=== PATIENT | male | born 1965 | race Caucasian/White ===

== ENCOUNTER 2019-10-31 10:59 | Inpatient (IN) | payer MEDICAID ==
[~2019-10-31] VITALS: Ht 175.3 cm; Wt 91.6 kg
--- NOTE | 2019-10-31 11:00 | NUR ---
RECIEVED PATIENT FROM TRIAGE REFERED TO THE ER FROM HIS DR'S OFFICE. PATIENT AAOX4 SKIN W/D TO TOUCH, SKIN AND EYES ICTERIC, PT W/ PRESENT HX OF ETOH ABUSE, LAST DRINK WAS LAST NIGHT. DENIES BLOOD IN STOOL, LAST BM LAST NIGHT. HAS HAND TREMORS. NAD. PENDING EKG, AND MD BERNARD.
--- NOTE | 2019-10-31 11:02 | NUR ---
Patient ambulated to bed 4. RN evaluating patient at bedside.
--- NOTE | 2019-10-31 11:03 | NUR ---
EKG completed at bedside by EMT.
[2019-10-31 11:07] VITALS: BP 157/100
--- NOTE | 2019-10-31 11:15 | NUR ---
EKG COMPLETED, CONTROLLED AFIB @ 106 BPM.
--- NOTE | 2019-10-31 11:41 | NUR ---
Dr. Fletcher is evaluating the patient at bedside.
--- NOTE | 2019-10-31 11:48 | NUR ---
C/O GENERALIZED WEAKNESS AND TREMORS; ADMITS TO BINGE DRINKING >3 WKS PT UNAWARE OF JAUNDICE APPEARING, REF FROM OUTSIDE CLINIC FOR ABNORMAL ECG S/P F/U FOR SEIZURE OCCURENCE DENIES CP, NO SOB , DENIES AUDITORY/VISUAL HALLUCINATIONS AT THIS TIME
[2019-10-31] MEDS ORDERED: LORazepam 2 MG/ML VIAL IVP ONE (11:50)
[2019-10-31] MEDS ORDERED: NACL 0.9% 1,000 ML IV ONE (11:50)
[2019-10-31 12:29] LABS: BASOPHILS # (AUTO) 0.1 K/uL (0.00-0.22); BASOPHILS % (AUTO) 1.8 % (0.0-2.0); EOSINOPHILS # (AUTO) 0.2 K/uL (0-0.4); EOSINOPHILS % (AUTO) 4.3 % (0.0-4.0); HEMATOCRIT 33.8 % (36-52); HEMOGLOBIN 10.6 g/dL (12.0-18.0); LYMPHOCYTES # (AUTO) 0.8 K/uL (2.0-11.5); LYMPHOCYTES % (AUTO) 16.7 % (20.5-51.1); MEAN CORPUSCULAR HEMOGLOBIN 25 pg (27-31); MEAN CORPUSCULAR HGB CONC 31 g/dL (33-37); MEAN CORPUSCULAR VOLUME 79.3 fL (80-94); MONOCYTES # (AUTO) 0.6 K/uL (0.8-1.0); MONOCYTES % (AUTO) 11.9 % (1.7-9.3); NEUTROPHILS # (AUTO) 3.1 K/uL (1.8-7.7); NEUTROPHILS % (AUTO) 65.3 % (42.2-75.2); PLATELET COUNT (AUTO) 162 K/uL (140-450); RED BLOOD CELL COUNT(AUTO) 4.27 MIL/uL (4.20-6.10); RED CELL DISTRIBUTION WIDTH 21.7 % (11.6-13.7); WHITE BLOOD COUNT (AUTO) 4.8 K/uL (4.8-10.8)
[2019-10-31 12:35] LABS: ANION GAP 17.9 (8-16); CARBON DIOXIDE 25.5 mmol/L (21-32); CREATININE 0.7 mg/dL (0.7-1.3); POTASSIUM 3.4 mmol/L (3.5-5.1)
[2019-10-31 12:42] LABS: PROTHROMBIN TIME 9.9 secs (10.8-13.4)
[2019-10-31 12:43] LABS: ALBUMIN 3.7 g/dL (3.4-5.0); TOTAL BILIRUBIN 1.2 mg/dL (0.0-1.0)
[2019-10-31] MEDS ORDERED: LORazepam 2 MG/ML VIAL IVP PRN (13:40)
[2019-10-31] MEDS ORDERED: HYDROcodone/APAP 5/325 MG 1 TAB TAB PO PRN (13:45)
[2019-10-31] MEDS ORDERED: ZOLPIDEM 5 MG TAB PO PRN (13:45)
[2019-10-31] MEDS ORDERED: DOCUSATE SODIUM 100 MG GELCAP PO PRN (13:45)
[2019-10-31] MEDS ORDERED: ONDANSETRON 4 MG/2 ML VIAL IM/IVP PRN (13:45)
[2019-10-31] MEDS ORDERED: ACETAMINOPHEN 325 MG TAB PO PRN (13:45)
[2019-10-31] MEDS ORDERED: MORPHINE SULFATE 2 MG/ML SYR IVP PRN (13:45)
[2019-10-31] MEDS ORDERED: LORazepam 2 MG/ML VIAL IM/IVP PRN ×2 (13:45→19:10)
[2019-10-31] MEDS ORDERED: KCL 20 MEQ/WATER INJ PREMIX 100 ML IV SCH ×2 (14:00→21:00)
--- NOTE | 2019-10-31 14:00 | NUR ---
S/P ATIVAN ADMIN, PT W/ IMPROVED TREMORS. STABLE AT PRESENT NAD NOTED, PT IS TALKATIVE. SEEN BY ADMITTING RESIDENT MD. PT ADMITTED PENDING ROOM DISPO.
--- NOTE | 2019-10-31 14:00 | NUR ---
KCL NOT GIVEN AT THIS TIME AND WILL RESCHEDULE LATER TONIGHT PATIENT NEEDS TO GET BANNANA BAG FIRST DUE TO DX:ETOH WITHDRAWAL. WILL CONTINUE TO MONITOR.
[2019-10-31 14:20] VITALS: BP 147/86
[2019-10-31] MEDS ORDERED: MULTIVITAMIN-12 10 ML, THIAMINE 100 MG, MAGNESIUM SULFATE 50% 2,000 MG, FOLIC ACID 1 MG... IV SCH ×5 (14:30)
--- NOTE | 2019-10-31 14:41 | NUR ---
Patient will be admitted to care of DR. ARITA. Admited FROM ED TO [facility] FLOOR ROOM 112B. BEDSIDE REPORT GIVEN TO JOSESITO SMILEY.Belongings list completed- A SHIRT, JACKET, SHOES, PHONE AND WALLET- REVIEWED W/ KAT SMILEY.PT IN BED AAOX4, TALKATIVE W/ NURSING STAFF. NAD NOTED.
[2019-10-31] MEDS ORDERED: KEP500 PO (15:20)
[2019-10-31] MEDS: NACL 0.9% 1,000 ML IV SCH ×2 (15:38→21:59)
--- NOTE | 2019-10-31 15:38 | NUR ---
PATIENT AMBULATED TO BATHROOM AND BACK TO BED WITH STEADY GAIT. SCHEDULED MEDICATIONS DUE GIVEN. WILL CONTINUE TO MONITOR.
[2019-10-31 16:35] LABS: CHOL/HDL RATIO 2.1 (1-4.5); MAGNESIUM 1.3 mg/dL (1.8-2.4); PHOSPHORUS 3.4 mg/dL (2.5-4.9); THYROID STIMULATING HORMONE 3.46 uIU/mL (0.34-3.74)
[2019-10-31 16:45] LABS: BARBITURATE, URINE NEG. ng/ml (NEG <=200); BENZODIAZEPINE, URINE NEG. ng/mL (NEG <=200); CANNABINOID, URINE NEG. ng/mL (NEG <=50); COCAINE, URINE NEG. ng/mL (NEG <=300); OPIATE, URINE NEG. ng/mL (NEG <=2000); PHENCYCLIDINE SCREEN,URINE NEG. ng/mL (NEG <=25)
[2019-10-31] MEDS: chlordiazePOXIDE 25 MG CAP PO SCH (17:32)
[2019-10-31 18:43] LABS: APPEARANCE,URINE CLEAR (CLEAR); BILIRUBIN,URINE NEGATIVE (NEGATIVE); BLOOD, URINE NEGATIVE (NEGATIVE); COLOR,URINE YELLOW (YELLOW); LEUKOCYTE ESTERASE ,URINE NEGATIVE (NEGATIVE); NITRITE, URINE NEGATIVE (NEGATIVE); PH,URINE 6.5 (5.0-9.0); UGLUCOSE NEGATIVE (NEGATIVE)
[2019-10-31 18:53] LABS: RBC,URINE 0 /HPF (0-5); WBC,URINE 0-5 /HPF (0-5)
[2019-10-31 18:54] LABS: HYALINE CASTS, URINE 0-10 /LPF (None Seen)
[2019-10-31] MEDS ORDERED: MAG SULF 2000 MG/WATER PREMIX 50 ML IV ONE (19:10)
--- NOTE | 2019-10-31 19:19 | NUR ---
ENDORSED BED SIDE REPORT TO INSURANCE CLAIMS REPRESENTATIVE NURSE. PATIENT IN STABLE CONDITION.
--- NOTE | 2019-10-31 19:20 | NUR ---
RECEIVED BEDSIDE REPORT FROM DAY SHIFT NURSE, KAT. PT NO SOB NOTED IN ROOM AIR. DENIES PAIN AT THIS TIME. IV SITE ON LH, 20G, PATENT, INTACT AND ASYMPTOMATIC. SKIN INTACT, WARM AND DRY TO TOUCH. POC REVIEWED, PT VERBALIZED UNDERSTANDING. BOARD UPDATED, ALL SAFETY MEASUREMENT ARE MET. BED IN LOW POSITION, CALL LIGHT WITHIN REACH.
[2019-10-31] MEDS: LACTULOSE 20 GM/30 ML UDC PO SCH (19:48)
--- NOTE | 2019-10-31 19:55 | NUR ---
GIVEN CEPHULAC AND MAG MD ORDERED. PT TOLERATED WELL.
[2019-10-31 20:00] VITALS: BP 132/96
[2019-10-31] MEDS: levETIRAcetam 500 MG TAB PO SCH (21:07)
--- NOTE | 2019-10-31 21:13 | NUR ---
GIVEN HEPARIN AND KEPPRA MD ORDERED. PT TOLERATED WELL.
--- NOTE | 2019-10-31 21:58 | NUR ---
GIVEN POTASSIUM MD ORDERED. PT TOLERATED WELL. WILL CONTINUE TO MONITOR.
--- NOTE | 2019-10-31 23:06 | NUR ---
PT C/O ABD PAIN 01/09. GIVEN TYLENOL MD ORDERED. PT TOLERATED WELL.
--- NOTE | 2019-10-31 23:40 | NUR ---
PT VOMITED. GIVEN ZOFRAN MD ORDERED. PT STATED FEEL BETTER.
[2019-11-01] VITALS: BP 126/85
--- NOTE | 2019-11-01 | NUR ---
MADE ROUNDS , NO SIGNS OF DISTRESS NOTED AT THIS TIME . CALL LIGHT WITHIN REACH.
--- NOTE | 2019-11-01 00:05 | NUR ---
VS CHECKED, WITHIN PT'S BASELINE. WILL CONTINUE TO MONITOR.
--- NOTE | 2019-11-01 01:42 | NUR ---
PT HAD 5X DIARRHEA. REPORTED RESIDENT DR. VAZ C.DIFF ORDER RECEIVED D/T LACTULOSE GIVEN. TOLD RN TO KEEP LACTULOSE IN THE ORDER BUT HOLD IT D/T DIARRHEA. WILL CONTINUE TO MONITOR.
--- NOTE | 2019-11-01 03:55 | NUR ---
VS CHECKED, WITHIN PT'S BASELINE. WILL CONTINUE TO MONITOR.
[2019-11-01 04:00] VITALS: BP 132/93
--- NOTE | 2019-11-01 05:21 | NUR ---
OBTAINED PT'S SIGNATURE FOR MEDICAL RECORD AUTHORIZATION OF [facility] AND [facility].
[2019-11-01] MEDS: PANTOPRAZOLE 40 MG TABEC PO SCH (06:36)
--- NOTE | 2019-11-01 06:36 | NUR ---
GIVEN PROTONIX MD ORDERED. PT TOLERATED WELL. PT IN STABLE CONDITION.
--- NOTE | 2019-11-01 07:15 | NUR ---
RECEIVED PT FROM PRINTER SLOTTER HELPER NURSE, MARTA, PT IS AWAKE AND LYING ON THE BED WITH SIDE RAILS UP AND CALL LIGHT WITHIN REACH, IV LINE ON THE LEFT HAND G. 20 WITH NS INFUSING AT 60ML/HR, AOX4, ON ROOM AIR, DENIES PAIN AND NO SIGN OF DISTRESS NOTED. WILL CONTINUE TO MONITOR PT.
[2019-11-01 08:00] VITALS: BP 116/85
[2019-11-01 08:05] LABS: BASOPHILS # (AUTO) 0.1 K/uL (0.00-0.22); BASOPHILS % (AUTO) 1.1 % (0.0-2.0); EOSINOPHILS # (AUTO) 0.2 K/uL (0-0.4); EOSINOPHILS % (AUTO) 2.9 % (0.0-4.0); HEMATOCRIT 32.3 % (36-52); HEMOGLOBIN 10.3 g/dL (12.0-18.0); LYMPHOCYTES # (AUTO) 0.8 K/uL (2.0-11.5); LYMPHOCYTES % (AUTO) 15.1 % (20.5-51.1); MEAN CORPUSCULAR HEMOGLOBIN 26 pg (27-31); MEAN CORPUSCULAR HGB CONC 32 g/dL (33-37); MEAN CORPUSCULAR VOLUME 80.2 fL (80-94); MONOCYTES # (AUTO) 0.7 K/uL (0.8-1.0); MONOCYTES % (AUTO) 12.5 % (1.7-9.3); NEUTROPHILS # (AUTO) 3.7 K/uL (1.8-7.7); NEUTROPHILS % (AUTO) 68.4 % (42.2-75.2); PLATELET COUNT (AUTO) 138 K/uL (140-450); RED BLOOD CELL COUNT(AUTO) 4.03 MIL/uL (4.20-6.10); RED CELL DISTRIBUTION WIDTH 22.1 % (11.6-13.7); WHITE BLOOD COUNT (AUTO) 5.3 K/uL (4.8-10.8)
[2019-11-01 08:12] LABS: ANION GAP 16.5 (8-16); CARBON DIOXIDE 25.3 mmol/L (21-32); CREATININE 0.9 mg/dL (0.7-1.3); POTASSIUM 3.8 mmol/L (3.5-5.1)
[2019-11-01] MEDS: LACTULOSE 20 GM/30 ML UDC PO SCH (09:00)
[2019-11-01] MEDS ORDERED: METOPROLOL SUCCINATE 50 MG TABER PO SCH (09:00)
[2019-11-01 09:04] LABS: PHOSPHORUS 3.4 mg/dL (2.5-4.9)
--- NOTE | 2019-11-01 09:07 | NUR ---
PATIENT HAS BEEN SCREENED AND CATEGORIZED MODERATE NUTRITION RISK. PATIENT WILL BE SEEN WITHIN 3-5 DAYS OF ADMISSION. 11/03/19 11/05/[address]
[2019-11-01] MEDS: FOLIC ACID 1 MG TAB PO SCH (10:20)
[2019-11-01] MEDS: MULTIVITAMIN 1 TAB PO SCH (10:21)
[2019-11-01] MEDS: levETIRAcetam 500 MG TAB PO SCH ×2 (10:21→20:53)
[2019-11-01] MEDS: THIAMINE 100 MG TAB PO SCH (10:21)
[2019-11-01] MEDS: chlordiazePOXIDE 25 MG CAP PO SCH ×3 (10:22→17:00)
[2019-11-01] MEDS: ATORVASTATIN 20 MG TAB PO SCH (10:22)
--- NOTE | 2019-11-01 10:26 | NUR ---
GIVEN MORNING MEDICATIONS. EXPLAINED TO PATIENT THE INDICATIONS AND SIDE EFFECTS. VERBALIZED UNDERSTANDING. PATIENT TOLERATED WELL. NO SIGNS OF DISTRESS NOTED AT THIS TIME. WILL CONTINUE TO MONITOR.
[2019-11-01 12:00] VITALS: BP 110/69
--- NOTE | 2019-11-01 13:37 | NUR ---
PT IS AWAKE AND LYING ON THE BED, LIBRIUM WAS GIVEN AND TOLERATED IT.
[2019-11-01 15:25] LABS: FOLIC ACID 9.8 ng/mL (>3.0)
[2019-11-01 16:00] VITALS: BP 117/72
--- NOTE | 2019-11-01 16:00 | NUR ---
PATIENT IS AMBULATING IN THE HALLWAY. PATIENT VERBALIZED DOING 10 LAPS. PATIENT VERBALIZED NO PAIN, NO CHEST PAIN. NO DISTRESS NOTED.
--- NOTE | 2019-11-01 17:01 | NUR ---
PATIENT IS AWAKE AT THIS TIME, WATCHING TV. GIVEN LIBRIUM PO. EXPLAINED PURPOSE AND SIDE EFFECTS. VERBALIZED UNDERSTANDING. NO SIGNS OF DISTRESS NOTED. BED IN LOW POSITION. CALL LIGHT WITHIN REACH. WILL CONTINUE TO MONITOR.
--- NOTE | 2019-11-01 17:11 | NUR ---
PATIENT IS EATING SALAD CONTAINING NICHOLSON AND EGGS AT THIS TIME FROM HOME. DR. RODRIGUEZ AND DR. MESSINA WERE INFORMED. DR. RODRIGUEZ AND MAYURI STATED IT'S FINE.
--- NOTE | 2019-11-01 18:50 | NUR ---
PATIENT IS WATCHING TV AT THIS TIME. DENIES PAIN. FINISHED ALL HIS DINNER. WILL ENDORSED TO MINE SUPERINTENDENT NURSE FOR CONTINUITY CARE.
--- NOTE | 2019-11-01 19:22 | NUR ---
RECIEVED PT AAOX4 , NID , AMBULATORY , DENIES ANY PAIN , HAD 3 EPISODE OF WATERY LBM - ON LACTULOSE - FOR STOOL COLLECTION - RTEMINDS PT AND SPECIMEN BOT. PROVIDED , IV SITE INTACT AND PATENT . PLAM OF CARE DISCUSSED AND VERBALIZE UNDERSTANDING . CALL LIGHT WITHIN REACH . ON SAFETY PRECAUTION PROTOCOL - ON S2 PREC. WILL CONT. TO MONITOR.
[2019-11-01 20:00] VITALS: BP 110/70
--- NOTE | 2019-11-01 20:49 | NUR ---
INFORMED LARRY IF DUE HEPARIN SODIUM SHOULD BE GIVEN IF THE LATEST PLT COUNT IS 138 - LARRY SAID GIVE IT.
[2019-11-02] VITALS: BP 130/78
[2019-11-02] MEDS: NACL 0.9% 1,000 ML IV SCH (00:05)
--- NOTE | 2019-11-02 02:00 | NUR ---
SLEEPING - ON PIPE FITTER SUPERVISOR MAINTENANCE.CALL LIGHT WITHIN REACH
[2019-11-02 04:00] VITALS: BP 134/70
--- NOTE | 2019-11-02 04:00 | NUR ---
MADE ROUNDS , NO COMPLAIN MADE AT THIS TIME . NO SIGNS OF DISTRESS NOTED AT THIS TIME , WILL CONT. TO MONITOR.
[2019-11-02 06:15] LABS: ANION GAP 15.1 (8-16); CARBON DIOXIDE 23.6 mmol/L (21-32); CREATININE 0.7 mg/dL (0.7-1.3); POTASSIUM 3.7 mmol/L (3.5-5.1)
[2019-11-02 06:21] LABS: BASOPHILS # (AUTO) 0.1 K/uL (0.00-0.22); BASOPHILS % (AUTO) 1.2 % (0.0-2.0); EOSINOPHILS # (AUTO) 0.4 K/uL (0-0.4); EOSINOPHILS % (AUTO) 10.4 % (0.0-4.0); HEMATOCRIT 29.4 % (36-52); HEMOGLOBIN 9.2 g/dL (12.0-18.0); LYMPHOCYTES % (AUTO) 23.9 % (20.5-51.1); MEAN CORPUSCULAR HEMOGLOBIN 26 pg (27-31); MEAN CORPUSCULAR HGB CONC 31 g/dL (33-37); MEAN CORPUSCULAR VOLUME 81.1 fL (80-94); MONOCYTES # (AUTO) 0.5 K/uL (0.8-1.0); MONOCYTES % (AUTO) 11.9 % (1.7-9.3); NEUTROPHILS # (AUTO) 2.3 K/uL (1.8-7.7); NEUTROPHILS % (AUTO) 52.6 % (42.2-75.2); PLATELET COUNT (AUTO) 123 K/uL (140-450); RED BLOOD CELL COUNT(AUTO) 3.62 MIL/uL (4.20-6.10); RED CELL DISTRIBUTION WIDTH 21.7 % (11.6-13.7); WHITE BLOOD COUNT (AUTO) 4.3 K/uL (4.8-10.8)
[2019-11-02 06:23] LABS: MAGNESIUM 1.6 mg/dL (1.8-2.4); PHOSPHORUS 3.4 mg/dL (2.5-4.9)
[2019-11-02] MEDS: PANTOPRAZOLE 40 MG TABEC PO SCH (06:34)
[2019-11-02] MEDS ORDERED: MAG SULF 2000 MG/WATER PREMIX 50 ML IV SCH (07:00)
--- NOTE | 2019-11-02 07:25 | NUR ---
RECEIVED PT FROM SUSTAINABLE COMMUNITIES DESIGNER NURSE. PT IS AWAKE AND ALERT, NO S/S OF DISTRESS, NO SOB, NO C/O PAIN. PT IS ON ROOM AIR, SKIN IS INTACT. IV SITE L HAND 22 G, INFUSING NS 60 ML/HR, AND MAG RIDER 25 ML/HR. PT IS AMBULATORY. CALL LIGHT IS WITHIN REACH. WILL CONTINUE TO MONITOR.
[2019-11-02 08:00] VITALS: BP 128/90
[2019-11-02] MEDS ORDERED: FERROUS SULFATE 325 MG TABEC PO SCH (08:00)
[2019-11-02] MEDS ORDERED: LORA-476 PO ×2 (08:55→10:59)
[2019-11-02] MEDS ORDERED: ASCORBIC ACID 500 MG TAB PO SCH (09:00)
[2019-11-02] MEDS: THIAMINE 100 MG TAB PO SCH (10:46)
[2019-11-02] MEDS: FOLIC ACID 1 MG TAB PO SCH (10:46)
[2019-11-02] MEDS: levETIRAcetam 500 MG TAB PO SCH (10:46)
[2019-11-02] MEDS: LACTULOSE 20 GM/30 ML UDC PO SCH (10:46)
[2019-11-02] MEDS: MULTIVITAMIN 1 TAB PO SCH (10:49)
[2019-11-02] MEDS: chlordiazePOXIDE 25 MG CAP PO SCH (10:49)
[2019-11-02] MEDS: ATORVASTATIN 20 MG TAB PO SCH (10:49)
--- NOTE | 2019-11-02 10:56 | NUR ---
DC [age] YR OLD MALE PT WAS ADMITTED FROM HOME WITH A DX OF ALCOHOL WITHDRAWAL . PT HAS A HX OF ALCOHOLISM AND SEIZURE ON KEPPRA PO FOR SZ. STARTED ON ETOH WITHDRAWAL PROTOCOL , SZ AND FALL PRECAUTIONS . MG RIDER GIVEN FOR MG LEVEL 1.6 . DC PLAN TO GO HOME WHEN STABLE TO DISCHARGE. CM TO FOLLOW.
[2019-11-02] MEDS ORDERED: MAGNESIUM OXIDE 400 MG TAB PO SCH (11:00)
--- NOTE | 2019-11-02 11:40 | NUR ---
PT HAS DC'D. PT WAS GIVEN DC INSTRUCTIONS, TO WHICH HE VERBALIZED UNDERSTANDING. IV SITE AND WRIST BAND REMOVED. PT LEFT WITH ALL HIS BELONGINGS IN STABLE CONDITION, PICKED UP BY HIS MOTHER.
== END 2019-11-02 11:35 | disposition home or self-care (01) | DRG 280 ==
LOC: MED 10:59 → MTU 13:38
PROVIDERS: ADMIT General Practice; ATTEND General Practice
DX: K70.9 Alcoholic liver disease, unspecified (principal); K70.10 Alcoholic hepatitis without ascites; R56.9 Unspecified convulsions; I42.8 Other cardiomyopathies; K72.90 Hepatic failure, unspecified without coma; E83.42 Hypomagnesemia; F10.239 Alcohol dependence with withdrawal, unspecified; Y90.1 Blood alcohol level of 20-39 mg/100 ml; K21.9 Gastro-esophageal reflux disease without esophagitis; K42.9 Umbilical hernia without obstruction or gangrene; D50.9 Iron deficiency anemia, unspecified; E87.6 Hypokalemia; E78.5 Hyperlipidemia, unspecified; I10 Essential (primary) hypertension; R00.0 Tachycardia, unspecified; Z56.0 Unemployment, unspecified
CPT/HCPCS: 36415; 71045; 80048; 80053; 80305; 81001; 82140; 82272; 82607; 82728; 82746; 83036; 83540; 83690; 83735; 83880; 84100; 84134; 84443; 84484; 85025; 85045; 85610; 85730; 87081; 93005; 96361; 96374; 99285; A9153; G0482; J1644; J2060; J2405; J3411; J3475; J3480; J3490; J7030; Q0092

== ENCOUNTER 2019-11-05 06:27 | Emergency (ER) | payer BC, MEDICAID ==
[~2019-11-05] VITALS: Ht 175.3 cm; Wt 92.1 kg
[2019-11-05 06:27] VITALS: BP 153/104
[~2019-11-05 06:27] MED LIST: KEP500 PO; LORA-476 PO
--- NOTE | 2019-11-05 06:39 | NUR ---
PT TAKEN TO ER BED 08
--- NOTE | 2019-11-05 06:45 | NUR ---
PT ARRIVED TO ED C/O RASH X YESTERDAY. DENIES ANY PAIN. RASH PRESENT ON UPPER AND LOWER EXTREM. DENIES ANY ITCHNESS. SKIN COLOR WARM TO TOUCH. NO RESP DISTRESS NOTED. PT IS UNAWARE TO WHY HE DEVELOPED A RASH. VSS. AIRWAY PATENT AND CLEAR NKA. PMH: LEXY.
--- NOTE | 2019-11-05 06:45 | NUR ---
Note undone in EDM - 11/05/19 at 0703 by [facility] PT ARRIVED TO ED C/O RASH X YESTERDAY. DENIES ANY PIAN. RASH PRESENT ON UPPER AND LOWER EXTREM. DENIES ANY ITCHNESS. SKIN COLOR WARM TO TOUCH. NO RESP DISTRESS NOTED. PT IS UNAWARE TO WHY HE DEVELOPED A RASH. VSS. AIRWAY PATENT AND CLEAR NKA. PMH: LEXY.
--- NOTE | 2019-11-05 07:24 | NUR ---
GAVE REPORT TO BALJIT NAQVI. TRANSFER OF CARE AT THIS TIME.
[2019-11-05 08:10] VITALS: BP 132/82
--- NOTE | 2019-11-05 08:14 | NUR ---
Patient discharged with v/s stable. Written and verbal after care instructions given and explained. Patient alert, oriented and verbalized understanding of instructions. Ambulatory with steady gait. All questions addressed prior to discharge. ID band removed. Patient advised to follow up with PMD. Rx of PREDNISONE/BENADRYL given. Patient educated on indication of medication including possible reaction and side effects. Opportunity to ask questions provided and answered.
== END 2019-11-05 08:14 | disposition home or self-care (01) ==
LOC: MED 06:27
DX: R21 Rash and other nonspecific skin eruption (principal); Z79.899 Other long term (current) drug therapy; K21.9 Gastro-esophageal reflux disease without esophagitis
CPT/HCPCS: 99283

== ENCOUNTER 2019-11-25 04:07 | Emergency (ER) | payer BC, MEDICAID ==
[~2019-11-25] VITALS: Ht 177.8 cm; Wt 92.1 kg
[2019-11-25 04:15] VITALS: BP 133/64
--- NOTE | 2019-11-25 04:15 | NUR ---
54 Y/O MALE BIB SELF C/O RASHES ALL OVER THE BODY 2 HOURS AGO, NO SOB. PINK RAISED RASHES NOTED ALL THROUGHOUT BILATERAL ARMS, LEG, AND TRUNK. NO PAIN AT THIS TIME. DENIES N/V/D/FEVER/CHILLS. PATIENT STATES, " I'M ITCHY ALL OVER; AND IT CARSON" . ERMD MADE AWARE OF STATUS. SIDE RAILSX1. PLACED ON MONITOR. WILL CONTINUE TO MONITOR. PMH: GERD; SEIZURE X1 ( 2019) RX: DENIES NKDA
--- NOTE | 2019-11-25 04:15 | NUR ---
TO BED # 03 AMBULATORY
[2019-11-25] MEDS ORDERED: methylPREDNISolone SS 125 MG in WATER STERILE 2 ML IM ONE (04:45)
[2019-11-25] MEDS ORDERED: diphenhydrAMINE 50 MG/ML VIAL IM ONE (04:45)
[2019-11-25] MEDS ORDERED: methylPREDNISolone SS 125 MG/2 ML VIAL ONE (04:46)
[2019-11-25] MEDS ORDERED: WATER STERILE 10 ML MC ONE (04:46)
[2019-11-25 05:21] VITALS: BP 133/64
--- NOTE | 2019-11-25 05:22 | NUR ---
PATIENT DC BY DR. CERVANTES. GIVEN DC INSTRUCTIONS BY DR CERVANTES. PATIENT AMB TO LOBBY WITH STEADY GAIT.
== END 2019-11-25 05:21 | disposition home or self-care (01) ==
LOC: MED 04:07
DX: L50.9 Urticaria, unspecified (principal); K21.9 Gastro-esophageal reflux disease without esophagitis; Z86.69 Personal history of other diseases of the nervous system and sense organs; Z98.890 Other specified postprocedural states; Z79.899 Other long term (current) drug therapy
CPT/HCPCS: 96372; 99283; J1200; J2930

== ENCOUNTER 2019-11-27 05:18 | Emergency (ER) | payer MEDICAID ==
[~2019-11-27] VITALS: Ht 175.3 cm; Wt 95.3 kg
[2019-11-27 05:25] VITALS: BP 151/89
--- NOTE | 2019-11-27 05:25 | NUR ---
PT WALKED TO ROOM 8. RECIVED REPORT FROM GLADYS SMILEY.
--- NOTE | 2019-11-27 05:27 | NUR ---
AT BEDSIDE. PT BIB SELF FOR C/O RASH ON BOTH UE, LE, AND STOMACH. RASH IS RED, RAISED, AND ROUND SPOTS ON SKIN. PT RESPIRATIONS ARE EVEN AND UNLABORED. NO SOB. AFEBRILE. PT HAS 0/10 C/O PAIN. "I WAS HERE A FEW DAYS AGO BUT WASN'T ABLE TO GET MY MEDS." DR MARTINEZ GAVE ORDERS FOR BENADRYL IM AND SOLU-MEDROL IM. PT RESTING IN BED LOOKING AT PHONE. BED IN LOWEST POSITION AND LOCKED IN PLACE. ALLERGIES: NONE
[2019-11-27] MEDS ORDERED: diphenhydrAMINE 50 MG/ML VIAL IM ONE (05:30)
[2019-11-27] MEDS ORDERED: methylPREDNISolone SS 125 MG/2 ML VIAL IM ONE (05:30)
[2019-11-27 06:07] VITALS: BP 151/89
--- NOTE | 2019-11-27 06:08 | NUR ---
Patient discharged with v/s stable. Written and verbal after care instructions given and explained. Patient alert, oriented and verbalized understanding of instructions. Ambulatory with steady gait. All questions addressed prior to discharge. ID band removed. Patient advised to follow up with PMD. Rx of BENEDRYL, PREDNISONE given. Patient educated on indication of medication including possible reaction and side effects. Opportunity to ask questions provided and answered.
== END 2019-11-27 06:08 | disposition home or self-care (01) ==
LOC: MED 05:18
DX: L25.9 Unspecified contact dermatitis, unspecified cause (principal); R03.0 Elevated blood-pressure reading, without diagnosis of hypertension; K21.9 Gastro-esophageal reflux disease without esophagitis; Z79.899 Other long term (current) drug therapy
CPT/HCPCS: 96372; 99283; J1200; J2930

== ENCOUNTER 2019-12-16 22:30 | Emergency (ER) | payer MEDICAID ==
[~2019-12-16] VITALS: Ht 175.3 cm; Wt 99.8 kg
[2019-12-16 22:39] VITALS: BP 153/76
--- NOTE | 2019-12-16 22:39 | NUR ---
PT AMBULATED TO BE #3
--- NOTE | 2019-12-16 22:40 | NUR ---
54 Y/O MALE C/O CHEST TIGHTNESS X 0200 IN AM TODAY. DENIES ANY PAIN BUT SAYS HE HAS CHEST TIGHTNESS THAT GOES INTO HIS CHIN. HEART SOUND S1S2 PRESENT. EKG SHOWED TACHYCARDIA. LUNG SOUNDS CLEAR ALL THROUGHOUT. VSS. A & O X4. STEADY GAIT. NO SOB. NO N,V,D. NKA. PMH: SZ, UMBILICAL HERNIA, ALCOHLIC.
[2019-12-16] MEDS ORDERED: MORPHINE SULFATE 4 MG/ML SYR IVP ONE (23:10)
--- NOTE | 2019-12-16 23:15 | NUR ---
BLOOD DRAWN AND GIVEN TO LAB
[2019-12-16 23:43] LABS: BASOPHILS # (AUTO) 0.1 K/uL (0.00-0.22); BASOPHILS % (AUTO) 1.6 % (0.0-2.0); EOSINOPHILS # (AUTO) 0.3 K/uL (0-0.4); EOSINOPHILS % (AUTO) 4.6 % (0.0-4.0); HEMATOCRIT 33.3 % (36-52); HEMOGLOBIN 10.5 g/dL (12.0-18.0); LYMPHOCYTES # (AUTO) 1.4 K/uL (2.0-11.5); LYMPHOCYTES % (AUTO) 21.2 % (20.5-51.1); MEAN CORPUSCULAR HEMOGLOBIN 26 pg (27-31); MEAN CORPUSCULAR HGB CONC 32 g/dL (33-37); MEAN CORPUSCULAR VOLUME 81.1 fL (80-94); MONOCYTES # (AUTO) 0.7 K/uL (0.8-1.0); MONOCYTES % (AUTO) 10.1 % (1.7-9.3); NEUTROPHILS # (AUTO) 4.2 K/uL (1.8-7.7); NEUTROPHILS % (AUTO) 62.5 % (42.2-75.2); PLATELET COUNT (AUTO) 255 K/uL (140-450); RED CELL DISTRIBUTION WIDTH 20.2 % (11.6-13.7); WHITE BLOOD COUNT (AUTO) 6.7 K/uL (4.8-10.8)
[2019-12-16 23:51] LABS: ALBUMIN 3.6 g/dL (3.4-5.0); ANION GAP 16.8 (8-16); CREATININE 0.9 mg/dL (0.7-1.3); POTASSIUM 3.8 mmol/L (3.5-5.1); TOTAL BILIRUBIN 0.8 mg/dL (0.0-1.0)
[2019-12-17 00:03] LABS: PROTHROMBIN TIME 9.9 secs (10.8-13.4)
--- NOTE | 2019-12-17 00:19 | NUR ---
CONSENT FOR CT SIGNED. RAD MADE AWARE.
--- NOTE | 2019-12-17 00:22 | NUR ---
PT TAKEN TO CT VIA WHEELCHAIR
[2019-12-17 01:50] VITALS: BP 127/93
--- NOTE | 2019-12-17 01:50 | NUR ---
Patient discharged with v/s stable. Written and verbal after care instructions given and explained. Patient verbalized understanding. Ambulatory with steady gait. All questions addressed prior to discharge. Advised to follow up with PMD.
== END 2019-12-17 01:50 | disposition home or self-care (01) ==
LOC: MED 22:30
DX: R07.89 Other chest pain (principal); K21.9 Gastro-esophageal reflux disease without esophagitis; Z79.899 Other long term (current) drug therapy
CPT/HCPCS: 36415; 71045; 71275; 80053; 83880; 84484; 85025; 85610; 85730; 93005; 96374; 99284; J2270; Q0092; Q9967

== ENCOUNTER 2019-12-20 08:58 | Emergency (ER) | payer BC, MEDICAID ==
[~2019-12-20] VITALS: Ht 175.3 cm; Wt 95.3 kg
[2019-12-20 09:18] VITALS: BP 131/74
--- NOTE | 2019-12-20 09:18 | NUR ---
PATIENT PRESENTS TO ED WITH C/O ITCHNESS ALL OVER THE BODY X2 DAYS, REDNESS NOTED, HX OF SEIZURE. DENIES PAIN, VSS; PATIENT POSITIONED FOR COMFORT; HOB ELEVATED; BEDRAILS UP X2; BED DOWN. ER MD MADE AWARE OF PT STATUS.
--- NOTE | 2019-12-20 10:11 | NUR ---
Patient being evaluated by DR. LAMBERT at bedside.
[2019-12-20 11:18] LABS: ALBUMIN 3.3 g/dL (3.4-5.0); BILIRUBIN,DIRECT 0.2 mg/dL (0.0-0.3)
[2019-12-20 11:34] VITALS: BP 131/74
--- NOTE | 2019-12-20 11:34 | NUR ---
Patient discharged TO HOME, Written and verbal after care instructions given and explained. Rx of CLARITIN given. Patient educated on indication of medication including possible reaction and side effects. All questions addressed prior to discharge. ID band removed. Patient advised to follow up with PMD.
== END 2019-12-20 11:34 | disposition home or self-care (01) ==
LOC: MED 08:58
DX: L29.9 Pruritus, unspecified (principal); K21.9 Gastro-esophageal reflux disease without esophagitis; R03.0 Elevated blood-pressure reading, without diagnosis of hypertension; Z79.899 Other long term (current) drug therapy
CPT/HCPCS: 36415; 80076; 99283

== ENCOUNTER 2020-04-10 05:32 | Emergency (ER) | payer MEDICAID, OTHER ==
[~2020-04-10] VITALS: Ht 170.2 cm; Wt 98.9 kg
[2020-04-10 05:39] VITALS: BP 141/98
--- NOTE | 2020-04-10 05:48 | NUR ---
BIBA TO BED 11
--- NOTE | 2020-04-10 05:50 | NUR ---
55 YEAR OLD MALE COMPLAINS OF NONRADIATING 5/10 CHEST PAIN X 3 HOURS. PATIENT ALSO COMPLAINS OF NAUSEA, VOMITTING, AND DIZZINESS FOR MONTHS. BOWEL SOUNDS POSITIVE ALL QUADRANTS, DISTENDED, NONTENDER, SOFT. PATIENT DENIES SOB, LUNGS CLEAR BILATERAL. PATIENT AOX4, BREATHING EVEN AND UNLABORED, SKIN WARM AND DRY. BED IN LOWEST POSITION, LOCKED, BED RAIL UPX1. ERMD AT BEDSIDE. PT PLACED ON MONITOR, VS STABLE. PMH - ALCOHOLISM, HYPERLIPIDEMIA, HTN, SEIZURES, HERNIA ALLERGIES - NKA
--- NOTE | 2020-04-10 05:51 | NUR ---
Dr. Christian examining patient.
[2020-04-10] MEDS ORDERED: NACL 0.9% 1,000 ML IV SCH (05:56)
[2020-04-10] MEDS ORDERED: ONDANSETRON 4 MG/2 ML VIAL IVP ONE (06:00)
[2020-04-10] MEDS ORDERED: ASPIRIN 325 MG TAB PO ONE (06:00)
[2020-04-10] MEDS ORDERED: NITROGLYCERIN 0.4 MG TAB SL ONE (06:00)
[2020-04-10] MEDS ORDERED: LORazepam 2 MG/ML VIAL IVP ONE (06:00)
[2020-04-10] MEDS ORDERED: MORPHINE SULFATE 4 MG/ML SYR IVP ONE (06:00)
[2020-04-10] MEDS ORDERED: FAMOTIDINE 20 MG/2 ML VIAL IVP ONE (06:00)
--- NOTE | 2020-04-10 06:12 | NUR ---
X-Ray at bedside.
[2020-04-10 06:18] LABS: BILIRUBIN,URINE 2+ (NEGATIVE); BLOOD, URINE NEGATIVE (NEGATIVE); HEMOGLOBIN 11.3 g/dL (12.0-18.0); LEUKOCYTE ESTERASE ,URINE NEGATIVE (NEGATIVE); NITRITE, URINE NEGATIVE (NEGATIVE); PH,URINE 6.5 (5.0-9.0); UGLUCOSE NEGATIVE (NEGATIVE); WHITE BLOOD COUNT (AUTO) 7.6 K/uL (4.8-10.8)
[2020-04-10 06:27] LABS: EOSINOPHILS # (AUTO) 0.3 K/uL (0-0.4); EOSINOPHILS % (AUTO) 4.1 % (0.0-4.0); HEMATOCRIT 35.6 % (36-52); LYMPHOCYTES # (AUTO) 0.6 K/uL (2.0-11.5); LYMPHOCYTES % (AUTO) 8.1 % (20.5-51.1); MEAN CORPUSCULAR HEMOGLOBIN 26 pg (27-31); MEAN CORPUSCULAR HGB CONC 32 g/dL (33-37); MEAN CORPUSCULAR VOLUME 80.7 fL (80-94); MONOCYTES # (AUTO) 2.2 K/uL (0.8-1.0); MONOCYTES % (AUTO) 28.4 % (1.7-9.3); NEUTROPHILS # (AUTO) 4.5 K/uL (1.8-7.7); NEUTROPHILS % (AUTO) 59.4 % (42.2-75.2); PLATELET COUNT (AUTO) 265 K/uL (140-450); RED BLOOD CELL COUNT(AUTO) 4.41 MIL/uL (4.20-6.10); RED CELL DISTRIBUTION WIDTH 19.9 % (11.6-13.7)
--- NOTE | 2020-04-10 06:28 | NUR ---
PT STATES HE NO LONGER HAS CHEST PAIN/DISCOMFORT, ERMD MADE AWARE
[2020-04-10 06:33] LABS: CANNABINOID, URINE POSITIVE ng/mL (NEG <=50)
[2020-04-10 06:34] LABS: BARBITURATE, URINE NEGATIVE ng/ml (NEG <=200); BENZODIAZEPINE, URINE NEGATIVE ng/mL (NEG <=200); COCAINE, URINE NEGATIVE ng/mL (NEG <=300); OPIATE, URINE NEGATIVE ng/mL (NEG <=2000); PHENCYCLIDINE SCREEN,URINE NEGATIVE ng/mL (NEG <=25)
--- NOTE | 2020-04-10 06:36 | NUR ---
X-Ray at bedside.
[2020-04-10 06:43] LABS: ALBUMIN 3.5 g/dL (3.4-5.0); ANION GAP 17.6 (8-16); POTASSIUM 3.6 mmol/L (3.5-5.1); TOTAL BILIRUBIN 1.4 mg/dL (0.0-1.0)
[2020-04-10 06:56] LABS: AMYLASE 23 U/L (25-115); LIPASE 81 U/L (73-393)
--- NOTE | 2020-04-10 07:04 | NUR ---
REPORT GIVEN TO FAITH SMILEY, TRANSFER OF CARE AT THIS TIME
--- NOTE | 2020-04-10 07:05 | NUR ---
REPORT OBTAINED FROM MARISELA SMILEY
--- NOTE | 2020-04-10 07:05 | NUR ---
PT RESTING IN BED, SIDE RAIL X1
[2020-04-10 07:14] LABS: MAGNESIUM 0.9 mg/dL (1.8-2.4)
[2020-04-10 07:19] LABS: APPEARANCE,URINE SLIGHTLY HAZY (CLEAR); COLOR,URINE AMBER (YELLOW)
[2020-04-10 07:20] LABS: RBC,URINE NONE SEEN /HPF (0-5); WBC,URINE 0-5 /HPF (0-5)
[2020-04-10] MEDS ORDERED: MAG SULF 20 GM/H2O PREMIX DRIP 500 ML IV SCH (08:00)
[2020-04-10] MEDS ORDERED: MAG SULF IV SCH (08:05)
[2020-04-10] MEDS ORDERED: MAG SULF 2000 MG/WATER PREMIX 50 ML IV ONE (08:05)
[2020-04-10] MEDS ORDERED: [UNRECOGNIZED DRUG - OTHER] IV SCH (08:05)
[2020-04-10 09:16] VITALS: BP 125/72
--- NOTE | 2020-04-13 09:04 | NUR ---
LATE ENTRY- MAGNESIUM IVPB DISCTONIUED AT 0916.
== END 2020-04-10 09:16 | disposition home or self-care (01) ==
LOC: MED 05:32
DX: R07.2 Precordial pain (principal); R11.2 Nausea with vomiting, unspecified; R00.0 Tachycardia, unspecified; I10 Essential (primary) hypertension; K42.9 Umbilical hernia without obstruction or gangrene; K21.9 Gastro-esophageal reflux disease without esophagitis; F10.10 Alcohol abuse, uncomplicated; Z79.899 Other long term (current) drug therapy
CPT/HCPCS: 36415; 71045; 80053; 80305; 81001; 82150; 83690; 83735; 83880; 84484; 85025; 85610; 85730; 93005; 96361; 96365; 96375; 99285; G0482; J2060; J2270; J2405; J3475; J3490; J7030; Q0092

== ENCOUNTER 2020-05-15 02:08 | Emergency (ER) | payer OTHER ==
[~2020-05-15] VITALS: Ht 170.2 cm; Wt 81.6 kg
[2020-05-15 02:46] VITALS: BP 122/81
--- NOTE | 2020-05-15 03:01 | NUR ---
PT AMBULATED TO BED 12 WITH STEADY GAIT.
[2020-05-15] MEDS ORDERED: ONDANSETRON 4 MG/2 ML VIAL IVP ONE (03:25)
[2020-05-15] MEDS ORDERED: MULTIVITAMIN-12 10 ML, THIAMINE 100 MG, MAGNESIUM SULFATE 50% 2,000 MG, FOLIC ACID 1 MG... IV SCH ×5 (03:25)
[2020-05-15] MEDS ORDERED: PANTOPRAZOLE 40 MG INJ VIAL IVP ONE (03:40)
[2020-05-15 03:41] LABS: BASOPHILS # (AUTO) 0.1 K/uL (0.00-0.22); BASOPHILS % (AUTO) 1.2 % (0.0-2.0); EOSINOPHILS # (AUTO) 0.1 K/uL (0-0.4); EOSINOPHILS % (AUTO) 1.6 % (0.0-4.0); HEMATOCRIT 35.5 % (36-52); HEMOGLOBIN 11.3 g/dL (12.0-18.0); LYMPHOCYTES % (AUTO) 17.6 % (20.5-51.1); MEAN CORPUSCULAR HEMOGLOBIN 27 pg (27-31); MEAN CORPUSCULAR HGB CONC 32 g/dL (33-37); MONOCYTES # (AUTO) 0.7 K/uL (0.8-1.0); MONOCYTES % (AUTO) 11.8 % (1.7-9.3); NEUTROPHILS # (AUTO) 3.9 K/uL (1.8-7.7); NEUTROPHILS % (AUTO) 67.8 % (42.2-75.2); PLATELET COUNT (AUTO) 222 K/uL (140-450); RED BLOOD CELL COUNT(AUTO) 4.28 MIL/uL (4.20-6.10); RED CELL DISTRIBUTION WIDTH 18.5 % (11.6-13.7); WHITE BLOOD COUNT (AUTO) 5.8 K/uL (4.8-10.8)
[2020-05-15] MEDS ORDERED: MULTIVITAMIN-12 10 ML VIAL IV ONE (03:54)
[2020-05-15 03:56] LABS: ALBUMIN 3.4 g/dL (3.4-5.0); ANION GAP 22.9 (8-16); CARBON DIOXIDE 22.1 mmol/L (21-32); CREATININE 0.9 mg/dL (0.6-1.3); TOTAL BILIRUBIN 1.8 mg/dL (0.0-1.0)
[2020-05-15] MEDS ORDERED: THIAMINE 200 MG/2 ML VIAL ONE (03:56)
[2020-05-15] MEDS ORDERED: MAG SULF 2000 MG/WATER PREMIX 50 ML IV ONE (03:57)
[2020-05-15] MEDS ORDERED: FOLIC ACID 5 MG/ML SYR ONE (03:58)
[2020-05-15] MEDS ORDERED: POTASSIUM CHLORIDE 10 MEQ TABER PO ONE (04:00)
[2020-05-15 05:37] VITALS: BP 135/84
--- NOTE | 2020-05-15 05:40 | NUR ---
DUE MEDS WERE GIVEN. PT FOR D/C PER DR VAN.Patient discharged with v/s stable. Written and verbal after care instructions given and explained. Patient alert, oriented and verbalized understanding of instructions. Ambulatory with steady gait. All questions addressed prior to discharge. ID band removed. Patient advised to follow up with PMD. Rx of PROTONIX given. Patient educated on indication of medication including possible reaction and side effects. Opportunity to ask questions provided and answered. Pt d/c.
--- NOTE | 2020-05-18 07:54 | NUR ---
LATE ENTRY- BANANA BAG DISCONTINUED AT 0540.
== END 2020-05-15 05:40 | disposition home or self-care (01) ==
LOC: MED 02:08
DX: K21.9 Gastro-esophageal reflux disease without esophagitis (principal); R11.2 Nausea with vomiting, unspecified; Z79.899 Other long term (current) drug therapy; Z98.890 Other specified postprocedural states
CPT/HCPCS: 36415; 80053; 82140; 83690; 85025; 96365; 96375; 99284; A9153; C9113; J2405; J3411; J3475; J3490

== ENCOUNTER 2020-05-19 04:54 | Emergency (ER) | payer OTHER ==
[~2020-05-19] VITALS: Ht 177.8 cm; Wt 95.3 kg
[2020-05-19 05:06] VITALS: BP 121/80
--- NOTE | 2020-05-19 05:06 | NUR ---
PT AMBULATED TO BED #11 W/ STEADY GAIT
--- NOTE | 2020-05-19 05:10 | NUR ---
55 Y/O MALE PRESENTED TO ED C/O ABD PAIN. PT STATES THE ABD PAIN , 7/10 INTERMITTENT POKING SENSATION, IS FROM THE 2 HERNIAS HE HAS HAD FOR " MONTHS." PT STATES HE IS A RECOVERING ALCOHOLIC AND 5 DAYS AGO HE RELAPSED AND DRANK A PINT OF VODKA. THE PT STATES SINCE HE RELAPSED HE HAS A DECREASED APPETITE AND VOMITING SALIVA. THE PT STATES THAT THE CONSTANT VOMITTING OF SALIVA HAS CAUSED HIS HERNIAS TO HURT. PT DENIES D/F/BODY ACHES . PT DENIES BEING AROUND ANYONE SICK. PT STATES HE JUST DOESN'T FEEL GOOD. PT DENIES DRUG USE. PT BREATHING EVEN AND UNLABORED. PT A/O X4 AND ABLE TO FOLLOW ALL COMMANDS. PT SITTING IN BED , LOCKED AND IN LOWEST, HOB ELEVATED, SIDE RAIL X1. PT PROVIDED EMESIS BAG. PMH: GERD RX: VIT D , ATROVASTATIN , ODESTERONE NKA
--- NOTE | 2020-05-19 05:50 | NUR ---
DR. LOCO AT BEDSIDE FOR PT EDUCATION ON WEARING AN ABD BINDER.
[2020-05-19 06:05] VITALS: BP 121/80
== END 2020-05-19 06:05 | disposition home or self-care (01) ==
LOC: MED 04:54
DX: K43.9 Ventral hernia without obstruction or gangrene (principal); G89.29 Other chronic pain; R10.9 Unspecified abdominal pain; K21.9 Gastro-esophageal reflux disease without esophagitis; Z79.899 Other long term (current) drug therapy
CPT/HCPCS: 99281

== ENCOUNTER 2020-05-27 16:47 | Emergency (ER) | payer OTHER ==
[~2020-05-27] VITALS: Ht 175.3 cm; Wt 96.2 kg
[~2020-05-27 16:47] MED LIST changes: +ATOR20TA PO; -KEP500 PO; -LORA-476 PO; +ONDA4TAB PO
[2020-05-27 17:18] VITALS: BP 121/78
--- NOTE | 2020-05-27 17:28 | NUR ---
PT AMBULATE TO BED C.WITH STEADY GAIT.
--- NOTE | 2020-05-27 17:30 | NUR ---
PATIENT DISCHARGE FROM [facility] FOR RIGHT ABDOMINAL SURGERY TODAY. C/O ABDOMINAL SURGICAL WOUND BLEEDING 1 HOUR AGO . PT AWAKE , ALERT, AMBULATORY ., ROUND SOFT ABDOMEN WITH ABDOMINAL STITCHES IN UMBILICAL AREA . MED HX: ABDOMOINAL SURGERY
--- NOTE | 2020-05-27 17:41 | NUR ---
WILLIE BASS AT BEDSIDE EVALUATING PT.
[2020-05-27 17:59] VITALS: BP 121/78
== END 2020-05-27 17:58 | disposition home or self-care (01) ==
LOC: MED 16:47
DX: T81.30XD Disruption of wound, unspecified, subsequent encounter (principal); K91.840 Postprocedural hemorrhage of a digestive system organ or structure following a digestive system procedure; K21.9 Gastro-esophageal reflux disease without esophagitis; F12.90 Cannabis use, unspecified, uncomplicated; Z98.890 Other specified postprocedural states; Z79.899 Other long term (current) drug therapy; X58.XXXD Exposure to other specified factors, subsequent encounter
CPT/HCPCS: 99281

== ENCOUNTER 2020-05-30 04:48 | Emergency (ER) | payer OTHER ==
[~2020-05-30] VITALS: Ht 177.8 cm; Wt 101.2 kg
[2020-05-30 04:55] VITALS: BP 117/87
--- NOTE | 2020-05-30 05:05 | NUR ---
PT TO BED 6, ASSUME CARE TO MARISELA SMILEY.
--- NOTE | 2020-05-30 05:09 | NUR ---
55 YEAR OLD MALE COMPLAINS OF RASH THAT STARTED YESTERDAY. RASH PRESENT THROUGHOUT BODY. PT STATES RASH IS SLIGHTLY ITCHY. PT STATES HE HAS NO PAIN. PT DENIES ANY CHANGE IN DIET OR ACTIVITY. PT DENIES SOB, CP, OR ANY OTHER COMPLAINTS. PT AOX4, BREATHING EVEN AND UNLABORED, SKIN WARM AND DRY. BED IN LOWEST POSITION, LOCKED, BED RAIL UPX1. PMH - ABDOMINAL HERNIA ALLERGIES - NKA
--- NOTE | 2020-05-30 05:11 | NUR ---
ERMD AT BEDSIDE
[2020-05-30] MEDS ORDERED: WATER STERILE 10 ML MC ONE (05:20)
[2020-05-30] MEDS ORDERED: FAMOTIDINE 20 MG TAB PO ONE (05:20)
[2020-05-30] MEDS ORDERED: methylPREDNISolone SS 125 MG in WATER STERILE 2 ML IM ONE (05:20)
[2020-05-30] MEDS ORDERED: diphenhydrAMINE 50 MG/ML VIAL IM ONE (05:20)
[2020-05-30] MEDS ORDERED: methylPREDNISolone SS 125 MG/2 ML VIAL ONE (05:20)
--- NOTE | 2020-05-30 05:30 | NUR ---
EMT AT BEDSIDE REPLACING ABDOMINAL DRESSING FOR PT HERNIA
--- NOTE | 2020-05-30 05:32 | NUR ---
REMOVED BANDAGES OVER STOMACH WOUND, RE-WRAPPED WITH ABDOMINAL PAD AND TAPE.
--- NOTE | 2020-05-30 06:00 | NUR ---
Patient discharged with v/s stable. Written and verbal after care instructions given and explained. Patient verbalized understanding. Ambulatory with steady gait. All questions addressed prior to discharge. Advised to follow up with PMD. Prescription of benadryl, prednisone, pepcid was given. Pt d/c.
--- NOTE | 2020-05-30 06:00 | NUR ---
no reaction noted on the meds given. pt stated he feels better and wanted to go home.
[2020-05-30 06:05] VITALS: BP 133/81
== END 2020-05-30 06:00 | disposition home or self-care (01) ==
LOC: MED 04:48
DX: L50.9 Urticaria, unspecified (principal); T40.2X5A Adverse effect of other opioids, initial encounter; K21.9 Gastro-esophageal reflux disease without esophagitis; Z79.899 Other long term (current) drug therapy; Z98.890 Other specified postprocedural states; Y92.89 Other specified places as the place of occurrence of the external cause
CPT/HCPCS: 96372; 99284; J1200; J2930

== ENCOUNTER 2020-06-01 09:57 | Emergency (ER) | payer OTHER ==
[~2020-06-01] VITALS: Ht 172.7 cm; Wt 100.7 kg
[2020-06-01 10:00] VITALS: BP 135/93
--- NOTE | 2020-06-01 10:02 | NUR ---
PT AMBULATED TO LOBBY
--- NOTE | 2020-06-01 11:15 | NUR ---
PATIENT LEFT WITHOUT BEING SEEN BY DR. MILLS. NO FURTHER CARE PROVIDED FOR PATIENT.
== END 2020-06-01 11:15 | disposition left against medical advice (07) ==
LOC: MED 09:57
DX: R21 Rash and other nonspecific skin eruption (principal); Z53.21 Procedure and treatment not carried out due to patient leaving prior to being seen by health care provider

== ENCOUNTER 2020-07-13 07:08 | Emergency (ER) | payer OTHER ==
[~2020-07-13] VITALS: Ht 175.3 cm; Wt 88.5 kg
[2020-07-13 07:10] VITALS: BP 146/115
--- NOTE | 2020-07-13 07:37 | NUR ---
PT C/O ABDOMINAL HERNIA AND BLOATING. ONE UMBILICAL HERNIA WAS REPAIRED BY DR. HERNANDEZ ON 05/31/2020. DENIES ANY PAIN AT THIS TIME, BUT PT STATES HE IS WORRIED ABOUT HIS HERNIA AND HE MIGHT . DENIES N/V/D. PT AOX4 , AFIBRILE , AMBULATORY WITH STEADY GAIT .ROUND SOFT ABDOMEN . PMH: ETOH MEDS: DENIES
--- NOTE | 2020-07-13 07:59 | NUR ---
DR MILLS AT BEDSIDE EVALUATING PT.
--- NOTE | 2020-07-13 08:07 | NUR ---
Received report from BALJIT Avelar. Transfer of care at this time
--- NOTE | 2020-07-13 08:08 | NUR ---
gave report to alfredo car ,pt comfortable in bed with stable v/s. ,side rails up x1 and lock at lowest position.
[2020-07-13] MEDS ORDERED: DICYCLOMINE HCL LIQUID 20 MG, ALUMINUM HYD/MAG/SIMETHICONE 30 ML, LIDOCAINE VISCOUS 2% ... PO ONE ×3 (08:10)
[2020-07-13] MEDS ORDERED: ONDANSETRON 4 MG ODT PO ONE (08:10)
[2020-07-13] MEDS ORDERED: LIDOCAINE VISCOUS 2% 20 ML UDC ONE (08:13)
[2020-07-13] MEDS ORDERED: ALUMINUM HYD/MAG/SIMETHICONE 30 ML UDC ONE (08:13)
[2020-07-13] MEDS ORDERED: DICYCLOMINE HCL LIQUID 10 MG/5 ML UDC ONE (08:13)
--- NOTE | 2020-07-13 08:56 | NUR ---
Awake and alert. Denies abd discomfort at this time. VSS. Will continue to monitor
[2020-07-13 09:17] VITALS: BP 131/98
--- NOTE | 2020-07-13 09:18 | NUR ---
Patient discharged with v/s stable. Written and verbal after care instructions given and explained. Patient alert, oriented and verbalized understanding of instructions. Ambulatory with steady gait. All questions addressed prior to discharge. ID band removed. Patient advised to follow up with PMD. Rx of Pepcid 20mg, Melatonin 10mg and Zofran 4mg given. Patient educated on indication of medication including possible reaction and side effects. Opportunity to ask questions provided and answered.
== END 2020-07-13 09:18 | disposition home or self-care (01) ==
LOC: MED 07:08
DX: F41.9 Anxiety disorder, unspecified (principal); R10.9 Unspecified abdominal pain; K21.9 Gastro-esophageal reflux disease without esophagitis; Z79.899 Other long term (current) drug therapy
CPT/HCPCS: 99283; Q0162

== ENCOUNTER 2020-08-27 11:09 | Emergency (ER) | payer OTHER, SELFPAY ==
[~2020-08-27] VITALS: Ht 175.3 cm; Wt 100.2 kg
[2020-08-27 11:15] VITALS: BP 145/97
--- NOTE | 2020-08-27 11:24 | NUR ---
patient ambulated to bed 4.
--- NOTE | 2020-08-27 11:28 | NUR ---
55 yo male c/o dizziness x this morning. covid tested negative 08/16/20. stop drinking 1.5 week. med hx:alcoholism, umbilical hernia repair
[2020-08-27 12:12] LABS: BASOPHILS # (AUTO) 0.2 K/uL (0.00-0.22); BASOPHILS % (AUTO) 1.4 % (0.0-2.0); EOSINOPHILS # (AUTO) 0.2 K/uL (0-0.4); EOSINOPHILS % (AUTO) 1.2 % (0.0-4.0); HEMATOCRIT 36.1 % (36-52); HEMOGLOBIN 11.3 g/dL (12.0-18.0); LYMPHOCYTES # (AUTO) 1.3 K/uL (2.0-11.5); LYMPHOCYTES % (AUTO) 9.8 % (20.5-51.1); MEAN CORPUSCULAR HEMOGLOBIN 27 pg (27-31); MEAN CORPUSCULAR HGB CONC 31 g/dL (33-37); MEAN CORPUSCULAR VOLUME 87.8 fL (80-94); NEUTROPHILS # (AUTO) 10.2 K/uL (1.8-7.7); NEUTROPHILS % (AUTO) 79.6 % (42.2-75.2); PLATELET COUNT (AUTO) 532 K/uL (140-450); RED BLOOD CELL COUNT(AUTO) 4.11 MIL/uL (4.20-6.10); RED CELL DISTRIBUTION WIDTH 22.6 % (11.6-13.7); WHITE BLOOD COUNT (AUTO) 12.8 K/uL (4.8-10.8)
[2020-08-27 12:27] LABS: ANION GAP 14.4 (8-16); CARBON DIOXIDE 28.7 mmol/L (21-32); CHLORIDE 98 mmol/L (98-107); CREATININE 0.9 mg/dL (0.6-1.3); GFR ARICAN-AMERICAN 112 mL/min (>90); GLUCOSE 105 mg/dL (74-106); POTASSIUM 4.1 mmol/L (3.5-5.1); SODIUM SERUM 137 mmol/L (136-145); UREA NITROGEN, BLOOD 4 mg/dL (7-18)
--- NOTE | 2020-08-27 12:28 | NUR ---
urine collected and in dirty utility
[2020-08-27 12:33] LABS: ASPARTATE AMINOTRANSFERASE 239 U/L (15-37); TOTAL BILIRUBIN 2.6 mg/dL (0.0-1.0)
[2020-08-27] MEDS: NACL 0.9% 1,000 ML IV ONE (12:55)
[2020-08-27 13:53] LABS: APPEARANCE,URINE CLOUDY (CLEAR); BILIRUBIN,URINE 3+ (NEGATIVE); BLOOD, URINE NEGATIVE (NEGATIVE); COLOR,URINE DARK YELLOW (YELLOW); LEUKOCYTE ESTERASE ,URINE NEGATIVE (NEGATIVE); NITRITE, URINE POSITIVE (NEGATIVE); PH,URINE 8.5 (5.0-9.0); UGLUCOSE NEGATIVE (NEGATIVE)
[2020-08-27 14:00] LABS: RBC,URINE 0-5 /HPF (0-5)
--- NOTE | 2020-08-27 14:01 | NUR ---
IV discontinued, 2x2 gauze placed to IV site
[2020-08-27 14:04] VITALS: BP 144/89
== END 2020-08-27 14:05 | disposition home or self-care (01) ==
LOC: MED 11:09
DX: E86.0 Dehydration (principal); R42 Dizziness and giddiness; R74.0 Nonspecific elevation of levels of transaminase and lactic acid dehydrogenase [LDH]; F10.20 Alcohol dependence, uncomplicated; K21.9 Gastro-esophageal reflux disease without esophagitis
CPT/HCPCS: 36415; 71045; 80053; 81001; 84484; 85025; 87086; 93005; 96360; 99285; G0482; J7030; Q0092

== ENCOUNTER 2020-10-15 08:33 | Emergency (ER) | payer OTHER, SELFPAY ==
[~2020-10-15] VITALS: Ht 172.7 cm; Wt 94.3 kg
[2020-10-15 08:43] VITALS: BP 123/95
--- NOTE | 2020-10-15 10:00 | NUR ---
PATIENT AMBULATED TO BED 4.
--- NOTE | 2020-10-15 10:05 | NUR ---
Dr. Fletcher is evaluating the patient at bedside.
--- NOTE | 2020-10-15 10:19 | NUR ---
Dr. Fletcher is evaluating the patient at bedside.
--- NOTE | 2020-10-15 10:35 | NUR ---
Patient assessed and treated by Dr Bryant. Patient discharged with v/s stable. Written and verbal after care instructions about GERD given and explained. Patient alert, oriented and verbalized understanding of instructions. Ambulatory with steady gait. All questions addressed prior to discharge. ID band removed. Patient advised to follow up with PMD. Rx of omeprazole, zofran given. Patient educated on indication of medication including possible reaction and side effects. Opportunity to ask questions provided and answered.
[2020-10-15 10:41] VITALS: BP 123/95
== END 2020-10-15 10:35 | disposition home or self-care (01) ==
LOC: MED 08:33
DX: K21.9 Gastro-esophageal reflux disease without esophagitis (principal); K46.9 Unspecified abdominal hernia without obstruction or gangrene
CPT/HCPCS: 99283

== ENCOUNTER 2020-10-22 07:50 | Emergency (ER) | payer OTHER, SELFPAY ==
[~2020-10-22] VITALS: Ht 172.7 cm; Wt 97.1 kg
--- NOTE | 2020-10-22 07:54 | NUR ---
Patient ambulated to bed 7. RN evaluating patient at bedside.
[2020-10-22 07:59] VITALS: BP 128/75
--- NOTE | 2020-10-22 08:06 | NUR ---
55 y/o A&OX4 male c/o vomiting X2 today and abd pain 9/10 describes as sharp constant and worsened with coughing x3 days. Pt states he has been unable to eat or drink fluids. Pt states he feels dizzy and weak, shakiness of hands noted on assessment. Abdomen is large round distended, bowel sounds active X4, pt guarding tenderness on light palpation. Last BM 10/20/20, no constipation or pain with BM. PMH: HLD, GERD, hernia RX: atorvastatin, omeprazole, zofran NKA
[2020-10-22] MEDS ORDERED: NACL 0.9% 1,000 ML IV ONE (08:25)
[2020-10-22] MEDS ORDERED: ONDANSETRON 4 MG/2 ML VIAL IVP ONE (08:25)
[2020-10-22] MEDS ORDERED: diphenhydrAMINE 50 MG/ML VIAL IVP ONE (08:25)
[2020-10-22] MEDS ORDERED: CA C1TAB15 PO (08:28)
[2020-10-22] MEDS ORDERED: ATOR20TA40 PO (08:28)
[2020-10-22] MEDS ORDERED: OMEP40EC24 PO (08:28)
--- NOTE | 2020-10-22 08:44 | NUR ---
22G placed to left hand with good blood return
[2020-10-22 08:50] LABS: BASOPHILS # (AUTO) 0.1 K/uL (0.00-0.22); BASOPHILS % (AUTO) 0.7 % (0.0-2.0); EOSINOPHILS # (AUTO) 0.1 K/uL (0-0.4); EOSINOPHILS % (AUTO) 0.7 % (0.0-4.0); HEMATOCRIT 32.9 % (36-52); HEMOGLOBIN 10.6 g/dL (12.0-18.0); LYMPHOCYTES # (AUTO) 0.6 K/uL (2.0-11.5); LYMPHOCYTES % (AUTO) 6.9 % (20.5-51.1); MEAN CORPUSCULAR HEMOGLOBIN 30 pg (27-31); MEAN CORPUSCULAR HGB CONC 32 g/dL (33-37); MEAN CORPUSCULAR VOLUME 92.9 fL (80-94); MONOCYTES # (AUTO) 0.8 K/uL (0.8-1.0); MONOCYTES % (AUTO) 9.3 % (1.7-9.3); NEUTROPHILS # (AUTO) 7.2 K/uL (1.8-7.7); NEUTROPHILS % (AUTO) 82.4 % (42.2-75.2); PLATELET COUNT (AUTO) 183 K/uL (140-450); RED BLOOD CELL COUNT(AUTO) 3.54 MIL/uL (4.20-6.10); RED CELL DISTRIBUTION WIDTH 18.1 % (11.6-13.7); WHITE BLOOD COUNT (AUTO) 8.7 K/uL (4.8-10.8)
--- NOTE | 2020-10-22 08:55 | NUR ---
Patient taken to CT scan via gurney by [facility].
--- NOTE | 2020-10-22 09:05 | NUR ---
Pt returned from CT via gurney, NS bolus resumed
[2020-10-22 09:12] LABS: ALBUMIN 2.8 g/dL (3.4-5.0); ANION GAP 16.5 (8-16); CARBON DIOXIDE 28.9 mmol/L (21-32); CREATININE 0.9 mg/dL (0.6-1.3); POTASSIUM 3.4 mmol/L (3.5-5.1); TOTAL BILIRUBIN 1.8 mg/dL (0.0-1.0)
[2020-10-22] MEDS ORDERED: HALOPERIDOL IM 5 MG/ML VIAL IVP ONE (09:50)
--- NOTE | 2020-10-22 10:36 | NUR ---
Dr. Broussard is reevaluating the patient at bedside.
[2020-10-22 11:12] VITALS: BP 141/93
--- NOTE | 2020-10-22 11:12 | NUR ---
Patient discharged with v/s stable. Written and verbal after care instructions given and explained. Patient alert, oriented and verbalized understanding of instructions. Ambulatory with steady gait. All questions addressed prior to discharge. ID band removed. Patient advised to follow up with PMD. Rx of zofran 4mg ODT q8h PRN nausea given. Patient educated on indication of medication including possible reaction and side effects. Opportunity to ask questions provided and answered.
[2020-10-22 12:01] LABS: BILIRUBIN,URINE 2+ (NEGATIVE); BLOOD, URINE NEGATIVE (NEGATIVE); COLOR,URINE ORANGE (YELLOW); LEUKOCYTE ESTERASE ,URINE NEGATIVE (NEGATIVE); NITRITE, URINE POSITIVE (NEGATIVE); PH,URINE 6.5 (5.0-9.0); UGLUCOSE TRACE (NEGATIVE)
[2020-10-22 12:17] LABS: APPEARANCE,URINE CLEAR (CLEAR); RBC,URINE 0-5 /HPF (0-5); WBC,URINE 0-5 /HPF (0-5)
== END 2020-10-22 11:12 | disposition home or self-care (01) ==
LOC: MED 07:50
DX: K44.9 Diaphragmatic hernia without obstruction or gangrene (principal); R14.0 Abdominal distension (gaseous); R11.10 Vomiting, unspecified; K21.9 Gastro-esophageal reflux disease without esophagitis; Z98.890 Other specified postprocedural states; Z79.899 Other long term (current) drug therapy
CPT/HCPCS: 36415; 71045; 74176; 80053; 81001; 83690; 85025; 96361; 96374; 96375; 99285; J1200; J1630; J2405; J7030

== ENCOUNTER 2020-10-26 12:28 | Emergency (ER) | payer OTHER ==
[~2020-10-26] VITALS: Ht 172.7 cm; Wt 93.0 kg
[~2020-10-26 12:28] MED LIST changes: -ATOR20TA PO; +ATOR20TA40 PO; +CA C1TAB15 PO; +OMEP40EC24 PO; -ONDA4TAB PO
[2020-10-26 12:33] VITALS: BP 133/92
--- NOTE | 2020-10-26 12:40 | NUR ---
PATIENT PRESENTS TO ED WITH PERIUMBILICAL ABD PAIN X3 DAYS. PT STATES HE WAS RECENTLY DIAGNOSED WITH A HIATAL HERNIA AND WAS TOLD TO COME BACK WHEN PAIN WORSENS . PT STATES PAIN IS CONSTANT AND IS BECOMING SEVERE . DENIES N/V/D; SKIN IS PINK/WARM/DRY; AAOX4 WITH EVEN AND STEADY GAIT; LUNGS CLEAR BL; HR EVEN AND REGULAR; PT DENIES ANY FEVER, CP, SOB, OR COUGH AT THIS TIME; PATIENT STATES PAIN OF 5/10 AT THIS TIME; VSS; PATIENT POSITIONED FOR COMFORT; HOB ELEVATED; BEDRAILS UP X2; BED DOWN. ER MD MADE AWARE OF PT STATUS.
[2020-10-26] MEDS ORDERED: FAMOTIDINE 20 MG TAB PO ONE (13:10)
[2020-10-26] MEDS ORDERED: ALUMINUM HYD/MAG/SIMETHICONE 30 ML UDC PO ONE (13:10)
--- NOTE | 2020-10-26 13:15 | NUR ---
DR. SOLANO AT BEDSIDE EVALUATING PT
[2020-10-26 13:33] LABS: BASOPHILS # (AUTO) 0.1 K/uL (0.00-0.22); BASOPHILS % (AUTO) 0.8 % (0.0-2.0); EOSINOPHILS # (AUTO) 0.2 K/uL (0-0.4); EOSINOPHILS % (AUTO) 1.5 % (0.0-4.0); HEMOGLOBIN 10.4 g/dL (12.0-18.0); LYMPHOCYTES % (AUTO) 8.1 % (20.5-51.1); MEAN CORPUSCULAR HEMOGLOBIN 30 pg (27-31); MEAN CORPUSCULAR HGB CONC 32 g/dL (33-37); MEAN CORPUSCULAR VOLUME 92.1 fL (80-94); MONOCYTES # (AUTO) 1.5 K/uL (0.8-1.0); MONOCYTES % (AUTO) 12.6 % (1.7-9.3); PLATELET COUNT (AUTO) 237 K/uL (140-450); RED BLOOD CELL COUNT(AUTO) 3.47 MIL/uL (4.20-6.10); RED CELL DISTRIBUTION WIDTH 18.4 % (11.6-13.7); WHITE BLOOD COUNT (AUTO) 11.7 K/uL (4.8-10.8)
[2020-10-26 13:41] LABS: ANION GAP 15.9 (8-16); CARBON DIOXIDE 26.1 mmol/L (21-32); CREATININE 0.8 mg/dL (0.6-1.3)
[2020-10-26 13:49] LABS: ALBUMIN 2.7 g/dL (3.4-5.0); BILIRUBIN,DIRECT 1.4 mg/dL (0.0-0.3)
[2020-10-26 14:34] VITALS: BP 133/92
--- NOTE | 2020-10-26 14:34 | NUR ---
Patient discharged with v/s stable. Written and verbal after care instructions given and explained. Patient alert, oriented and verbalized understanding of instructions. Ambulatory with steady gait. All questions addressed prior to discharge. ID band removed. Patient advised to follow up with PMD. Rx of FAMOTIDINE given. Patient educated on indication of medication including possible reaction and side effects. Opportunity to ask questions provided and answered.
== END 2020-10-26 14:34 | disposition home or self-care (01) ==
LOC: MED 12:28
DX: R10.13 Epigastric pain (principal); K74.60 Unspecified cirrhosis of liver; K21.9 Gastro-esophageal reflux disease without esophagitis; R94.31 Abnormal electrocardiogram [ECG] [EKG]; Z79.899 Other long term (current) drug therapy
CPT/HCPCS: 36415; 80048; 80076; 81002; 83690; 85025; 93005; 99284

== ENCOUNTER 2020-10-31 12:04 | Emergency (ER) | payer OTHER ==
[~2020-10-31] VITALS: Ht 172.7 cm; Wt 102.5 kg
[2020-10-31 12:09] VITALS: BP 135/103
--- NOTE | 2020-10-31 12:17 | NUR ---
PT TAKEN TO BED 12.
--- NOTE | 2020-10-31 12:30 | NUR ---
55/M presents to ED with complaints of abdominal distention and pain x5 days. Patient states he has been seen here recently for abd pain and was told he had a fatty liver. Pt went to see his PCP Dr. Amor today and was advised to go to [facility] to get "tapped." [place] to [place] [facility] [place]. Patient c/o mild abd pain 02/06. Pt states he had a hernia repair by Dr. Hernanedz months ago. No complications noted. Pt denies N/V/D. Denies fever or chills. AOX4 and noted with mild SOB when speaking. Pt does c/o feeling sob intermittenly. No acute distress noted at this time. Pt appears comfortable, sitting in bed, VSS, waiting for ERMD.
[2020-10-31 13:19] VITALS: BP 125/94
== END 2020-10-31 13:19 | disposition home or self-care (01) ==
LOC: MED 12:04
DX: R14.0 Abdominal distension (gaseous) (principal); K21.9 Gastro-esophageal reflux disease without esophagitis; R16.0 Hepatomegaly, not elsewhere classified; Z00.00 Encounter for general adult medical examination without abnormal findings; Z79.899 Other long term (current) drug therapy
CPT/HCPCS: 99281; 99284

== ENCOUNTER 2020-11-10 09:14 | Emergency (ER) | payer OTHER ==
[~2020-11-10] VITALS: Ht 172.7 cm; Wt 103.4 kg
[2020-11-10 09:29] VITALS: BP 139/81
--- NOTE | 2020-11-10 09:31 | NUR ---
Pt c/o numbness to pelvis, penis, and lower abd x 4 days. Denies urinary/bowel incontinence medhx: seizure
--- NOTE | 2020-11-10 09:36 | NUR ---
Dr. Hernandez at pt bedside for evaluation.
[2020-11-10 09:48] VITALS: BP 139/81
--- NOTE | 2020-11-10 09:48 | NUR ---
Patient discharged with v/s stable. Written and verbal after care instructions given and explained. Patient alert, oriented and verbalized understanding of instructions. Ambulatory with steady gait. All questions addressed prior to discharge. ID band removed. Patient advised to follow up with PMD. Rx of motrin 800mg tab TID PO given. Patient educated on indication of medication including possible reaction and side effects. Opportunity to ask questions provided and answered.
== END 2020-11-10 09:48 | disposition home or self-care (01) ==
LOC: MED 09:14
DX: R20.0 Anesthesia of skin (principal); R14.0 Abdominal distension (gaseous); K21.9 Gastro-esophageal reflux disease without esophagitis; Z79.899 Other long term (current) drug therapy
CPT/HCPCS: 99282

== ENCOUNTER 2020-12-09 05:34 | Emergency (ER) | payer OTHER ==
[~2020-12-09] VITALS: Ht 175.3 cm; Wt 108.9 kg
[2020-12-09 05:44] VITALS: BP 123/68
--- NOTE | 2020-12-09 05:47 | NUR ---
TO LOBBY A/W BED, AMBULATORY
--- NOTE | 2020-12-09 05:50 | NUR ---
SEEN BY ERMD WITH ORDER.
[2020-12-09 07:23] LABS: BASOPHILS # (AUTO) 0.2 K/uL (0.00-0.22); EOSINOPHILS # (AUTO) 0.2 K/uL (0-0.4); EOSINOPHILS % (AUTO) 1.6 % (0.0-4.0); HEMATOCRIT 32.5 % (36-52); HEMOGLOBIN 10.2 g/dL (12.0-18.0); LYMPHOCYTES # (AUTO) 1.4 K/uL (2.0-11.5); LYMPHOCYTES % (AUTO) 9.2 % (20.5-51.1); MEAN CORPUSCULAR HEMOGLOBIN 28 pg (27-31); MEAN CORPUSCULAR HGB CONC 31 g/dL (33-37); MEAN CORPUSCULAR VOLUME 90.1 fL (80-94); MONOCYTES # (AUTO) 1.2 K/uL (0.8-1.0); MONOCYTES % (AUTO) 7.8 % (1.7-9.3); NEUTROPHILS # (AUTO) 12.6 K/uL (1.8-7.7); NEUTROPHILS % (AUTO) 80.4 % (42.2-75.2); PLATELET COUNT (AUTO) 304 K/uL (140-450); RED BLOOD CELL COUNT(AUTO) 3.61 MIL/uL (4.20-6.10); RED CELL DISTRIBUTION WIDTH 18.9 % (11.6-13.7); WHITE BLOOD COUNT (AUTO) 15.7 K/uL (4.8-10.8)
[2020-12-09 07:41] LABS: CARBON DIOXIDE 29.2 mmol/L (21-32); CREATININE 0.8 mg/dL (0.6-1.3); POTASSIUM 4.2 mmol/L (3.5-5.1)
[2020-12-09 07:52] LABS: ALBUMIN 2.9 g/dL (3.4-5.0); TOTAL BILIRUBIN 1.3 mg/dL (0.0-1.0)
--- NOTE | 2020-12-09 08:25 | NUR ---
ALL RESULTS BACK AND NOTED BY EMD AND FOR D/C
[2020-12-09 08:35] VITALS: BP 123/68
== END 2020-12-09 08:35 | disposition home or self-care (01) ==
LOC: MED 05:34
DX: R20.2 Paresthesia of skin (principal); F10.20 Alcohol dependence, uncomplicated; K21.9 Gastro-esophageal reflux disease without esophagitis; Z79.899 Other long term (current) drug therapy
CPT/HCPCS: 36415; 80053; 85025; 99283

== ENCOUNTER 2021-02-01 04:25 | Emergency (ER) | payer OTHER ==
[~2021-02-01] VITALS: Ht 175.3 cm; Wt 88.5 kg
[2021-02-01 04:58] VITALS: BP 152/76
[2021-02-01 05:14] LABS: BASOPHILS % (AUTO) 0.3 % (0.0-2.0); EOSINOPHILS % (AUTO) 0.7 % (0.0-4.0); HEMOGLOBIN 10.5 g/dL (12.0-18.0); LYMPHOCYTES # (AUTO) 0.6 K/uL (2.0-11.5); LYMPHOCYTES % (AUTO) 12.3 % (20.5-51.1); MEAN CORPUSCULAR HEMOGLOBIN 27 pg (27-31); MEAN CORPUSCULAR HGB CONC 32 g/dL (33-37); MONOCYTES # (AUTO) 0.5 K/uL (0.8-1.0); MONOCYTES % (AUTO) 11.3 % (1.7-9.3); NEUTROPHILS # (AUTO) 3.4 K/uL (1.8-7.7); NEUTROPHILS % (AUTO) 75.4 % (42.2-75.2); PLATELET COUNT (AUTO) 88 K/uL (140-450); RED BLOOD CELL COUNT(AUTO) 3.97 MIL/uL (4.20-6.10); RED CELL DISTRIBUTION WIDTH 18.5 % (11.6-13.7); WHITE BLOOD COUNT (AUTO) 4.6 K/uL (4.8-10.8)
[2021-02-01] MEDS: LORazepam 2 MG/ML VIAL IVP ONE (05:18)
[2021-02-01] MEDS: ONDANSETRON 4 MG/2 ML VIAL IVP ONE (05:19)
[2021-02-01] MEDS: LACTATED RINGERS 1,000 ML IV ONE ×2 (05:20→05:48)
--- NOTE | 2021-02-01 05:24 | NUR ---
PT AMBULATED TO BED 12.
[2021-02-01 05:30] LABS: ALBUMIN 3.6 g/dL (3.4-5.0); ANION GAP 23.3 (8-16); CARBON DIOXIDE 25.6 mmol/L (21-32); CREATININE 0.9 mg/dL (0.6-1.3); POTASSIUM 3.9 mmol/L (3.5-5.1); TOTAL BILIRUBIN 1.4 mg/dL (0.0-1.0)
--- NOTE | 2021-02-01 05:34 | NUR ---
PT COMING IN WITH C/O N/V X 1 DAY. PT IS A RECOVERING ALCOHOLIC AND SAID HIS NEIGHBOR FIXED FRUIT THAT HAD BEEN SOAKING IN ALCOHOL AND WITHOUT KNOWING THIS THE PT HAS BEEN EATING IT FOR THE PAST 5 DAYS. HE STARTED HAVING NAUSEA AND VOMITING THIS MORNING. UNABLE TO HOLD ANY FOOD OR FLUIDS DOWN. PT DENIES ANY PAIN. ABD LARGE AND NONTENDER, WITH ACTIVE BOWEL SOUNDS. PT PLACED IN GOWN, BED IN LOWEST POSITION AND SIDERAIL UP X 1. NKA NO HX
[2021-02-01] MEDS ORDERED: PHENobarbital 130 MG/ML VIAL ONE (05:59)
[2021-02-01] MEDS: PHENobarbital 65 MG/ML VIAL IM ONE (06:03)
[2021-02-01] MEDS ORDERED: ONDA-24 SL (06:29)
[2021-02-01 06:43] VITALS: BP 152/76
== END 2021-02-01 06:45 | disposition home or self-care (01) ==
LOC: MED 04:25
DX: R11.2 Nausea with vomiting, unspecified (principal); F10.129 Alcohol abuse with intoxication, unspecified; D64.9 Anemia, unspecified; D69.6 Thrombocytopenia, unspecified; R73.9 Hyperglycemia, unspecified; E80.7 Disorder of bilirubin metabolism, unspecified; R74.01 Elevation of levels of liver transaminase levels; K21.9 Gastro-esophageal reflux disease without esophagitis; Z79.899 Other long term (current) drug therapy
CPT/HCPCS: 36415; 80053; 83690; 85025; 96361; 96372; 96374; 96375; 99285; G0482; J2060; J2405; J2560; J7120

== ENCOUNTER 2021-02-02 08:42 | Emergency (ER) | payer OTHER ==
[~2021-02-02] VITALS: Ht 175.3 cm; Wt 93.4 kg
[~2021-02-02 08:42] MED LIST changes: +ONDA-24 SL
[2021-02-02 08:50] VITALS: BP 144/62
[2021-02-02 09:45] VITALS: BP 144/62
[2021-02-03] MEDS ORDERED: FINA5TAB5 PO (18:59)
[2021-02-03] MEDS ORDERED: TAMS0.4C96 PO (18:59)
== END 2021-02-02 09:45 | disposition home or self-care (01) ==
LOC: MED 08:42
DX: R14.0 Abdominal distension (gaseous) (principal); I10 Essential (primary) hypertension; F10.129 Alcohol abuse with intoxication, unspecified; Z79.899 Other long term (current) drug therapy
CPT/HCPCS: 99281; 99284

== ENCOUNTER 2021-02-03 16:09 | Emergency (ER) | payer OTHER ==
[~2021-02-03] VITALS: Ht 172.7 cm; Wt 71.7 kg
[2021-02-03 16:12] VITALS: BP 125/50
--- NOTE | 2021-02-03 16:20 | NUR ---
55 Y/O MALE BIB MOTHER C/O URINARY RETENTION. LAST TIME PT URINATED WAS YESTERDAY AT 0900. PT DENIES PAIN, STATES HE DRANK 7 CUPS OF H20 AND HAS NOT URINATED. PMH: UMBILICAL HERNIA NKA
--- NOTE | 2021-02-03 16:27 | NUR ---
WILLIE Barrios at pt bedside for further evaluation and bladder scan.
--- NOTE | 2021-02-03 16:47 | NUR ---
Inserted garcia catheter 16F per PA order, 100mL of urine output, draining freely, pt tolerated procedure well.
--- NOTE | 2021-02-03 17:28 | NUR ---
Dr. Da Silva at pt bedside for further evaluation.
--- NOTE | 2021-02-03 17:29 | NUR ---
UA collected from garcia via sterile technique. Walked to lab.
[2021-02-03 17:31] LABS: APPEARANCE,URINE CLEAR (CLEAR); BILIRUBIN,URINE 2+ (NEGATIVE); BLOOD, URINE 3+ (NEGATIVE); COLOR,URINE DARK YELLOW (YELLOW); LEUKOCYTE ESTERASE ,URINE NEGATIVE (NEGATIVE); NITRITE, URINE NEGATIVE (NEGATIVE); PH,URINE 8.5 (5.0-9.0); UGLUCOSE NEGATIVE (NEGATIVE)
[2021-02-03] MEDS ORDERED: NACL 0.9% 1,000 ML IV ONE (17:35)
[2021-02-03 17:42] LABS: RBC,URINE 50-80 /HPF (0-5); WBC,URINE 0-5 /HPF (0-5)
[2021-02-03 18:03] LABS: BASOPHILS % (AUTO) 0.3 % (0.0-2.0); EOSINOPHILS # (AUTO) 0.1 K/uL (0-0.4); EOSINOPHILS % (AUTO) 1.9 % (0.0-4.0); HEMATOCRIT 27.7 % (36-52); HEMOGLOBIN 8.9 g/dL (12.0-18.0); LYMPHOCYTES # (AUTO) 0.8 K/uL (2.0-11.5); MEAN CORPUSCULAR HEMOGLOBIN 27 pg (27-31); MEAN CORPUSCULAR HGB CONC 32 g/dL (33-37); MEAN CORPUSCULAR VOLUME 82.1 fL (80-94); MONOCYTES # (AUTO) 0.7 K/uL (0.8-1.0); MONOCYTES % (AUTO) 14.8 % (1.7-9.3); PLATELET COUNT (AUTO) 84 K/uL (140-450); RED BLOOD CELL COUNT(AUTO) 3.38 MIL/uL (4.20-6.10); RED CELL DISTRIBUTION WIDTH 18.8 % (11.6-13.7); WHITE BLOOD COUNT (AUTO) 4.6 K/uL (4.8-10.8)
[2021-02-03 18:23] LABS: ALBUMIN 3.1 g/dL (3.4-5.0); ANION GAP 14.9 (8-16); CARBON DIOXIDE 30.4 mmol/L (21-32); CREATININE 0.9 mg/dL (0.6-1.3); POTASSIUM 3.3 mmol/L (3.5-5.1)
[2021-02-03] MEDS ORDERED: TAMS0.4C96 PO (18:59)
[2021-02-03] MEDS ORDERED: FINA5TAB5 PO (18:59)
[2021-02-03 19:27] VITALS: BP 125/50
--- NOTE | 2021-02-03 19:27 | NUR ---
Patient discharged with v/s stable. Written and verbal after care instructions given and explained. Patient alert, oriented and verbalized understanding of instructions. Ambulatory with steady gait. All questions addressed prior to discharge. ID band removed. Patient advised to follow up with PMD. Rx of FINASTERIDE AND TAMSULOSIN given. Patient educated on indication of medication including possible reaction and side effects. Opportunity to ask questions provided and answered.
== END 2021-02-03 19:27 | disposition home or self-care (01) ==
LOC: MED 16:09
DX: R33.9 Retention of urine, unspecified (principal); K21.9 Gastro-esophageal reflux disease without esophagitis; Z79.899 Other long term (current) drug therapy
CPT/HCPCS: 36415; 51702; 80053; 81001; 83880; 85025; 96360; 99284; J7030

== ENCOUNTER 2021-02-06 12:44 | Emergency (ER) | payer OTHER ==
[~2021-02-06] VITALS: Ht 170.2 cm; Wt 92.5 kg
[~2021-02-06 12:44] MED LIST changes: +FINA5TAB5 PO; +TAMS0.4C96 PO
--- NOTE | 2021-02-06 12:53 | NUR ---
Pt ambulated to bed 6.
[2021-02-06 12:58] VITALS: BP 141/91
--- NOTE | 2021-02-06 13:04 | NUR ---
55 Y/O MALE C/O CARLOS KINK. PT STATES IT WAS PLACED ON THURSDAY FOR URINARY RETENTION, WAS TOLD TO FOLLOW-UP WITH UROLOGIST, PT STATES HE WAS TOLD TO CALL AFTER 2PM. PT REPORTS HE FEELS A "KINK" IN THE CARLOS TUBING WITH 8/10 PAIN DESCRIBES BURNING RADIATES TO LOWER BACK. DENIES FEVER/CHILLS, DENIES N/V. PMH: RECOVERING ALCOHOLIC, ASCITES NKA
[2021-02-06 15:24] VITALS: BP 141/91
== END 2021-02-06 15:24 | disposition home or self-care (01) ==
LOC: MED 12:44
DX: T83.091A Other mechanical complication of indwelling urethral catheter, initial encounter (principal); R30.9 Painful micturition, unspecified; K21.9 Gastro-esophageal reflux disease without esophagitis; Z79.899 Other long term (current) drug therapy
CPT/HCPCS: 81002; 99282

== ENCOUNTER 2021-02-19 11:03 | Inpatient (IN) | payer OTHER, SELFPAY ==
[~2021-02-19] VITALS: Ht 175.3 cm; Wt 92.5 kg
[2021-02-19 11:08] VITALS: BP 134/84
--- NOTE | 2021-02-19 11:13 | NUR ---
Patient ambulated to bed 05 with steady gait
--- NOTE | 2021-02-19 11:15 | NUR ---
Dr. Fletcher is evaluating the patient at bedside.
[2021-02-19] MEDS ORDERED: FAMOTIDINE 20 MG/2 ML VIAL IVP ONE (11:20)
[2021-02-19] MEDS ORDERED: ONDANSETRON 4 MG/2 ML VIAL IVP ONE (11:20)
[2021-02-19] MEDS ORDERED: NACL 0.9% 1,000 ML IV ONE ×3 (11:20→13:20)
--- NOTE | 2021-02-19 11:20 | NUR ---
Blood sample and cultures collected, handed to tamiko Rabago tech in ER bedside.
--- NOTE | 2021-02-19 11:20 | NUR ---
EMT at bedside for EKG
[2021-02-19 11:36] LABS: HEMATOCRIT 39.8 % (36-52); HEMOGLOBIN 12.5 g/dL (12.0-18.0); MEAN CORPUSCULAR HEMOGLOBIN 26 pg (27-31); MEAN CORPUSCULAR HGB CONC 32 g/dL (33-37); MEAN CORPUSCULAR VOLUME 81.2 fL (80-94); PLATELET COUNT (AUTO) 746 K/uL (140-450); RED CELL DISTRIBUTION WIDTH 18.3 % (11.6-13.7); WHITE BLOOD COUNT (AUTO) 24.5 K/uL (4.8-10.8)
--- NOTE | 2021-02-19 11:42 | NUR ---
55 y/o M coming in from home with c/c nausea vomiting x 1 day. Pt states he ate and drank a drink yesterday and was unsure if it contained alcohol or not. Pt reports nausea/vomiting, abdominal pain shortly after. Pt reports vomiting x 6 episodes this morning. Pt states abdominal pain epigastric, describes it 3/10, throbbing/intermittent, non-radiating. Pt states associated SOB upon exertion, dizziness. Pt denies headache, fever/chills, hematuria, urinary symptoms, diarrhea. Pt noted with distended, round abdomen which he states is normal for him. Pt placed onto residential monitor, tachycardic @ 126 and initial BP 91/60. Dr. Fletcher made aware. Bed locked in lowest position, side rails x 2, call light in reach. PMH: Seizures, GERD Meds: Denies NKA Sx: abdominal hernia sx
[2021-02-19 11:53] LABS: EOSINOPHILS % (MANUAL) 1 % (0-4); LYMPHOCYTES % (MANUAL) 4 % (20-46); MONOCYTES % (MANUAL) 2 % (5-12)
[2021-02-19 11:55] LABS: CARBON DIOXIDE 29.8 mmol/L (21-32); CREATININE 1.8 mg/dL (0.6-1.3); POTASSIUM 3.8 mmol/L (3.5-5.1); TOTAL BILIRUBIN 1.4 mg/dL (0.0-1.0)
--- NOTE | 2021-02-19 11:55 | NUR ---
Pt vomited 1000mL, green/brownish emesis. Discarded. Dr. Fletcher made aware.
--- NOTE | 2021-02-19 12:20 | NUR ---
PATIENT TAKEN TO CT VIA WHEELCHAIR
[2021-02-19 12:21] LABS: PROTHROMBIN TIME 11.2 secs (10.8-13.4)
--- NOTE | 2021-02-19 12:29 | NUR ---
Patient returned from CT via wheelchair. Placed back onto cardiac exercise physiologist. Bed locked in lowest position, side rails x 1, call light in reach.
--- NOTE | 2021-02-19 12:45 | NUR ---
Patient resting in position of comfort. Respirations even/unlabored. All pt needs met at this time. site monitor remains in place. Bed locked in lowest position, side rails x 1, call light in reach.
--- NOTE | 2021-02-19 13:17 | NUR ---
He morris collected, walked to lab and handed to tamiko Hathaway tech.
[2021-02-19] MEDS ORDERED: LEVOFLOXACIN 500 MG/D5W PREMIX 100 ML IV ONE (13:20)
[2021-02-19] MEDS ORDERED: metroNIDAZOLE 500 MG/NS PREMIX 100 ML IV ONE ×2 (13:20→21:00)
--- NOTE | 2021-02-19 13:50 | NUR ---
Patient sitting upright in semi-fowlers; position of comfort. Respirations even/unlabored. All pt needs met at this time. school lunch monitor remains in place. Bed locked in lowest position, side rails x 1, call light in reach.
--- NOTE | 2021-02-19 14:00 | NUR ---
Patient vomited and states he is unable to breath upon insertion of NG tube. Dr. Fletcher made aware.
--- NOTE | 2021-02-19 14:15 | NUR ---
Lab bedside for redraw
--- NOTE | 2021-02-19 14:50 | NUR ---
Patient advised to attempt for NG tube. Pt verbalized agreement. Will attempt with 18Fr.
--- NOTE | 2021-02-19 14:55 | NUR ---
Patient is resting in position of comfort. All pt needs met at this time. environmental monitoring technician remains in place. Bed locked in lowest position, side rails x 1, call light in reach.
--- NOTE | 2021-02-19 15:00 | NUR ---
NG Tube 18Fr successful. Pt tolerated procedure well. Calling Xray for NG tube placement at this time prior to transfer.
[2021-02-19] MEDS ORDERED: MORPHINE SULFATE 2 MG/ML SYR IVP PRN (15:10)
--- NOTE | 2021-02-19 15:27 | NUR ---
Dr. Ceballos is evaluating the patient at bedside.
--- NOTE | 2021-02-19 15:59 | NUR ---
technical specialist cytogenetics at bedside.
--- NOTE | 2021-02-19 16:10 | NUR ---
Report given to BALJIT Carter.
--- NOTE | 2021-02-19 16:25 | NUR ---
Patient will be admitted to care of Dr. Ceballos. Admited to Med-Surg. Will go to [id number]. Belongings list completed. Report to BALJIT Carter.
[2021-02-19 16:45] VITALS: BP 95/63
--- NOTE | 2021-02-19 16:45 | NUR ---
PT RECEIVED FROM ER. UPON ASSESSMENT NOTICED NGT TO BE UN-TAPED UPON FURTHER ASSESSMENT NOTICED THAT TAPED PORTION OF NGT WAS OUT APPROXIMATELY 12 INCHES. NGT HAD TO BE REINSERTED ATTEMPTED X 3 TO THE RIGHT NARE. TUBE WAS STABILIZED. AND X-RAY ORDERED ENTERED TO CONFIRM PLACEMENT. PT THREW UP APPROX. 1.5L AT THIS TIME. DENIES NAUSEA OR ABDOMINAL DISCOMFORT. PT HAS DISTENDED ABD. SKIN INTACT LUNG SOUNDS CLEAR. REMAINS NPO. HAS PATENT AND INTACT IV ACCESS TO RIGHT AC.
[2021-02-19] MEDS: NACL 0.9% 1,000 ML IV SCH ×2 (16:50→23:10)
--- NOTE | 2021-02-19 18:25 | NUR ---
NGT PLACEMENT CONFIRMED AND MD ORDERED TO BE PLACED ON LOW INTERMITTENT SUCTION. TOLERATING WELL.
--- NOTE | 2021-02-19 19:40 | NUR ---
RECEIVED CALL FROM OR STATING PT WILL GO TO SURGERY AT [address] MARCELO. ENDORSED TO ROSS FURNACE OPERATOR RN. PT IS CURRENTLY LAYING IN BED, EMESIS X 500ML.
--- NOTE | 2021-02-19 19:45 | NUR ---
RECEIVED BEDSIDE ENDORSEMENT FROM AM SHIFT RN. PT IS AAOX4, ON ROOM AIR, NO DISTRESS, ON NGT ON LOW SUCTION SETTING, SAFETY MEASURES IN PLACE, PLAN OF CARE DISCUSSED, CALL LIGHT WITHIN REACH.
[2021-02-19] MEDS: LACTATED RINGERS 1,000 ML IV SCH (20:00)
[2021-02-19] MEDS ORDERED: HYDROmorphone 1 MG/ML AMP IVP PRN (20:00)
[2021-02-19] MEDS ORDERED: diphenhydrAMINE 50 MG/ML VIAL IVP PRN (20:00)
[2021-02-19] MEDS ORDERED: MEPERIDINE 25 MG/ML SYR IVP PRN (20:00)
[2021-02-19] MEDS ORDERED: ONDANSETRON 4 MG/2 ML VIAL IVP PRN (20:00)
--- NOTE | 2021-02-19 20:00 | NUR ---
PT IS TAKEN TO O.R.
[2021-02-19] MEDS ORDERED: fentaNYL citrate 0.05 MG/ML VIAL ONE (20:15)
[2021-02-19] MEDS ORDERED: PROPOFOL 200 MG/20 ML VIAL IV ONE (20:15)
[2021-02-19] MEDS ORDERED: ROCURONIUM 50 MG/5 ML VIAL IV ONE (20:15)
[2021-02-19] MEDS ORDERED: SEVOFLURANE 250 ML BTL INH ONE (20:15)
[2021-02-19] MEDS ORDERED: SUCCINYLCHOLINE CHLORIDE 200 MG/10 ML VIAL IVP ONE (20:15)
[2021-02-19] MEDS ORDERED: MIDAZOLAM 2 MG/2 ML VIAL ONE (20:15)
[2021-02-19] MEDS ORDERED: SUGAMMADEX SODIUM 200 MG/2 ML VIAL IV ONE (20:15)
[2021-02-19] MEDS ORDERED: BUPIVACAINE-MPF/EPI 0.25% 30 ML VIAL INJ ONE (22:59)
[2021-02-20] VITALS: BP 96/58
--- NOTE | 2021-02-20 00:15 | NUR ---
PT IS BACK TO HIS ROOM FROM O.R. ENDORSEMENT RECEIVED FROM O.R. NURSE. PT IS ON LOW INTERMITTENT SUCTION VIA NGT. CARLOS CATH IN PLACE. W/ ABDOMINAL DRESSING, DRY AND INTACT, W/ ABDOMINAL BINDER IN PLACE. 01/09 ABD PAIN, SURGICAL SITE. TOLERABLE PER PT. WILL CONTINUE TO MONITOR.
[2021-02-20] MEDS: metroNIDAZOLE 500 MG/NS PREMIX 100 ML IV SCH ×4 (00:31→21:35)
--- NOTE | 2021-02-20 03:30 | NUR ---
PT IS AWAKE, ASKED FOR ICE CHIPS, GIVEN, CALL LIGHT WITHIN REACH.
[2021-02-20 04:00] VITALS: BP 95/59
[2021-02-20] MEDS: LACTATED RINGERS 1,000 ML IV SCH ×2 (04:20→14:16)
[2021-02-20] MEDS: ONDANSETRON 4 MG/2 ML VIAL IVP PRN ×2 (04:22→21:36)
[2021-02-20 06:22] LABS: BASOPHILS % (AUTO) 0.2 % (0.0-2.0); EOSINOPHILS % (AUTO) 0.1 % (0.0-4.0); HEMATOCRIT 30.2 % (36-52); LYMPHOCYTES # (AUTO) 0.8 K/uL (2.0-11.5); LYMPHOCYTES % (AUTO) 4.4 % (20.5-51.1); MEAN CORPUSCULAR HEMOGLOBIN 26 pg (27-31); MEAN CORPUSCULAR HGB CONC 32 g/dL (33-37); MEAN CORPUSCULAR VOLUME 80.9 fL (80-94); MONOCYTES % (AUTO) 5.4 % (1.7-9.3); NEUTROPHILS % (AUTO) 89.9 % (42.2-75.2); PLATELET COUNT (AUTO) 450 K/uL (140-450); RED BLOOD CELL COUNT(AUTO) 3.74 MIL/uL (4.20-6.10); RED CELL DISTRIBUTION WIDTH 18.3 % (11.6-13.7); WHITE BLOOD COUNT (AUTO) 17.8 K/uL (4.8-10.8)
[2021-02-20 06:40] LABS: ANION GAP 18.2 (8-16); CARBON DIOXIDE 24.1 mmol/L (21-32); CREATININE 2.3 mg/dL (0.6-1.3); POTASSIUM 4.3 mmol/L (3.5-5.1)
[2021-02-20 06:43] LABS: HEMOGLOBIN 9.7 g/dL (12.0-18.0)
--- NOTE | 2021-02-20 06:44 | NUR ---
D/C CARLOS CATH ORDERED. TOLERATED WELL.
--- NOTE | 2021-02-20 07:24 | NUR ---
PT STABLE, NO SOB, NO DISTRESS, ALL NEEDS ATTENDED, KEPT COMFORTABLE, CALL LIGHT WITHIN REACH. ENDORSED TO AM SHIFT RN FOR CONTINUITY OF CARE. Addendum: 02/20/21 at 0734 by Jason Rutherford RN ADDENDUM: ALSO ENDORSED THE HGB OF PT 9.7. TO ON COMING BALJIT VACA
[2021-02-20 08:00] VITALS: BP 102/69
--- NOTE | 2021-02-20 09:05 | NUR ---
PATIENT HAS BEEN SCREENED AND CATEGORIZED LOW NUTRITION RISK. PATIENT WILL BE SEEN WITHIN 7 DAYS OF ADMISSION. 02/26/[address]
--- NOTE | 2021-02-20 09:07 | NUR ---
Patient awake, alert and oriented. Bowel sounds active but has no passed gas. Complained of thirst and wanted ice chips and jello, notified Dr Nickerson and Physician wants patient to be npo until he sees patient.
[2021-02-20 09:44] LABS: BILIRUBIN,URINE 1+ (NEGATIVE); BLOOD, URINE NEGATIVE (NEGATIVE); COLOR,URINE YELLOW (YELLOW); LEUKOCYTE ESTERASE ,URINE TRACE (NEGATIVE); NITRITE, URINE NEGATIVE (NEGATIVE); UGLUCOSE NEGATIVE (NEGATIVE)
[2021-02-20] MEDS: PANTOPRAZOLE 40 MG INJ VIAL IVP SCH (09:56)
[2021-02-20] MEDS: ENOXAPARIN 40 MG/0.4 ML SYR SUBQ SCH (09:57)
[2021-02-20] MEDS: LEVOFLOXACIN 500 MG/D5W PREMIX 100 ML IV SCH (09:57)
[2021-02-20] MEDS: NACL 0.9% 1,000 ML IV SCH ×3 (09:58→23:10)
--- NOTE | 2021-02-20 10:33 | NUR ---
SOCIAL WORK NOTE: SW WAS UNABLE TO MEET PATIENT AT BEDSIDE. SW CONTACTED ECTOR HUERTA, MOTHER OF PATIENT, AND [phone]. SW LEFT VM AND WILL FOLLOW UP.
--- NOTE | 2021-02-20 10:45 | NUR ---
Per Dr Nickerson given an order to remove NG tube and administer 500 NS Ml bolus, give ice chips to patient otherwise keep npo with just few ice chips. Patient tolerated tube removal, complained of some pain and was given some morphine.
[2021-02-20] MEDS ORDERED: NACL 0.9% 500 ML IV SCH (10:50)
[2021-02-20 11:01] LABS: RBC,URINE 0-5 /HPF (0-5); WBC,URINE 0-5 /HPF (0-5)
[2021-02-20 11:03] LABS: APPEARANCE,URINE SLIGHTLY HAZY (CLEAR)
--- NOTE | 2021-02-20 11:45 | NUR ---
DC PLANNIN YRS OLD MALE PATIENT WAS ADMITTED FROM HOME WITH A DX OF INCARCERATED HERNIA. PT HAS A HX OF ALCOHOL ABUSE. CXR SHOWED NO ACUTE CARDIAC PULMONARY DISEASE. RAPID COVID TEST NEGATIVE. CT ABD/PELVIS SHOWED MILD TO DISTAL SMALL BOWEL OBSTRUCTION SECONDARY TO A VENTRAL HERNIA. DR MARCELO PERFORMED EXO LAP EXTENSIVE LYSIS OF ADHESIONS ,REPAIR OF MULTIPLE INCARCERATED VENTRAL MIDLINE EXP LAP HERNIA. ADMINISTERED IVF, IV ABX LEVAQUIN AND PAIN MEDS. DC PLAN TO GO HOME WHEN STABLE CM TO FOLLOW
[2021-02-20 12:00] VITALS: BP 102/69
[2021-02-20 17:00] VITALS: BP 94/70
--- NOTE | 2021-02-20 19:30 | NUR ---
RECEIVED REPORT AT BEDSIDE FROM NITZA RN DAYSHIFT NURSE FOR CONTINUITY OF CARE, PT IN STABLE CONDITION.
[2021-02-20 20:00] VITALS: BP 95/67
--- NOTE | 2021-02-20 20:15 | NUR ---
PT C/O OF NOT BEING ABLE TO BREATHE, PT 02 WAS 93% ON ROOM AIR. HE WAS REPOSITIONED IN BED AND ABDOMINAL BINDER WAS LOOSENED. PT EXPRESSED RELIEF AND THE ABILITY TO BREATHE BETTER. PT CARLOS CATHETER D/CD AND HAD URINATED A SMALL AMOUNT OF LITTLE URINE. IV SITE INTACT AND RUNNING LACTATED RINGERS AT 120MLS/HR.V/S FOLLOWS: T 99.0 P 94 R 20 B/P 95/60 02 92% ON ROOM AIR. ALL ORDERED PRECAUTIONS IN PLACE.
[2021-02-20] MEDS: ACETAMINOPHEN 325 MG TAB PO PRN (21:40)
--- NOTE | 2021-02-20 21:40 | NUR ---
PT GIVEN ORDERED FLAGYL WELL ZOFRAN FOR 150 MLS OF DARK GREEN EMESIS AND TYLENOL FOR C/O OF MILD PAIN AND TEMP INCREASE. PT ALSO GIVEN COOLING MEASURES OF ICE PACKS. WILL MONITOR FOR EFFECT.
[2021-02-21] VITALS: BP 100/64
--- NOTE | 2021-02-21 | NUR ---
PT IN BED V/S FOLLOWS: T 98.6 P 96 R 20 B/P 100/64 02 93% ON ROOM AIR. ALL ORDERED PRECAUTIONS IN PLACE.
[2021-02-21] MEDS: LACTATED RINGERS 1,000 ML IV SCH ×3 (01:56→13:38)
[2021-02-21] MEDS: ONDANSETRON 4 MG/2 ML VIAL IVP PRN ×2 (02:07→23:41)
--- NOTE | 2021-02-21 02:20 | NUR ---
PT IV SITE FELL OUT NEW IV SITE 22G ON LEFT F/A PROVIDED. PT ALSO HAD ANOTHER EPISODE OF EMESIS OF 200MLS, HE WAS GIVEN ZOFRAN IVP AND NEW BAG OF LACTATED RINGERS HUNG AND RUNNING ORDERED. ALL ORDERED PRECAUTIONS IN PLACE. ABDOMINAL BINDER IN PLACE DRESSING DRY AND INTACT. ALL ORDERED PRECAUTIONS IN PLACE.
[2021-02-21 04:00] VITALS: BP 112/76
[2021-02-21] MEDS: metroNIDAZOLE 500 MG/NS PREMIX 100 ML IV SCH ×3 (05:09→22:24)
[2021-02-21 06:04] LABS: BASOPHILS % (AUTO) 0.1 % (0.0-2.0); EOSINOPHILS % (AUTO) 0.2 % (0.0-4.0); HEMATOCRIT 25.7 % (36-52); HEMOGLOBIN 8.2 g/dL (12.0-18.0); LYMPHOCYTES # (AUTO) 1.2 K/uL (2.0-11.5); LYMPHOCYTES % (AUTO) 7.4 % (20.5-51.1); MEAN CORPUSCULAR HEMOGLOBIN 26 pg (27-31); MEAN CORPUSCULAR HGB CONC 32 g/dL (33-37); MEAN CORPUSCULAR VOLUME 80.7 fL (80-94); MONOCYTES # (AUTO) 1.1 K/uL (0.8-1.0); MONOCYTES % (AUTO) 6.9 % (1.7-9.3); NEUTROPHILS # (AUTO) 13.7 K/uL (1.8-7.7); NEUTROPHILS % (AUTO) 85.4 % (42.2-75.2); PLATELET COUNT (AUTO) 333 K/uL (140-450); RED BLOOD CELL COUNT(AUTO) 3.19 MIL/uL (4.20-6.10); RED CELL DISTRIBUTION WIDTH 18.5 % (11.6-13.7); WHITE BLOOD COUNT (AUTO) 16.1 K/uL (4.8-10.8)
--- NOTE | 2021-02-21 06:50 | NUR ---
PT GIVEN ZOFRAN FOR VOMITING 200MLS OF DARK GREEN BILE. PT C/O ANXIETY NPO NEW ORDER AND WAS ENDORSED TO DAY TO FOLLOW UP. PT ALSO GIVEN ZOFRAN FOR VOMITING. ALL ORDERED PRECAUTIONS IN PLACE.
[2021-02-21] MEDS: NACL 0.9% 1,000 ML IV SCH ×3 (07:10→23:10)
--- NOTE | 2021-02-21 07:29 | NUR ---
RECEIVED BEDSIDE REPORT FROM ULTRASONIC TESTER NURSE RUSTAM FOR CONTINUITY OF CARE, PATIENT IS AWAKE ON BED AND RESTING ON BED COMFORTABLY, PATIENT IS ABLE TO COMMUNICATE AND ANSWER QUESTIONS APPROPRIATELY, AOX4. RESPIRATION EVEN AND UNLABORED ON RA, SPO2 AT 97% AT THIS TIME. STATES THAT HE DIDN'T SLEEP MUCH LAST NIGHT AND FELT NAUSEA AND VOMITING LAST NIGHT. DENIED PAIN, SOB AND ANY DIZZINESS AT THIS TIME. NO SIGNS OF ACUTE DISTRESS NOTED. LFA IV IN PLACE, CLEAN AND INTACT, RUNNING LR AT 120 ML/HR AT THIS TIME. SKIN WARM TO TOUCH, SURGICAL WOUND ON ABD NOTED, COVERED WITH DRESSING, DRESSING CLEAN AND DRY. PATIENT IS CONTINENT AND ABLE TO USE URINAL BY BEDSIDE. DISCUSSED PLAN OF CARE WITH PATIENT, AND PATIENT SAID OK. ENCOURAGED PATIENT TO START AMBULATORY WHEN HE IS ABLE TO TOLERATE, PATIENT SAID MAYBE LATER. TELE MONITOR IN PLACE. SAFETY MEASURES IN PLACE. BED IN LOW POSITION, CALL LIGHT WITHIN REACH.
[2021-02-21 08:00] VITALS: BP 122/78
[2021-02-21] MEDS: LEVOFLOXACIN 500 MG/D5W PREMIX 100 ML IV SCH (09:00)
[2021-02-21] MEDS: PANTOPRAZOLE 40 MG INJ VIAL IVP SCH (09:00)
[2021-02-21] MEDS: ENOXAPARIN 40 MG/0.4 ML SYR SUBQ SCH (09:15)
[2021-02-21 09:25] LABS: MAGNESIUM 1.6 mg/dL (1.8-2.4); PHOSPHORUS 3.5 mg/dL (2.5-4.9)
--- NOTE | 2021-02-21 09:26 | NUR ---
PATIENT AWAKE AND RESTING ON BED, COMPLAINED THAT HE FEEL NAUSEA, UNABLE TO TOLERATE BREAKFAST. SCHEDULED AM MEDS GIVEN, MEDS EDUCATION GIVEN, PATIENT VERBALIZED UNDERSTANDING. NO SIGNS OF ACUTE DISTRESS NOTED. PROVIDED EXTRA VOMIT BAGS TO PATIENT AND FRESH ICED WATER, SAFETY MEASURES IN PLACE. BED IN LOW POSITION, CALL LIGHT WITHIN REACH, INSTRUCTED PATIENT TO USE THE CALL LIGHT FOR ANY ASSISTANCE AND PATIENT WAS AWARE.
[2021-02-21 11:32] LABS: CREATININE 1.1 mg/dL (0.6-1.3)
[2021-02-21 11:42] LABS: ANION GAP 13.5 (8-16); CARBON DIOXIDE 27.3 mmol/L (21-32); POTASSIUM 3.8 mmol/L (3.5-5.1)
--- NOTE | 2021-02-21 11:50 | NUR ---
DR MARCELO IS ASSESSING PATIENT AT BEDSIDE.
--- NOTE | 2021-02-21 12:03 | NUR ---
SOCIAL WORK NOTE: Patient's Orientation Person Situation Place Time Information Provided By PATIENT Comments SW MET PATIENT AT BEDSIDE TO COMPLETE ASSESSMENT. Feather Stitcher, Realtionship and Phone Number ECTOR ALLEN [phone] [facility] Power of Casing Running Machine Tender No Does Patient Have a POLST No Identifying Problems No Social Work Triggers Is A Social Work Consult Needed No Mandate Report Filed No Explanation Of Identifying Problems PATIENT IS A 55-YEAR-OLD MALE ADMITTED FOR INCARCERATED HERNIA. PATIENT HAS PMHX OF ALCOHOLISM. PATIENT REPORTED THAT HE NO LONGER DRINKS ALCOHOL AND DENIES MENTAL HEALTH HISTORY. Admitted From Home Pre-Admission Level Of Functioning Status Independent/Ambulatory Prior Resources/Services Used In Last 12 Months No Prior Resources Used Prior DME No Prior DME Used Dialysis Comments N/A Living Situation Lives With Family Mobile Home Other Living Situation/Comment PATIENT STATED THAT HE LIVES WITH HIS MOTHER. Patient Had Caregiver No Home Support No Caregiver Issues Financial Issues No Known Financial Issue Referral To The Financial Counselor Needed No Factors/Needs No D/C Needs Identified Pt/Rep Participated In Discharge Plan Yes Patient/Family Agress With Discharge Plan Yes Discharge Plan Comments TENTATIVE DISCHARGE PLAN IS FOR PATIENT TO RETURN HOME. DC Plan Status Initiated
--- NOTE | 2021-02-21 12:30 | NUR ---
APPLIED ABD TO SURGICAL WOUND AND SECURED AND ABD BINDER PER DR MARCELO ORDER, PATIENT TOLERATED FINE, DENIED PAIN. WOUND CARE EDUCATION PROVIDED. SAFETY MEASURES IN PLACE.
--- NOTE | 2021-02-21 13:38 | NUR ---
SCHEDULED METRONIDAZOLE GIVEN, MED EDUCATION PROVIDED, PATIENT VERBALIZED UNDERSTANDING, PATIENT AWAKE AND RESTING ON BED. SAFETY MEASURES IN PLACE.
[2021-02-21 16:00] VITALS: BP 135/69
--- NOTE | 2021-02-21 16:02 | NUR ---
DR MARSHALL MADE AWARE THAT MAG 1.6 L FROM AM LAB, RECEIVED TORB ORDER FOR MAG RIDER 2 GM ONCE, REPEATED AND WILL INPUT ORDER PER MD ORDER.
--- NOTE | 2021-02-21 16:19 | NUR ---
2GM MAG RIDER GIVEN FOR 1.6 MAG FROM AM LAB, MED EDUCATION PROVIDED. PATIENT IS RESTING ON BED. NO SIGNS OF ACUTE DISTRESS NOTED. SAFETY MEASURES IN PLACE.
[2021-02-21] MEDS ORDERED: MAG SULF 2000 MG/WATER PREMIX 50 ML IV SCH (16:30)
--- NOTE | 2021-02-21 18:02 | NUR ---
ASSISTED PATIENT TO AMBULATE TO THE BATHROOM AND BACK TO BED SAFELY, PATIENT IS ABLE TO AMBULATE WITH STANDBY ASSISTANCE. NO SIGNS OF ACUTE DISTRESS NOTED. SAFETY MEASURES IN PLACE.
--- NOTE | 2021-02-21 19:30 | NUR ---
RECEIVED REPORT AT BEDSIDE FOR CONTINUITY OF CARE, PT IN STABLE CONDITION.
--- NOTE | 2021-02-21 20:00 | NUR ---
PT AOX4 SITTING UP IN BED HE HAS A LEFT F/A 22G RUNNING NORMAL SALINE AT 125MLS/HR. PT ABDOMINAL DRESSING INTACT AND DRY. SCD'S ON LOWER LEGS. V/S FOLLOWS; T 98.3 P 92 R 20 B/P 122/85 02 95% ON ROOM AIR. ALL ORDERED PRECAUTIONS IN PLACE. ALL REQUESTED NEEDS ATTENDED BY STAFF.
--- NOTE | 2021-02-21 21:20 | NUR ---
PT ABLE TO AMBULATE STEADILY TO TOILET AND BACK. HE HAS NO C/O OF PAIN OR DISTRESS NOTED. PT HAS BEEN ABLE TO TOLERATE HIS CLEAR DIET. ORDERED FLAGYL HUNG AND RUNNING ORDERED. EDUCATION REGARDING MEDICATION PROVIDED AT BEDSIDE. ALL ORDERED PRECAUTIONS IN PLACE.
--- NOTE | 2021-02-21 23:45 | NUR ---
PT C/O OF FEELING NAUSEA, HE HAD NO EPISODES OF VOMITING THIS SHIFT. PT HAS NO C/ OF PAIN OR DISTRESS NOTED. PT ASKED TO UPDATED CONCERNING TESTS RESULTS. RESULTS OF ADHESION OF ABDOMINAL MESH IS BENIGN, PT MADE AWARE. V/S FOLLOWS: T 97.0 P 95 R 20 B/P 126/89 02 97% ON ROOM AIR. ALL ORDERED PRECAUTIONS IN PLACE.
[2021-02-22] VITALS: BP 126/89
--- NOTE | 2021-02-22 05:00 | NUR ---
PT IN BED RESTING WITH EYES CLOSED BUT AROUSABLE TO NAME AND LIGHT TOUCH. PT GOT UP AND WAS STANDBY ASSIST TO TOILET WHERE HE HAD A BM. PT AMBULATED WITH STEADY GAIT, NO C/O OF PAIN . FLUIDS RUNNING ORDERED. FLAGYL HUNG AND RUNNING ORDERED.
[2021-02-22] MEDS: metroNIDAZOLE 500 MG/NS PREMIX 100 ML IV SCH ×3 (05:59→20:59)
--- NOTE | 2021-02-22 07:15 | NUR ---
Received bedside report form pm nurse Coni. Pt resting in bed, awake, respirations even & nonlabored in room air. Patient denies any discomfort at this time. Left forearm 22G IV intact with ongoing NS @ 120ml/hr. Bilateral SCDs in place.
[2021-02-22] MEDS: NACL 0.9% 1,000 ML IV SCH ×3 (07:30→23:10)
[2021-02-22 08:00] VITALS: BP 131/81
[2021-02-22] MEDS: LEVOFLOXACIN 500 MG/D5W PREMIX 100 ML IV SCH (08:25)
[2021-02-22] MEDS: PANTOPRAZOLE 40 MG INJ VIAL IVP SCH (08:26)
[2021-02-22] MEDS: ACETAMINOPHEN 325 MG TAB PO PRN (08:40)
[2021-02-22] MEDS: ENOXAPARIN 40 MG/0.4 ML SYR SUBQ SCH (08:40)
--- NOTE | 2021-02-22 10:00 | NUR ---
Instructed patient on proper use of incentive spirometer x10 every hour, and to sit up at edge of bed as tolerated. Patient verbalized understanding and able to repeat back instructions. Patient able to ambulate from bed to toilet with steady gait, able to maneuver IV pole with good safety awareness.
--- NOTE | 2021-02-22 15:50 | NUR ---
Per Magdalena Mason, (Dr. Dvaid TAPIA) patient may advance to soft diet as tolerated. Order noted and carried out. Patient notified and agree with care plan.
[2021-02-22 16:00] VITALS: BP 123/80
--- NOTE | 2021-02-22 19:15 | NUR ---
RECEIVING PATIENT FROM AM NURSE FOR CONTINUITY OF CARE. PATIENT IS A/A/O X4. AMBULATE INDEPENDENTLY TO BATHROOM. RESPIRATORY EVEN AND UNLABORED, ON ROOM AIR. SKIN WARM, DRY, NON DIAPHORETIC. IV ON LEFT FOREARM 22G, IS INFUSING FLUID. PLAN OF CARE DISCUSSED, PATIENT VERBALIZED UNDERSTANDING. CALL LIGHT WITH REACH. PRECAUTION IN PLACE. WILL CONTINUE TO MONITOR.
--- NOTE | 2021-02-22 21:00 | NUR ---
MEDICATION GIVEN ORDERED. PATIENT TOLERATED WELL. WILL CONTINUE TO MONITOR.
--- NOTE | 2021-02-22 22:00 | NUR ---
PATIENT IS RESTING IN BED TO WATCH TV. NO SIGN OF DISTRESS NOTED. WILL CONTINUE TO MONITOR.
--- NOTE | 2021-02-22 23:30 | NUR ---
PATIENT AMBULATES WITH STEADY GAIT INDEPENDENTLY TO BATHROOM. PRECAUTION IN PLACE. NO SIGN OF DISTRESS NOTED. WILL CONTINUE TO MONITOR.
[2021-02-23] VITALS: BP 113/77
--- NOTE | 2021-02-23 | NUR ---
PATIENT IS SLEEPING. VITAL SIGN STABLE, DENIES ANY PAIN OR DISCOMFORT AT THIS TIME. CALL LIGHT WITHIN REACH. WILL CONTINUE TO MONITOR.
--- NOTE | 2021-02-23 01:00 | NUR ---
PATIENT IS AWAKE, WOUND CARE PROVIDE FOR ABDOMEN INCISION. KARLENE INTACT, NO DRAINING NOTED. DENIES ANY PAIN OR DISCOMFORT DURING DRESSING CHANGE. WILL CONTINUE TO MONITOR.
--- NOTE | 2021-02-23 02:00 | NUR ---
PATIENT AWAKE, SITTING ON THE SIDE OF BED. NO SIGN OF DISTRESS NOTED. PRECAUTION IN PLACE. CALL LIGHT WITHIN REACH. WILL CONTINUE TO MONITOR.
--- NOTE | 2021-02-23 03:54 | NUR ---
ROUND CHECK. PATIENT IS SLEEPING. CHEST RISE AND FALL. NO SIGN OF DISTRESS NOTED. CALL LIGHT WITHIN REACH. WILL CONTINUE TO MONITOR.
[2021-02-23] MEDS: metroNIDAZOLE 500 MG/NS PREMIX 100 ML IV SCH ×2 (04:46→13:38)
--- NOTE | 2021-02-23 06:00 | NUR ---
ROUND CHECK. PATIENT IS SLEEPING. NO SIGN OF RESPIRATORY DISTRESS NOTED. CALL LIGHT WITHIN REACH. PRECAUTION IN PLACE. WILL CONTINUE TO MONITOR.
[2021-02-23] MEDS: NACL 0.9% 1,000 ML IV SCH ×2 (07:22→15:10)
--- NOTE | 2021-02-23 07:25 | NUR ---
ENDORSED PATIENT TO AM NURSE FOR CONTINUITY OF CARE. PATIENT IS SLEEPING. NO SIGN OF DISTRESS. PATIENT IS STABLE.
--- NOTE | 2021-02-23 07:48 | NUR ---
REC'D REPORT FROM CROP FARM HELPER NURSE, PT AWAKE, A/Ox4, ON STABLE, NO SIGN OF DISTRESS, IS AT BEDSIDE, RA. DENIES ANY PAIN AT THIS TIME. L. FA 22G INFUSING NS @ 125ML/ HR
[2021-02-23 08:00] VITALS: BP 129/90
[2021-02-23] MEDS: PANTOPRAZOLE 40 MG INJ VIAL IVP SCH (09:22)
[2021-02-23] MEDS: LEVOFLOXACIN 500 MG/D5W PREMIX 100 ML IV SCH (09:23)
[2021-02-23] MEDS: ENOXAPARIN 40 MG/0.4 ML SYR SUBQ SCH (09:25)
--- NOTE | 2021-02-23 09:41 | NUR ---
ADMINISTERED MEDICATIONS PER MD ORDER, DISCUSSED MOA AND SIDE EFFECTS WITH PATIENT WHO VERBALLY ACKNOWLEDGED UNDERSTANDING. IV SITE DRY, CLEAN,INTACT AND PATENT. PT TOLERATED PROCEDURE WELL. IS AT BEDSIDE, ABDOMINAL BINDER ON LARGE ABD PAIN, SURGICAL SITE COVERED WITH ABD PAD, NO SIGN OF DRAINAGE. PT DENIES PAIN AT THIS TIME. PT TOLERATED MEDICATION ADMINISTRATION WELL.
--- NOTE | 2021-02-23 11:50 | NUR ---
PT SITTING UP IN BED, PERFORMING RANGE OF MOTION EXCERCISES OF ARMS AND LEGS, DENIES PAIN AT THIS TIME, IS AT BEDSIDE. CALL LIGHT WITHIN REACH. NO SIGN OF DISTRESS. WILL CONTINUE TO MONITOR
--- NOTE | 2021-02-23 13:43 | NUR ---
ADMINISTERED MEDICATIONS PER MD ORDER, DISCUSSED MOA AND SIDE EFFECTS WITH PATIENT WHO VERBALLY ACKNOWLEDGED UNDERSTANDING. IV SITE DRY, CLEAN,INTACT AND PATENT. PT TOLERATED PROCEDURE WELL. DENIES PAIN AT THIS TIME.
[2021-02-23 16:00] VITALS: BP 134/89
[2021-02-23 16:16] VITALS: BP 134/89
--- NOTE | 2021-02-23 17:18 | NUR ---
PT DISCHARGED VIA WHEELCHAIR TO CAB, ID BANDS REMOVED, IV CATHETER REMOVED, INTACT. MEDICATION MOA AND SIDE EFFECTS WERE EXPLAINED, FOLLOW UP APPOINTMENT INSTRUCTIONS GIVEN TO PT, PROVIDED DR. MARCELO ADDRESS AND PHONE NUMBER TO CONTACT FOR SCHEDULING, INCISIONAL CARE DIRECTIONS PROVIDED TO PT WHO VERBALLY ACKNOWLEDGED UNDERSTANDING. PT STABLE UPON DISCHARGE
== END 2021-02-23 17:18 | disposition home or self-care (01) | DRG 227 ==
LOC: MED 11:03 → MTU 15:10 → MMU 17:55
PROVIDERS: ADMIT Hospitalist; ATTEND Hospitalist
PROC: 0DN80ZZ Release Small Intestine, Open Approach (ICD-10-PCS; 2021-02-19)
PROC: 0DBU0ZZ Excision of Omentum, Open Approach (ICD-10-PCS; 2021-02-19)
PROC: 0WPF0JZ Removal of Synthetic Substitute from Abdominal Wall, Open Approach (ICD-10-PCS; 2021-02-19)
PROC: 0D9670Z Drainage of Stomach with Drainage Device, Via Natural or Artificial Opening (ICD-10-PCS; 2021-02-19)
PROC: 0WQF0ZZ Repair Abdominal Wall, Open Approach (ICD-10-PCS; principal; 2021-02-19 20:30)
DX: K40.30 Unilateral inguinal hernia, with obstruction, without gangrene, not specified as recurrent (principal); N17.0 Acute kidney failure with tubular necrosis; R65.10 Systemic inflammatory response syndrome (SIRS) of non-infectious origin without acute organ dysfunction; Z20.822 Contact with and (suspected) exposure to COVID-19; K21.9 Gastro-esophageal reflux disease without esophagitis; K42.9 Umbilical hernia without obstruction or gangrene
CPT/HCPCS: 36415; 71045; 74018; 80048; 80053; 81001; 83605; 83690; 83735; 84100; 84484; 85025; 85610; 85730; 86886; 86900; 86901; 87040; 87081; 87086; 88304; 93005; 96361; 96365; 96367; 96375; 97530; 99291; C9113; J0330; J1170; J1650; J1956; J2250; J2270; J2405; J2704; J3010; J3475; J3490; J7030; J7120

== ENCOUNTER 2021-03-22 08:37 | Emergency (ER) | payer OTHER, SELFPAY ==
[~2021-03-22] VITALS: Ht 175.3 cm; Wt 93.0 kg
[2021-03-22 08:50] VITALS: BP 141/115
--- NOTE | 2021-03-22 08:54 | NUR ---
Patient ambulated with steady gait to bed 6.
--- NOTE | 2021-03-22 09:05 | NUR ---
56 YO M BIB SELF FOR C/C OF 4/10 MID UPPER ABDOMEN PAIN S/P HERNIA REPAIR SURGERY 3 [address] PERFORMED [address] MARCELO AT [facility]. PT REPORTS NAUSEA WITH MINIMAL VOMITING, DECREASED APPETITE, PT REPORTS FIRM ABDOMEN POST EATING. PT REPORTS PASSING GAS, AND HAVING SOFT FORMED BOWEL MOVEMENTS. INCISION INTACT, NO SIGNS OF INFECTION. DENIES FEVER, COUGH, SOB. BED LOCKED AND IN LOWEST POSITION. SIDE RAILS X1. MED HX: HERNIA REPAIR NO RX NKA
[2021-03-22] MEDS ORDERED: ONDANSETRON 4 MG/2 ML VIAL IVP ONE (09:15)
[2021-03-22 09:29] LABS: EOSINOPHILS # (AUTO) 0.6 K/uL (0-0.4); EOSINOPHILS % (AUTO) 9.5 % (0.0-4.0); HEMATOCRIT 27.2 % (36-52); HEMOGLOBIN 8.6 g/dL (12.0-18.0); LYMPHOCYTES # (AUTO) 1.5 K/uL (2.0-11.5); LYMPHOCYTES % (AUTO) 23.2 % (20.5-51.1); MEAN CORPUSCULAR HEMOGLOBIN 24 pg (27-31); MEAN CORPUSCULAR HGB CONC 32 g/dL (33-37); MEAN CORPUSCULAR VOLUME 76.8 fL (80-94); MONOCYTES # (AUTO) 1.5 K/uL (0.8-1.0); MONOCYTES % (AUTO) 23.2 % (1.7-9.3); NEUTROPHILS # (AUTO) 2.9 K/uL (1.8-7.7); NEUTROPHILS % (AUTO) 44.1 % (42.2-75.2); PLATELET COUNT (AUTO) 183 K/uL (140-450); RED BLOOD CELL COUNT(AUTO) 3.55 MIL/uL (4.20-6.10); RED CELL DISTRIBUTION WIDTH 19.2 % (11.6-13.7); WHITE BLOOD COUNT (AUTO) 6.5 K/uL (4.8-10.8)
[2021-03-22] MEDS ORDERED: MORPHINE SULFATE 4 MG/ML SYR IVP ONE (09:50)
[2021-03-22] MEDS ORDERED: NACL 0.9% 1,000 ML IV ONE (09:50)
--- NOTE | 2021-03-22 09:50 | NUR ---
CONSENT OBTAINED FOR CT CONTRAST
[2021-03-22 09:51] LABS: ALBUMIN 3.1 g/dL (3.4-5.0); ANION GAP 14.1 (8-16); CARBON DIOXIDE 27.1 mmol/L (21-32); CREATININE 0.8 mg/dL (0.6-1.3); POTASSIUM 3.2 mmol/L (3.5-5.1); TOTAL BILIRUBIN 0.7 mg/dL (0.0-1.0)
--- NOTE | 2021-03-22 11:29 | NUR ---
survey technician disconnected pt from coffee maker & transported patient to CT via wheelchair.
--- NOTE | 2021-03-22 12:06 | NUR ---
ERMD AT BEDSIDE EXPLAINING D/C INSTRUCTIONS
[2021-03-22 12:22] VITALS: BP 130/104
== END 2021-03-22 12:22 | disposition home or self-care (01) ==
LOC: MED 08:37
DX: G89.18 Other acute postprocedural pain (principal); K21.9 Gastro-esophageal reflux disease without esophagitis; Z79.899 Other long term (current) drug therapy
CPT/HCPCS: 36415; 74177; 80053; 83690; 85025; 96361; 96374; 99285; J2405; J7030; Q9967

== ENCOUNTER 2021-03-30 06:54 | Emergency (ER) | payer OTHER ==
[~2021-03-30] VITALS: Ht 175.3 cm; Wt 110.2 kg
[2021-03-30 06:58] VITALS: BP 160/106
--- NOTE | 2021-03-30 07:01 | NUR ---
To ED bed 11
--- NOTE | 2021-03-30 07:15 | NUR ---
PT COMPLAINS OF WANTING TO BE ASSESSED AFTER HERNIA SURGERY, CONCERNED ABOUT ANY COMPLICATIONS. PT AOX4, BREATHING EVEN AND UNLABORED, SKIN WARM AND DRY. BED IN LOWEST POSITION, SEMI-FOWLERS, LOCKED, BED RAIL UPX1. PMH - DENIES ALLERGIES - NKA
--- NOTE | 2021-03-30 07:31 | NUR ---
Patient discharged with v/s stable. Written and verbal after care instructions about wound care in adults given and explained. Patient verbalized understanding. Ambulatory with steady gait. All questions addressed prior to discharge. Advised to follow up with PMD.
== END 2021-03-30 07:31 | disposition home or self-care (01) ==
LOC: MED 06:54
DX: L76.22 Postprocedural hemorrhage of skin and subcutaneous tissue following other procedure (principal); K21.9 Gastro-esophageal reflux disease without esophagitis; Z79.899 Other long term (current) drug therapy
CPT/HCPCS: 99284

== ENCOUNTER 2021-05-19 06:04 | Emergency (ER) | payer OTHER ==
[~2021-05-19] VITALS: Ht 175.3 cm; Wt 93.0 kg
[2021-05-19 06:08] VITALS: BP 118/68
[2021-05-19 07:29] LABS: HEMATOCRIT 26.8 % (36-52); HEMOGLOBIN 8.4 g/dL (12.0-18.0); MEAN CORPUSCULAR HEMOGLOBIN 25 pg (27-31); MEAN CORPUSCULAR HGB CONC 32 g/dL (33-37); MEAN CORPUSCULAR VOLUME 78.8 fL (80-94); PLATELET COUNT (AUTO) 146 K/uL (140-450); RED CELL DISTRIBUTION WIDTH 22.6 % (11.6-13.7); WHITE BLOOD COUNT (AUTO) 5.4 K/uL (4.8-10.8)
[2021-05-19 07:42] LABS: ANION GAP 14.7 (8-16); CARBON DIOXIDE 26.5 mmol/L (21-32); POTASSIUM 3.2 mmol/L (3.5-5.1); TOTAL BILIRUBIN 3.3 mg/dL (0.0-1.0)
[2021-05-19 07:47] LABS: BASOPHILS % (MANUAL) 0 % (0-2); EOSINOPHILS % (MANUAL) 2 % (0-4); LYMPHOCYTES % (MANUAL) 11 % (20-46); MONOCYTES % (MANUAL) 8 % (5-12)
[2021-05-19] MEDS ORDERED: POTASSIUM CHLORIDE 10 MEQ TABER PO ONE (08:35)
[2021-05-19] MEDS ORDERED: MULTIVITAMIN 1 TAB PO SCH (08:35)
[2021-05-19] MEDS ORDERED: FOLIC ACID 1 MG TAB PO ONE (08:35)
[2021-05-19] MEDS ORDERED: THIAMINE 200 MG/2 ML VIAL IM ONE (08:35)
[2021-05-19 11:22] LABS: PROTHROMBIN TIME 14.3 secs (10.8-13.4)
[2021-05-19] MEDS ORDERED: KETOROLAC 15 MG/ML VIAL IVP SCH (11:28)
[2021-05-19] MEDS ORDERED: KETOROLAC 15 MG/ML VIAL IM ONE (11:45)
[2021-05-19 12:04] VITALS: BP 107/74
== END 2021-05-19 12:04 | disposition home or self-care (01) ==
LOC: MED 06:04
DX: R06.02 Shortness of breath (principal); R07.9 Chest pain, unspecified; K21.9 Gastro-esophageal reflux disease without esophagitis; Z79.899 Other long term (current) drug therapy
CPT/HCPCS: 36415; 71045; 76705; 80053; 83690; 83880; 84484; 85025; 85610; 85730; 96372; 99285; J1885; J3411

== ENCOUNTER 2021-05-22 06:55 | Emergency (ER) | payer OTHER ==
[~2021-05-22] VITALS: Ht 175.3 cm; Wt 93.0 kg
[2021-05-22 06:59] VITALS: BP 116/76
[2021-05-22] MEDS ORDERED: KETOROLAC 30 MG/ML VIAL IM ONE (07:30)
[2021-05-22] MEDS ORDERED: IBUP-2213 PO (08:47)
[2021-05-22] MEDS ORDERED: ACET-8386 PO (08:47)
[2021-05-22 09:01] VITALS: BP 116/76
== END 2021-05-22 09:02 | disposition home or self-care (01) ==
LOC: MED 06:55
DX: M79.604 Pain in right leg (principal); I10 Essential (primary) hypertension; Z98.890 Other specified postprocedural states; Z79.899 Other long term (current) drug therapy
CPT/HCPCS: 73610; 73630; 96372; 99284; J1885

== ENCOUNTER 2021-06-10 05:15 | Emergency (ER) | payer OTHER ==
[~2021-06-10] VITALS: Ht 175.3 cm; Wt 92.5 kg
[~2021-06-10 05:15] MED LIST changes: +ACET-8386 PO; +IBUP-2213 PO
[2021-06-10 05:20] VITALS: BP 119/84
--- NOTE | 2021-06-10 05:20 | NUR ---
PT. IS A 56 Y/O MALE WITH C/O OF DIFFICULTY BREATHING. PT. STATES THAT IT STARTED AROUND 11PM OF LAST NIGHT AND DESCRIBES IT "HURTING WHEN I BREATHE." PT. RATES PAIN AT 1/10 ON THE PAIN SCALE AT THIS TIME. PT. STATES HE HAS NAUSEA, DENIES VOMITING. PT. ALSO STATES HE HAD DIZZINESS PRIOR TO ARRIVAL. PT. BREATHING UNLABORED AND EVEN. DENIES DIARRHEA; SKIN IS PINK/WARM/DRY; AAOX4 WITH EVEN AND STEADY GAIT; PT DENIES ANY FEVER, CP, SOB, OR COUGH AT THIS TIME; PATIENT POSITIONED FOR COMFORT; HOB ELEVATED; BEDRAILS UP X1; BED DOWN. ER MD MADE AWARE OF PT STATUS. MED HX: DENIES ALLERGIES: NKA
--- NOTE | 2021-06-10 05:20 | NUR ---
to bed ambulatory
--- NOTE | 2021-06-10 05:30 | NUR ---
Dr. Isabel examining patient.
[2021-06-10] MEDS ORDERED: ALBUTEROL SULFATE/IPRATROPIU 3 ML SOL IH ONE (05:45)
--- NOTE | 2021-06-10 06:01 | NUR ---
LAB AT BEDSIDE
[2021-06-10 06:11] LABS: BASOPHILS # (AUTO) 0.1 K/uL (0.00-0.22); BASOPHILS % (AUTO) 1.6 % (0.0-2.0); EOSINOPHILS # (AUTO) 0.3 K/uL (0-0.4); EOSINOPHILS % (AUTO) 4.2 % (0.0-4.0); HEMATOCRIT 23.9 % (36-52); HEMOGLOBIN 7.5 g/dL (12.0-18.0); LYMPHOCYTES % (AUTO) 12.8 % (20.5-51.1); MEAN CORPUSCULAR HEMOGLOBIN 26 pg (27-31); MEAN CORPUSCULAR HGB CONC 31 g/dL (33-37); MEAN CORPUSCULAR VOLUME 83.2 fL (80-94); MONOCYTES # (AUTO) 0.5 K/uL (0.8-1.0); MONOCYTES % (AUTO) 6.1 % (1.7-9.3); NEUTROPHILS # (AUTO) 5.7 K/uL (1.8-7.7); NEUTROPHILS % (AUTO) 75.3 % (42.2-75.2); PLATELET COUNT (AUTO) 243 K/uL (140-450); RED BLOOD CELL COUNT(AUTO) 2.87 MIL/uL (4.20-6.10); RED CELL DISTRIBUTION WIDTH 22.4 % (11.6-13.7); WHITE BLOOD COUNT (AUTO) 7.6 K/uL (4.8-10.8)
--- NOTE | 2021-06-10 06:20 | NUR ---
JOSE (COVID) SWAB AND INFLUENZA A&B COMPLETED AND TAKEN TO LAB.
--- NOTE | 2021-06-10 06:21 | NUR ---
ENCOURAGED TO DRINK WATER TO GIVE URINE SAMPLE. PT. STATES "I CAN'T GO RIGHT NOW."
--- NOTE | 2021-06-10 06:27 | NUR ---
X-Ray at bedside.
[2021-06-10 06:28] LABS: ANION GAP 16.5 (8-16); CARBON DIOXIDE 25.1 mmol/L (21-32); CREATININE 0.7 mg/dL (0.6-1.3); POTASSIUM 3.6 mmol/L (3.5-5.1); TOTAL BILIRUBIN 0.9 mg/dL (0.0-1.0)
--- NOTE | 2021-06-10 07:07 | NUR ---
PATIENT TAKEN TO CT VIA WHEELCHAIR
--- NOTE | 2021-06-10 07:10 | NUR ---
Report and continuation of care received from BALJIT Heart.
--- NOTE | 2021-06-10 07:10 | NUR ---
REPORT GIVEN TO BALJIT MATSON. TRANSFER OF CARE AT THIS TIME.
--- NOTE | 2021-06-10 07:19 | NUR ---
Patient returned from CT scan. RN reevaluating the patient at bedside.
--- NOTE | 2021-06-10 07:20 | NUR ---
Patient placed back onto surveillance monitor. Bed locked in lowest position, side rails x 1, call light in reach.
[2021-06-10 07:50] LABS: BARBITURATE, URINE NEGATIVE ng/ml (NEG <=200); BENZODIAZEPINE, URINE NEGATIVE ng/mL (NEG <=200); CANNABINOID, URINE POSITIVE ng/mL (NEG <=50); COCAINE, URINE NEGATIVE ng/mL (NEG <=300); OPIATE, URINE NEGATIVE ng/mL (NEG <=2000); PHENCYCLIDINE SCREEN,URINE NEGATIVE ng/mL (NEG <=25)
--- NOTE | 2021-06-10 08:00 | NUR ---
At bedside with Dr. Shook for stool sample.
[2021-06-10] MEDS ORDERED: BEN10 PO (08:14)
--- NOTE | 2021-06-10 08:15 | NUR ---
Patient provided with telephone to contact mother for transportation home.
[2021-06-10 08:21] VITALS: BP 111/77
--- NOTE | 2021-06-10 08:21 | NUR ---
Patient discharged with v/s stable. Written and verbal after care instructions given and explained. Patient alert, oriented and verbalized understanding of instructions. Ambulatory with steady gait. All questions addressed prior to discharge. ID band removed. Patient advised to follow up with PMD. Rx of Bentyl given. Patient educated on indication of medication including possible reaction and side effects. Opportunity to ask questions provided and answered.
== END 2021-06-10 08:21 | disposition home or self-care (01) ==
LOC: MED 05:15
DX: R06.02 Shortness of breath (principal); Z20.822 Contact with and (suspected) exposure to COVID-19
CPT/HCPCS: 36415; 71045; 71275; 74174; 80053; 80305; 83880; 84484; 85025; 85379; 87426; 87804; 93005; 94640; 99285; G0482; Q9967

== ENCOUNTER 2021-06-10 21:53 | Observation (INO) | payer OTHER ==
[~2021-06-10] VITALS: Ht 175.3 cm; Wt 93.0 kg
[~2021-06-10 21:53] MED LIST changes: +BEN10 PO
[2021-06-10 22:05] VITALS: BP 133/64
--- NOTE | 2021-06-10 22:08 | NUR ---
TO LOBBY A/W BED AMBULATORY
--- NOTE | 2021-06-10 23:44 | NUR ---
PT AMBULATED TO BED 12
--- NOTE | 2021-06-11 | NUR ---
56 Y/O MALE PATIENT PRESENTS TO ED WITH ABDOMINAL PAIN. PT STATES, "I WENT HERE THIS MORNING, AND I DIDN'T GET MY MEDICATIONS FROM THE PHARMACY. I GOT ABDOMINAL PAIN THAT IS WORSENING, 10/10 AND THAT RADIATES TO MY RT LOWER ABDOMEN." DENIES N/V/D; SKIN IS PINK/WARM/DRY; AAOX4 WITH EVEN AND STEADY GAIT; LUNGS CLEAR BL; HR EVEN AND REGULAR; PT DENIES ANY FEVER, CP, SOB, OR COUGH AT THIS TIME; PATIENT STATES PAIN OF 10/10 AT THIS TIME; VSS; PATIENT POSITIONED FOR COMFORT; HOB ELEVATED; BEDRAILS UP X2; BED DOWN. ER MD MADE AWARE OF PT STATUS. NKA PMH: ABDOMINAL HERNIA
[2021-06-11] MEDS ORDERED: FAMOTIDINE 20 MG/2 ML VIAL IVP ONE (00:10)
[2021-06-11 00:36] LABS: BASOPHILS % (AUTO) 0.2 % (0.0-2.0); EOSINOPHILS # (AUTO) 0.6 K/uL (0-0.4); EOSINOPHILS % (AUTO) 3.1 % (0.0-4.0); HEMATOCRIT 24.2 % (36-52); HEMOGLOBIN 7.4 g/dL (12.0-18.0); LYMPHOCYTES # (AUTO) 0.5 K/uL (2.0-11.5); LYMPHOCYTES % (AUTO) 2.5 % (20.5-51.1); MEAN CORPUSCULAR HEMOGLOBIN 26 pg (27-31); MEAN CORPUSCULAR HGB CONC 31 g/dL (33-37); MEAN CORPUSCULAR VOLUME 83.7 fL (80-94); MONOCYTES # (AUTO) 0.5 K/uL (0.8-1.0); MONOCYTES % (AUTO) 2.4 % (1.7-9.3); NEUTROPHILS # (AUTO) 19.1 K/uL (1.8-7.7); NEUTROPHILS % (AUTO) 91.8 % (42.2-75.2); PLATELET COUNT (AUTO) 203 K/uL (140-450); RED BLOOD CELL COUNT(AUTO) 2.88 MIL/uL (4.20-6.10); RED CELL DISTRIBUTION WIDTH 22.3 % (11.6-13.7); WHITE BLOOD COUNT (AUTO) 20.8 K/uL (4.8-10.8)
[2021-06-11] MEDS ORDERED: diphenhydrAMINE 50 MG/ML VIAL IVP ONE (01:00)
[2021-06-11] MEDS ORDERED: NACL 0.9% 1,000 ML IV ONE (01:05)
[2021-06-11] MEDS ORDERED: MORPHINE SULFATE 4 MG/ML SYR IVP ONE (01:05)
--- NOTE | 2021-06-11 02:41 | NUR ---
RECEIVED A CALL FROM [facility], SPOKE TO VICENTA, GATHERED MEDICAL INFORMATION REGARDING PT
--- NOTE | 2021-06-11 04:19 | NUR ---
RECEIVED A CALL FROM [facility], SPOKE TO ALVERTO. PER ALVERTO, PT IS GONNA BE ADMITTED FOR OBSERVATION
[2021-06-11] MEDS ORDERED: ACETAMINOPHEN 325 MG TAB PO PRN (04:50)
[2021-06-11] MEDS ORDERED: ONDANSETRON 4 MG/2 ML VIAL IVP PRN (04:50)
[2021-06-11] MEDS ORDERED: HYDROcodone/APAP 5/325 MG 1 TAB TAB PO PRN (04:50)
--- NOTE | 2021-06-11 07:10 | NUR ---
ASSUMED CARE, REPORT RECEIVED FROM KRISHNA SMILEY
--- NOTE | 2021-06-11 07:10 | NUR ---
GIVEN REPORT TO JUDI RN, FOR CONTINUITY OF CARE
--- NOTE | 2021-06-11 07:53 | NUR ---
PATIENT REASSESSMENT, PATIENT IS SITTING UP AT THE EDGE OF HIS BED IN GOOD HUMOR, SKIN IS WARM AND DRY, DOES C/O ITCHING, MILD RED RASH NOTED TO UPPER THIGHS. RESP EVEN AND UNLABORED, SPEAKING FULL SENTENCES. VS UPDATED AND NOTED TO BE WNL. PLAN OF CARE DISCUSSED WITH PATIENT TO BE ADMITTED FOR FURTHER EVALUATION AND TREATMENT. PATIENT AGREES WITH PLAN.
--- NOTE | 2021-06-11 07:59 | NUR ---
RECEIVED REPORT FROM ER NURSE JEANCARLOS PATIENT IS AAOX4, SKIN INTACT WITH REDNESS ON THE INNER THICH AND PT COMPLAINS OF ABDOMINAL PAIN, SOB AND GENERALIZED ITCHINESS, ON ROOM AIR, CARDIAC DIET, COVID 19 VACCINE 1ST DOSE RECEIVED BY PATIENT, AMBULATORY AND VITAL SIGNS STABLE.
--- NOTE | 2021-06-11 08:05 | NUR ---
Patient will be admitted to care of DR. MARSHALL. Admited to [facility] Med/Surg. Will go to room. Belongings list completed. Report to EVANS SMILEY .
[2021-06-11 08:06] VITALS: BP 123/76
--- NOTE | 2021-06-11 08:06 | NUR ---
PATIENT BROUGHT TO THE UNIT VIA WHEELCHAIR, ASSISTED TO BED, VITAL SIGNS TAKEN BP 123/76 UT 101 RR 20 TEMP 98 O2 SAT 99%. ORIENTED TO ROOM SAFETY MEASURES IN PLACE AND CALL LIGHT WITHIN REACH. WILL CONTINUE TO MONITOR.
[2021-06-11] MEDS: NACL 0.9% 1,000 ML IV SCH ×3 (08:31→19:30)
--- NOTE | 2021-06-11 08:31 | NUR ---
ADMINISTERED SCHEDULED IV FLUID SODIUM CHLORIDE 0.9% 1000 ML AT 100 MLS/HR. PT IS ON OBSERVATION AT THIS TIME.
--- NOTE | 2021-06-11 08:39 | NUR ---
MRSA NARES TAKEN AND SENT TO LAB.
--- NOTE | 2021-06-11 10:00 | NUR ---
PATIENT WALKING AROUND THE HALLWAY STEADY GAIT AND NO DISTRESS NOTED.
--- NOTE | 2021-06-11 12:00 | NUR ---
MADE ROUNDS PATIENT ABLE TO EAT WELL AROUND 75%. AND FEELS BETTER. WILL CONTINUE TO MONITOR.
--- NOTE | 2021-06-11 14:12 | NUR ---
PATIENT HAS BEEN SCREENED AND CATEGORIZED LOW NUTRITION RISK. PATIENT WILL BE SEEN WITHIN 7 DAYS OF ADMISSION. 06/17/[address]
[2021-06-11] MEDS ORDERED: diphenhydrAMINE 50 MG/ML VIAL IVP PRN (15:35)
--- NOTE | 2021-06-11 15:55 | NUR ---
PATIENT COMPLAINS OF GENERALIZED ITCHINESS BENADRYL 25 MG GIVEN. WILL CONTINUE TO MONITOR.
[2021-06-11 16:00] VITALS: BP 110/71
--- NOTE | 2021-06-11 19:31 | NUR ---
ENDORSED TO NIGHT NURSE FOR CONTINUITY OF CARE. PT IS STABLE
--- NOTE | 2021-06-11 19:32 | NUR ---
RECIEVED PATIENT FROM AM NURSE FOR CONTINUITY OF CARE. PATIENT IS A/A/O X4. RESTING IN BED. RESPIRATORY EVEN AND UNLABORED, ON ROOM AIR, NO SIGN OF DISTRESS NOTED. BOWEL SOUND ACTIVE TO 4 QUADRANTS, ABDOMEN ROUND, NON TENDER, OLD SCAR NOTED. SKIN WARM, DRY, NON DIAPHORETIC. IV ON RIGHT AC 20G, INTACT AND PATENT, IS INFUSING FLUID ORDER. PATIENT HAVING REDNESS ON BILATERAL INNER THIGHS. PATIENT DENIES ANY PAIN OR DISCOMFORT. ABLE TO MAKE NEEDS KNOWN. CALL LIGHT WITHIN REACH. WILL CONTINUE TO MONITOR.
[2021-06-11 20:00] VITALS: BP 110/76
--- NOTE | 2021-06-11 22:00 | NUR ---
PATIENT IS AWAKE, RESTING IN BED, TALKING TO HIS ROOMMATE. NO SIGN OF DISTRESS NOTED. CALL LIGHT WITHIN REACH. WILL CONTINUE TO MONITOR.
[2021-06-11 23:42] LABS: APPEARANCE,URINE CLEAR (CLEAR); BILIRUBIN,URINE NEGATIVE (NEGATIVE); BLOOD, URINE NEGATIVE (NEGATIVE); COLOR,URINE YELLOW (YELLOW); LEUKOCYTE ESTERASE ,URINE TRACE (NEGATIVE); NITRITE, URINE NEGATIVE (NEGATIVE); PH,URINE 7.5 (5.0-9.0); UGLUCOSE NEGATIVE (NEGATIVE)
[2021-06-11 23:55] LABS: RBC,URINE 0-5 /HPF (0-5); WBC,URINE 0-5 /HPF (0-5)
--- NOTE | 2021-06-12 | NUR ---
PATIENT IS AWAKE, SITTING UP IN BED, NO SIGN OF DISTRESS NOTED. CALL LIGHT WITHIN REACH. WILL CONTINUE TO MONITOR.
--- NOTE | 2021-06-12 02:00 | NUR ---
ROUND CHECK. PATIENT IS SLEEPING, CHEST RISE AND FALL, NO SIGN OF DISTRESS. CALL LIGHT WITHIN REACH. WILL CONTINUE TO MONITOR.
[2021-06-12 04:00] VITALS: BP 110/73
--- NOTE | 2021-06-12 04:00 | NUR ---
ROUND CHECK. PATIENT IS SLEEPING, CHEST RISE AND FALL NOTED, NO SIGN OF RESPIRATORY DISTRESS. AROUSABLE TO VOICE. CALL LIGHT WITHIN REACH. WILL CONTINUE TO MONITOR.
--- NOTE | 2021-06-12 06:00 | NUR ---
PATIENT IS AWAKE, SITTING UP IN BED, WATCHING TV, NO SIGN OF DISTRESS NOTED. CALL LIGHT WITHIN REACH. WILL CONTINUE TO MONITOR.
[2021-06-12 06:30] LABS: BASOPHILS % (AUTO) 0.2 % (0.0-2.0); EOSINOPHILS # (AUTO) 1.2 K/uL (0-0.4); EOSINOPHILS % (AUTO) 9.5 % (0.0-4.0); HEMATOCRIT 23.8 % (36-52); HEMOGLOBIN 7.4 g/dL (12.0-18.0); LYMPHOCYTES # (AUTO) 0.9 K/uL (2.0-11.5); MEAN CORPUSCULAR HEMOGLOBIN 26 pg (27-31); MEAN CORPUSCULAR HGB CONC 31 g/dL (33-37); MONOCYTES # (AUTO) 0.5 K/uL (0.8-1.0); MONOCYTES % (AUTO) 3.7 % (1.7-9.3); NEUTROPHILS # (AUTO) 10.4 K/uL (1.8-7.7); NEUTROPHILS % (AUTO) 79.6 % (42.2-75.2); PLATELET COUNT (AUTO) 189 K/uL (140-450); RED BLOOD CELL COUNT(AUTO) 2.84 MIL/uL (4.20-6.10); RED CELL DISTRIBUTION WIDTH 21.7 % (11.6-13.7); WHITE BLOOD COUNT (AUTO) 13.1 K/uL (4.8-10.8)
[2021-06-12 06:40] LABS: ANION GAP 12.6 (8-16); CARBON DIOXIDE 25.3 mmol/L (21-32); CREATININE 0.7 mg/dL (0.6-1.3); POTASSIUM 3.9 mmol/L (3.5-5.1); TOTAL BILIRUBIN 1.5 mg/dL (0.0-1.0)
[2021-06-12 06:44] LABS: MAGNESIUM 0.7 mg/dL (1.8-2.4)
--- NOTE | 2021-06-12 06:46 | NUR ---
PAGED DR BEAL TO NOTIFY CRITICAL LAB VALUE MAGNESIUM 0.7. PATIENT IS STABLE. NO SIGN OF DISTRESS. WAITING FOR CALL BACK.
[2021-06-12] MEDS: NACL 0.9% 1,000 ML IV SCH (06:50)
--- NOTE | 2021-06-12 06:59 | NUR ---
JUANI BEAL, [facility] [place] 4[place] IV X1. WILL FOLLOW ORDER.
[2021-06-12] MEDS ORDERED: MAG SULF 2000 MG/WATER PREMIX 50 ML IV ONE (07:06)
[2021-06-12] MEDS ORDERED: MAG SULF 2000 MG/WATER PREMIX 50 ML IV SCH (07:10)
--- NOTE | 2021-06-12 07:15 | NUR ---
ENDORSED PATIENT TO AM NURSE FOR CONTINUITY OF CARE. PATIENT IS STABLE.
--- NOTE | 2021-06-12 07:31 | NUR ---
PT ENDORSED BY ANVILSMITH NURSE FOR CONTINUITY OF CARE, POC DISCUSSED. PT IS RESTING COMFORTABLY IN BED WITH NO S/S OF ACUTE DISTRESS. PT DENIES PAIN AT THIS TIME. PT IS ON ROOM AIR WITH CHEST RISING AND FALLING EVEN AND UNLABORED. PT IS A&OX4. PT HAS A R FA 22 G RUNNING NS @100 AND IVPB OF MAG FOR 0.7 MAG LEVEL; ONE MORE BAG OF MAG NEEDED AFTER FINISHED. ALL SAFETY MEASURES IN PLACE, CALL LIGHT WITHIN REACH. WILL CONTINUE TO MONITOR
[2021-06-12 08:00] VITALS: BP 122/50
[2021-06-12] MEDS: MAG SULF 2000 MG/WATER PREMIX 50 ML IV SCH ×2 (08:00→10:32)
--- NOTE | 2021-06-12 08:00 | NUR ---
MAGNESIUM IS RUNNING AT 25/ML PER HR. IV PATENT AND INTACT. PT IS SITTING IN CHAIR AT BEDSIDE WITH NO S/S OF ACUTE DISTRESS.
--- NOTE | 2021-06-12 08:52 | NUR ---
MORNING ROUNDS, PT IS AT BEDSIDE ON ROOM AIR WITH CHEST RISING AND FALLING EVEN AND UNLABORED. NO S/S OF ACUTE DISTRESS. PT REPORTS ALL NEEDS ARE MET. IV FLUIDS RUNNING. ALL SAFETY MEASURES IN PLACE, CALL LIGHT WITHIN REACH. WILL CONTINUE TO MONITOR.
--- NOTE | 2021-06-12 09:17 | NUR ---
FIRST BAG OF MAGNESIUM SULFATE COMPLETED.
--- NOTE | 2021-06-12 11:07 | NUR ---
PT VERBALIZED ALL NEEDS ARE MET, SECOND BAG OF MAG RUNNING AT 25 ML/HR. PT ON ROOM AIR WITH CHEST RISING AND FALLING EVEN AND UNLABORED. ALL SAFETY MEASURES IN PLACE, CALL LIGHT WITHIN REACH. WILL CONTINUE TO MONITOR.
--- NOTE | 2021-06-12 13:07 | NUR ---
SECOND BAG OF IV FLUIDS COMPLETED. Addendum: 06/24/21 at 1236 by Karly Velazquez RN MAGNESIUM SULFATE
--- NOTE | 2021-06-12 13:20 | NUR ---
NS IV FLUIDS COMPLETED.
--- NOTE | 2021-06-12 13:51 | NUR ---
PT DISCHARGED. ALL DISCHARGE PAPERWORK WENT OVER AND EDUCATION PROVIDED. PT VERBALIZED UNDERSTANDING. ALL QUESTIONS ANSWERED. IV REMOVED, MILD BLEEDING NOTED. EDUCATED PT ON APPLYING PRESSURE AND TO KEEP DRESSING PLACED ON FOR 15 MINUTES. PT HAS ALL BELONGING AND DC PAPERWORK. ID BAND REMOVED. PT WALKED OUT AND PICKED UP IN LOBBY BY PTS MOTHER.
== END 2021-06-12 13:55 | disposition home or self-care (01) ==
LOC: MED 21:53 → MMU 06-11 04:49 → MTU 06-11 06:28
PROVIDERS: ADMIT Hospitalist; ATTEND Hospitalist
DX: K52.9 Noninfective gastroenteritis and colitis, unspecified (principal); R10.84 Generalized abdominal pain; E86.0 Dehydration; D72.829 Elevated white blood cell count, unspecified; E87.2 Acidosis; I10 Essential (primary) hypertension; K74.60 Unspecified cirrhosis of liver; R11.2 Nausea with vomiting, unspecified; F10.10 Alcohol abuse, uncomplicated
CPT/HCPCS: 36415; 74176; 80053; 81001; 83605; 83735; 85025; 87040; 87081; 87086; 96361; 96365; 96366; 96375; 96376; 99285; G0378; J1200; J2270; J3475; J3490; 96374

== ENCOUNTER 2021-08-13 03:18 | Emergency (ER) | payer OTHER ==
[~2021-08-13] VITALS: Ht 175.3 cm; Wt 93.0 kg
[~2021-08-13 03:18] MED LIST changes: -IBUP-2213 PO
[2021-08-13 03:30] VITALS: BP 150/98
--- NOTE | 2021-08-13 03:38 | NUR ---
PATIENT TO LOBBY
--- NOTE | 2021-08-13 04:18 | NUR ---
PT TAKEN TO CT
[2021-08-13 04:30] LABS: BASOPHILS # (AUTO) 0.1 K/uL (0.00-0.22); EOSINOPHILS # (AUTO) 0.3 K/uL (0-0.4); EOSINOPHILS % (AUTO) 4.5 % (0.0-4.0); HEMATOCRIT 27.5 % (36-52); HEMOGLOBIN 8.5 g/dL (12.0-18.0); LYMPHOCYTES # (AUTO) 0.9 K/uL (2.0-11.5); LYMPHOCYTES % (AUTO) 11.6 % (20.5-51.1); MEAN CORPUSCULAR HEMOGLOBIN 23 pg (27-31); MEAN CORPUSCULAR HGB CONC 31 g/dL (33-37); MEAN CORPUSCULAR VOLUME 75.6 fL (80-94); MONOCYTES # (AUTO) 0.8 K/uL (0.8-1.0); MONOCYTES % (AUTO) 10.4 % (1.7-9.3); NEUTROPHILS # (AUTO) 5.6 K/uL (1.8-7.7); NEUTROPHILS % (AUTO) 72.5 % (42.2-75.2); PLATELET COUNT (AUTO) 163 K/uL (140-450); RED BLOOD CELL COUNT(AUTO) 3.64 MIL/uL (4.20-6.10); RED CELL DISTRIBUTION WIDTH 19.8 % (11.6-13.7); WHITE BLOOD COUNT (AUTO) 7.7 K/uL (4.8-10.8)
[2021-08-13 04:49] LABS: ALBUMIN 3.6 g/dL (3.4-5.0); ANION GAP 14.5 (8-16); CARBON DIOXIDE 26.6 mmol/L (21-32); CREATININE 0.9 mg/dL (0.6-1.3); POTASSIUM 4.1 mmol/L (3.5-5.1); TOTAL BILIRUBIN 0.7 mg/dL (0.0-1.0)
--- NOTE | 2021-08-13 05:47 | NUR ---
PT TAKEN TO BED 5
--- NOTE | 2021-08-13 06:17 | NUR ---
Dr. Hernandez examining patient.
[2021-08-13] MEDS ORDERED: KETOROLAC 60 MG/2 ML VIAL IM ONE (06:20)
[2021-08-13] MEDS ORDERED: ACET-8386 PO ×2 (06:22→06:24)
[2021-08-13] MEDS ORDERED: IBUP-2213 PO (06:22)
--- NOTE | 2021-08-13 06:30 | NUR ---
PER ERMD ORDERS MEDICATED PATIENT.
[2021-08-13 06:58] VITALS: BP 150/98
== END 2021-08-13 06:57 | disposition home or self-care (01) ==
LOC: MED 03:18
DX: R10.9 Unspecified abdominal pain (principal); R11.0 Nausea; Z79.899 Other long term (current) drug therapy
CPT/HCPCS: 36415; 74176; 80053; 81002; 83690; 85025; 96372; 99284; J1885; 99283

== ENCOUNTER 2021-08-20 10:28 | Emergency (ER) | payer OTHER ==
[~2021-08-20] VITALS: Ht 175.3 cm; Wt 93.4 kg
[~2021-08-20 10:28] MED LIST changes: +IBUP-2213 PO
[2021-08-20 10:53] VITALS: BP 149/76
[2021-08-20 14:35] VITALS: BP 135/88
--- NOTE | 2021-08-20 14:35 | NUR ---
no nursing interventions given
== END 2021-08-20 14:35 | disposition home or self-care (01) ==
LOC: MED 10:28
DX: M79.671 Pain in right foot (principal); Z79.891 Long term (current) use of opiate analgesic
CPT/HCPCS: 73630; 99283

== ENCOUNTER 2021-10-10 18:12 | Observation (INO) | payer OTHER, SELFPAY ==
[~2021-10-10] VITALS: Ht 175.3 cm; Wt 92.1 kg
[~2021-10-10 18:12] MED LIST changes: +ONDA-188 SL; -ONDA-24 SL
[2021-10-10 18:25] VITALS: BP 154/105
--- NOTE | 2021-10-10 18:36 | NUR ---
PT AMB TO BED 12
--- NOTE | 2021-10-10 18:45 | NUR ---
56 y/o M BIB self from home c/o generalized weakness and dizziness x 3-4 days. 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 Pt states associated nausea and vomiting x 2 episodes -hemaemesis. Pt states symptoms began shortly after. Abd round/distended/firm; patient states abdomen normal to self d/t history of hernia repair. Denies abdominal pain, chest pain, SOB, headache, blurry vision. Denies any medications prior to arrival. quality assurance monitor final and gown in place. Bed locked in lowest position, side rails x 1, call light in reach. PMH: "liver problems," hernia repair, 1 seizure in 08/2020 Meds: Finasteride, flomax, zofran, atorvastatin, bentyl NKA Sx: hernia repair
--- NOTE | 2021-10-10 18:57 | NUR ---
Urinal at bedside. Pt states unable to provide urine sample at this time.
--- NOTE | 2021-10-10 19:18 | NUR ---
Report and transfer of care endorsed to BALJIT Albert & DAVID HansonN
--- NOTE | 2021-10-10 19:30 | NUR ---
pt is awake and alert, sitting up in bed. pt states he is experiencing abd discomfort, states it's not really pain and doesnt need pain medication at this time. pt is in stable condition. all needs met at this time. bed locked in lowest position, side rails x1
--- NOTE | 2021-10-10 20:07 | NUR ---
Chris tobias in ED - 10/10/21 at 2007 by [facility] pt ambulated to bed .
[2021-10-10] MEDS ORDERED: NACL 0.9% 2,000 ML IV ONE (21:00)
[2021-10-10] MEDS ORDERED: ONDANSETRON 4 MG/2 ML VIAL IVP ONE (21:00)
--- NOTE | 2021-10-10 21:15 | NUR ---
Chris tobias in [facility] - 10/10/21 at 2116 by LORE X-Ray at bedside.
[2021-10-10] MEDS ORDERED: chlordiazePOXIDE 25 MG CAP PO SCH (21:30)
--- NOTE | 2021-10-10 21:33 | NUR ---
labs and urine collected and taken to lab.
--- NOTE | 2021-10-10 21:48 | NUR ---
PT TAKEN TO RADIOLOGY
[2021-10-10 21:50] LABS: BASOPHILS # (AUTO) 0.1 K/uL (0.00-0.22); EOSINOPHILS # (AUTO) 0.1 K/uL (0-0.4); EOSINOPHILS % (AUTO) 0.5 % (0.0-4.0); HEMATOCRIT 28.3 % (36-52); HEMOGLOBIN 8.8 g/dL (12.0-18.0); LYMPHOCYTES # (AUTO) 0.8 K/uL (2.0-11.5); LYMPHOCYTES % (AUTO) 6.1 % (20.5-51.1); MEAN CORPUSCULAR HEMOGLOBIN 23 pg (27-31); MEAN CORPUSCULAR HGB CONC 31 g/dL (33-37); MEAN CORPUSCULAR VOLUME 72.8 fL (80-94); MONOCYTES % (AUTO) 7.8 % (1.7-9.3); NEUTROPHILS # (AUTO) 11.4 K/uL (1.8-7.7); NEUTROPHILS % (AUTO) 84.6 % (42.2-75.2); PLATELET COUNT (AUTO) 207 K/uL (140-450); RED BLOOD CELL COUNT(AUTO) 3.89 MIL/uL (4.20-6.10); RED CELL DISTRIBUTION WIDTH 20.2 % (11.6-13.7); WHITE BLOOD COUNT (AUTO) 13.4 K/uL (4.8-10.8)
[2021-10-10 22:05] LABS: ANION GAP 17.7 (8-16); CARBON DIOXIDE 24.9 mmol/L (21-32); CREATININE 0.9 mg/dL (0.6-1.3); POTASSIUM 4.6 mmol/L (3.5-5.1); TOTAL BILIRUBIN 1.4 mg/dL (0.0-1.0)
--- NOTE | 2021-10-10 22:15 | NUR ---
lactic acid 3.4, ermd said made aware, no new orders.
[2021-10-10] MEDS ORDERED: cefTRIAXone 1,000 MG VIAL ONE (22:28)
[2021-10-10 22:32] LABS: APPEARANCE,URINE CLEAR (CLEAR); BILIRUBIN,URINE 1+ (NEGATIVE); BLOOD, URINE NEGATIVE (NEGATIVE); COLOR,URINE YELLOW (YELLOW); LEUKOCYTE ESTERASE ,URINE NEGATIVE (NEGATIVE); NITRITE, URINE NEGATIVE (NEGATIVE); PH,URINE 6.5 (5.0-9.0); UGLUCOSE NEGATIVE (NEGATIVE)
--- NOTE | 2021-10-10 22:49 | NUR ---
spoke to roberto from [facility].
--- NOTE | 2021-10-10 23:05 | NUR ---
swabs collected and taken to lab.
--- NOTE | 2021-10-10 23:18 | NUR ---
lpt is sitting up in bed. denies pain, abd discomfort continued. all needs met at this time. bed locked in lowest position, side rails x2.
[2021-10-10 23:38] LABS: RSV NEGATIVE (NEGATIVE)
[2021-10-10] MEDS ORDERED: ONDANSETRON 4 MG/2 ML VIAL IVP PRN (23:45)
[2021-10-10] MEDS ORDERED: MAGNESIUM OXIDE 400 MG TAB PO PRN (23:45)
[2021-10-10] MEDS ORDERED: HYDROcodone/APAP 5/325 MG 1 TAB TAB PO PRN (23:45)
[2021-10-10] MEDS ORDERED: POTASSIUM CHLORIDE 10 MEQ TABER PO PRN (23:45)
[2021-10-10] MEDS ORDERED: KCL 20 MEQ/WATER INJ PREMIX 200 ML IV PRN (23:45)
[2021-10-10] MEDS ORDERED: MAG SULF 2000 MG/WATER PREMIX 50 ML IV PRN (23:45)
--- NOTE | 2021-10-10 23:58 | NUR ---
paged for decreased urine output, ordered bladder scan, if more than 400c straight cath.
[2021-10-11] MEDS: NACL 0.9% 1,000 ML IV SCH ×2 (00:09→15:37)
--- NOTE | 2021-10-11 00:09 | NUR ---
bladder scan completed, less than 200cc in bladder.
--- NOTE | 2021-10-11 00:16 | NUR ---
food provided for pt per request.
--- NOTE | 2021-10-11 02:21 | NUR ---
PT IS SITTING UP IN BED USING PHONE. PT IN STABLE CONDITION, VSS. ALL NEEDS MET AT THIS TIME. BED LOCKED IN LOWEST POSITION, SIDE RAILS X2.
[2021-10-11] MEDS: ACETAMINOPHEN 325 MG TAB PO PRN (02:54)
--- NOTE | 2021-10-11 06:27 | NUR ---
LAB AT BEDSIDE.
[2021-10-11 06:59] LABS: BASOPHILS # (AUTO) 0.1 K/uL (0.00-0.22); BASOPHILS % (AUTO) 0.7 % (0.0-2.0); EOSINOPHILS # (AUTO) 0.2 K/uL (0-0.4); EOSINOPHILS % (AUTO) 2.1 % (0.0-4.0); HEMATOCRIT 25.4 % (36-52); HEMOGLOBIN 7.9 g/dL (12.0-18.0); LYMPHOCYTES # (AUTO) 1.1 K/uL (2.0-11.5); MEAN CORPUSCULAR HEMOGLOBIN 23 pg (27-31); MEAN CORPUSCULAR HGB CONC 31 g/dL (33-37); MEAN CORPUSCULAR VOLUME 74.1 fL (80-94); MONOCYTES # (AUTO) 0.7 K/uL (0.8-1.0); MONOCYTES % (AUTO) 8.1 % (1.7-9.3); NEUTROPHILS # (AUTO) 6.2 K/uL (1.8-7.7); NEUTROPHILS % (AUTO) 76.1 % (42.2-75.2); PLATELET COUNT (AUTO) 158 K/uL (140-450); RED BLOOD CELL COUNT(AUTO) 3.42 MIL/uL (4.20-6.10); RED CELL DISTRIBUTION WIDTH 19.8 % (11.6-13.7); WHITE BLOOD COUNT (AUTO) 8.1 K/uL (4.8-10.8)
[2021-10-11 07:11] LABS: ALBUMIN 3.4 g/dL (3.4-5.0); ANION GAP 14.5 (8-16); CARBON DIOXIDE 25.5 mmol/L (21-32); CREATININE 0.8 mg/dL (0.6-1.3); TOTAL BILIRUBIN 1.4 mg/dL (0.0-1.0)
--- NOTE | 2021-10-11 07:15 | NUR ---
RECIEVED TRANSFER OF CARE REPORT FROM RICKY SMILEY FOR CONTINUITY OF CARE. DENIES N/V/D; SKIN IS PINK/WARM/DRY; AAOX4 WITH EVEN AND UNSTEADY GAIT; LUNGS CLEAR BL; HR EVEN AND REGULAR; PT DENIES ANY FEVER, CP, SOB, OR COUGH AT THIS TIME; VSS; PATIENT SITTING ON EDGE OF BED;BEDRAILS UP X2; BED IS IN LOWEST SETTING. IV IN RIGHT HAND (22G) INFUSING NS @80/HR.
[2021-10-11 07:23] LABS: CHOL/HDL RATIO 2.4 (1-4.5); MAGNESIUM 1.2 mg/dL (1.8-2.4)
[2021-10-11 07:31] LABS: PROTHROMBIN TIME 11.3 secs (10.8-13.4)
--- NOTE | 2021-10-11 07:52 | NUR ---
RECIEVED TRANSFER OF CARE REPORT FROM RICKY. DENIES N/V/D; SKIN IS PINK/WARM/DRY; AAOX4 WITH EVEN AND UNSTEADY GAIT; LUNGS CLEAR BL; HR EVEN AND REGULAR; PT DENIES ANY FEVER, CP, SOB, OR COUGH AT THIS TIME; VSS; PATIENT SITTING ON EDGE OF BED;BEDRAILS UP X2; BED IS IN LOWEST SETTING. IV IN RIGHT HAND (22G) INFUSING NS @80/HR.
--- NOTE | 2021-10-11 07:52 | NUR ---
Note undone in EDM - 10/11/21 at 0755 by [email or web address] RECIEVED TRANSFER OF CARE REPORT FROM CLAUDIA. RUFF N/V/D; SKIN IS PINK/WARM/DRY; AAOX4 WITH EVEN AND UNSTEADY GAIT; LUNGS CLEAR BL; HR EVEN AND REGULAR; PT DENIES ANY FEVER, CP, SOB, OR COUGH AT THIS TIME; VSS; PATIENT SITTING ON EDGE OF BED;BEDRAILS UP X2; BED IS IN LOWEST SETTING. IV IN RIGHT HAND (22G) INFUSING NS @80/HR.
[2021-10-11] MEDS: DOCUSATE SODIUM 100 MG GELCAP PO SCH (08:31)
--- NOTE | 2021-10-11 09:11 | NUR ---
PATIENT HAS BEEN SCREENED AND CATEGORIZED LOW NUTRITION RISK. PATIENT WILL BE SEEN WITHIN 7 DAYS OF ADMISSION. 10/17/[address]
--- NOTE | 2021-10-11 10:00 | NUR ---
Patient appears to be resting comfortably in bed in semi fowlers. Vital Signs within normal limits. Respirations even and unlabored. Pt states he felt dizzy when he tried to walk around. Patient was advised to notify for help prior to ambulating, rails up x 1, bed in lowest position.
--- NOTE | 2021-10-11 12:00 | NUR ---
PT EATING LUNCH TRAY
--- NOTE | 2021-10-11 14:45 | NUR ---
Patient awake, appears to be resting comfortably in bed. Vital Signs within normal limits. Respirations even and unlabored. Chest rise is symmetrical. Will continue to monitor.
--- NOTE | 2021-10-11 15:30 | NUR ---
Patient awake, appears to be resting comfortably in bed. Vital Signs within normal limits. Respirations even and unlabored. Chest rise is symmetrical. Will continue to monitor.
--- NOTE | 2021-10-11 17:52 | NUR ---
PT EATING DINNER TRAY
--- NOTE | 2021-10-11 19:19 | NUR ---
Transfer of care report given to Rocio SMILEY
--- NOTE | 2021-10-11 19:30 | NUR ---
RESTING IN BED WITH EYES OPEN , RESPIRATIONS REGULAR AND UNLABORED. DENIES COMPLAINTS
--- NOTE | 2021-10-11 20:10 | NUR ---
REPORT CALLED TO BALJIT JEWELL
--- NOTE | 2021-10-11 20:20 | NUR ---
IV OUT. 22 SL ESTABLISHED RIGHT FOREARM
--- NOTE | 2021-10-11 20:35 | NUR ---
TO 114 VIA GURNEY ATTACHED TO TECHNICAL ASSISTANT, ACCOMPANIED BY RN AND ERT
[2021-10-11 20:45] VITALS: BP 133/85
--- NOTE | 2021-10-11 20:45 | NUR ---
Pt arrived via gurney to [facility] room # 114A. Pt arrived in stable condition and in no apparent distress. Pt VS taken by BREAST SPLITTER and telemetry box and leads attached to pt. pt A+O*NPTE. Pt oriented to room, call light, and unit routines.
[2021-10-12] VITALS: BP 116/84
[2021-10-12] MEDS: NACL 0.9% 1,000 ML IV SCH (00:45)
--- NOTE | 2021-10-12 01:00 | NUR ---
Dr. Brian notified of admission. Orders received and more to follow in a.m.
[2021-10-12 07:03] LABS: BASOPHILS % (AUTO) 0.7 % (0.0-2.0); EOSINOPHILS # (AUTO) 0.2 K/uL (0-0.4); EOSINOPHILS % (AUTO) 3.9 % (0.0-4.0); HEMOGLOBIN 7.7 g/dL (12.0-18.0); LYMPHOCYTES # (AUTO) 0.8 K/uL (2.0-11.5); LYMPHOCYTES % (AUTO) 13.5 % (20.5-51.1); MEAN CORPUSCULAR HEMOGLOBIN 23 pg (27-31); MEAN CORPUSCULAR HGB CONC 31 g/dL (33-37); MEAN CORPUSCULAR VOLUME 73.7 fL (80-94); MONOCYTES # (AUTO) 0.4 K/uL (0.8-1.0); MONOCYTES % (AUTO) 6.4 % (1.7-9.3); NEUTROPHILS # (AUTO) 4.7 K/uL (1.8-7.7); NEUTROPHILS % (AUTO) 75.5 % (42.2-75.2); PLATELET COUNT (AUTO) 155 K/uL (140-450); RED CELL DISTRIBUTION WIDTH 20.1 % (11.6-13.7); WHITE BLOOD COUNT (AUTO) 6.3 K/uL (4.8-10.8)
[2021-10-12 07:16] LABS: ALBUMIN 3.1 g/dL (3.4-5.0); ANION GAP 12.4 (8-16); CARBON DIOXIDE 24.7 mmol/L (21-32); CREATININE 0.7 mg/dL (0.6-1.3); MAGNESIUM 1.8 mg/dL (1.8-2.4); POTASSIUM 4.1 mmol/L (3.5-5.1); TOTAL BILIRUBIN 1.1 mg/dL (0.0-1.0)
[2021-10-12 07:32] LABS: PROTHROMBIN TIME 11.4 secs (10.8-13.4)
[2021-10-12 08:00] VITALS: BP 137/92
[2021-10-12] MEDS: DOCUSATE SODIUM 100 MG GELCAP PO SCH (09:16)
[2021-10-12] MEDS: ACETAMINOPHEN 325 MG TAB PO PRN (09:18)
[2021-10-12 13:11] VITALS: BP 125/79
--- NOTE | 2021-10-12 14:39 | NUR ---
RECEIVED DISCHARGE ORDERS, PRINTED DISCHARGE INSTRUCTIONS GIVEN AND EXPLAINED TO PATIENT. PATIENT VERBALIZED UNDERSTANDING OF ALL DISCHARGE INSTRUCTIONS/PACKET/FOLLOW UP APPTS/MEDICATIONS. PT INSTRUCTED TO FOLLOW UP WITH PCP IN 1 DAY. IV SITE REMOVED, CATH INTACT, NO BLEEDING NOTED. ACCOMPANIED PATIENT TO MAIN ENTRANCE, PATIENT LEFT WITH ALL BELONGINGS INCLUDING CELL PHONE, CELL PHONE GEM SETTER, WALLET, CLOTHING. PT PROVIDED BUS PASS BY [employer] SU[employer].
--- NOTE | 2021-10-22 14:24 | NUR ---
LATE ENTRY- IV FLUID DISCONTINUED AT 2019.
== END 2021-10-12 14:45 | disposition home or self-care (01) ==
LOC: MED 18:12 → MTU 23:43
PROVIDERS: ADMIT Hospitalist; ATTEND Hospitalist
DX: F10.239 Alcohol dependence with withdrawal, unspecified (principal); Z20.822 Contact with and (suspected) exposure to COVID-19; F10.229 Alcohol dependence with intoxication, unspecified; K70.30 Alcoholic cirrhosis of liver without ascites; I10 Essential (primary) hypertension; E87.2 Acidosis; K44.9 Diaphragmatic hernia without obstruction or gangrene; K57.90 Diverticulosis of intestine, part unspecified, without perforation or abscess without bleeding; R11.2 Nausea with vomiting, unspecified; D72.829 Elevated white blood cell count, unspecified; K21.9 Gastro-esophageal reflux disease without esophagitis; D53.9 Nutritional anemia, unspecified; I25.10 Atherosclerotic heart disease of native coronary artery without angina pectoris; N40.0 Benign prostatic hyperplasia without lower urinary tract symptoms; M62.08 Separation of muscle (nontraumatic), other site; E78.5 Hyperlipidemia, unspecified; Z79.899 Other long term (current) drug therapy
CPT/HCPCS: 36415; 71045; 74176; 80053; 80061; 81003; 82140; 83036; 83605; 83690; 83735; 83880; 84484; 85025; 85610; 87040; 87086; 87420; 87426; 87804; 93005; 96361; 96365; 96366; 96367; 96375; 99291; G0378; G0482; J0696; J2405; J3475; U0003

== ENCOUNTER 2021-10-27 23:50 | Inpatient (IN) | payer OTHER, SELFPAY ==
[~2021-10-27] VITALS: Ht 175.3 cm; Wt 93.4 kg
[~2021-10-27 23:50] MED LIST changes: -IBUP-2213 PO
--- NOTE | 2021-10-27 23:55 | NUR ---
CLARITA ERVIN VIA GURNEY TO BED 09.
[2021-10-28] VITALS: BP 138/90
--- NOTE | 2021-10-28 00:08 | NUR ---
56 YO/M BIBA W C/O WEAKNESS, DIZZINESS, +N, "FEELING IF WAS INTOXICATED,", SWEATING, FEELING HOT WITH ACTIVITY, + INTERMITTEDNT NON-RAD CHEST PAIN 3/10 ACHE LIKE BEGINNING AT 0700 YESTERDAY. PT REPORTS HE WAS SEEN HERE X2 WEEKS AGO AND TOLD HE WAS DEHYDRATED AND HAD A UTI. PT REPORTS HE HAVING BROUW URINE DENIES DYSUIRIA, URGENCY, FREQUENCY OR RETENTION. PT DENIES LOC, SOB, FEVERS/ DIARRHEA, CONSTIPATION, VOMITING. PT REPORTS HE IS A RECOVERING ALCOHOLIC. AOX4, GCS 15, S1S2 PRESENT, TACHY AT 114HR, CAP REFIL <3SEC, +2 RADIAL PULSES, LONG SOUNDS CLEAR W BREATHING EVEN AND UNLABORED. PT LAYING IN BED LOCKED IN LOWEST POSITION W X2 SIDERAILS UP FOR PT SAFETY. NAD NOTED, WILL CONTINUE TO MONITOR. PMH:SEIZURES, HTN, HIGH CHL NKA
[2021-10-28] MEDS ORDERED: LORazepam 2 MG/ML VIAL IVP ONE (00:40)
[2021-10-28] MEDS ORDERED: NACL 0.9% 1,000 ML IV ONE ×2 (00:40→03:20)
[2021-10-28 01:34] LABS: BASOPHILS # (AUTO) 0.1 K/uL (0.00-0.22); BASOPHILS % (AUTO) 0.9 % (0.0-2.0); EOSINOPHILS # (AUTO) 0.1 K/uL (0-0.4); HEMATOCRIT 28.1 % (36-52); HEMOGLOBIN 8.7 g/dL (12.0-18.0); LYMPHOCYTES # (AUTO) 0.9 K/uL (2.0-11.5); MEAN CORPUSCULAR HEMOGLOBIN 22 pg (27-31); MEAN CORPUSCULAR HGB CONC 31 g/dL (33-37); MEAN CORPUSCULAR VOLUME 72.3 fL (80-94); MONOCYTES # (AUTO) 0.7 K/uL (0.8-1.0); MONOCYTES % (AUTO) 6.2 % (1.7-9.3); NEUTROPHILS # (AUTO) 9.6 K/uL (1.8-7.7); NEUTROPHILS % (AUTO) 83.9 % (42.2-75.2); PLATELET COUNT (AUTO) 310 K/uL (140-450); RED BLOOD CELL COUNT(AUTO) 3.88 MIL/uL (4.20-6.10); RED CELL DISTRIBUTION WIDTH 19.8 % (11.6-13.7); WHITE BLOOD COUNT (AUTO) 11.4 K/uL (4.8-10.8)
[2021-10-28 01:48] LABS: PROTHROMBIN TIME 10.8 secs (10.8-13.4)
[2021-10-28 01:51] LABS: ALBUMIN 3.8 g/dL (3.4-5.0); ANION GAP 15.5 (8-16); CREATININE 0.9 mg/dL (0.6-1.3); POTASSIUM 4.5 mmol/L (3.5-5.1); TOTAL BILIRUBIN 1.1 mg/dL (0.0-1.0)
--- NOTE | 2021-10-28 02:37 | NUR ---
PT REPORTS HE FEELS THE SAME AT THIS TIME. NO CHANGES. CONNECTED TO MONITOR. WILL CONTINUE TO MONITOR.
[2021-10-28 04:35] LABS: BILIRUBIN,URINE 1+ (NEGATIVE); BLOOD, URINE NEGATIVE (NEGATIVE); LEUKOCYTE ESTERASE ,URINE NEGATIVE (NEGATIVE); NITRITE, URINE NEGATIVE (NEGATIVE); UGLUCOSE NEGATIVE (NEGATIVE)
--- NOTE | 2021-10-28 04:40 | NUR ---
PT REPORTS REPORTS FEELING TIRED, AND ONGOING DIZZINESS. PT SITTING IN BED AWAKE. PT REPORTS HE HAS INSOMNIA AND DOES NOT SLEEP MOST NIGHTS. PT DENIES ANY CHEST PAIN. VSS, WILL CONTINUE TO MONITOR.
[2021-10-28 04:51] LABS: APPEARANCE,URINE HAZY (CLEAR); COLOR,URINE YELLOW (YELLOW)
[2021-10-28 04:53] LABS: RBC,URINE 0-5 /HPF (0-5)
[2021-10-28 04:54] LABS: WBC,URINE 0-5 /HPF (0-5)
[2021-10-28] MEDS ORDERED: cefTRIAXone 1,000 MG VIAL ONE (05:31)
[2021-10-28] MEDS ORDERED: SPIR50TA PO (06:07)
--- NOTE | 2021-10-28 06:21 | NUR ---
SPOKE TO MURALI FROM [employer] FOR PT STATUS.
--- NOTE | 2021-10-28 06:25 | NUR ---
PT APPEARS TO BE RESTING W EYES CLOSED, SUPINE. BREATHING EVEN AND UNLABORED. X2 SIDERAILS UP FOR PT SAFETY. VSS. NAD NOTED, WILL CONTINUE TO MONITOR.
--- NOTE | 2021-10-28 07:13 | NUR ---
Pt report given to GER SMILEY. Transfer of care at this time.
--- NOTE | 2021-10-28 07:13 | NUR ---
REPORT RECEIVED FROM KRYSTYNA SMILEY FOR CONTINUITY OF CARE
[2021-10-28] MEDS ORDERED: LORazepam 1 MG TAB PO PRN (09:20)
[2021-10-28] MEDS ORDERED: KCL 20 MEQ/WATER INJ PREMIX 200 ML IV PRN (09:20)
[2021-10-28] MEDS ORDERED: MAG SULF 2000 MG/WATER PREMIX 50 ML IV PRN (09:20)
[2021-10-28] MEDS ORDERED: HYDROcodone/APAP 5/325 MG 1 TAB TAB PO PRN (09:20)
[2021-10-28] MEDS ORDERED: POTASSIUM CHLORIDE 10 MEQ TABER PO PRN (09:20)
[2021-10-28] MEDS ORDERED: ONDANSETRON 4 MG/2 ML VIAL IVP PRN (09:20)
[2021-10-28] MEDS ORDERED: ACETAMINOPHEN 325 MG TAB PO PRN (09:20)
--- NOTE | 2021-10-28 09:30 | NUR ---
Patient resting comfortably in bed. Vital Signs within normal limits. Respirations even and unlabored. Chest rise is symmetrical. Will continue to monitor.
--- NOTE | 2021-10-28 10:30 | NUR ---
Patient will be admitted to care of DR GOMEZ. Admited to [facility]. Will go to room 106 B. Belongings list completed. Report to WENDY SMILEY.
[2021-10-28 10:35] VITALS: BP 130/86
--- NOTE | 2021-10-28 10:35 | NUR ---
PATIENT ADMITTED TO UNIT FROM ED. ARRIVE TO UNIT VIA WHEELCHAIR. PATIENT ABLE TO AMBULATE FROM WHEELCHAIR TO BED. NO COMPLAINTS OF PAIN OR DISCOMFORT NOTED. ALL SAFETY MEASURES IN PLACE. CALL LIGHT WITHIN REACH.
--- NOTE | 2021-10-28 12:17 | NUR ---
PATIENT HAS BEEN SCREENED AND CATEGORIZED HIGH NUTRITION RISK. PATIENT WILL BE SEEN WITHIN 1-2 DAYS OF ADMISSION. 10/28/21-10/29/21 RECEIVED REFERRAL FOR NAUSEA AND VOMITING FOR [address]
--- NOTE | 2021-10-28 12:35 | NUR ---
DID ROUNDS ON PATIENT. PATIENT IN BED, FAMILY AT BEDSIDE. NO COMPLAINTS OF PAIN OR DISCOMFORT. NO SIGNS OF DISTRESS NOTED. WILL CONTINUE TO MONITOR.
--- NOTE | 2021-10-28 15:40 | NUR ---
DID ROUNDS ON PATIENT. PATIENT IN BED SLEEPING AT THIS TIME. RESPIRATIONS ARE EVEN AND UNLABORED. NO SIGNS OF DISTRESS NOTED. NO SIGNS OF PAIN OR DISCOMFORT. WILL CONTINUE TO MONITOR.
[2021-10-28 16:00] VITALS: BP 121/79
--- NOTE | 2021-10-28 17:02 | NUR ---
PATIENT CALLED AND ASKED STAFF IF HE WAS GOING TO BE STAYING THE NIGHT. INFORMED PATIENT THAT PER DR, PATIENT IS EXPECTED TO STAY OVER NIGHT AT LEAST 1 NIGHT, BUT DR AND STAFF WILL KEEP PATIENT INFORMED.
--- NOTE | 2021-10-28 19:28 | NUR ---
ENDORSED PATIENT TO EMAIL ENGINEER NURSE FOR CONTINUITY OF CARE. PATIENT IS STABLE.
--- NOTE | 2021-10-28 19:29 | NUR ---
RECD. RESTING IN BED, AWAKE, A/OX4. RESPIRATION EVEN AND UNLABORED. WITH RIGHT AC G20, SALINE LOCK, PATENT AND INTACT. INDEPENDENT, AMBULATORY TO THE BR. DENIES DIARRHEA, NO NAUSEA AND VOMITING NOTED. WILL CALL MD FOR CONTINUITY OF PATIENT HOME MEDICATIONS IN THE HOSPITAL. DENIES PAIN 0/10.
[2021-10-28 20:00] VITALS: BP 118/79
--- NOTE | 2021-10-28 20:00 | NUR ---
Patient's Plan of Care was discussed and reviewed with MAIL CALLER: PEDRO MEYER
[2021-10-28] MEDS ORDERED: MELATONIN 3 MG TAB PO PRN (21:10)
--- NOTE | 2021-10-28 21:46 | NUR ---
UNABLE TO SLEEP, MEDICATED WITH MELATONIN PER MD ORDER.
--- NOTE | 2021-10-28 22:46 | NUR ---
STILL AWAKE, SITTING ON BED, RESPIRATION EVEN AND UNLABORED. CALL LIGHT IN REACH.
--- NOTE | 2021-10-28 23:15 | NUR ---
WITH ANXIETY, MEDICATED WITH ATIVAN PO PER MD ORDER.
--- NOTE | 2021-10-29 00:15 | NUR ---
SLEEPING COMFORTABLY IN BED. RESPIRATION EVEN AND UNLABORED.
--- NOTE | 2021-10-29 02:15 | NUR ---
ON HIS RIGHT SIDE COMFORTABLY ASLEEP. RESPIRATION EVEN AND UNLABORED.
[2021-10-29 04:00] VITALS: BP 116/79
--- NOTE | 2021-10-29 04:15 | NUR ---
VS TAKEN, REMAIN STABLE. NO COMPLAINT OF ABDOMINAL PAIN OR DIARRHEA.
[2021-10-29 06:14] LABS: BASOPHILS # (AUTO) 0.1 K/uL (0.00-0.22); BASOPHILS % (AUTO) 0.8 % (0.0-2.0); EOSINOPHILS # (AUTO) 0.2 K/uL (0-0.4); EOSINOPHILS % (AUTO) 2.7 % (0.0-4.0); HEMATOCRIT 24.3 % (36-52); HEMOGLOBIN 7.5 g/dL (12.0-18.0); LYMPHOCYTES # (AUTO) 0.9 K/uL (2.0-11.5); MEAN CORPUSCULAR HEMOGLOBIN 23 pg (27-31); MEAN CORPUSCULAR HGB CONC 31 g/dL (33-37); MEAN CORPUSCULAR VOLUME 72.8 fL (80-94); MONOCYTES # (AUTO) 0.4 K/uL (0.8-1.0); MONOCYTES % (AUTO) 5.7 % (1.7-9.3); NEUTROPHILS # (AUTO) 5.1 K/uL (1.8-7.7); NEUTROPHILS % (AUTO) 77.8 % (42.2-75.2); PLATELET COUNT (AUTO) 226 K/uL (140-450); RED BLOOD CELL COUNT(AUTO) 3.33 MIL/uL (4.20-6.10); RED CELL DISTRIBUTION WIDTH 19.6 % (11.6-13.7); WHITE BLOOD COUNT (AUTO) 6.6 K/uL (4.8-10.8)
[2021-10-29 06:51] LABS: ALBUMIN 3.1 g/dL (3.4-5.0); ANION GAP 14.7 (8-16); CREATININE 0.7 mg/dL (0.6-1.3); POTASSIUM 3.7 mmol/L (3.5-5.1); TOTAL BILIRUBIN 1.2 mg/dL (0.0-1.0)
[2021-10-29 06:53] LABS: CHOL/HDL RATIO 2.9 (1-4.5); MAGNESIUM 1.3 mg/dL (1.8-2.4); PHOSPHORUS 3.9 mg/dL (2.5-4.9)
--- NOTE | 2021-10-29 07:20 | NUR ---
CONDITION REMAIN STABLE. ABLE TO SLEEP WELL. ENDORSED TO CHARGE NURSE LAWS FOR CONTINUITY OF CARE.
--- NOTE | 2021-10-29 07:42 | NUR ---
RECEIVED REPORT FROM [employer] FOR CONTINUITY OF CARE. PATIENT ALERT AWAKE ORIENTED X4, NOT IN ANY DISTRESS NOTED. WITH HEPLOCK ON THE RIGHT AC, DRY AND INTACT. DENIES PAIN AT THIS TIME. INITIAL ASSESSMENT INITIATED. NEEDS ATTENDED. WILL CONTINUE TO MONITOR.
[2021-10-29 08:00] VITALS: BP 135/81
[2021-10-29] MEDS ORDERED: TAMSULOSIN 0.4 MG CAP PO SCH (09:00)
[2021-10-29] MEDS ORDERED: PANTOPRAZOLE 40 MG TABEC PO SCH (09:00)
[2021-10-29] MEDS ORDERED: NON-FORMULARY ITEM (Omeprazole* (Prilosec*) 1 CAP) PO SCH (09:00)
[2021-10-29] MEDS ORDERED: SPIRONOLACTONE 50 MG TAB PO SCH (09:00)
--- NOTE | 2021-10-29 11:24 | NUR ---
10/29/21 RD INITIAL ASSESSMENT COMPLETED PLEASE REFER TO NUTRITION ASSESSMENT UNDER CARE ACTIVITY FOR ESTIMATED NUTRITIONAL NEEDS. 1. CONTINUE CARDIAC DIET TOLERATED 2. RD TO FOLLOW-UP 3-5 DAYS, MODERATE RISK REVIEWED BY FERNY BOYER RD
--- NOTE | 2021-10-29 12:00 | NUR ---
PATIENT EATING LUNCH WITH GOOD APPETITE, DENIES PAIN, WANTS TO GO HOME. WILL CONTINUE TO MONITOR.
[2021-10-29] MEDS ORDERED: CEPH-588 PO (14:52)
--- NOTE | 2021-10-29 15:00 | NUR ---
SEEN BY DR. GOMEZ WITH DC ORDER. PATIENT AWARE AND HE WILL CALL HER MOTHER.
--- NOTE | 2021-10-29 15:35 | NUR ---
DISCHARGE PATIENT AMBULATORY TO HOME WITH DC INSTRUCTION GIVEN AND VERBALIZED UNDERSTANDING. IV REMOVED. IN STABLE CONDITION.
== END 2021-10-29 15:35 | disposition home or self-care (01) | DRG 463 ==
LOC: MED 23:50 → MTU 10-28 09:23
PROVIDERS: ADMIT Hospitalist; ATTEND Hospitalist
DX: N39.0 Urinary tract infection, site not specified (principal); E87.2 Acidosis; K70.30 Alcoholic cirrhosis of liver without ascites; D50.9 Iron deficiency anemia, unspecified; N40.0 Benign prostatic hyperplasia without lower urinary tract symptoms; K44.9 Diaphragmatic hernia without obstruction or gangrene; I25.10 Atherosclerotic heart disease of native coronary artery without angina pectoris; N62 Hypertrophy of breast; M62.08 Separation of muscle (nontraumatic), other site; N28.89 Other specified disorders of kidney and ureter; Z79.899 Other long term (current) drug therapy
CPT/HCPCS: 36415; 71045; 76705; 80053; 81001; 82140; 83036; 83605; 83690; 83735; 83880; 84100; 84484; 85025; 85610; 87040; 87081; 87086; 93005; 96361; 96365; 96375; 99285; G0482; J0696; J2060; J3475; J7060; Q0092

== ENCOUNTER 2021-11-13 22:02 | Emergency (ER) | payer OTHER, SELFPAY ==
[~2021-11-13] VITALS: Ht 175.3 cm; Wt 93.4 kg
[~2021-11-13 22:02] MED LIST changes: +CEPH-588 PO; -ONDA-188 SL; +SPIR50TA PO
[2021-11-13 22:03] VITALS: BP 112/79
--- NOTE | 2021-11-13 22:03 | NUR ---
CLARITA SCANLON. TAKEN TO BED 1
[2021-11-13 23:47] LABS: BASOPHILS # (AUTO) 0.1 K/uL (0.00-0.22); BASOPHILS % (AUTO) 1.2 % (0.0-2.0); EOSINOPHILS # (AUTO) 0.2 K/uL (0-0.4); EOSINOPHILS % (AUTO) 2.3 % (0.0-4.0); HEMATOCRIT 25.8 % (36-52); LYMPHOCYTES # (AUTO) 1.2 K/uL (2.0-11.5); LYMPHOCYTES % (AUTO) 13.9 % (20.5-51.1); MEAN CORPUSCULAR HEMOGLOBIN 23 pg (27-31); MEAN CORPUSCULAR HGB CONC 31 g/dL (33-37); MEAN CORPUSCULAR VOLUME 72.4 fL (80-94); MONOCYTES # (AUTO) 0.6 K/uL (0.8-1.0); MONOCYTES % (AUTO) 7.4 % (1.7-9.3); NEUTROPHILS # (AUTO) 6.3 K/uL (1.8-7.7); NEUTROPHILS % (AUTO) 75.2 % (42.2-75.2); PLATELET COUNT (AUTO) 217 K/uL (140-450); RED BLOOD CELL COUNT(AUTO) 3.57 MIL/uL (4.20-6.10); RED CELL DISTRIBUTION WIDTH 20.4 % (11.6-13.7); WHITE BLOOD COUNT (AUTO) 8.4 K/uL (4.8-10.8)
[2021-11-13 23:53] LABS: APPEARANCE,URINE CLEAR (CLEAR); BILIRUBIN,URINE NEGATIVE (NEGATIVE); BLOOD, URINE NEGATIVE (NEGATIVE); COLOR,URINE YELLOW (YELLOW); LEUKOCYTE ESTERASE ,URINE NEGATIVE (NEGATIVE); NITRITE, URINE NEGATIVE (NEGATIVE); UGLUCOSE NEGATIVE (NEGATIVE)
[2021-11-14 00:07] LABS: BARBITURATE, URINE NEGATIVE ng/ml (NEG <=200)
[2021-11-14 00:08] LABS: ALBUMIN 3.4 g/dL (3.4-5.0); CARBON DIOXIDE 26.3 mmol/L (21-32); CREATININE 0.7 mg/dL (0.6-1.3); POTASSIUM 3.3 mmol/L (3.5-5.1); TOTAL BILIRUBIN 0.7 mg/dL (0.0-1.0)
[2021-11-14 00:08] LABS: BENZODIAZEPINE, URINE POSITIVE ng/mL (NEG <=200); CANNABINOID, URINE NEGATIVE ng/mL (NEG <=50); COCAINE, URINE NEGATIVE ng/mL (NEG <=300); OPIATE, URINE NEGATIVE ng/mL (NEG <=2000); PHENCYCLIDINE SCREEN,URINE NEGATIVE ng/mL (NEG <=25)
--- NOTE | 2021-11-14 00:28 | NUR ---
PT TAKEN TO CT
--- NOTE | 2021-11-14 00:49 | NUR ---
PT BIBA WITH C/O DIZZINESS FROM A FALL. PT STATES THAT HE WAS IN BATHROOM AND FELT DIZZY AND FELL AND BLACKED OUT. PT SAYS HE HIT HIS HEAD AND WHEN HE AWOKE HE CALLED HIS SISTER AND THEN THE AMBULANCE. PT HAS ABRASION TO LT ELBOW. PT STATES THAT HE HAS BEEN HAVING TROUBLE SLEEPING AND DRANK 1 NON-ALCOHOLIC BEER. SOCIAL HX:ALCOHOLISM, LIVER DISEASE, INSOMNIA RX: SPIRLACTOLONE, ATORVASTATIN WITH PT AT BEDSIDE
[2021-11-14] MEDS ORDERED: SODIUM PHOS / POTASSIUM PHOS 1 PKT PDR PO STA (01:16)
[2021-11-14] MEDS ORDERED: NACL 0.9% 1,000 ML IV ONE (01:20)
--- NOTE | 2021-11-14 02:11 | NUR ---
PT SHAKING AND ITCHING. PROVIDED PT WITH WARM BLANKET.
[2021-11-14 03:40] VITALS: BP 112/79
[2021-11-14] MEDS ORDERED: FAMO-90 PO (13:40)
[2021-11-14] MEDS ORDERED: PRED20TA5 PO (13:40)
[2021-11-14] MEDS ORDERED: DIPH25TA53 PO (13:40)
== END 2021-11-14 03:40 | disposition home or self-care (01) ==
LOC: MED 22:02
DX: S51.012A Laceration without foreign body of left elbow, initial encounter (principal); S40.022A Contusion of left upper arm, initial encounter; S40.021A Contusion of right upper arm, initial encounter; S09.90XA Unspecified injury of head, initial encounter; F10.129 Alcohol abuse with intoxication, unspecified; E87.6 Hypokalemia; D50.9 Iron deficiency anemia, unspecified; R42 Dizziness and giddiness; R07.9 Chest pain, unspecified; R06.02 Shortness of breath; M54.9 Dorsalgia, unspecified; R11.2 Nausea with vomiting, unspecified; I10 Essential (primary) hypertension; E78.00 Pure hypercholesterolemia, unspecified; Z86.69 Personal history of other diseases of the nervous system and sense organs; Z79.2 Long term (current) use of antibiotics; Z79.899 Other long term (current) drug therapy; Z79.891 Long term (current) use of opiate analgesic; W01.198A Fall on same level from slipping, tripping and stumbling with subsequent striking against other object, initial encounter; Y92.89 Other specified places as the place of occurrence of the external cause; Y93.89 Activity, other specified; Y99.8 Other external cause status
CPT/HCPCS: 36415; 70450; 70496; 70498; 80053; 80305; 81003; 83690; 85025; 96360; 99285; G0482; J7030; Q9967

== ENCOUNTER 2021-11-14 11:01 | Emergency (ER) | payer OTHER ==
[~2021-11-14] VITALS: Ht 170.2 cm; Wt 96.2 kg
[2021-11-14 11:10] VITALS: BP 104/71
--- NOTE | 2021-11-14 11:10 | NUR ---
pt ambulated to bed 08
--- NOTE | 2021-11-14 11:35 | NUR ---
56 Y/O MALE C/O GENERALIZED RASH, HIVES THROUGHOUT BODY. PT WAS SEEN HERE YESTERDAY AND STATES THAT RASH STARTED WHILE HE WAS HERE BUT WORSENED WHEN HE GOT HOME. PT DENIES PAIN BUT STATES HE IS UNCOMFORTABLE. +ITCHINESS, REDNESS AND BURNING SENSATION. PT STATES RASH STARTED IN ABDOMEN AND PROGRESSED THROUGHOUT BODY. PT DENIES TAKING EATING ANYTHING DIFFERENT. PT DENIES TAKING ANYTHING FOR PAIN. + CHILLS, +SOB BUT NO SIGNS OF LABORED BREATHING/RESPIRATORY DISTRESS, SPO2 97%. PT A/O X4 WITH EVEN AND UNLABORED RESPIRATIONS PMH:INSOMNIA, ETOH, LIVER DISEASE, HTN NKDA
--- NOTE | 2021-11-14 12:03 | NUR ---
WILLIE GATES AT BEDSIDE EVALUATING PT
[2021-11-14] MEDS ORDERED: WATER STERILE 10 ML MC ONE (12:37)
[2021-11-14] MEDS ORDERED: methylPREDNISolone SS 125 MG/2 ML VIAL ONE (12:37)
[2021-11-14] MEDS: diphenhydrAMINE 50 MG/ML VIAL IM ONE (12:45)
[2021-11-14] MEDS: FAMOTIDINE 20 MG TAB PO ONE (12:46)
[2021-11-14] MEDS: methylPREDNISolone SS 125 MG in WATER STERILE 2 ML IM ONE (12:46)
--- NOTE | 2021-11-14 13:10 | NUR ---
PT PROVIDED WITH BLANKET. PT STATES HE FEELS MUCH BETTER. ALL NEEDS MET AT THIS TIME
[2021-11-14] MEDS ORDERED: DIPH25TA53 PO (13:40)
[2021-11-14] MEDS ORDERED: PRED20TA5 PO (13:40)
[2021-11-14] MEDS ORDERED: FAMO-90 PO (13:40)
[2021-11-14 14:19] VITALS: BP 110/67
--- NOTE | 2021-11-14 14:19 | NUR ---
Patient discharged with v/s stable. Written and verbal after care instructions ABOUT HIVES given and explained. Patient alert, oriented and verbalized understanding of instructions. Ambulatory with steady gait. All questions addressed prior to discharge. ID band removed. Patient advised to follow up with PMD. Rx of BENADRYL, PEPCID, PREDNISONE given. Patient educated on indication of medication including possible reaction and side effects. Opportunity to ask questions provided and answered.
== END 2021-11-14 14:19 | disposition home or self-care (01) ==
LOC: MED 11:01
DX: L50.9 Urticaria, unspecified (principal); I10 Essential (primary) hypertension; Z79.899 Other long term (current) drug therapy
CPT/HCPCS: 96372; 99284; J1200; J2930

== ENCOUNTER 2021-11-16 08:03 | Emergency (ER) | payer OTHER ==
[~2021-11-16] VITALS: Ht 175.3 cm; Wt 95.3 kg
[~2021-11-16 08:03] MED LIST changes: +DIPH25TA53 PO; +FAMO-90 PO; +PRED20TA5 PO
[2021-11-16 08:08] VITALS: BP 136/98
--- NOTE | 2021-11-16 08:13 | NUR ---
PT AMBULATED TO BED
--- NOTE | 2021-11-16 08:26 | NUR ---
DR NAVARRETE AT BEDSIDE EXAMINING PT
[2021-11-16] MEDS ORDERED: PRED20TA5 PO (08:33)
[2021-11-16] MEDS ORDERED: DIPH25TA53 PO (08:33)
--- NOTE | 2021-11-16 08:38 | NUR ---
NO NURSING INTERVENTIONS IMPLEMENTED
[2021-11-16 08:39] VITALS: BP 136/98
--- NOTE | 2021-11-16 08:39 | NUR ---
Patient discharged with v/s stable. Written and verbal after care instructions given and explained. Patient alert, oriented and verbalized understanding of instructions. Ambulatory with steady gait. All questions addressed prior to discharge. ID band removed. Patient advised to follow up with PMD. Rx of BENADRYL AND PREDNISONE given. Patient educated on indication of medication including possible reaction and side effects. Opportunity to ask questions provided and answered.
== END 2021-11-16 08:39 | disposition home or self-care (01) ==
LOC: MED 08:04
DX: R21 Rash and other nonspecific skin eruption (principal); I10 Essential (primary) hypertension; Z79.899 Other long term (current) drug therapy; Z98.890 Other specified postprocedural states
CPT/HCPCS: 99283

== ENCOUNTER 2022-01-25 04:51 | Emergency (ER) | payer OTHER ==
[~2022-01-25] VITALS: Ht 175.3 cm; Wt 94.3 kg
[2022-01-25 05:11] VITALS: BP 134/98
--- NOTE | 2022-01-25 05:19 | NUR ---
PT AMBULATED TO BED 11
--- NOTE | 2022-01-25 05:32 | NUR ---
DR MTZ AT BEDSIDE EXAMINING PT.
--- NOTE | 2022-01-25 05:39 | NUR ---
PT C/O OF NON PRODUCTIVE COUGH THAT IS CAUSING HIM TO THROW UP. PT HAS NON TENDER DISTENDED ABD, HX OF LIVER PROBLEMS.
[2022-01-25] MEDS ORDERED: FAMOTIDINE 20 MG TAB PO ONE (06:05)
[2022-01-25] MEDS ORDERED: LORazepam 0.5 MG TAB PO ONE (06:05)
[2022-01-25] MEDS ORDERED: ONDANSETRON 4 MG ODT PO ONE (06:05)
[2022-01-25] MEDS ORDERED: ALUMINUM HYD/MAG/SIMETHICONE 30 ML UDC PO ONE (06:05)
[2022-01-25] MEDS ORDERED: NACL 0.9% 1,000 ML IV ONE (06:15)
[2022-01-25] MEDS ORDERED: FAMOTIDINE 20 MG/2 ML VIAL IVP ONE (06:15)
[2022-01-25] MEDS ORDERED: ONDANSETRON 4 MG/2 ML VIAL IVP ONE (06:15)
[2022-01-25] MEDS ORDERED: DIAZEPAM PFS 10 MG/2 ML SYR IVP ONE (06:35)
--- NOTE | 2022-01-25 06:37 | NUR ---
20G PERIPHERAL IV STARTED IN RT AC. BLOOD DRAWN AND SENT TO LAB. FLUIDS AND MEDICATIONS GIVEN PER ORDER.
[2022-01-25 06:44] LABS: BASOPHILS # (AUTO) 0.1 K/uL (0.00-0.22); BASOPHILS % (AUTO) 1.5 % (0.0-2.0); EOSINOPHILS # (AUTO) 0.1 K/uL (0-0.4); HEMATOCRIT 30.6 % (36-52); HEMOGLOBIN 9.3 g/dL (12.0-18.0); LYMPHOCYTES # (AUTO) 0.7 K/uL (2.0-11.5); MEAN CORPUSCULAR HEMOGLOBIN 22 pg (27-31); MEAN CORPUSCULAR HGB CONC 30 g/dL (33-37); MEAN CORPUSCULAR VOLUME 71.3 fL (80-94); MONOCYTES # (AUTO) 0.5 K/uL (0.8-1.0); MONOCYTES % (AUTO) 7.1 % (1.7-9.3); NEUTROPHILS # (AUTO) 6.2 K/uL (1.8-7.7); NEUTROPHILS % (AUTO) 81.4 % (42.2-75.2); PLATELET COUNT (AUTO) 181 K/uL (140-450); RED BLOOD CELL COUNT(AUTO) 4.29 MIL/uL (4.20-6.10); RED CELL DISTRIBUTION WIDTH 21.1 % (11.6-13.7); WHITE BLOOD COUNT (AUTO) 7.6 K/uL (4.8-10.8)
--- NOTE | 2022-01-25 06:54 | NUR ---
PT PLACED ON MONITOR BY RN. MEDICATIONS GIVEN.
[2022-01-25 06:58] LABS: ALBUMIN 3.9 g/dL (3.4-5.0); ANION GAP 20.9 (8-16); CARBON DIOXIDE 22.7 mmol/L (21-32); CREATININE 0.9 mg/dL (0.6-1.3); POTASSIUM 3.6 mmol/L (3.5-5.1); TOTAL BILIRUBIN 1.3 mg/dL (0.0-1.0)
--- NOTE | 2022-01-25 07:13 | NUR ---
REPORT GIVEN TO BALJIT SIMMONS
--- NOTE | 2022-01-25 07:41 | NUR ---
PT TAKEN TO CT
--- NOTE | 2022-01-25 07:59 | NUR ---
PATIENT RETURNED FROM CT
--- NOTE | 2022-01-25 08:54 | NUR ---
PATIENT STABLE IN BED, ALL NEEDS MET
--- NOTE | 2022-01-25 09:01 | NUR ---
PATIENT STATED HE WAS ITCHY ALL OVER HIS BODY, MD MADE AWARE.
--- NOTE | 2022-01-25 09:30 | NUR ---
PATIENT STABLE IN BED, ALL NEEDS MET
[2022-01-25] MEDS ORDERED: OMEP20TC PO (10:02)
[2022-01-25] MEDS ORDERED: BENC TP (10:02)
--- NOTE | 2022-01-25 10:07 | NUR ---
Patient discharged with v/s stable. Written and verbal after care instructions given and explained. Patient alert, oriented and verbalized understanding of instructions. Ambulatory with steady gait. All questions addressed prior to discharge. ID band removed. Patient advised to follow up with PMD. Rx of BENADRYL, PRILOSEC given. Patient educated on indication of medication including possible reaction and side effects. Opportunity to ask questions provided and answered.
[2022-01-25 10:12] VITALS: BP 132/70
[2022-01-25] MEDS ORDERED: HYDR-635 PO (22:31)
== END 2022-01-25 10:07 | disposition home or self-care (01) ==
LOC: MED 04:51
DX: R11.10 Vomiting, unspecified (principal); R53.1 Weakness; R05.9 Cough, unspecified
CPT/HCPCS: 36415; 71045; 74177; 80053; 83690; 84484; 85025; 96374; 96375; 99285; J2405; J3360; J3490; Q0092; Q0163; Q9967; 93005; Q0162

== ENCOUNTER 2022-01-25 14:42 | Emergency (ER) | payer OTHER ==
[~2022-01-25] VITALS: Ht 175.3 cm; Wt 94.3 kg
[~2022-01-25 14:42] MED LIST changes: +BENC TP; +OMEP20TC PO
[2022-01-25 15:01] VITALS: BP 139/109
--- NOTE | 2022-01-25 15:05 | NUR ---
DR PALMA EXAMINING PT
[2022-01-25] MEDS ORDERED: DEXAMETHASONE 10 MG/ML VIAL IM ONE (15:10)
--- NOTE | 2022-01-25 15:11 | NUR ---
56 Y/O MALE BIB SELF C/O RASH TO ABD TODAY. WAS HERE EARLIER TODAY, HAD CT CONTRAST WITH DYE. STATES MAY HAVE COME FROM THAT. MEDHX: SEIZURE NKA
--- NOTE | 2022-01-25 15:17 | NUR ---
PT AMBULATED TO BED 07, STEADY GAIT
[2022-01-25 15:52] VITALS: BP 139/109
[2022-01-25] MEDS ORDERED: HYDR-635 PO (22:31)
== END 2022-01-25 15:52 | disposition home or self-care (01) ==
LOC: MED 14:42
DX: T78.40XA Allergy, unspecified, initial encounter (principal); I10 Essential (primary) hypertension; Z79.899 Other long term (current) drug therapy; X58.XXXA Exposure to other specified factors, initial encounter
CPT/HCPCS: 96372; 99283; J1100

== ENCOUNTER 2022-01-25 20:14 | Emergency (ER) | payer OTHER ==
[~2022-01-25] VITALS: Ht 175.3 cm; Wt 81.6 kg
[2022-01-25 20:20] VITALS: BP 158/88
--- NOTE | 2022-01-25 20:20 | NUR ---
to bed ambulatory
--- NOTE | 2022-01-25 20:26 | NUR ---
Patient BIB by family from home. C/O skin rash x 3 days. Patient reported, discharge from hospital 2 days ago, Dx Dehydration (per patient). and CT scan with contrast while in hospital and had experience itchy, skin rash since. After D/C came back this morning for itchy and treatment with Omeprazole (for Gastritis ) and Benadrl (for itchy) and came back again - itchy and rash getting worse.
--- NOTE | 2022-01-25 20:47 | NUR ---
Dr. Ramirez at bedside to exam patient.
[2022-01-25] MEDS ORDERED: diphenhydrAMINE 50 MG CAP PO ONE (20:50)
--- NOTE | 2022-01-25 21:41 | NUR ---
Re-eval after given medication, patient reported, itchy still the same , 9/[address] Ramirez notified.
--- NOTE | 2022-01-25 22:09 | NUR ---
MOTHER [phone] ECTOR CALLED REQUESTING UPDATE
[2022-01-25] MEDS ORDERED: HYDR-635 PO (22:31)
--- NOTE | 2022-01-25 22:34 | NUR ---
Dr. Ramirez at bedside to explain treatment plans.
--- NOTE | 2022-01-25 22:49 | NUR ---
Called patient's family for a ride.
[2022-01-25 22:50] VITALS: BP 158/88
--- NOTE | 2022-01-25 22:50 | NUR ---
Patient discharged with v/s stable. Written and verbal after care instructions given and explained. Patient alert, oriented and verbalized understanding of instructions. Ambulatory with steady gait. All questions addressed prior to discharge. ID band removed. Patient advised to follow up with PMD. Rx of Hydroxyzine given. Patient educated on indication of medication including possible reaction and side effects. Opportunity to ask questions provided and answered.
== END 2022-01-25 22:50 | disposition home or self-care (01) ==
LOC: MED 20:14
DX: T78.49XA Other allergy, initial encounter (principal); I10 Essential (primary) hypertension; Z86.69 Personal history of other diseases of the nervous system and sense organs; Z98.890 Other specified postprocedural states; Z79.899 Other long term (current) drug therapy; Z79.2 Long term (current) use of antibiotics; Z79.891 Long term (current) use of opiate analgesic; X58.XXXA Exposure to other specified factors, initial encounter
CPT/HCPCS: 99283; Q0163

== ENCOUNTER 2022-03-13 06:37 | Emergency (ER) | payer OTHER ==
[~2022-03-13] VITALS: Ht 175.3 cm; Wt 94.3 kg
[2022-03-13 06:49] VITALS: BP 129/73
--- NOTE | 2022-03-13 06:58 | NUR ---
patient w/c assisted to the bed
--- NOTE | 2022-03-13 07:12 | NUR ---
Dr. Hernandez at bedside to exam patient.
[2022-03-13] MEDS ORDERED: NACL 0.9% 1,000 ML IV SCH (07:15)
[2022-03-13] MEDS ORDERED: MORPHINE SULFATE 4 MG/ML SYR IVP ONE ×2 (07:15→08:55)
[2022-03-13] MEDS ORDERED: ONDANSETRON 4 MG/2 ML VIAL IVP ONE ×2 (07:15→08:55)
--- NOTE | 2022-03-13 07:15 | NUR ---
Lab at bedside
[2022-03-13 07:45] LABS: BASOPHILS # (AUTO) 0.1 K/uL (0.00-0.22); BASOPHILS % (AUTO) 0.6 % (0.0-2.0); EOSINOPHILS # (AUTO) 0.1 K/uL (0-0.4); EOSINOPHILS % (AUTO) 1.1 % (0.0-4.0); HEMATOCRIT 28.9 % (36-52); LYMPHOCYTES % (AUTO) 10.9 % (20.5-51.1); MEAN CORPUSCULAR HEMOGLOBIN 23 pg (27-31); MEAN CORPUSCULAR HGB CONC 31 g/dL (33-37); MEAN CORPUSCULAR VOLUME 75.5 fL (80-94); MONOCYTES # (AUTO) 0.5 K/uL (0.8-1.0); MONOCYTES % (AUTO) 6.1 % (1.7-9.3); NEUTROPHILS # (AUTO) 7.3 K/uL (1.8-7.7); NEUTROPHILS % (AUTO) 81.3 % (42.2-75.2); PLATELET COUNT (AUTO) 131 K/uL (140-450); RED BLOOD CELL COUNT(AUTO) 3.83 MIL/uL (4.20-6.10); RED CELL DISTRIBUTION WIDTH 22.2 % (11.6-13.7)
[2022-03-13 08:23] LABS: ALBUMIN 3.4 g/dL (3.4-5.0); ANION GAP 19.7 (8-16); CARBON DIOXIDE 24.5 mmol/L (21-32); CREATININE 0.9 mg/dL (0.6-1.3); POTASSIUM 3.2 mmol/L (3.5-5.1); TOTAL BILIRUBIN 1.1 mg/dL (0.0-1.0)
[2022-03-13 08:41] VITALS: BP 123/80
--- NOTE | 2022-03-13 08:49 | NUR ---
DR NAVARRETE AT BEDSIDE
[2022-03-13] MEDS ORDERED: ACET-8386 PO (09:46)
[2022-03-13] MEDS ORDERED: ONDA8TAB87 PO (09:46)
[2022-03-13] MEDS ORDERED: LIB25 PO (09:46)
--- NOTE | 2022-03-13 10:12 | NUR ---
Patient discharged with v/s stable. Written and verbal after care instructions ABOUT VOMITING, ALCOHOL WITHDRAWAL given and explained. Patient alert, oriented and verbalized understanding of instructions. Wheel Chair Assisted with to car. All questions addressed prior to discharge. ID band removed. Patient advised to follow up with PMD. Rx of NORCO 5-325, ZOFRAN, LIBRIUM given. Patient educated on indication of medication including possible reaction and side effects. Opportunity to ask questions provided and answered.
== END 2022-03-13 10:11 | disposition home or self-care (01) ==
LOC: MED 06:37
DX: R10.13 Epigastric pain (principal); R11.2 Nausea with vomiting, unspecified; F17.200 Nicotine dependence, unspecified, uncomplicated; F12.90 Cannabis use, unspecified, uncomplicated; Z98.890 Other specified postprocedural states
CPT/HCPCS: 36415; 80053; 83690; 85025; 93005; 96361; 96374; 96375; 96376; 99284; J2270; J2405; J7030

== ENCOUNTER 2022-03-13 12:36 | Inpatient (IN) | payer OTHER ==
[~2022-03-13] VITALS: Ht 175.3 cm; Wt 94.3 kg
[~2022-03-13 12:36] MED LIST changes: -ATOR20TA40 PO; -BEN10 PO; -BENC TP; -CA C1TAB15 PO; -CEPH-588 PO; -DIPH25TA53 PO; -FAMO-90 PO; -FINA5TAB5 PO; +LIB25 PO; -OMEP20TC PO; -OMEP40EC24 PO; +ONDA8TAB87 PO; -PRED20TA5 PO; -SPIR50TA PO; -TAMS0.4C96 PO
[2022-03-13] MEDS ORDERED: NACL 0.9% 1,000 ML IV ONE (12:45)
[2022-03-13] MEDS ORDERED: ONDANSETRON 4 MG/2 ML VIAL IVP ONE (12:45)
[2022-03-13] MEDS ORDERED: MORPHINE SULFATE 4 MG/ML SYR IVP ONE (12:45)
[2022-03-13 12:51] VITALS: BP 150/85
--- NOTE | 2022-03-13 12:51 | NUR ---
Patient ambulated to bed 02 with steady/even gait
--- NOTE | 2022-03-13 12:57 | NUR ---
RAD at bedside
--- NOTE | 2022-03-13 12:59 | NUR ---
56 Y/O MALE BIB SELF C/O FALL ON THE LEFT SHOULDER, DENIES ANY PAIN, FULL ROM, N/V UNABLE TO DRINK LIQUIDS. PT STATED THEY DRANK 4 BOTTLES OF WATER. WAS IN THE ED IN THE MORNING PMH; DENIES ALLERGIES; CONTRAST DYE
--- NOTE | 2022-03-13 13:11 | NUR ---
Spoke with BALJIT Verduzco from [facility] approved for observation at this time.
--- NOTE | 2022-03-13 13:24 | NUR ---
WALKED JOSE TO LAB, HANDED TO MARITA
[2022-03-13] MEDS ORDERED: HYDROcodone/APAP 5/325 MG 1 TAB TAB PO PRN (14:15)
[2022-03-13] MEDS ORDERED: MORPHINE SULFATE 2 MG/ML SYR IVP PRN (14:15)
[2022-03-13] MEDS ORDERED: LORazepam 2 MG/ML VIAL IVP PRN (14:15)
[2022-03-13] MEDS ORDERED: FAMOTIDINE 20 MG/2 ML VIAL IVP ONE (14:15)
[2022-03-13] MEDS ORDERED: ONDANSETRON 4 MG/2 ML VIAL IVP PRN (14:15)
[2022-03-13] MEDS ORDERED: ACETAMINOPHEN 325 MG TAB PO PRN (14:15)
[2022-03-13] MEDS: LACTATED RINGERS 1,000 ML IV SCH (14:31)
--- NOTE | 2022-03-13 14:47 | NUR ---
Contacted [facility] for bedside report notification.
--- NOTE | 2022-03-13 14:55 | NUR ---
Patient will be admitted to care of Dr. Gaitan. Admited to Med-Surg. Will go to room 120A. Belongings list completed. Report to BALJIT Su.
[2022-03-13 16:20] VITALS: BP 132/78
[2022-03-13] MEDS ORDERED: THIAMINE 200 MG/2 ML VIAL IM SCH (17:00)
[2022-03-13] MEDS ORDERED: MULTIVITAMIN-12 10 ML, FOLIC ACID 1 MG in DEXT 5% / LACT RING 1,000 ML IV SCH (17:30)
[2022-03-13] MEDS ORDERED: MAG SULF 2000 MG/WATER PREMIX 50 ML IV SCH (18:00)
[2022-03-13] MEDS: METOCLOPRAMIDE 10 MG/2 ML INJ VIAL IVP SCH ×2 (18:36→23:54)
--- NOTE | 2022-03-13 19:45 | NUR ---
RECEIVED TRANSFER OF CARE ENDORSEMENT FROM GLENN GEORGE RN. PATIENT IS AWAKE AND STABLE. A&OX4 VERBALLY RESPONSIVE AND ABLE TO COMMUNICATE NEEDS. ON ROOM AIR WITH NO APPARENT S/SX OF ACUTE DISTRESS. RESPIRATIONS EVEN AND UNLABORED. PATIENT IS CONTINENT OF VOID AND BM. PATIENT IS AMBULATORY. PATIENT'S IV SITE TO THE LFA 22G IS PATENT/INTACT. WHITE BOARD COMMUNICATION AND PLAN OF CARE UPDATED. ALL SAFETY MEASURES IN PLACE. CALL LIGHT WITHIN REACH. WILL CONTINUE TO MONITOR.
[2022-03-13 20:00] VITALS: BP 128/85
--- NOTE | 2022-03-13 21:05 | NUR ---
PROVIDED BLANKETS PER PATIENT REQUEST. PER MD REQUEST, UA COLLECTION BOTTLE GIVEN. PATIENT VERBALIZED UNDERSTANDING OF UA COLLECTION. VSS. DENIES PAIN. RESPIRATIONS EVEN AND UNLABORED WITH NO APPARENT S/SX OF ACUTE DISTRESS. SNACKS OFFERED. EMESIS BAG PROVIDED. WHITE COMMUNICATION BOARD UPDATED. ALL SAFETY MEASURES IN PLACE. CALL LIGHT WITHIN REACH. WILL CONTINUE TO MONITOR.
--- NOTE | 2022-03-13 23:05 | NUR ---
COLLECTED VOIDED UA SAMPLE FROM PATIENT. PATIENT IS AWAKE AND STABLE. DENIES PAIN N/V. RESPIRATIONS EVEN AND UNLABORED WITH NO APPARENT S/SX OF ACUTE DISTRESS. ALL SAFETY MEASURES IN PLACE. CALL LIGHT WITHIN REACH. WILL CONTINUE TO MONITOR.
--- NOTE | 2022-03-14 01:10 | NUR ---
CHECKED PATIENT. STABLE AND ASLEEP. CHEST IS RISING AND FALLING EVENLY. RESPIRATIONS EVEN AND UNLABORED WITH NO APPARENT S/SX OF ACUTE DISTRESS. WHITE COMMUNICATION BOARD UPDATED. ALL SAFETY MEASURES IN PLACE. CALL LIGHT WITHIN REACH. WILL CONTINUE TO MONITOR.
--- NOTE | 2022-03-14 03:25 | NUR ---
ANSWERED CALL LIGHT. PROVIDED PILLOW PER PATIENT REQUEST. DENIES PAIN. RESPIRATIONS EVEN AND UNLABORED WITH NO APPARENT S/SX OF ACUTE DISTRESS. WHITE COMMUNICATION BOARD UPDATED. ALL SAFETY MEASURES IN PLACE. CALL LIGHT WITHIN REACH. WILL CONTINUE TO MONITOR.
[2022-03-14] MEDS: LACTATED RINGERS 1,000 ML IV SCH ×2 (03:35→16:55)
[2022-03-14 03:38] LABS: BARBITURATE, URINE NEGATIVE ng/ml (NEG <=200); BENZODIAZEPINE, URINE POSITIVE ng/mL (NEG <=200); CANNABINOID, URINE POSITIVE ng/mL (NEG <=50); COCAINE, URINE NEGATIVE ng/mL (NEG <=300); OPIATE, URINE POSITIVE ng/mL (NEG <=2000); PHENCYCLIDINE SCREEN,URINE NEGATIVE ng/mL (NEG <=25)
[2022-03-14 04:00] VITALS: BP 123/81
--- NOTE | 2022-03-14 05:10 | NUR ---
ROUNDED ON PATIENT. STABLE AND ASLEEP. CHEST IS RISING AND FALLING EVENLY. RESPIRATIONS EVEN AND UNLABORED WITH NO APPARENT S/SX OF ACUTE DISTRESS. ALL NEEDS MET. WHITE COMMUNICATION BOARD UPDATED. ALL SAFETY MEASURES IN PLACE. CALL LIGHT WITHIN REACH. WILL CONTINUE TO MONITOR.
[2022-03-14 06:20] LABS: ALBUMIN 2.8 g/dL (3.4-5.0); ANION GAP 8.7 (8-16); CARBON DIOXIDE 30.3 mmol/L (21-32); CREATININE 0.7 mg/dL (0.6-1.3); MAGNESIUM 1.2 mg/dL (1.8-2.4); TOTAL BILIRUBIN 1.3 mg/dL (0.0-1.0)
[2022-03-14] MEDS: METOCLOPRAMIDE 10 MG/2 ML INJ VIAL IVP SCH ×4 (06:20→23:50)
[2022-03-14 06:22] LABS: BASOPHILS % (AUTO) 0.7 % (0.0-2.0); EOSINOPHILS # (AUTO) 0.2 K/uL (0-0.4); EOSINOPHILS % (AUTO) 2.9 % (0.0-4.0); HEMATOCRIT 23.4 % (36-52); HEMOGLOBIN 7.3 g/dL (12.0-18.0); LYMPHOCYTES # (AUTO) 0.8 K/uL (2.0-11.5); LYMPHOCYTES % (AUTO) 15.4 % (20.5-51.1); MEAN CORPUSCULAR HEMOGLOBIN 24 pg (27-31); MEAN CORPUSCULAR HGB CONC 31 g/dL (33-37); MEAN CORPUSCULAR VOLUME 75.2 fL (80-94); MONOCYTES # (AUTO) 0.4 K/uL (0.8-1.0); MONOCYTES % (AUTO) 6.8 % (1.7-9.3); NEUTROPHILS % (AUTO) 74.2 % (42.2-75.2); PLATELET COUNT (AUTO) 90 K/uL (140-450); RED BLOOD CELL COUNT(AUTO) 3.11 MIL/uL (4.20-6.10); RED CELL DISTRIBUTION WIDTH 21.4 % (11.6-13.7); WHITE BLOOD COUNT (AUTO) 5.4 K/uL (4.8-10.8)
--- NOTE | 2022-03-14 06:58 | NUR ---
PATIENT HAS BEEN SCREENED AND CATEGORIZED HIGH NUTRITION RISK. PATIENT WILL BE SEEN WITHIN 1-2 DAYS OF ADMISSION. / TALHA CHINO RD
--- NOTE | 2022-03-14 07:15 | NUR ---
ENDORSED PATIENT TO BALJIT JOHNSON FOR CONTINUITY OF CARE. PATIENT IS STABLE.
--- NOTE | 2022-03-14 09:15 | NUR ---
CHARGE NURSE, SAUNDRA SMILEY, INFORMED DR. DEAN OF POTASSIUM LEVEL OF 3.0 AND MAGNESIUM 1.2. RECEIVED ORDER FOR MAG RIDER 2 GRAM AND K RIDER 40 MEQ IVPB. ORDERS PLACED.
[2022-03-14] MEDS ORDERED: MAG SULF 2000 MG/WATER PREMIX 50 ML IV SCH ×2 (09:30→16:00)
--- NOTE | 2022-03-14 11:02 | NUR ---
03/14/22 RD INITIAL ASSESSMENT COMPLETED PLEASE REFER TO NUTRITION ASSESSMENT UNDER CARE ACTIVITY FOR ESTIMATED NUTRITIONAL NEEDS. 1. WHEN/IF MEDICALLY APPROPRIATE, ADVANCE TO REGULAR DIET 2. PROVIDED NUTRITION EDUCATION WITH HANDOUTS FOR CIRRHOSIS 3. RD TO FOLLOW-UP 3-5 DAYS, MODERATE RISK (DOWNGRADED D/T GI SYMPTOMS IMPROVED) TALHA CHINO RD
[2022-03-14 12:00] VITALS: BP 126/82
[2022-03-14] MEDS: KCL 20 MEQ/WATER INJ PREMIX 100 ML IV SCH ×2 (12:15→13:53)
[2022-03-14] MEDS ORDERED: MAG SULF 2000 MG/WATER PREMIX 50 ML IV ONE (12:52)
--- NOTE | 2022-03-14 14:15 | NUR ---
DC PLANNING: THE PATIENT PRESENTED WITH C/O ABDOMINAL PAIN, N/V, ETOH WITHDRAWAL. H/O ETOH ABUSE AND CIRRHOSIS, AMMONIA 48, TOTAL BILI 1.3, HGB 7.3. THE PATIENT WAS STARTED ON A BANANA BAG, REGLAN, ZOFRAN, K+ RIDER GIVEN FOR K+ OF 3.0. CM SPOKE WITH THE PATIENT AT BEDSIDE AND CONFIRMED HIS ADDRESS AND PHONE NUMBER. THE PATIENT LIVES WITH HIS MOTHER IN A MOBILE HOME AND IS INDEPENDENT IN ALL ACTIVITIES. HE HAS NO DME OR H/O HOME HEALTH AND GOES TO THE GYM DAILY. HE HAS BEEN SOBER FOR 1.5 YEARS WITH ONE RELAPSE AND DOES WORK THE AA PROGRAM BUT DOESN'T ATTEND MEETINGS. HE STATES THAT HE ATTENDED A [employer] AND [employer] [employer] THAT HAD VODKA INJECTED IN THEM BUT WAS UNAWARE OF THE VODKA. HE HAS A SPONSOR WHO RECOMMENDED THAT HE COME TO THE ER AFTER HIS INGESTION OF VODKA. HE HAS THREE CHILDREN THAT HE IS IN CLOSE CONTACT WITH WHO ARE SUPPORTIVE. DC PLAN IS TO RETURN HOME WHEN CLINICALLY STABLE, CM WILL FOLLOW. Addendum: 03/14/22 at 1428 by Shirlene Bates CM Amended: Links added.
[2022-03-14] MEDS ORDERED: THIAMINE 200 MG/2 ML VIAL IM SCH ×2 (15:00→16:00)
[2022-03-14] MEDS ORDERED: MULTIVITAMIN-12 10 ML, FOLIC ACID 1 MG in DEXT 5% / LACT RING 1,000 ML IV ONE (15:00)
[2022-03-14] MEDS ORDERED: MULTIVITAMIN-12 10 ML, FOLIC ACID 1 MG in DEXT 5% / LACT RING 1,000 ML IV SCH (16:00)
--- NOTE | 2022-03-14 19:50 | NUR ---
RECEIVED REPORT FROM AM NURSE FOR CONTINUITY OF CARE. IV LFA 22G INFUSING MG RIDER @ 25CC/HR. WHEN FINISHED WILL START THE BANANA BAG @100CC/HR. RECEIVING REGLAN 1VP AROUND THE CLOCK. REMAINS ON A FULL LIQUID DIET. MONITOR TO SEE IF CAN ADVANCE DIET WITH BREAKFAST 03/15/2022.
[2022-03-14 20:00] VITALS: BP 107/63
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
[2022-03-15 04:00] VITALS: BP 127/78
[2022-03-15] MEDS: LACTATED RINGERS 1,000 ML IV SCH (06:15)
[2022-03-15 06:39] LABS: ALBUMIN 2.7 g/dL (3.4-5.0); ANION GAP 7.4 (8-16); CARBON DIOXIDE 25.8 mmol/L (21-32); CREATININE 0.7 mg/dL (0.6-1.3); MAGNESIUM 1.7 mg/dL (1.8-2.4); POTASSIUM 3.2 mmol/L (3.5-5.1); TOTAL BILIRUBIN 1.3 mg/dL (0.0-1.0)
[2022-03-15] MEDS: METOCLOPRAMIDE 10 MG/2 ML INJ VIAL IVP SCH ×2 (06:55→12:35)
[2022-03-15 07:28] LABS: BASOPHILS % (AUTO) 0.4 % (0.0-2.0); EOSINOPHILS # (AUTO) 0.2 K/uL (0-0.4); EOSINOPHILS % (AUTO) 3.1 % (0.0-4.0); HEMATOCRIT 23.2 % (36-52); HEMOGLOBIN 7.2 g/dL (12.0-18.0); LYMPHOCYTES # (AUTO) 0.8 K/uL (2.0-11.5); LYMPHOCYTES % (AUTO) 10.8 % (20.5-51.1); MEAN CORPUSCULAR HEMOGLOBIN 24 pg (27-31); MEAN CORPUSCULAR HGB CONC 31 g/dL (33-37); MEAN CORPUSCULAR VOLUME 76.3 fL (80-94); MONOCYTES # (AUTO) 0.6 K/uL (0.8-1.0); MONOCYTES % (AUTO) 7.9 % (1.7-9.3); NEUTROPHILS # (AUTO) 6.1 K/uL (1.8-7.7); NEUTROPHILS % (AUTO) 77.8 % (42.2-75.2); PLATELET COUNT (AUTO) 102 K/uL (140-450); RED BLOOD CELL COUNT(AUTO) 3.04 MIL/uL (4.20-6.10); RED CELL DISTRIBUTION WIDTH 21.1 % (11.6-13.7); WHITE BLOOD COUNT (AUTO) 7.9 K/uL (4.8-10.8)
--- NOTE | 2022-03-15 07:45 | NUR ---
ENDORSED REPORT TO DAY SHIFT NURSE FOR CONTINUITY OF CARE.
--- NOTE | 2022-03-15 07:47 | NUR ---
RECEIVED PATIENT REPORT FROM AIRPORT PLANNER NURSE FOR CONTINUITY OF CARE. PATIENT IS AWAKE AND STABLE. A&OX4 VERBALLY RESPONSIVE AND ABLE TO COMMUNICATE NEEDS. ON ROOM AIR WITH NO APPARENT S/SX OF ACUTE DISTRESS. RESPIRATIONS EVEN AND UNLABORED. PATIENT IS CONTINENT OF VOID AND BM. PATIENT IS AMBULATORY. PATIENT'S IV SITE TO THE LFA 22G IS PATENT/INTACT. WHITE BOARD COMMUNICATION AND PLAN OF CARE UPDATED. ALL SAFETY MEASURES IN PLACE. CALL LIGHT WITHIN REACH. WILL CONTINUE TO MONITOR.
--- NOTE | 2022-03-15 09:15 | NUR ---
NO SCHEDULED MEDS GIVEN. PT IS STABLE. NO DISTRESS NOTED. WILL CONTINUE TO MONITOR.
--- NOTE | 2022-03-15 12:30 | NUR ---
ALL SCHEDULED MEDS GIVEN. PT IS STABLE. NO DISTRESS NOTED. WILL CONTINUE TO MONITOR.
[2022-03-15] MEDS ORDERED: FOLI1TAB90 PO (13:51)
[2022-03-15] MEDS ORDERED: MAGN400T7 PO (13:51)
[2022-03-15] MEDS ORDERED: ONDA8TAB87 PO (13:51)
[2022-03-15] MEDS ORDERED: THIA-10 PO (13:51)
[2022-03-15 14:03] VITALS: BP 121/65
--- NOTE | 2022-03-15 14:20 | NUR ---
ENDORSED DISCHARGE INSTRUCTIONS TO PATIENT. PT VERBALIZED UNDERSTANDING AND SIGNED DISCHARGE FORMS.
--- NOTE | 2022-03-15 14:45 | NUR ---
PATIENT DISCHARGED OFF THE UNIT. ESCORTED PATIENT TO THE FRONT LOBBY TO BE PICKED UP BY RELATIVES. IV AND ID BAND REMOVED. PT WAS STABLE PRIOR TO DISCHARGE
== END 2022-03-15 14:45 | disposition home or self-care (01) | DRG 775 ==
LOC: MED 12:36 → MTU 14:16
PROVIDERS: ADMIT Internal Medicine; ATTEND Internal Medicine
DX: F10.139 Alcohol abuse with withdrawal, unspecified (principal); D69.6 Thrombocytopenia, unspecified; E44.1 Mild protein-calorie malnutrition; D63.8 Anemia in other chronic diseases classified elsewhere; K70.30 Alcoholic cirrhosis of liver without ascites; E83.42 Hypomagnesemia; Z20.822 Contact with and (suspected) exposure to COVID-19; K44.9 Diaphragmatic hernia without obstruction or gangrene; E87.6 Hypokalemia; Z68.30 Body mass index [BMI] 30.0-30.9, adult; Z91.041 Radiographic dye allergy status; Z79.899 Other long term (current) drug therapy; Z83.3 Family history of diabetes mellitus
CPT/HCPCS: 36415; 71045; 80053; 80305; 82140; 83735; 85025; 87081; 96361; 96374; 96375; 99285; A9153; J2270; J2405; J2765; J3411; J3475; J3480; J3490; J7030; Q0092

== ENCOUNTER 2022-04-06 18:40 | Inpatient (IN) | payer OTHER ==
[~2022-04-06] VITALS: Ht 175.3 cm; Wt 117.9 kg
[~2022-04-06 18:40] MED LIST changes: -ACET-8386 PO; +FOLI1TAB90 PO; -LIB25 PO; +MAGN400T7 PO; +THIA-10 PO
[2022-04-06 18:50] VITALS: BP 123/90
[2022-04-06 20:01] LABS: BASOPHILS # (AUTO) 0.1 K/uL (0.00-0.22); BASOPHILS % (AUTO) 0.8 % (0.0-2.0); EOSINOPHILS # (AUTO) 0.1 K/uL (0-0.4); HEMATOCRIT 28.6 % (36-52); HEMOGLOBIN 8.6 g/dL (12.0-18.0); LYMPHOCYTES # (AUTO) 0.9 K/uL (2.0-11.5); LYMPHOCYTES % (AUTO) 12.7 % (20.5-51.1); MEAN CORPUSCULAR HEMOGLOBIN 23 pg (27-31); MEAN CORPUSCULAR HGB CONC 30 g/dL (33-37); MEAN CORPUSCULAR VOLUME 74.8 fL (80-94); MONOCYTES # (AUTO) 0.8 K/uL (0.8-1.0); NEUTROPHILS # (AUTO) 5.1 K/uL (1.8-7.7); NEUTROPHILS % (AUTO) 73.5 % (42.2-75.2); PLATELET COUNT (AUTO) 105 K/uL (140-450); RED BLOOD CELL COUNT(AUTO) 3.83 MIL/uL (4.20-6.10); RED CELL DISTRIBUTION WIDTH 21.1 % (11.6-13.7)
[2022-04-06] MEDS ORDERED: NACL 0.9% 500 ML IV ONE ×2 (20:15→22:45)
[2022-04-06 20:33] LABS: ALBUMIN 3.2 g/dL (3.4-5.0); ANION GAP 15.7 (8-16); CARBON DIOXIDE 26.5 mmol/L (21-32); POTASSIUM 3.2 mmol/L (3.5-5.1); TOTAL BILIRUBIN 1.1 mg/dL (0.0-1.0)
--- NOTE | 2022-04-06 20:34 | NUR ---
Female Service Cleaner accompanied male patient for Rectal Exam BY .
--- NOTE | 2022-04-06 20:50 | NUR ---
IV ESTABLISHED 22G RIGHT HAND. FLUIDS STARTED ORDERED. ALL NEEDS MET. BED LOW AND LOCKED. SIDE RAIL UP FOR SAFETY.
[2022-04-06] MEDS ORDERED: POTASSIUM CHLORIDE 10 MEQ TABER PO ONE (21:55)
[2022-04-06] MEDS ORDERED: MULTIVITAMIN 1 TAB PO SCH (21:55)
[2022-04-06] MEDS ORDERED: METOCLOPRAMIDE 10 MG/2 ML INJ VIAL IVP ONE (22:00)
--- NOTE | 2022-04-06 22:05 | NUR ---
PT TAKEN TO CT.
--- NOTE | 2022-04-06 22:31 | NUR ---
SWAB COLLECTED AND TAKEN TO LAB.
--- NOTE | 2022-04-06 22:33 | NUR ---
57 YO M BIB SELF WITH C/C OF BLOOD IN STOOL (DARK STOOLS) X1WK. PT REPORTS N/V X2DAYS. DENIES BLOOD IN EMESIS. PT STATES THIS HAS HAPPENED BEFORE IN THE PAST. ABDOMINAL DISTENTION PRESENT, PT STATES IT'S BEEN GOING ON FOR A VERY LONG TIME. PT STATES HE WAS HERE ABOUT 2WKS AGO AND RECIEVED A BLOOD TRANSFUSION. PT REPORTS HE IS A RECOVERING ALCOHOLIC AND HAD A FEW DRINKS YESTERDAY. PT STATES HE NOTICED THIS HAPPENS AFTER DRINKING. HX:CIRROHSIS AND ENLARGED LIVER NKA
--- NOTE | 2022-04-06 22:42 | NUR ---
PO CHALLENGE COMPLETED, PT DENIES NAUSEA. NO VOMITING OBESERVED.
--- NOTE | 2022-04-06 23:00 | NUR ---
PATIENT IN BED RESTING. BED LOW AND LOCKED. KEN SIDE RAILS UP FOR SAFETY. ALL NEEDS MET.
--- NOTE | 2022-04-06 23:07 | NUR ---
MD JOHNSON AT BEDSIDE ASSESSING PATIENT.
[2022-04-07 00:01] LABS: PROTHROMBIN TIME 11.6 secs (10.8-13.4)
[2022-04-07] MEDS ORDERED: ONDANSETRON 4 MG/2 ML VIAL IVP PRN (00:40)
[2022-04-07] MEDS ORDERED: NACL 0.9% 1,000 ML IV ONE (00:40)
[2022-04-07] MEDS ORDERED: MORPHINE SULFATE 4 MG/ML SYR IVP PRN (00:40)
[2022-04-07] MEDS ORDERED: ACETAMINOPHEN 325 MG TAB PO PRN (00:40)
[2022-04-07] MEDS ORDERED: LORazepam 1 MG TAB PO PRN (00:40)
[2022-04-07] MEDS ORDERED: HYDROcodone/APAP 5/325 MG 1 TAB TAB PO PRN (00:40)
[2022-04-07] MEDS ORDERED: cefTRIAXone 1,000 MG VIAL ONE (01:10)
--- NOTE | 2022-04-07 01:16 | NUR ---
SKIN IS INTACT. PT DENIES TAKING MEDICATION AT HOME.
--- NOTE | 2022-04-07 01:31 | NUR ---
Patient will be admitted to care of . Admited to TELE]. Will go to [id number]. Belongings list completed. Report to BALJIT ADAMS.
[2022-04-07 01:40] VITALS: BP 130/90
--- NOTE | 2022-04-07 01:40 | NUR ---
RECEIVED PT AAOX4 / GUDON FROM ER , NID , O2 SAT WNL , RA , IV SITE INTACT AND PATENT , NO C/O PAIN AT THIS TIME , SKIN INTACT , ADM ASSESSMENT DONE , PLAN OF CARE DISCUSSED AND VERBALIZES UNDERSTANDING , ON TELE MONITOR . WILL CONT. TO MONITOR .
--- NOTE | 2022-04-07 02:00 | NUR ---
HIT THE CALL LIGHT - HE SAID I WANT TO RELAX AND GET SOME REST AND SLEEP -IS THER IS ANY MEDICATION FOR IT PT. ASKING - WILL MEDICATE .
[2022-04-07 04:00] VITALS: BP 135/72
--- NOTE | 2022-04-07 06:00 | NUR ---
C/O ABDL PAIN - WILL MEDICATE , BP 130/72 , 02 SAT 98 % , ON TELE MONITOR
--- NOTE | 2022-04-07 07:35 | NUR ---
ENDORSED - PT - AWAKE - STABLE .
[2022-04-07 08:00] VITALS: BP 141/91
[2022-04-07] MEDS ORDERED: MAGNESIUM CITRATE 300 ML BTL GT SCH (08:00)
--- NOTE | 2022-04-07 08:05 | NUR ---
RECEIVED PT, AOX4, SINUS TACHY, RESPIRATIONS EVEN AND UNLABORED ON ROOM AIR. PATIENT DENIES PAIN AT THIS TIME. REPORTS OCCASIONAL NAUSEA, NO VOMITING. LAST BM 8/9 AM, HAS BEEN PASSING GAS. NOTED + BOWEL SOUNDS, ROUND FIRM ABDOMEN. AMBULATING INDEPENDENTLY IN ROOM. UPDATED PATIENT ON PLAN OF CARE INCLUDING NPO STATUS. PATIENT VERBALIZED UNDERSTANDING .WILL CONTINUE TO MONITOR.
[2022-04-07] MEDS: DOCUSATE SODIUM 100 MG GELCAP PO SCH ×2 (08:20→08:21)
[2022-04-07] MEDS ORDERED: POLYETHYLENE GLYCOL 17 GM/PKT GT SCH (09:00)
--- NOTE | 2022-04-07 10:56 | NUR ---
PATIENT IS AMBULATING INDEPENDENTLY IN HALLWAY, DENIES PAIN AT THIS TIME.
[2022-04-07 12:00] VITALS: BP 142/95
--- NOTE | 2022-04-07 13:05 | NUR ---
PATIENT IS STILL NPO, AMBULATING INDEPENDENTLY IN HALLWAY. DENIES PAIN OR BOWEL MOVEMENT
--- NOTE | 2022-04-07 14:38 | NUR ---
DC PLANNING: THE PATIENT PRESENTED TO THE ED FROM HOME WITH C/O 6 DAYS OF DARK STOOLS, N/V AND ABDOMINAL DISTENTION. H/O RENAL DISEASE, SEIZURES, AND CIRRHOSIS. ETOH LEVEL ON ADMISSION 46, GUIAC NEGATIVE, HR 124, B/P 123/90. STARTED ON ROCEPHIN, ATIVAN AND MORPHINE. CM SPOKE WITH THE PATIENT AT BEDSIDE AND CONFIRMED HIS ADDRESS AND PHONE NUMBER. HE LIVES IN A MOBILE HOME WITH HIS MOTHER. HE SEES HIS PCP DR MALONE EVERY FEW MONTHS AND STATES THAT HIS LAST ALCOHOL RELAPSE WAS A MONTH AGO. HE ALSO STATES THAT HE IS STARTING AN ALCOHOL CESSATION PROGRAM THROUGH THE [facility] BUT HASN'T ATTENDED YET. HE IS INDEPENDENT IN ALL ACTIVITIES AND STATES THAT HE GOES TO THE GYM EVERY DAY. HE HAS NO DME OR H/O HOME HEALTH AND HIS MOTHER CAN HELP WITH TRANSPORT HOME. THE OFFERED THE PATIENT ALCOHOL CESSATION RESOURCES WHICH HE STATES HE WOULD LIKE. THE PATIENT WILL DC HOME WHEN CLINICALLY STABLE, CM WILL FOLLOW.
--- NOTE | 2022-04-07 15:37 | NUR ---
DC PLANNING PATIENT PRESENTED TO THE ED FROM HOME WITH COMPLAINTS OF 6 DAYS OF DARK STOOLS, N/V AND ABDOMINAL DISTENTION. PATIENT HAS HX OF RENAL DISEASE, SEIZURES, AND CIRRHOSIS SW MET WITH PATIENT AT BEDSIDE FOR THE PURPOSE OF DISCUSSING AND GATHERING COLLATERAL INFORMATION. PATIENT REPORTS RESIDING AT THE ADDRESS LISTED WITH HIS MOTHER. PATIENT REPORTS EMERGENCY CONTACT AND MEDICAL DECISION MAKER ECTOR HUERTA [phone]. PATIENT DENIES CURRENTLY HAVING AD IN PLACE. SW PROVIDED PATIENT WITH INFORMATION ON AD, PATIENT WAS RECEPTIVE AND ACCEPTED AD PACKET OFFERED BY SW. PATIENT REPORTS MEETING WITH PCP DR. BARRAGAN, NEEDED. PT REPORTS A FOLLOW UP VISIT SET FOR 04/11/22. PATIENT REPORTS BEING MEDICATION COMPLAINT AND DENIES BARRIERS IN ACCESSING MEDICATION. PATIENT REPORTS ACQUIRING MEDICATION FROM [facility] IN [place] WHEN NEEDED. PATIENT STRUGGLED WITH MAINTAINING FOCUS ON SW PROMPTS AND HAD TO BE REDIRECTED SEVERAL TIMES THROUGHOUT ASSESSMENT. PATIENT REPORTS BEING IN RECOVERY FOR THE LAST YR AND A HALF WITH A RECENT RELAPSE ON 03/15. PATIENT REPORTS PARTICIPATING IN RECOVERY PROGRAM AT [place] HOWEVER, WHEN SW INQUIRED ON ADDITIONAL INFORMATION ON RECOVERY PROGRAM, PATIENT REPORTED THAT HE HAD ENROLLED AND COMPLETED INTAKE, TWO DAYS PRIOR. PATIENT REPORTS HIS INTENTIONS ARE TO ACTIVELY PARTICIPATE IN PROGRAM ONCE CLEARED FOR DC. PATIENT DENIES SUBSTANCE USE. SW OFFERED PATIENT SUBSTANCE USE/ALCOHOL RESOURCES, PATIENT WAS RECEPTIVE AND ACCEPTED RESOURCE PACKET. PATIENT REPORTS BEING INDEPENDENT AND DENIES CURRENT USE OF DME. PATIENT REPORTS THAT HE IS ACTIVE AND PARTICIPATES IN [employer] FOR EXERCISE. PATIENT REPORTS ADEQUATE FRIEND AND FAMILY SUPPORT AND REPORTS THAT MOM WILL BE PROVIDING TRANSPORTATION AND AIDING IN HIS CARE IF REQUIRED.
[2022-04-07] MEDS ORDERED: POTASSIUM CHLORIDE 20% 40 MEQ/15 ML UDC GT SCH (15:49)
[2022-04-07] MEDS ORDERED: SPIRONOLACTONE 25 MG TAB PO SCH (15:50)
[2022-04-07 16:00] VITALS: BP 167/68
[2022-04-07] MEDS: SODIUM FERRIC GLUCONATE 125 MG in NACL 0.9% 100 ML IV SCH (16:00)
--- NOTE | 2022-04-07 16:08 | NUR ---
DR RYDER SPOKE TO PATIENT AND EXPLAINED PLAN OF CARE. EGD TOMORROW, CONSENT OBTAINED AND PLACED IN CHART. PATIENT GIVEN REGULAR DIET. CLARIFIED WITH DR RYDER TO GIVE ADDITIONAL POTASSIUM SUPPLEMENT.
--- NOTE | 2022-04-07 19:30 | NUR ---
RECEIVED BEDSIDE REPORT FROM DAY SHIFT RN FOR CONTINUITY OF CARE. PT IS AWAKE IN BED. PT IS NOT IN ANY DISTRESS. NO COMPLAINS AT THIS TIME. PT HAS RIGHT FOREARM 22 GAUGE SALINE LOCK. CALL LIGHT WITHIN REACH. ALL SAFETY MEASURES TAKEN. WILL CONTINUE TO MONITOR THE PT.
[2022-04-07 20:00] VITALS: BP 119/79
[2022-04-07] MEDS: PANTOPRAZOLE 40 MG INJ VIAL IVP SCH (20:38)
[2022-04-07] MEDS: LACTULOSE 20 GM/30 ML UDC PO SCH (20:39)
--- NOTE | 2022-04-07 20:43 | NUR ---
ALL DUE MEDS GIVEN. NO ADVERSE REACTION NOTED. WILL CONTINUE TO MONITOR THE PT.
[2022-04-08] VITALS: BP 121/80
--- NOTE | 2022-04-08 00:24 | NUR ---
PT IS AWAKE IN BED. PT IS NOT IN ANY DISTRESS. PT HAS NO COMPLAINS AT THIS TIME. HE SAID HE WILL WATCH SOME TELEVISION. ALL SAFETY PRECAUTIONS TAKEN. WILL CONTINUE TO MONITOR THE PT.
--- NOTE | 2022-04-08 03:00 | NUR ---
PT IS SLEEPING COMFORTABLY IN BED. PT IS NOT IN ANY DISTRESS. BREATHING EVEN AND UNLABORED. CALL LIGHT WITHIN REACH. ALL SAFETY MEASURES TAKEN. WILL CONTINUE TO MONITOR THE PT.
[2022-04-08 04:00] VITALS: BP 120/82
[2022-04-08 06:47] LABS: BASOPHILS % (AUTO) 1.1 % (0.0-2.0); EOSINOPHILS # (AUTO) 0.2 K/uL (0-0.4); EOSINOPHILS % (AUTO) 3.9 % (0.0-4.0); HEMATOCRIT 23.7 % (36-52); HEMOGLOBIN 7.3 g/dL (12.0-18.0); LYMPHOCYTES # (AUTO) 0.9 K/uL (2.0-11.5); LYMPHOCYTES % (AUTO) 19.5 % (20.5-51.1); MEAN CORPUSCULAR HEMOGLOBIN 23 pg (27-31); MEAN CORPUSCULAR HGB CONC 31 g/dL (33-37); MEAN CORPUSCULAR VOLUME 74.6 fL (80-94); MONOCYTES # (AUTO) 0.5 K/uL (0.8-1.0); MONOCYTES % (AUTO) 10.9 % (1.7-9.3); NEUTROPHILS # (AUTO) 2.8 K/uL (1.8-7.7); NEUTROPHILS % (AUTO) 64.6 % (42.2-75.2); PLATELET COUNT (AUTO) 80 K/uL (140-450); RED BLOOD CELL COUNT(AUTO) 3.18 MIL/uL (4.20-6.10); RED CELL DISTRIBUTION WIDTH 21.2 % (11.6-13.7); WHITE BLOOD COUNT (AUTO) 4.4 K/uL (4.8-10.8)
--- NOTE | 2022-04-08 07:12 | NUR ---
ENDORSED PT TO DAY SHIFT RN FOR CONTINUITY OF CARE. ALL NEEDS MET. PT IS TABLE. Addendum: 04/08/22 at 0717 by Lenard Molina RN STABLE*
--- NOTE | 2022-04-08 07:15 | NUR ---
RECEIVED REPORT FROM JACK PRIZER NURSE. PT. IS AOX4, ON ROOM AIR, AMBULATORY. PT IS NPO EXCEPT WITH SOME MEDS. IV SITE ON RIGHT FA, 22G, SALINE LOCKED. DISCUSSED PLAN OF CARE. ALL SAFETY MEASURES DONE. WILL CONTINUE TO MONITOR.
[2022-04-08 07:20] LABS: ALBUMIN 2.7 g/dL (3.4-5.0); ANION GAP 12.5 (8-16); CARBON DIOXIDE 27.2 mmol/L (21-32); CREATININE 0.8 mg/dL (0.6-1.3); PHOSPHORUS 2.7 mg/dL (2.5-4.9); POTASSIUM 3.7 mmol/L (3.5-5.1); TOTAL BILIRUBIN 1.4 mg/dL (0.0-1.0)
[2022-04-08 07:28] LABS: MAGNESIUM 0.8 mg/dL (1.8-2.4)
[2022-04-08 08:00] VITALS: BP 130/81
--- NOTE | 2022-04-08 08:23 | NUR ---
PT MG 0.8, PLT 80, HGB 7.3. MESSAGED DR. MACDONALD.
[2022-04-08] MEDS ORDERED: SPIRONOLACTONE 25 MG TAB PO SCH (09:00)
[2022-04-08] MEDS: LACTULOSE 20 GM/30 ML UDC PO SCH (09:58)
[2022-04-08] MEDS: DOCUSATE SODIUM 100 MG GELCAP PO SCH (09:58)
[2022-04-08] MEDS: PANTOPRAZOLE 40 MG INJ VIAL IVP SCH (09:59)
[2022-04-08] MEDS ORDERED: diphenhydrAMINE 50 MG/ML VIAL ONE (11:22)
[2022-04-08] MEDS ORDERED: fentaNYL citrate 0.05 MG/ML VIAL ONE (11:23)
[2022-04-08] MEDS ORDERED: MIDAZOLAM 5 MG/5 ML VIAL ONE (11:23)
--- NOTE | 2022-04-08 11:31 | NUR ---
Nutritional Screening: HIGH RISK Diagnosis: ALCOHOL WITHDRAWAL WITH GI BLEEDING HX: CHRONIC ALCOHOL ABUSE. LIVER CIRRHOSIS, GASTRITIS -HIGH RISK INITIAL NUTRITION SCREEN D/T NPO STATUS -PATIENT IS A 67 Y/O MALE FROM HOME PRESENTING WITH ASSESSMENTS PER ER NOTE. -BMI: 38.4 KG/M2 (OBESE CLASS III) -WEIGHT: 117.934 KG, 259LBS -HEIGHT: IN (62) -IBW: 73KG, 160LBS -%IBW: 201 % -ABW: 84 KG, 129 LBS -CURRENT DIET: NPO -TOTAL I/O (04/08/22): 422 ML/ 422ML -SALOME SCORE: -WOUND: INTACT -GI: -LAST BM: 04/08 -X 5 -BOWEL PATTERN: NORMAL --ESTIMATED NEEDS ARE BASED ON ADJ BODY WEIGHT (84 KG) FOR - CALORIES: 2100 KCAL/DAY (25 KCAL/KG) PROTEIN: 84 GRAMS PRO/DAY (1.0 G/KG) FLUID: ML/DAY ( ML/KCAL) Pertinent Medications: LACTULOSE, PROTONIX, IV- FERRIC SODIUM GLUC.NACL Pertinent Labs:04/08/22 LOW: MG 0.8 ALB 2.7 CA 7.9 BUN 5 CR .8 HIGH: AMMONIA 40 WBC 4.4 RBC 3.18 BILI 1.4 Nutritional Problem: PES04/08/22 INITIAL ASSESSMENT COMPLETED 1. INADEQUATE NUTRIENT INTAKE RT POSSIBLE GI BLEED AEB NPO STATUS, NAUSEA, VOMITING, BLOOD IN STOOL. 2. ALTERED NUTRITION RELATED LAB VALUES R/T CHRONIC ALCOHOL ABUSE AEB ELEVATED AMMONIA LEVEL, BILI, LOW ALB, CA, CR LEVEL. ANASTACIO GARAY RD Comments04/08/22 INITIAL ASSESSMENT COMPLETED 1.PLEASE REFER TO NUTRITION ASSESSMENT UNDER CARE ACTIVITY FOR ESTIMATED NUTRITIONAL NEEDS. 3. RD TO FOLLOW-UP 2-3 DAYS, HIGH RISK ANASTACIO GARAY RD Expected Outcomes/Goals04/08/22 INITIAL ASSESSMENT COMPLETED 1. PATIENT WILL ABLE TO TRANSITION TO ORAL DIET TO GOAL REGULAR DIET TOLERATED. WITHIN 3-5 DAYS DIETITIAN WILL MONITOR DIET ORDER, PO INTAKE, NUTRITION-RELATED LABS TRENDING WNL, SKIN INTEGRITY, WEIGHTS, GI FUNCTION. DISCHARGE PLAN: PATIENT SHOULD BE ABLE TO CONTINUE WITH THE PRESCRIBED DIET UPON DISCHARGE. ANASTACIO GARAY RD
[2022-04-08] MEDS ORDERED: MAG SULF 2000 MG/WATER PREMIX 50 ML IV ONE (11:32)
--- NOTE | 2022-04-08 11:35 | NUR ---
OR NURSE TOOK PT FOR EGD.
[2022-04-08] MEDS ORDERED: MAG SULF 2000 MG/WATER PREMIX 100 ML IV SCH ×2 (11:45→16:00)
[2022-04-08 12:00] VITALS: BP 130/81
[2022-04-08] MEDS ORDERED: MIDAZOLAM 2 MG/2 ML VIAL IVP ONE (12:05)
[2022-04-08] MEDS ORDERED: fentaNYL citrate 0.05 MG/ML VIAL IVP ONE (12:05)
[2022-04-08] MEDS ORDERED: diphenhydrAMINE 50 MG/ML VIAL IVP ONE (12:05)
--- NOTE | 2022-04-08 12:20 | NUR ---
PT GOT BACK FROM OR, EGD DONE.
--- NOTE | 2022-04-08 13:06 | NUR ---
STARTED MAG SULFATE IV FOR PT PER DR'S ORDER- MG WAS LOW-0.8
--- NOTE | 2022-04-08 13:30 | NUR ---
CALLED DIETARY TO BRING SOME REG FOOD FOR PT, SINCE PT DIDN'T RECEIVE ANY FOOD FOR LUNCH.
[2022-04-08] MEDS ORDERED: FAMO-90 PO (13:55)
--- NOTE | 2022-04-08 15:48 | NUR ---
04/08/22 RD INITIAL ASSESSMENT COMPLETED PLEASE REFER TO NUTRITION ASSESSMENT UNDER CARE ACTIVITY FOR ESTIMATED NUTRITIONAL NEEDS. 1. WHEN IF MEDICALLY APPROPRIATE ADVANCE DIET TO REGULAR DIET TOLERATED. 2. RD TO FOLLOW-UP 2-3 DAYS, HIGH RISK ANASTACIO GARAY, [place]
[2022-04-08 16:00] VITALS: BP 133/89
[2022-04-08] MEDS: SODIUM FERRIC GLUCONATE 125 MG in NACL 0.9% 100 ML IV SCH (16:00)
--- NOTE | 2022-04-08 16:00 | NUR ---
PT IS AWAKE, NOT IN DISTRESS AT THIS TIME. WILL CONTINUE TO MONITOR.
[2022-04-08 17:20] VITALS: BP 133/89
--- NOTE | 2022-04-08 18:50 | NUR ---
DISCHARGED PT TO HOME. FIRE SUPPORT MAN BROUGHT PT TO THE [facility] WHEELCHAIR. PICKED UP BY HIS MOM AND SISTER. PT V/S STABLE. ALL PT PERSONAL BELONGINGS WERE IN POSSESSION. IV REMOVED, AND BLEEDING CONTROLLED. CHANGED TO HIS PERSONAL CLOTHES.
== END 2022-04-08 18:50 | disposition home or self-care (01) | DRG 242 ==
LOC: MED 18:40 → MTU 04-07 00:45
PROVIDERS: ADMIT Hospitalist; ATTEND Hospitalist
PROC: 0DB68ZX Excision of Stomach, Via Natural or Artificial Opening Endoscopic, Diagnostic (ICD-10-PCS; principal; 2022-04-08 11:30)
DX: K22.11 Ulcer of esophagus with bleeding (principal); E44.0 Moderate protein-calorie malnutrition; K74.60 Unspecified cirrhosis of liver; K29.71 Gastritis, unspecified, with bleeding; D62 Acute posthemorrhagic anemia; D50.9 Iron deficiency anemia, unspecified; F12.10 Cannabis abuse, uncomplicated; F10.139 Alcohol abuse with withdrawal, unspecified; K21.9 Gastro-esophageal reflux disease without esophagitis; Z20.822 Contact with and (suspected) exposure to COVID-19; K44.9 Diaphragmatic hernia without obstruction or gangrene; Y90.9 Presence of alcohol in blood, level not specified; R00.0 Tachycardia, unspecified; K76.0 Fatty (change of) liver, not elsewhere classified; Z68.38 Body mass index [BMI] 38.0-38.9, adult; Z79.899 Other long term (current) drug therapy; Z71.41 Alcohol abuse counseling and surveillance of alcoholic
CPT/HCPCS: 36415; 71045; 80053; 82140; 83690; 83735; 84100; 85025; 85610; 86677; 86886; 86900; 86901; 87081; 93005; 96361; 96374; 99285; C9113; G0378; G0482; J0696; J1200; J2250; J2270; J2765; J2916; J3010; J3475; J7030; J7060; Q0092

== ENCOUNTER 2022-06-04 00:13 | Emergency (ER) | payer OTHER ==
[~2022-06-04] VITALS: Ht 175.3 cm; Wt 94.3 kg
[~2022-06-04 00:13] MED LIST changes: +FAMO-90 PO; -FOLI1TAB90 PO; -MAGN400T7 PO; -ONDA8TAB87 PO; -THIA-10 PO
[2022-06-04 00:19] VITALS: BP 98/65
--- NOTE | 2022-06-04 00:23 | NUR ---
TO LOBBY A/W BED AMBULATORY
[2022-06-04] MEDS: HYDROcodone/APAP 5/325 MG 1 TAB TAB PO ONE (02:28)
[2022-06-04] MEDS: PANTOPRAZOLE 40 MG TABEC PO ONE (02:29)
[2022-06-04] MEDS: ONDANSETRON 4 MG ODT PO ONE (02:30)
[2022-06-04] MEDS ORDERED: HYDR-5080 PO (02:59)
[2022-06-04] MEDS ORDERED: ONDA-188 SL (02:59)
[2022-06-04 03:40] VITALS: BP 105/84
--- NOTE | 2022-06-04 03:42 | NUR ---
Patient discharged with v/s stable. Written and verbal after care instructions given and explained. Patient alert, oriented and verbalized understanding of instructions. Ambulatory with steady gait. All questions addressed prior to discharge. ID band removed. Patient advised to follow up with PMD. Rx of NORCO AND ZOFRAN given. Patient educated on indication of medication including possible reaction and side effects. Opportunity to ask questions provided and answered.
== END 2022-06-04 03:42 | disposition home or self-care (01) ==
LOC: MED 00:13
DX: R07.81 Pleurodynia (principal); R07.89 Other chest pain; K74.60 Unspecified cirrhosis of liver
CPT/HCPCS: 71101; 99284; Q0162

== ENCOUNTER 2022-06-07 04:24 | Emergency (ER) | payer OTHER ==
[~2022-06-07] VITALS: Ht 175.3 cm; Wt 95.3 kg
[~2022-06-07 04:24] MED LIST changes: +HYDR-5080 PO; +ONDA-188 SL
[2022-06-07 04:26] VITALS: BP 112/72
--- NOTE | 2022-06-07 04:34 | NUR ---
PT TAKEN TO BED 8
--- NOTE | 2022-06-07 04:40 | NUR ---
57/M BIB SELF C/O LEFT BACK PAIN , WITH MOVEMENT PAIN IS SHARP 05/09. "LAST THURSDAY, I WAS HANGING UP A PICTURE AND THE STEP LADDER BROKE" "I WAS SEEN 2 DAYS AFTER" "NOW THERE IS A BUMP IN THERE, NOW MY BREATHING I HAVE TO PUSH IT". PATIENT DOESNT APPEAR TO BE IN DISTRESS. RR EVEN AND UNLABORED. BED LOW AND LOCKED. ALL NEEDS MET. DENIES PMHX, RX NKA
--- NOTE | 2022-06-07 04:41 | NUR ---
Note hugoone in EDM - 06/07/22 at 0449 by ARACELI 57/M BIB SELF C/O BACK PAIN , WITH MOVEMENT SHARP 05/09. "LAST THURSDAY, I WAS HANGING UP A PICTURE AND THE STEP LADDER BROKE" "I WAS SEEN 2 DAYS AFTER" "NOW THERE IS A BUMP IN THERE, NOW MY BREATHING I HAVE TO PUSH IT". PATIENT DOESNT APPEAR TO BE IN DISTRESS. RR EVEN AND UNLABORED. BED LOW AND LOCKED. ALL NEEDS MET. DENIES PMHX, RX NKA
--- NOTE | 2022-06-07 04:53 | NUR ---
PROVIDED ICE WATER PER RQ
--- NOTE | 2022-06-07 05:05 | NUR ---
MD MTZ AT BEDSIDE
[2022-06-07] MEDS ORDERED: KETOROLAC 30 MG/ML VIAL IM ONE (05:15)
--- NOTE | 2022-06-07 05:19 | NUR ---
NARDA TAKEN TO CT VIA W/C
[2022-06-07] MEDS ORDERED: ONDANSETRON 4 MG ODT PO ONE (05:25)
--- NOTE | 2022-06-07 05:26 | NUR ---
Chris tobias in [facility] - 06/07/22 at 0527 by ARACELI PATIENT RETURNED FROM CT VIA ITALO
--- NOTE | 2022-06-07 05:27 | NUR ---
PATIENT RETURNED FROM CT VIA W/C
--- NOTE | 2022-06-07 05:39 | NUR ---
NARDA RQ THE LIGHTS BE TURNED OFF. ALL NEEDS MET.
[2022-06-07] MEDS ORDERED: LID5T TP (05:58)
[2022-06-07] MEDS ORDERED: NAPR-54 PO (05:58)
--- NOTE | 2022-06-07 06:22 | NUR ---
PATIENT RQ WATER.
--- NOTE | 2022-06-07 07:18 | NUR ---
REPORT GIVEN TO BALJIT CHAMBERS. TRANSFER OF CARE AT THIS TIME.
--- NOTE | 2022-06-07 09:25 | NUR ---
Patient discharged with v/s stable. Written and verbal after care instructions about rib contusion, blunt chest trauma given and explained. Patient alert, oriented and verbalized understanding of instructions. Ambulatory with steady gait. All questions addressed prior to discharge. ID band removed. Patient advised to follow up with PMD. Rx of Lidocaine and Naproxen given. Patient educated on indication of medication including possible reaction and side effects. Opportunity to ask questions provided and answered.
[2022-06-07 09:28] VITALS: BP 137/63
--- NOTE | 2022-06-07 09:32 | NUR ---
The patient's care was reviewed and supervised by Comfort Obando, RN, RN.
== END 2022-06-07 09:28 | disposition home or self-care (01) ==
LOC: MED 04:24
DX: S20.212A Contusion of left front wall of thorax, initial encounter (principal); K74.60 Unspecified cirrhosis of liver; W18.30XA Fall on same level, unspecified, initial encounter; Y93.89 Activity, other specified; Y92.89 Other specified places as the place of occurrence of the external cause; Y99.8 Other external cause status
CPT/HCPCS: 71250; 96372; 99284; J1885; Q0162

== ENCOUNTER 2022-08-15 06:10 | Observation (INO) | payer OTHER ==
[~2022-08-15] VITALS: Ht 175.3 cm; Wt 93.9 kg
[~2022-08-15 06:10] MED LIST changes: +LID5T TP; +NAPR-54 PO
[2022-08-15 06:15] VITALS: BP 140/82
[2022-08-15] MEDS ORDERED: NACL 0.9% 1,000 ML IV ONE (06:45)
[2022-08-15] MEDS ORDERED: LORazepam 2 MG/ML VIAL IVP ONE (06:45)
[2022-08-15] MEDS ORDERED: ONDANSETRON 4 MG/2 ML VIAL IVP ONE (06:45)
[2022-08-15 07:45] LABS: ANION GAP 19.5 (8-16); ASPARTATE AMINOTRANSFERASE 55 U/L (15-37); CARBON DIOXIDE 22.3 mmol/L (21-32); CHLORIDE 102 mmol/L (98-107); CREATININE 0.9 mg/dL (0.6-1.3); GFR ARICAN-AMERICAN 111 mL/min (>90); GLUCOSE 134 mg/dL (74-106); POTASSIUM 3.8 mmol/L (3.5-5.1); SODIUM SERUM 140 mmol/L (136-145); TOTAL BILIRUBIN 1.3 mg/dL (0.0-1.0); UREA NITROGEN, BLOOD 6 mg/dL (7-18)
[2022-08-15] MEDS ORDERED: CALCIUM GLUCONATE 10% 1,000 MG in NACL 0.9% 50 ML IV ONE (07:50)
[2022-08-15] MEDS ORDERED: ASPIRIN 325 MG TAB PO ONE (07:55)
[2022-08-15 07:59] LABS: BASOPHILS # (AUTO) 0.1 K/uL (0.00-0.22); BASOPHILS % (AUTO) 1.4 % (0.0-2.0); EOSINOPHILS # (AUTO) 0.1 K/uL (0-0.4); EOSINOPHILS % (AUTO) 1.2 % (0.0-4.0); HEMATOCRIT 22.9 % (36-52); LYMPHOCYTES # (AUTO) 0.8 K/uL (2.0-11.5); LYMPHOCYTES % (AUTO) 13.9 % (20.5-51.1); MEAN CORPUSCULAR HEMOGLOBIN 21 pg (27-31); MEAN CORPUSCULAR HGB CONC 29 g/dL (33-37); MEAN CORPUSCULAR VOLUME 71.3 fL (80-94); MONOCYTES # (AUTO) 0.4 K/uL (0.8-1.0); MONOCYTES % (AUTO) 7.1 % (1.7-9.3); NEUTROPHILS # (AUTO) 4.6 K/uL (1.8-7.7); NEUTROPHILS % (AUTO) 76.4 % (42.2-75.2); PLATELET COUNT (AUTO) 133 K/uL (140-450); RED BLOOD CELL COUNT(AUTO) 3.21 MIL/uL (4.20-6.10); RED CELL DISTRIBUTION WIDTH 20.5 % (11.6-13.7); WHITE BLOOD COUNT (AUTO) 6.1 K/uL (4.8-10.8)
--- NOTE | 2022-08-15 08:00 | NUR ---
57 Y/O MALE BIB SELF C/O LOWER ABD PAIN, CHEST TIGHTNESS, [id number]. STATES THAT HE IS A RECOVERING ALCOHOLIC BUT "FELL OFF" 2 DAYS AGO AND DRANK SOME VODKA ALLERGY: IODINE PMH: SEZIURES, LIVER CIRRHOSIS, ETOH
[2022-08-15 08:17] LABS: HEMOGLOBIN 6.6 g/dL (12.0-18.0)
[2022-08-15] MEDS ORDERED: CALCIUM GLUC 1 GM/50 mL NS BAG 50 ML IV ONE (08:22)
[2022-08-15] MEDS ORDERED: PANTOPRAZOLE 40 MG INJ VIAL IVP ONE (08:30)
[2022-08-15 09:15] LABS: PROTHROMBIN TIME 12.1 secs (10.8-13.4)
[2022-08-15] MEDS: OCTREOTIDE ACETATE 1.25 MG in NACL 0.9% 250 ML IV SCH (09:29)
[2022-08-15] MEDS ORDERED: HYDROcodone/APAP 5/325 MG 1 TAB TAB PO PRN (09:45)
[2022-08-15] MEDS ORDERED: KCL 20 MEQ/WATER INJ PREMIX 200 ML IV PRN (09:45)
[2022-08-15] MEDS ORDERED: POTASSIUM CHLORIDE 10 MEQ TABER PO PRN (09:45)
[2022-08-15] MEDS ORDERED: ONDANSETRON 4 MG/2 ML VIAL IVP PRN (09:45)
[2022-08-15] MEDS ORDERED: MORPHINE SULFATE 4 MG/ML SYR IVP PRN (09:45)
[2022-08-15] MEDS ORDERED: MAGNESIUM OXIDE 400 MG TAB PO PRN (09:45)
--- NOTE | 2022-08-15 10:51 | NUR ---
DR WESTBROOK AT BEDSIDE
--- NOTE | 2022-08-15 11:45 | NUR ---
Patient will be admitted to care of DR WESTBROOK. Admited to TELEMETRY. Will go to room 120A. Belongings list completed. Report to JOHANNY SMILEY.
[2022-08-15 11:50] VITALS: BP 134/85
--- NOTE | 2022-08-15 12:00 | NUR ---
BEGAN TRANSFUSION OF 1 UNIT OF PRBC. PRE VITAL SIGNS STABLE.
--- NOTE | 2022-08-15 14:45 | NUR ---
BLOOD TRANSFUSION COMPLETED. POST VITAL SIGNS STABLE. NO DISTRESS NOTED. WILL DRAW LABS IN 2 HOURS TO ASSESS HBG LEVELS
[2022-08-15 16:00] VITALS: BP 132/93
[2022-08-15 16:49] LABS: BASOPHILS # (AUTO) 0.1 K/uL (0.00-0.22); BASOPHILS % (AUTO) 1.4 % (0.0-2.0); EOSINOPHILS # (AUTO) 0.1 K/uL (0-0.4); EOSINOPHILS % (AUTO) 2.4 % (0.0-4.0); HEMATOCRIT 22.9 % (36-52); LYMPHOCYTES # (AUTO) 0.7 K/uL (2.0-11.5); LYMPHOCYTES % (AUTO) 12.1 % (20.5-51.1); MEAN CORPUSCULAR HEMOGLOBIN 22 pg (27-31); MEAN CORPUSCULAR HGB CONC 30 g/dL (33-37); MEAN CORPUSCULAR VOLUME 73.7 fL (80-94); MONOCYTES # (AUTO) 0.5 K/uL (0.8-1.0); MONOCYTES % (AUTO) 7.7 % (1.7-9.3); NEUTROPHILS # (AUTO) 4.6 K/uL (1.8-7.7); NEUTROPHILS % (AUTO) 76.4 % (42.2-75.2); PLATELET COUNT (AUTO) 121 K/uL (140-450); RED BLOOD CELL COUNT(AUTO) 3.11 MIL/uL (4.20-6.10); RED CELL DISTRIBUTION WIDTH 22.2 % (11.6-13.7); WHITE BLOOD COUNT (AUTO) 6.1 K/uL (4.8-10.8)
[2022-08-15 16:52] LABS: HEMOGLOBIN 6.9 g/dL (12.0-18.0)
--- NOTE | 2022-08-15 16:55 | NUR ---
ALL SCHEDULED MEDS GIVEN. PT IS STABLE. NO DISTRESS NOTED. WILL CONTINUE TO MONITOR.
--- NOTE | 2022-08-15 19:25 | NUR ---
ENDORSED TO ORACLE PROGRAMMER ANALYST NURSE FOR CONTINUITY OF CARE. PT IS STABLE.
--- NOTE | 2022-08-15 19:30 | NUR ---
RECEIVED BEDSIDE REPORT FROM DAY SHIFT RN FOR CONTINUITY OF CARE. PT IS AWAKE. PT IS AAOX4 ON RA. PT HAS LEFT FOREARM 20 GAUGE RUNNING SANDOSTATIN 1.25 @ 12 CC/HR. PT ABLE TO AMBULATE. PT DENIES ANY PAIN AND HAS NO COMPLAINS. PLAN OF CARE DISCUSSED. CALL LIGHT WITHIN REACH. WILL CONTINUE TO MONITOR THE PT.
[2022-08-15 20:00] VITALS: BP 133/80
[2022-08-15] MEDS: PANTOPRAZOLE 40 MG INJ VIAL IVP SCH (21:00)
--- NOTE | 2022-08-15 22:07 | NUR ---
2ND UNIT OF BLOOD TRANSFUSION STARTED. NO BLOOD TRANSFUSION REACTION NOTED. PT DENIES ANY CHANGES. WILL CONTINUE TO MONITOR THE PT.
[2022-08-16] VITALS: BP 129/86
[2022-08-16] MEDS ORDERED: ZOLPIDEM 5 MG TAB PO PRN (00:55)
--- NOTE | 2022-08-16 01:40 | NUR ---
BLOOD TRANSFUSION FINISHED. NO REACTION NOTED.
--- NOTE | 2022-08-16 02:12 | NUR ---
VITAL SIGNS TAKEN AND STABLE. PT HAS NO COMPLAINS AT THIS TIME. WILL CONTINUE TO MONITOR THE PT.
[2022-08-16 04:00] VITALS: BP 115/72
[2022-08-16 05:21] LABS: ANION GAP 13.2 (8-16); CARBON DIOXIDE 25.9 mmol/L (21-32); CREATININE 0.9 mg/dL (0.6-1.3); POTASSIUM 4.1 mmol/L (3.5-5.1)
[2022-08-16 05:29] LABS: BASOPHILS # (AUTO) 0.1 K/uL (0.00-0.22); BASOPHILS % (AUTO) 1.5 % (0.0-2.0); EOSINOPHILS # (AUTO) 0.2 K/uL (0-0.4); EOSINOPHILS % (AUTO) 5.1 % (0.0-4.0); HEMATOCRIT 24.7 % (36-52); HEMOGLOBIN 7.7 g/dL (12.0-18.0); LYMPHOCYTES # (AUTO) 0.7 K/uL (2.0-11.5); LYMPHOCYTES % (AUTO) 14.5 % (20.5-51.1); MEAN CORPUSCULAR HEMOGLOBIN 23 pg (27-31); MEAN CORPUSCULAR HGB CONC 31 g/dL (33-37); MEAN CORPUSCULAR VOLUME 74.4 fL (80-94); MONOCYTES # (AUTO) 0.3 K/uL (0.8-1.0); MONOCYTES % (AUTO) 7.2 % (1.7-9.3); NEUTROPHILS # (AUTO) 3.4 K/uL (1.8-7.7); NEUTROPHILS % (AUTO) 71.7 % (42.2-75.2); PLATELET COUNT (AUTO) 116 K/uL (140-450); RED BLOOD CELL COUNT(AUTO) 3.32 MIL/uL (4.20-6.10); RED CELL DISTRIBUTION WIDTH 22.9 % (11.6-13.7); WHITE BLOOD COUNT (AUTO) 4.8 K/uL (4.8-10.8)
[2022-08-16] MEDS: MAG SULF 2000 MG/WATER PREMIX 50 ML IV PRN (06:12)
--- NOTE | 2022-08-16 06:22 | NUR ---
LAB CALLED WITH PT MAGNESIUM CRITICAL VALUE OF 0.7. MESSAGED DR. HOOPER. WAITING FOR REPLIED. ADMINISTERED MAG RIDER FOR NOW.
--- NOTE | 2022-08-16 07:34 | NUR ---
ENDORSED PT TO DAY SHIFT RN FOR CONTINUITY OF CARE. PT IS STABLE.
[2022-08-16 08:00] VITALS: BP_SYST 135; BP_SYST 146; BP_DIAS 77; BP_DIAS 90
[2022-08-16] MEDS: OCTREOTIDE ACETATE 1.25 MG in NACL 0.9% 250 ML IV SCH ×2 (08:30→08:41)
[2022-08-16] MEDS: PANTOPRAZOLE 40 MG INJ VIAL IVP SCH ×2 (08:40→21:18)
--- NOTE | 2022-08-16 09:00 | NUR ---
ALL SCHEDULED MEDS GIVEN. PT IS STABLE. NO DISTRESS NOTED. WILL CONTINUE TO MONITOR.
--- NOTE | 2022-08-16 09:50 | NUR ---
PATIENT HAS BEEN SCREENED AND CATEGORIZED LOW NUTRITION RISK. PATIENT WILL BE SEEN WITHIN 7 DAYS OF ADMISSION. 08/22/[address]
[2022-08-16 12:00] VITALS: BP_SYST 115; BP_SYST 135; BP_DIAS 80; BP_DIAS 82
--- NOTE | 2022-08-16 13:40 | NUR ---
DR. RYDER AT BEDSIDE.
[2022-08-16 16:00] VITALS: BP 112/60
[2022-08-16] MEDS: SODIUM FERRIC GLUCONATE 125 MG in NACL 0.9% 100 ML IV SCH (16:39)
--- NOTE | 2022-08-16 16:40 | NUR ---
ALL SCHEDULED MEDS GIVEN. PT IS STABLE. NO DISTRESS NOTED. WILL CONTINUE TO MONITOR.
[2022-08-16] MEDS: ACETAMINOPHEN 325 MG TAB PO PRN (18:14)
--- NOTE | 2022-08-16 18:14 | NUR ---
PT COMPLAINED OF 3/10 BILATERAL FOOT PAIN. ADMINISTERED PRN PAIN MEDS PER MD ORDERED
--- NOTE | 2022-08-16 19:22 | NUR ---
ENDORSED TO WAREHOUSE PACKAGING SUPERVISOR NURSE FOR CONTINUITY OF CARE.
--- NOTE | 2022-08-16 19:30 | NUR ---
RECEIVED BEDSIDE REPORT FROM DAY SHIFT RN FOR CONTINUITY OF CARE. PT IS AWAKE. PT IS SITTING IN BED ON RA AND NOT IN ANY ACUTE DISTRESS. PT HAS LEFT AND RIGHT FOREARM 20 GAUGE. IVF RUNNING PER MD ORDER. PLAN OF CARE DISCUSSED. CALL LIGHT WITHIN REACH. ALL SAFETY MEASURES TAKEN. WILL CONTINUE TO MONITOR THE PT.
[2022-08-16 20:00] VITALS: BP 125/77
--- NOTE | 2022-08-16 21:27 | NUR ---
SCHEDULE MEDICATIONS GIVEN. NO ADVERSE REACTION NOTED. WILL CONTINUE TO MONITOR THE PT.
[2022-08-17] VITALS: BP 132/88
[2022-08-17] MEDS: ACETAMINOPHEN 325 MG TAB PO PRN ×3 (00:08→08:52)
--- NOTE | 2022-08-17 02:15 | NUR ---
PT IS SLEEPING IN BED COMFORTABLY. PT NOT IN ANY ACUTE DISTRESS. VISIBLE RISE AND CHEST FALL. CALL LIGHT WITHIN REACH. WILL CONTINUE TO MONITOR THE PT.
[2022-08-17 04:00] VITALS: BP 126/67
--- NOTE | 2022-08-17 04:11 | NUR ---
SCHEDULE MEDICATION GIVEN. NO ADVERSE REACTION NOTED. WILL CONTINUE TO MONITOR THE PT.
[2022-08-17] MEDS: SODIUM FERRIC GLUCONATE 125 MG in NACL 0.9% 100 ML IV SCH (04:12)
--- NOTE | 2022-08-17 05:25 | NUR ---
PT IS SLEEPING COMFORTABLY IN BED. PT NOT IN ANY ACUTE DISTRESS. VISIBLE RISE AND CHEST FALL. CALL LIGHT WITHIN REACH. WILL CONTINUE TO MONITOR THE PT.
[2022-08-17 05:51] LABS: ANION GAP 14.4 (8-16); CARBON DIOXIDE 24.3 mmol/L (21-32); CREATININE 0.8 mg/dL (0.6-1.3); POTASSIUM 3.7 mmol/L (3.5-5.1)
[2022-08-17 05:52] LABS: BASOPHILS # (AUTO) 0.1 K/uL (0.00-0.22); BASOPHILS % (AUTO) 1.4 % (0.0-2.0); EOSINOPHILS # (AUTO) 0.3 K/uL (0-0.4); EOSINOPHILS % (AUTO) 4.7 % (0.0-4.0); HEMATOCRIT 23.6 % (36-52); HEMOGLOBIN 7.2 g/dL (12.0-18.0); LYMPHOCYTES # (AUTO) 0.8 K/uL (2.0-11.5); LYMPHOCYTES % (AUTO) 11.1 % (20.5-51.1); MEAN CORPUSCULAR HEMOGLOBIN 23 pg (27-31); MEAN CORPUSCULAR HGB CONC 31 g/dL (33-37); MEAN CORPUSCULAR VOLUME 75.5 fL (80-94); MONOCYTES # (AUTO) 0.6 K/uL (0.8-1.0); MONOCYTES % (AUTO) 7.9 % (1.7-9.3); NEUTROPHILS # (AUTO) 5.5 K/uL (1.8-7.7); NEUTROPHILS % (AUTO) 74.9 % (42.2-75.2); PLATELET COUNT (AUTO) 125 K/uL (140-450); RED BLOOD CELL COUNT(AUTO) 3.12 MIL/uL (4.20-6.10); WHITE BLOOD COUNT (AUTO) 7.4 K/uL (4.8-10.8)
--- NOTE | 2022-08-17 07:09 | NUR ---
ENDORSED PT TO DAYSHIFT RN FOR CONTINUITY OF CARE. PT IS STABLE.
--- NOTE | 2022-08-17 07:09 | NUR ---
RECEIVED REPORT FROM NIGHTSHIFT NURSE CLAY FOR CONTINUITY OF CARE. PT IS CURRENTLY SLEEPING, A/OX4. BREATHING IS EVEN, REGULAR AND UNLABORED ON ROOM AIR. PT IS CONTINENT OF THE BOWEL AND BLADDER, NO EPISODES OF INCONTINENCE REPORTED. SKIN IS INTACT, ICE PACKS TO BILATERAL ANKLES IN PLACE FROM RECENT REPORTS OF BILATERAL FOOT PAIN. SANDOSTATIN DRIP RUNNING 10ML/HR. NO SIGNS OF PAIN OR DISTRESS NOTED AT THIS TIME.
[2022-08-17 08:00] VITALS: BP 122/78
--- NOTE | 2022-08-17 08:50 | NUR ---
PT COMPLAINED OF BILATERAL ANKLE PAIN 05/09. PER THE PT, HE SLIPPED ON THE WET FLOOR THAT "SMELLED LIKE PEE" AND FELT IF HE MAY HAVE SPRAINED HIS ANKLES. MINIMAL SWELLING NOTED. MEDICATED PRN TYLENOL, ELEVATED AND APPLIED ICE PACKS TO BILATERAL ANKLES.
[2022-08-17] MEDS: PANTOPRAZOLE 40 MG INJ VIAL IVP SCH (08:51)
[2022-08-17] MEDS: OCTREOTIDE ACETATE 1.25 MG in NACL 0.9% 250 ML IV SCH (08:52)
[2022-08-17] MEDS: MAG SULF 2000 MG/WATER PREMIX 50 ML IV PRN (08:57)
[2022-08-17] MEDS ORDERED: FERR-20 PO (09:17)
[2022-08-17] MEDS ORDERED: PANT40EC PO (09:17)
[2022-08-17 11:22] VITALS: BP 122/78
--- NOTE | 2022-08-17 12:00 | NUR ---
CALLED POSTAL TRANSPORTATION CLERK TO CALL [facility] FOR PT. PT GIVEN DISCHARGE PAPERWORK AND INSTRUCTIONS TO SIGN. PT VERBALIZED UNDERSTANDING, PT SIGNED ALL PAPERS.
--- NOTE | 2022-08-17 12:45 | NUR ---
TRANSPORTED PT TO FRONT LOBBY VIA WHEELCHAIR FOR RIDE HOME VIA UBER. PT IN STABLE CONDITION.
== END 2022-08-17 12:45 | disposition home or self-care (01) ==
LOC: MED 06:10 → MTU 09:45
PROVIDERS: ADMIT Internal Medicine; ATTEND Internal Medicine
DX: K92.2 Gastrointestinal hemorrhage, unspecified (principal); Z20.822 Contact with and (suspected) exposure to COVID-19; K22.11 Ulcer of esophagus with bleeding; R07.89 Other chest pain; K74.60 Unspecified cirrhosis of liver; D64.9 Anemia, unspecified; K21.9 Gastro-esophageal reflux disease without esophagitis; K44.9 Diaphragmatic hernia without obstruction or gangrene; D69.6 Thrombocytopenia, unspecified; F10.10 Alcohol abuse, uncomplicated; Z91.19 Patient's noncompliance with other medical treatment and regimen; Z79.899 Other long term (current) drug therapy
CPT/HCPCS: 36415; 36430; 71045; 80048; 80053; 83735; 84484; 85018; 85025; 85610; 86886; 86900; 86901; 86920; 87081; 87426; 93005; 93307; 96365; 96366; 96367; 96368; 96375; 96376; 99291; 99292; C9113; G0378; G0482; J0610; J0696; J2060; J2354; J2405; J2916; J3475; J7030; J7060; P9016; Q0092; C8929

== ENCOUNTER 2022-09-09 02:40 | Emergency (ER) | payer OTHER ==
[~2022-09-09] VITALS: Ht 175.3 cm; Wt 94.3 kg
[~2022-09-09 02:40] MED LIST changes: -FAMO-90 PO; +FERR-20 PO; -HYDR-5080 PO; -LID5T TP; -NAPR-54 PO; -ONDA-188 SL; +PANT40EC PO
[2022-09-09 02:47] VITALS: BP 133/96
--- NOTE | 2022-09-09 02:53 | NUR ---
PT TO BED 04.
[2022-09-09] MEDS ORDERED: DICYCLOMINE HCL LIQUID 20 MG, ALUMINUM HYD/MAG/SIMETHICONE 30 ML, LIDOCAINE VISCOUS 2% ... PO ONE ×3 (02:55)
[2022-09-09] MEDS ORDERED: LORazepam 1 MG TAB PO ONE (02:55)
[2022-09-09] MEDS ORDERED: DICYCLOMINE HCL LIQUID 10 MG/5 ML UDC ONE (02:58)
[2022-09-09] MEDS ORDERED: ALUMINUM HYD/MAG/SIMETHICONE 30 ML UDC ONE (02:58)
--- NOTE | 2022-09-09 03:30 | NUR ---
Patient resting comfortably in bed, A/Ox4, chest rise and fall symmetrical, no c/o pain or s/s of discomfort.
[2022-09-09 04:43] VITALS: BP 122/85
== END 2022-09-09 04:46 | disposition home or self-care (01) ==
LOC: MED 02:40
DX: R10.10 Upper abdominal pain, unspecified (principal); Z72.89 Other problems related to lifestyle
CPT/HCPCS: 99283

== ENCOUNTER 2022-09-19 04:50 | Emergency (ER) | payer OTHER ==
[~2022-09-19] VITALS: Ht 175.3 cm; Wt 92.5 kg
[2022-09-19 04:55] VITALS: BP 153/80
--- NOTE | 2022-09-19 04:55 | NUR ---
to bed ambulatory
--- NOTE | 2022-09-19 05:00 | NUR ---
PT AMBULATED TO ED9, PT PLACED IN GOWN AND PLACED ON MONITOR, PT C/O RECTAL BLEEDING X 1 EPISODE (DIME SIZE) 30 MINS AGO, BRIGHT RED BLOOD, PT STATES HE DRANK 1 BOTTLE OF VODKA YESTERDAY, DENIES ANY MEDICAL HISTORY, NKDA.
--- NOTE | 2022-09-19 06:00 | NUR ---
PT DRANK A BOTTLE OF GATORADE, NO VOMITING OBSERVED.
--- NOTE | 2022-09-19 06:07 | NUR ---
DR PATEL EXAMINING PT
[2022-09-19] MEDS ORDERED: NACL 0.9% 1,000 ML IV ONE ×2 (06:25→08:35)
[2022-09-19 07:09] LABS: BASOPHILS # (AUTO) 0.1 K/uL (0.00-0.22); BASOPHILS % (AUTO) 2.1 % (0.0-2.0); EOSINOPHILS % (AUTO) 0.9 % (0.0-4.0); HEMATOCRIT 30.6 % (36-52); HEMOGLOBIN 9.7 g/dL (12.0-18.0); LYMPHOCYTES # (AUTO) 0.5 K/uL (2.0-11.5); LYMPHOCYTES % (AUTO) 10.2 % (20.5-51.1); MEAN CORPUSCULAR HEMOGLOBIN 25 pg (27-31); MEAN CORPUSCULAR HGB CONC 32 g/dL (33-37); MEAN CORPUSCULAR VOLUME 79.6 fL (80-94); MONOCYTES # (AUTO) 0.4 K/uL (0.8-1.0); MONOCYTES % (AUTO) 7.7 % (1.7-9.3); NEUTROPHILS # (AUTO) 3.8 K/uL (1.8-7.7); NEUTROPHILS % (AUTO) 79.1 % (42.2-75.2); PLATELET COUNT (AUTO) 126 K/uL (140-450); RED BLOOD CELL COUNT(AUTO) 3.85 MIL/uL (4.20-6.10); RED CELL DISTRIBUTION WIDTH 25.5 % (11.6-13.7); WHITE BLOOD COUNT (AUTO) 4.8 K/uL (4.8-10.8)
--- NOTE | 2022-09-19 07:12 | NUR ---
REPORT RECEIVED FROM MAXIME RN, TRANSFER OF CARE AT THIS TIME, RECEIVED PT IN BED SIDE LYING ASLEEP, RESPIRATIONS EVEN AND UNLABORED, NS RUNNING WIDE OPEN
--- NOTE | 2022-09-19 07:12 | NUR ---
REPORT GIVEN TO CECI SMILEY.
[2022-09-19] MEDS ORDERED: ONDANSETRON 4 MG/2 ML VIAL IVP ONE (07:35)
--- NOTE | 2022-09-19 07:35 | NUR ---
NOTED 1X EPISODE OF VOMITING, CLEAR COLORED LIQUID NOTED, NO BLOOD IN EMESIS, ERMD MADE AWARE
[2022-09-19] MEDS ORDERED: LORazepam 2 MG/ML VIAL IM/IVP ONE (08:05)
[2022-09-19 08:06] LABS: ALBUMIN 2.9 g/dL (3.4-5.0); ANION GAP 21.8 (8-16); CARBON DIOXIDE 23.3 mmol/L (21-32); POTASSIUM 3.1 mmol/L (3.5-5.1); TOTAL BILIRUBIN 1.5 mg/dL (0.0-1.0)
--- NOTE | 2022-09-19 08:06 | NUR ---
RECIEVED VERBAL ORDER FOR [id number] IVP
[2022-09-19] MEDS ORDERED: POTASSIUM CHLORIDE 10 MEQ TABER PO ONE (08:25)
[2022-09-19 09:34] VITALS: BP 109/78
--- NOTE | 2022-09-19 09:35 | NUR ---
Patient discharged with v/s stable. Written and verbal after care instructions ABOUT ALCOHOL ABUSE AND NUTRITION, AND RECTAL BLEEDIMNG given and explained. Patient verbalized understanding. Ambulatory with steady gait. All questions addressed prior to discharge. Advised to follow up with PMD.
[2022-09-21] MEDS ORDERED: FOLI1TAB90 PO (09:16)
[2022-09-21] MEDS ORDERED: LIB25 PO (09:16)
[2022-09-21] MEDS ORDERED: ATI.5 PO (09:16)
[2022-09-21] MEDS ORDERED: THIA100T45 PO (09:16)
[2022-09-21] MEDS ORDERED: PANT40EC PO (09:17)
== END 2022-09-19 09:35 | disposition home or self-care (01) ==
LOC: MED 04:50
DX: K62.5 Hemorrhage of anus and rectum (principal); F10.239 Alcohol dependence with withdrawal, unspecified; Z86.69 Personal history of other diseases of the nervous system and sense organs; Z79.899 Other long term (current) drug therapy; Z88.8 Allergy status to other drugs, medicaments and biological substances; Y90.9 Presence of alcohol in blood, level not specified
CPT/HCPCS: 36415; 80053; 85025; 96361; 96374; 96375; 99284; J2060; J2405; J7030

== ENCOUNTER 2023-02-01 18:15 | Emergency (ER) | payer OTHER ==
[~2023-02-01] VITALS: Ht 175.3 cm; Wt 83.3 kg
[~2023-02-01 18:15] MED LIST changes: +ATI.5 PO; -FERR-20 PO; +FOLI1TAB90 PO; +LIB25 PO; +THIA100T45 PO
[2023-02-01 19:27] VITALS: BP 126/70
--- NOTE | 2023-02-01 19:30 | NUR ---
PT AMB TO BED 12.
[2023-02-01] MEDS ORDERED: NACL 0.9% 1,000 ML IV ONE ×2 (19:40→21:15)
[2023-02-01] MEDS ORDERED: ONDANSETRON 4 MG/2 ML VIAL IVP ONE ×2 (19:40→21:15)
[2023-02-01] MEDS ORDERED: KETOROLAC 30 MG/ML VIAL IVP ONE (19:40)
[2023-02-01 19:58] LABS: BASOPHILS % (AUTO) 1.4 % (0.0-2.0); EOSINOPHILS % (AUTO) 0.3 % (0.0-4.0); HEMATOCRIT 26.7 % (36-52); HEMOGLOBIN 8.2 g/dL (12.0-18.0); LYMPHOCYTES # (AUTO) 0.3 K/uL (2.0-11.5); LYMPHOCYTES % (AUTO) 9.5 % (20.5-51.1); MEAN CORPUSCULAR HEMOGLOBIN 22 pg (27-31); MEAN CORPUSCULAR HGB CONC 31 g/dL (33-37); MEAN CORPUSCULAR VOLUME 72.8 fL (80-94); MONOCYTES # (AUTO) 0.3 K/uL (0.8-1.0); MONOCYTES % (AUTO) 9.1 % (1.7-9.3); NEUTROPHILS # (AUTO) 2.6 K/uL (1.8-7.7); NEUTROPHILS % (AUTO) 79.7 % (42.2-75.2); PLATELET COUNT (AUTO) 44 K/uL (140-450); RED BLOOD CELL COUNT(AUTO) 3.67 MIL/uL (4.20-6.10); RED CELL DISTRIBUTION WIDTH 21.2 % (11.6-13.7); WHITE BLOOD COUNT (AUTO) 3.3 K/uL (4.8-10.8)
[2023-02-01 20:12] LABS: PROTHROMBIN TIME 16.1 secs (10.8-13.4)
[2023-02-01 20:15] LABS: AMYLASE 23 U/L (25-115); ANION GAP 20.1 (8-16); ASPARTATE AMINOTRANSFERASE 441 U/L (15-37); CARBON DIOXIDE 22.2 mmol/L (21-32); CHLORIDE 97 mmol/L (98-107); CREATININE 1.2 mg/dL (0.6-1.3); GFR ARICAN-AMERICAN 80 mL/min (>90); GLUCOSE 115 mg/dL (74-106); LIPASE 198 U/L (73-393); POTASSIUM 3.3 mmol/L (3.5-5.1); SODIUM SERUM 136 mmol/L (136-145); TOTAL BILIRUBIN 5.8 mg/dL (0.0-1.0); UREA NITROGEN, BLOOD 10 mg/dL (7-18)
[2023-02-01 21:07] LABS: BILIRUBIN,URINE 3+ (NEGATIVE); BLOOD, URINE NEGATIVE (NEGATIVE); LEUKOCYTE ESTERASE ,URINE TRACE (NEGATIVE); NITRITE, URINE POSITIVE (NEGATIVE); PH,URINE 5.5 (5.0-9.0); UGLUCOSE TRACE (NEGATIVE)
--- NOTE | 2023-02-01 21:07 | NUR ---
Dr. Dumont examining patient.
[2023-02-01 21:19] LABS: APPEARANCE,URINE HAZY (CLEAR); COLOR,URINE AMBER (YELLOW)
[2023-02-01 21:25] LABS: RBC,URINE NONE SEEN /HPF (0-5); WBC,URINE 0-5 /HPF (0-5)
--- NOTE | 2023-02-01 21:28 | NUR ---
PT TAKEN TO CT
--- NOTE | 2023-02-01 21:36 | NUR ---
PT RETURN FROM CT
[2023-02-01] MEDS ORDERED: cephALEXin 500 MG CAP PO ONE (21:55)
[2023-02-01] MEDS ORDERED: ONDA-188 PO (22:01)
[2023-02-01] MEDS ORDERED: CEPH-588 PO (22:01)
[2023-02-01] MEDS ORDERED: LIB25 PO ×2 (22:01→22:04)
[2023-02-01 23:20] VITALS: BP 126/70
== END 2023-02-01 23:21 | disposition home or self-care (01) ==
LOC: MED 18:15
DX: N39.0 Urinary tract infection, site not specified (principal); D68.9 Coagulation defect, unspecified; D69.6 Thrombocytopenia, unspecified; F10.239 Alcohol dependence with withdrawal, unspecified; D64.9 Anemia, unspecified; E80.7 Disorder of bilirubin metabolism, unspecified; K44.9 Diaphragmatic hernia without obstruction or gangrene; Z91.040 Latex allergy status; Z79.899 Other long term (current) drug therapy; Z98.890 Other specified postprocedural states; Y90.9 Presence of alcohol in blood, level not specified
CPT/HCPCS: 36415; 74176; 80053; 81001; 82150; 83690; 85025; 85610; 85730; 87086; 96361; 96374; 96375; 96376; 99285; G0482; J1885; J2405; J7030

== ENCOUNTER 2023-02-06 04:18 | Emergency (ER) | payer OTHER ==
[~2023-02-06] VITALS: Ht 175.3 cm; Wt 95.3 kg
[~2023-02-06 04:18] MED LIST changes: +CEPH-588 PO; +ONDA-188 PO
[2023-02-06 04:23] VITALS: BP 105/71
--- NOTE | 2023-02-06 04:23 | NUR ---
TO BED AMBULATORY
[2023-02-06 05:39] LABS: BASOPHILS % (AUTO) 1.3 % (0.0-2.0); EOSINOPHILS # (AUTO) 0.2 K/uL (0-0.4); EOSINOPHILS % (AUTO) 4.6 % (0.0-4.0); HEMATOCRIT 23.6 % (36-52); HEMOGLOBIN 7.5 g/dL (12.0-18.0); LYMPHOCYTES # (AUTO) 0.7 K/uL (2.0-11.5); LYMPHOCYTES % (AUTO) 19.3 % (20.5-51.1); MEAN CORPUSCULAR HEMOGLOBIN 23 pg (27-31); MEAN CORPUSCULAR HGB CONC 32 g/dL (33-37); MEAN CORPUSCULAR VOLUME 72.2 fL (80-94); MONOCYTES # (AUTO) 0.6 K/uL (0.8-1.0); MONOCYTES % (AUTO) 18.5 % (1.7-9.3); NEUTROPHILS % (AUTO) 56.3 % (42.2-75.2); PLATELET COUNT (AUTO) 70 K/uL (140-450); RED BLOOD CELL COUNT(AUTO) 3.26 MIL/uL (4.20-6.10); RED CELL DISTRIBUTION WIDTH 22.1 % (11.6-13.7); WHITE BLOOD COUNT (AUTO) 3.5 K/uL (4.8-10.8)
[2023-02-06 05:53] LABS: PROTHROMBIN TIME 13.8 secs (10.8-13.4)
[2023-02-06 05:56] LABS: ALBUMIN 3.3 g/dL (3.4-5.0); ANION GAP 14.6 (8-16); CARBON DIOXIDE 26.7 mmol/L (21-32); POTASSIUM 3.3 mmol/L (3.5-5.1); TOTAL BILIRUBIN 3.6 mg/dL (0.0-1.0)
[2023-02-06 06:40] VITALS: BP 111/85
== END 2023-02-06 06:45 | disposition home or self-care (01) ==
LOC: MED 04:18
DX: F10.129 Alcohol abuse with intoxication, unspecified (principal); D64.9 Anemia, unspecified; E87.6 Hypokalemia; K74.69 Other cirrhosis of liver; Z72.89 Other problems related to lifestyle; Z91.040 Latex allergy status; Z79.899 Other long term (current) drug therapy; Z98.890 Other specified postprocedural states; Y90.9 Presence of alcohol in blood, level not specified
CPT/HCPCS: 36415; 80053; 83690; 85025; 85610; 85730; 86886; 86900; 86901; 99283; G0482

== ENCOUNTER 2023-08-26 11:52 | Emergency (ER) | payer OTHER ==
[~2023-08-26] VITALS: Ht 175.3 cm; Wt 86.2 kg
[2023-08-26 12:15] VITALS: BP 106/49; PULSE 89; RESP 15; TEMP 98.9; O2SAT 98
[2023-08-26] MEDS ORDERED: AUG875 PO (14:11)
[2023-08-26] MEDS ORDERED: DOXY-690 PO (14:11)
[2023-08-26] MEDS ORDERED: BENZ200C4 PO (14:11)
[2023-08-26 14:16] LABS: FLU A ANTIGEN negative (NEGATIVE); FLU B ANTIGEN NEGATIVE (NEGATIVE)
== END 2023-08-26 14:20 | disposition home or self-care (01) ==
LOC: MED 11:52
DX: J18.9 Pneumonia, unspecified organism (principal); Z20.822 Contact with and (suspected) exposure to COVID-19; Z91.040 Latex allergy status; Z79.899 Other long term (current) drug therapy
CPT/HCPCS: 71045; 99284

== ENCOUNTER 2023-09-13 18:04 | Inpatient (IN) | payer OTHER ==
[~2023-09-13] VITALS: Ht 167.6 cm; Wt 75.3 kg
[2023-09-13] MEDS: NACL 0.9% 1,000 ML IV SCH (00:40)
[~2023-09-13 18:04] MED LIST changes: +AUG875 PO; +BENZ200C4 PO; +DOXY-690 PO
[2023-09-13 18:23] VITALS: BP 101/62; PULSE 78; RESP 16; TEMP 98; O2SAT 100
[2023-09-13 20:38] LABS: ALANINE AMINOTRANSFERASE 21 U/L (12-78); ALBUMIN 2.5 g/dL (3.4-5.0); ALKALINE PHOSPHATASE 75 U/L (50-136); ANION GAP 15.9 (8-16); ASPARTATE AMINOTRANSFERASE 63 U/L (15-37); CALCIUM 8.7 mg/dL (8.5-10.1); CARBON DIOXIDE 18.6 mmol/L (21-32); CHLORIDE 103 mmol/L (98-107); CREATININE 1.9 mg/dL (0.6-1.3); GFR ARICAN-AMERICAN 47 mL/min (>90); GFR NON ARICAN-AMERICAN 39 mL/min (>90); GLUCOSE 116 mg/dL (74-106); POTASSIUM 5.5 mmol/L (3.5-5.1); SODIUM SERUM 132 mmol/L (136-145); TOTAL BILIRUBIN 1.1 mg/dL (0.0-1.0); TOTAL PROTEIN, SERUM 7.4 g/dL (6.4-8.2)
[2023-09-13 20:43] LABS: UREA NITROGEN, BLOOD 75 mg/dL (7-18)
[2023-09-13 21:00] LABS: APPEARANCE,URINE CLEAR (CLEAR); BILIRUBIN,URINE NEGATIVE (NEGATIVE); BLOOD, URINE NEGATIVE (NEGATIVE); COLOR,URINE YELLOW (YELLOW); LEUKOCYTE ESTERASE ,URINE NEGATIVE (NEGATIVE); NITRITE, URINE NEGATIVE (NEGATIVE); PH,URINE 6.5 (5.0-9.0); PROTEIN,URINE NEGATIVE (NEGATIVE); UGLUCOSE NEGATIVE (NEGATIVE); UROBILINOGEN,URINE 0.2 EU/dL (0.2 - 1)
[2023-09-13 21:05] LABS: BASOPHILS # (AUTO) 0.1 K/uL (0.00-0.22); BASOPHILS % (AUTO) 0.8 % (0.0-2.0); EOSINOPHILS # (AUTO) 0.2 K/uL (0-0.4); EOSINOPHILS % (AUTO) 3.4 % (0.0-4.0); HEMATOCRIT 22.3 % (36-52); HEMOGLOBIN 7.5 g/dL (12.0-18.0); LYMPHOCYTES # (AUTO) 1.1 K/uL (2.0-11.5); LYMPHOCYTES % (AUTO) 18.7 % (20.5-51.1); MEAN CORPUSCULAR HEMOGLOBIN 30 pg (27-31); MEAN CORPUSCULAR HGB CONC 34 g/dL (33-37); MEAN CORPUSCULAR VOLUME 88.3 fL (80-94); MONOCYTES # (AUTO) 0.5 K/uL (0.8-1.0); MONOCYTES % (AUTO) 8.9 % (1.7-9.3); NEUTROPHILS # (AUTO) 4.2 K/uL (1.8-7.7); NEUTROPHILS % (AUTO) 68.2 % (42.2-75.2); PLATELET COUNT (AUTO) 97 K/uL (140-450); RED BLOOD CELL COUNT(AUTO) 2.53 MIL/uL (4.20-6.10); RED CELL DISTRIBUTION WIDTH 18.6 % (11.6-13.7); WHITE BLOOD COUNT (AUTO) 6.1 K/uL (4.8-10.8)
[2023-09-13] MEDS ORDERED: ALBUTEROL 0.083% 2.5 MG/3 ML NEBU INH ONE (21:05)
[2023-09-13] MEDS ORDERED: SODIUM POLYSTYRENE 15 GM/60 ML UDBTL PO ONE (21:05)
[2023-09-13] MEDS ORDERED: NACL 0.9% 2,000 ML IV ONE (21:05)
[2023-09-13 21:17] VITALS: PULSE 74; RESP 18; O2SAT 97
[2023-09-13 21:27] LABS: ALCOHOL, BLOOD < 3 mg/dL (<10)
[2023-09-13 21:28] LABS: ACETAMINOPHEN < 0.5 ug/ml (10-30); SALICYLATE < 2.8 mg/dL (2.8-20.0)
[2023-09-13 21:40] LABS: AMPHETAMINE, URINE NEGATIVE ng/ml (NEG <=1000); BARBITURATE, URINE NEGATIVE ng/ml (NEG <=200); BENZODIAZEPINE, URINE NEGATIVE ng/mL (NEG <=200); CANNABINOID, URINE NEGATIVE ng/mL (NEG <=50); COCAINE, URINE NEGATIVE ng/mL (NEG <=300); OPIATE, URINE NEGATIVE ng/mL (NEG <=2000); PHENCYCLIDINE SCREEN,URINE NEGATIVE ng/mL (NEG <=25)
[2023-09-13] MEDS ORDERED: DEXTROSE 50% 50 ML SYR IVP ONE (21:50)
[2023-09-13] MEDS ORDERED: INSULIN REGULAR, HUMAN 100 UNIT/ML VIAL IV ONE (21:50)
[2023-09-13] MEDS ORDERED: ONDANSETRON 4 MG/2 ML VIAL IVP PRN (23:00)
[2023-09-13] MEDS ORDERED: ACETAMINOPHEN 325 MG TAB PO PRN (23:00)
[2023-09-13] MEDS ORDERED: HYDROcodone/APAP 5/325 MG 1 TAB TAB PO PRN (23:00)
[2023-09-14 05:29] LABS: BASOPHILS % (AUTO) 0.9 % (0.0-2.0); EOSINOPHILS # (AUTO) 0.3 K/uL (0-0.4); EOSINOPHILS % (AUTO) 4.9 % (0.0-4.0); LYMPHOCYTES # (AUTO) 1.1 K/uL (2.0-11.5); LYMPHOCYTES % (AUTO) 20.5 % (20.5-51.1); MEAN CORPUSCULAR HEMOGLOBIN 29 pg (27-31); MEAN CORPUSCULAR HGB CONC 33 g/dL (33-37); MEAN CORPUSCULAR VOLUME 88.1 fL (80-94); MONOCYTES # (AUTO) 0.4 K/uL (0.8-1.0); MONOCYTES % (AUTO) 8.5 % (1.7-9.3); NEUTROPHILS # (AUTO) 3.4 K/uL (1.8-7.7); NEUTROPHILS % (AUTO) 65.2 % (42.2-75.2); PLATELET COUNT (AUTO) 93 K/uL (140-450); RED BLOOD CELL COUNT(AUTO) 2.26 MIL/uL (4.20-6.10); WHITE BLOOD COUNT (AUTO) 5.2 K/uL (4.8-10.8)
[2023-09-14 05:34] LABS: HEMATOCRIT 19.9 % (36-52); HEMOGLOBIN 6.6 g/dL (12.0-18.0)
[2023-09-14 06:35] LABS: BASOPHILS % (AUTO) 0.9 % (0.0-2.0); EOSINOPHILS # (AUTO) 0.2 K/uL (0-0.4); HEMATOCRIT 20.1 % (36-52); MONOCYTES # (AUTO) 0.5 K/uL (0.8-1.0); NEUTROPHILS # (AUTO) 3.4 K/uL (1.8-7.7); PLATELET COUNT (AUTO) 88 K/uL (140-450); RED BLOOD CELL COUNT(AUTO) 2.28 MIL/uL (4.20-6.10); WHITE BLOOD COUNT (AUTO) 5.4 K/uL (4.8-10.8)
[2023-09-14 06:43] LABS: LYMPHOCYTES # (AUTO) 1.3 K/uL (2.0-11.5); LYMPHOCYTES % (AUTO) 23.8 % (20.5-51.1); MEAN CORPUSCULAR HEMOGLOBIN 30 pg (27-31); MEAN CORPUSCULAR HGB CONC 34 g/dL (33-37); MEAN CORPUSCULAR VOLUME 88.4 fL (80-94); MONOCYTES % (AUTO) 8.9 % (1.7-9.3); NEUTROPHILS % (AUTO) 62.4 % (42.2-75.2)
[2023-09-14 06:47] LABS: HEMOGLOBIN 6.9 g/dL (12.0-18.0)
[2023-09-14 08:44] LABS: ANION GAP 20.6 (8-16); CALCIUM 8.6 mg/dL (8.5-10.1); CARBON DIOXIDE 16.4 mmol/L (21-32); CREATININE 1.7 mg/dL (0.6-1.3)
[2023-09-14 08:49] LABS: ALBUMIN 2.5 g/dL (3.4-5.0); MAGNESIUM 1.5 mg/dL (1.8-2.4); TOTAL BILIRUBIN 1.3 mg/dL (0.0-1.0)
[2023-09-14 10:10] VITALS: BP 141/57; PULSE 89; PULSE 95; RESP 16; TEMP 97; O2SAT 96
[2023-09-14 12:00] VITALS: BP 90/54; PULSE 91; PULSE 92; RESP 18; TEMP 98; O2SAT 100
[2023-09-14] MEDS: NACL 0.9% 1,000 ML IV SCH (13:16)
[2023-09-14 15:10] VITALS: O2SAT 100
[2023-09-14 16:00] VITALS: BP 96/51; PULSE 73; PULSE 90; RESP 16; TEMP 97.7; O2SAT 100
[2023-09-14 20:00] VITALS: BP 97/63; PULSE 72; PULSE 85; RESP 16; RESP 18; TEMP 97.2; O2SAT 100
[2023-09-15] VITALS (7 sets, daily range): BP systolic 94–103; BP diastolic 64–74; PULSE 73–102; RESP 18; TEMP 97–98.2; O2SAT 99–100
[2023-09-15] MEDS: NACL 0.9% 1,000 ML IV SCH ×2 (02:26→14:16)
[2023-09-15 09:29] LABS: BASOPHILS # (AUTO) 0.1 K/uL (0.00-0.22); BASOPHILS % (AUTO) 1.1 % (0.0-2.0); EOSINOPHILS # (AUTO) 0.5 K/uL (0-0.4); EOSINOPHILS % (AUTO) 8.3 % (0.0-4.0); HEMATOCRIT 23.3 % (36-52); HEMOGLOBIN 7.8 g/dL (12.0-18.0); LYMPHOCYTES # (AUTO) 1.3 K/uL (2.0-11.5); LYMPHOCYTES % (AUTO) 22.6 % (20.5-51.1); MEAN CORPUSCULAR HEMOGLOBIN 30 pg (27-31); MEAN CORPUSCULAR HGB CONC 33 g/dL (33-37); MEAN CORPUSCULAR VOLUME 88.7 fL (80-94); MONOCYTES # (AUTO) 0.4 K/uL (0.8-1.0); MONOCYTES % (AUTO) 7.1 % (1.7-9.3); NEUTROPHILS # (AUTO) 3.6 K/uL (1.8-7.7); NEUTROPHILS % (AUTO) 60.9 % (42.2-75.2); PLATELET COUNT (AUTO) 103 K/uL (140-450); RED BLOOD CELL COUNT(AUTO) 2.62 MIL/uL (4.20-6.10)
[2023-09-15 09:34] LABS: ANION GAP 17.4 (8-16); CALCIUM 8.8 mg/dL (8.5-10.1); CARBON DIOXIDE 19.1 mmol/L (21-32); CREATININE 1.3 mg/dL (0.6-1.3); POTASSIUM 4.5 mmol/L (3.5-5.1)
[2023-09-16] MEDS ORDERED: THIAMINE 100 MG TAB PO SCH (09:00)
== END 2023-09-15 16:50 | disposition home or self-care (01) | DRG 422 ==
LOC: MED 18:04 → MMU 23:04 → MTU 09-14 05:28
PROVIDERS: ADMIT Hospitalist; ATTEND Hospitalist
PROC: 30233N1 Transfusion of Nonautologous Red Blood Cells into Peripheral Vein, Percutaneous Approach (ICD-10-PCS; principal; 2023-09-14)
DX: E86.0 Dehydration (principal); N17.0 Acute kidney failure with tubular necrosis; E44.0 Moderate protein-calorie malnutrition; E87.5 Hyperkalemia; F10.139 Alcohol abuse with withdrawal, unspecified; Y90.9 Presence of alcohol in blood, level not specified; Z91.041 Radiographic dye allergy status; Z79.899 Other long term (current) drug therapy; Z83.3 Family history of diabetes mellitus; Z68.26 Body mass index [BMI] 26.0-26.9, adult
CPT/HCPCS: 36415; 36430; 70450; 76770; 80048; 80053; 80305; 81003; 83735; 84484; 85025; 86886; 86900; 86901; 86920; 87081; 93005; 94640; 96361; 96374; 96375; 99285; G0480; G0482; J1815; J7613; P9016

== ENCOUNTER 2023-10-24 17:35 | Inpatient (IN) | payer OTHER ==
[~2023-10-24] VITALS: Ht 167.6 cm; Wt 77.1 kg
[~2023-10-24 17:35] MED LIST changes: -AUG875 PO; -CEPH-588 PO
[2023-10-24 18:13] VITALS: BP 114/57; PULSE 97; RESP 20; TEMP 98; O2SAT 98
[2023-10-24] MEDS ORDERED: DICYCLOMINE 20 MG/2 ML VIAL IM ONE (18:40)
[2023-10-24] MEDS ORDERED: diazePAM 5 MG TAB PO ONE (18:40)
[2023-10-24 19:01] LABS: BASOPHILS # (AUTO) 0.1 K/uL (0.00-0.22); EOSINOPHILS # (AUTO) 0.2 K/uL (0-0.4); EOSINOPHILS % (AUTO) 2.8 % (0.0-4.0); HEMATOCRIT 20.3 % (36-52); LYMPHOCYTES % (AUTO) 13.9 % (20.5-51.1); MEAN CORPUSCULAR HEMOGLOBIN 25 pg (27-31); MEAN CORPUSCULAR HGB CONC 31 g/dL (33-37); MEAN CORPUSCULAR VOLUME 79.8 fL (80-94); MONOCYTES # (AUTO) 0.6 K/uL (0.8-1.0); NEUTROPHILS # (AUTO) 5.2 K/uL (1.8-7.7); NEUTROPHILS % (AUTO) 73.3 % (42.2-75.2); PLATELET COUNT (AUTO) 142 K/uL (140-450); RED BLOOD CELL COUNT(AUTO) 2.54 MIL/uL (4.20-6.10); RED CELL DISTRIBUTION WIDTH 18.5 % (11.6-13.7); WHITE BLOOD COUNT (AUTO) 7.1 K/uL (4.8-10.8)
[2023-10-24 19:06] LABS: HEMOGLOBIN 6.3 g/dL (12.0-18.0)
[2023-10-24 19:15] LABS: ALBUMIN 3.1 g/dL (3.4-5.0); ANION GAP 21.2 (8-16); CALCIUM 8.4 mg/dL (8.5-10.1); CARBON DIOXIDE 17.3 mmol/L (21-32); CREATININE 2.1 mg/dL (0.6-1.3); PHOSPHORUS 5.2 mg/dL (2.5-4.9); POTASSIUM 4.5 mmol/L (3.5-5.1); TOTAL BILIRUBIN 2.1 mg/dL (0.0-1.0); TOTAL PROTEIN, SERUM 7.8 g/dL (6.4-8.2)
[2023-10-24 20:03] LABS: INR 1.29 (0.8-1.2); PARTIAL THROMBOPLASTIN TIME 26.7 secs (22-35.6); PROTHROMBIN TIME 13.3 secs (10.8-13.4)
[2023-10-24] MEDS ORDERED: ONDANSETRON 4 MG/2 ML VIAL IVP ONE (20:05)
[2023-10-24] MEDS ORDERED: MORPHINE SULFATE 4 MG/ML SYR IVP ONE (20:05)
[2023-10-24] MEDS ORDERED: NACL 0.9% 1,000 ML IV ONE (20:05)
[2023-10-24] MEDS ORDERED: CYCLOBENZAPRINE 10 MG TAB PO ONE (20:05)
[2023-10-24] MEDS: DEXT 5% / NACL 0.45% 1,000 ML IV SCH (21:35)
[2023-10-24] MEDS ORDERED: ONDANSETRON 4 MG/2 ML VIAL IVP PRN (23:50)
[2023-10-24] MEDS ORDERED: HYDROcodone/APAP 5/325 MG 1 TAB TAB PO PRN (23:50)
[2023-10-24] MEDS ORDERED: ACETAMINOPHEN 325 MG TAB PO PRN (23:50)
[2023-10-25 07:46] LABS: BASOPHILS % (AUTO) 0.8 % (0.0-2.0); EOSINOPHILS # (AUTO) 0.4 K/uL (0-0.4); EOSINOPHILS % (AUTO) 7.3 % (0.0-4.0); HEMATOCRIT 22.3 % (36-52); HEMOGLOBIN 7.1 g/dL (12.0-18.0); LYMPHOCYTES # (AUTO) 1.3 K/uL (2.0-11.5); MEAN CORPUSCULAR HEMOGLOBIN 25 pg (27-31); MEAN CORPUSCULAR HGB CONC 32 g/dL (33-37); MEAN CORPUSCULAR VOLUME 78.9 fL (80-94); MONOCYTES # (AUTO) 0.7 K/uL (0.8-1.0); MONOCYTES % (AUTO) 13.8 % (1.7-9.3); NEUTROPHILS # (AUTO) 2.8 K/uL (1.8-7.7); NEUTROPHILS % (AUTO) 53.1 % (42.2-75.2); PLATELET COUNT (AUTO) 116 K/uL (140-450); RED BLOOD CELL COUNT(AUTO) 2.82 MIL/uL (4.20-6.10); RED CELL DISTRIBUTION WIDTH 17.9 % (11.6-13.7); WHITE BLOOD COUNT (AUTO) 5.3 K/uL (4.8-10.8)
[2023-10-25 07:50] VITALS: O2SAT 100
[2023-10-25] MEDS: DEXT 5% / NACL 0.45% 1,000 ML IV SCH ×2 (08:06→18:15)
[2023-10-25 08:24] LABS: CALCIUM 8.5 mg/dL (8.5-10.1); CREATININE 1.7 mg/dL (0.6-1.3); POTASSIUM 4.5 mmol/L (3.5-5.1)
[2023-10-25 08:31] LABS: ANION GAP 18.9 (8-16); CARBON DIOXIDE 18.6 mmol/L (21-32)
[2023-10-25 08:35] LABS: PHOSPHORUS 5.2 mg/dL (2.5-4.9)
[2023-10-25 08:47] VITALS: RESP 13; O2SAT 100
[2023-10-25 09:03] VITALS: BP 108/62; PULSE 79; RESP 20; TEMP 97.2; O2SAT 94
[2023-10-25] MEDS ORDERED: LORazepam 0.5 MG TAB PO PRN (12:20)
[2023-10-25] MEDS ORDERED: ONDANSETRON 4 MG/2 ML VIAL IVP PRN (12:20)
[2023-10-25] MEDS ORDERED: HYDROcodone/APAP 5/325 MG 1 TAB TAB PO PRN (12:20)
[2023-10-25] MEDS ORDERED: chlordiazePOXIDE 25 MG CAP PO PRN (12:20)
[2023-10-25] MEDS ORDERED: NON-FORMULARY ITEM (Benzonatate 1 CAP) PO PRN (12:20)
[2023-10-25] MEDS ORDERED: ACETAMINOPHEN 325 MG TAB PO PRN (12:20)
[2023-10-25] MEDS ORDERED: ONDANSETRON 4 MG ODT PO PRN (12:20)
[2023-10-25] MEDS ORDERED: BENZONATATE 100 MG CAPLF PO PRN (13:15)
[2023-10-25] MEDS: BACLOFEN 10 MG TAB PO SCH ×2 (13:55→17:15)
[2023-10-25 16:16] VITALS: BP 99/51; PULSE 63; RESP 20; TEMP 97.1; O2SAT 100
[2023-10-25] MEDS: LANSOPRAZOLE 30 MG CAPDR PO SCH (17:15)
[2023-10-25 20:00] VITALS: BP 102/60; PULSE 69; RESP 18; TEMP 97.2; O2SAT 100
[2023-10-25] MEDS: LACTULOSE 20 GM/30 ML UDC PO SCH (20:58)
[2023-10-25] MEDS: RIFAXIMIN 550 MG TAB PO SCH (20:59)
[2023-10-25] MEDS ORDERED: DOXYCYCLINE 100 MG CAP PO SCH (21:00)
[2023-10-26 06:04] LABS: BASOPHILS # (AUTO) 0.1 K/uL (0.00-0.22); EOSINOPHILS # (AUTO) 0.4 K/uL (0-0.4); EOSINOPHILS % (AUTO) 9.3 % (0.0-4.0); HEMATOCRIT 20.6 % (36-52); LYMPHOCYTES # (AUTO) 1.1 K/uL (2.0-11.5); LYMPHOCYTES % (AUTO) 22.9 % (20.5-51.1); MEAN CORPUSCULAR HEMOGLOBIN 26 pg (27-31); MEAN CORPUSCULAR HGB CONC 32 g/dL (33-37); MEAN CORPUSCULAR VOLUME 78.6 fL (80-94); MONOCYTES # (AUTO) 0.4 K/uL (0.8-1.0); MONOCYTES % (AUTO) 8.8 % (1.7-9.3); NEUTROPHILS # (AUTO) 2.7 K/uL (1.8-7.7); PLATELET COUNT (AUTO) 114 K/uL (140-450); RED BLOOD CELL COUNT(AUTO) 2.62 MIL/uL (4.20-6.10); RED CELL DISTRIBUTION WIDTH 18.5 % (11.6-13.7); WHITE BLOOD COUNT (AUTO) 4.7 K/uL (4.8-10.8)
[2023-10-26 06:08] LABS: HEMOGLOBIN 6.7 g/dL (12.0-18.0)
[2023-10-26 06:43] LABS: ALBUMIN 2.6 g/dL (3.4-5.0); ANION GAP 13.6 (8-16); CALCIUM 8.2 mg/dL (8.5-10.1); CARBON DIOXIDE 21.8 mmol/L (21-32); CREATININE 1.4 mg/dL (0.6-1.3); MAGNESIUM 1.7 mg/dL (1.8-2.4); PHOSPHORUS 3.8 mg/dL (2.5-4.9); POTASSIUM 4.4 mmol/L (3.5-5.1); TOTAL BILIRUBIN 1.8 mg/dL (0.0-1.0); TOTAL PROTEIN, SERUM 6.6 g/dL (6.4-8.2)
[2023-10-26] MEDS: DEXT 5% / NACL 0.45% 1,000 ML IV SCH ×3 (07:40→23:15)
[2023-10-26] MEDS: LANSOPRAZOLE 30 MG CAPDR PO SCH ×2 (07:41→16:06)
[2023-10-26] MEDS: LACTULOSE 20 GM/30 ML UDC PO SCH ×2 (08:14→20:50)
[2023-10-26] MEDS: RIFAXIMIN 550 MG TAB PO SCH ×2 (08:15→20:50)
[2023-10-26] MEDS: chlordiazePOXIDE 25 MG CAP PO SCH (08:15)
[2023-10-26] MEDS: FOLIC ACID 1 MG TAB PO SCH (08:15)
[2023-10-26] MEDS: THIAMINE 100 MG TAB PO SCH (08:16)
[2023-10-26] MEDS: BACLOFEN 10 MG TAB PO SCH ×3 (08:16→16:06)
[2023-10-26 08:30] VITALS: BP 100/50; PULSE 82; RESP 18; TEMP 97; O2SAT 100
[2023-10-26 08:31] VITALS: PULSE 79; RESP 16; O2SAT 100
[2023-10-26] MEDS ORDERED: PANTOPRAZOLE 40 MG TABEC PO SCH (09:00)
[2023-10-26 15:57] VITALS: BP 102/58; PULSE 82; RESP 18; TEMP 97; O2SAT 100
[2023-10-26 16:27] LABS: HEMATOCRIT 23.6 % (36-52); HEMOGLOBIN 7.7 g/dL (12.0-18.0)
[2023-10-26 20:00] VITALS: PULSE 78; RESP 18; O2SAT 100
[2023-10-26 20:39] LABS: CREATININE,URINE RANDOM 63 mg/dL (30-125); URINE SODIUM, RANDOM 66 mmol/l (40-220)
[2023-10-27 04:00] VITALS: BP 112/68; PULSE 76; RESP 18; TEMP 98.2; O2SAT 100
[2023-10-27 06:34] LABS: MAGNESIUM 1.4 mg/dL (1.8-2.4); PHOSPHORUS 3.5 mg/dL (2.5-4.9)
[2023-10-27 06:45] LABS: ANION GAP 13.9 (8-16); CALCIUM 8.6 mg/dL (8.5-10.1); CARBON DIOXIDE 19.6 mmol/L (21-32); CREATININE 1.1 mg/dL (0.6-1.3); POTASSIUM 4.5 mmol/L (3.5-5.1)
[2023-10-27] MEDS: LANSOPRAZOLE 30 MG CAPDR PO SCH (07:11)
[2023-10-27 08:00] VITALS: PULSE 74; RESP 18; O2SAT 100
[2023-10-27] MEDS: chlordiazePOXIDE 25 MG CAP PO SCH (09:38)
[2023-10-27] MEDS: RIFAXIMIN 550 MG TAB PO SCH (09:38)
[2023-10-27] MEDS: FOLIC ACID 1 MG TAB PO SCH (09:38)
[2023-10-27] MEDS: THIAMINE 100 MG TAB PO SCH (09:38)
[2023-10-27] MEDS: BACLOFEN 10 MG TAB PO SCH ×2 (09:38→15:28)
[2023-10-27] MEDS: LACTULOSE 20 GM/30 ML UDC PO SCH (09:38)
[2023-10-27] MEDS: DEXT 5% / NACL 0.45% 1,000 ML IV SCH (09:39)
[2023-10-27] MEDS ORDERED: LACT10SO11 PO (13:25)
[2023-10-27] MEDS ORDERED: RIFA550T PO (13:25)
[2023-10-27 13:50] LABS: BASOPHILS % (AUTO) 0.9 % (0.0-2.0); EOSINOPHILS # (AUTO) 0.6 K/uL (0-0.4); EOSINOPHILS % (AUTO) 10.7 % (0.0-4.0); HEMATOCRIT 24.7 % (36-52); HEMOGLOBIN 7.9 g/dL (12.0-18.0); LYMPHOCYTES # (AUTO) 1.4 K/uL (2.0-11.5); LYMPHOCYTES % (AUTO) 25.8 % (20.5-51.1); MEAN CORPUSCULAR HEMOGLOBIN 26 pg (27-31); MEAN CORPUSCULAR HGB CONC 32 g/dL (33-37); MEAN CORPUSCULAR VOLUME 82.8 fL (80-94); MONOCYTES # (AUTO) 0.6 K/uL (0.8-1.0); MONOCYTES % (AUTO) 11.9 % (1.7-9.3); NEUTROPHILS # (AUTO) 2.7 K/uL (1.8-7.7); NEUTROPHILS % (AUTO) 50.7 % (42.2-75.2); PLATELET COUNT (AUTO) 117 K/uL (140-450); RED BLOOD CELL COUNT(AUTO) 2.98 MIL/uL (4.20-6.10); RED CELL DISTRIBUTION WIDTH 18.7 % (11.6-13.7); WHITE BLOOD COUNT (AUTO) 5.4 K/uL (4.8-10.8)
[2023-10-27 15:35] VITALS: BP 112/68; PULSE 74; RESP 18; TEMP 98.2
[2023-10-30 13:40] LABS: FERRITIN 17 ng/mL (30 - 400)
== END 2023-10-27 17:00 | disposition home or self-care (01) | DRG 280 ==
LOC: MED 17:35 → INTOOBSV 21:34 → MMU 21:34 → OBSVTOIN 22:09 → MTU 10-25 05:39
PROVIDERS: ADMIT Preventive Medicine Preventive Medicine/Occupational Environmental Medicine; ATTEND Preventive Medicine Preventive Medicine/Occupational Environmental Medicine
PROC: 30233N1 Transfusion of Nonautologous Red Blood Cells into Peripheral Vein, Percutaneous Approach (ICD-10-PCS; principal; 2023-10-24)
DX: K76.82 Hepatic encephalopathy (principal); K70.30 Alcoholic cirrhosis of liver without ascites; N17.0 Acute kidney failure with tubular necrosis; E43 Unspecified severe protein-calorie malnutrition; E87.1 Hypo-osmolality and hyponatremia; E83.39 Other disorders of phosphorus metabolism; D63.8 Anemia in other chronic diseases classified elsewhere; F10.20 Alcohol dependence, uncomplicated; E83.42 Hypomagnesemia; K44.9 Diaphragmatic hernia without obstruction or gangrene; N18.9 Chronic kidney disease, unspecified; K21.9 Gastro-esophageal reflux disease without esophagitis; Z79.899 Other long term (current) drug therapy; Z91.041 Radiographic dye allergy status; Z68.27 Body mass index [BMI] 27.0-27.9, adult
CPT/HCPCS: 36415; 36430; 80048; 80053; 82570; 82607; 82728; 83540; 83735; 84100; 84300; 85018; 85025; 85045; 85610; 85730; 86886; 86900; 86901; 86920; 87081; J0500; J2270; J2405; P9016

== ENCOUNTER 2023-11-10 19:53 | Observation (INO) | payer OTHER ==
[~2023-11-10] VITALS: Ht 172.7 cm; Wt 77.1 kg
[2023-11-10] MEDS: DEXT 5% /NACL 0.9% 1,000 ML IV SCH (03:17)
[~2023-11-10 19:53] MED LIST changes: +LACT10SO11 PO; +RIFA550T PO
[2023-11-10 20:00] VITALS: BP 116/63; PULSE 101; RESP 18; TEMP 97.1; O2SAT 99
[2023-11-10] MEDS ORDERED: MAG SULF 2000 MG/WATER PREMIX 50 ML IV ONE (20:50)
[2023-11-10] MEDS ORDERED: THIAMINE 200 MG/2 ML VIAL IM ONE (20:50)
[2023-11-10] MEDS ORDERED: NACL 0.9% 1,000 ML IV ONE ×2 (20:50→22:05)
[2023-11-10 21:31] LABS: BASOPHILS # (AUTO) 0.1 K/uL (0.00-0.22); BASOPHILS % (AUTO) 0.7 % (0.0-2.0); EOSINOPHILS # (AUTO) 0.3 K/uL (0-0.4); EOSINOPHILS % (AUTO) 3.6 % (0.0-4.0); HEMATOCRIT 24.1 % (36-52); HEMOGLOBIN 7.7 g/dL (12.0-18.0); LYMPHOCYTES % (AUTO) 13.3 % (20.5-51.1); MEAN CORPUSCULAR HEMOGLOBIN 26 pg (27-31); MEAN CORPUSCULAR HGB CONC 32 g/dL (33-37); MEAN CORPUSCULAR VOLUME 81.4 fL (80-94); MONOCYTES # (AUTO) 0.8 K/uL (0.8-1.0); MONOCYTES % (AUTO) 11.4 % (1.7-9.3); NEUTROPHILS # (AUTO) 5.2 K/uL (1.8-7.7); PLATELET COUNT (AUTO) 107 K/uL (140-450); RED BLOOD CELL COUNT(AUTO) 2.96 MIL/uL (4.20-6.10); RED CELL DISTRIBUTION WIDTH 21.6 % (11.6-13.7); WHITE BLOOD COUNT (AUTO) 7.3 K/uL (4.8-10.8)
[2023-11-10 21:44] LABS: ANION GAP 15.6 (8-16); CALCIUM 9.2 mg/dL (8.5-10.1); CARBON DIOXIDE 20.5 mmol/L (21-32); CREATININE 1.6 mg/dL (0.6-1.3); POTASSIUM 4.1 mmol/L (3.5-5.1)
[2023-11-10 21:46] LABS: ALCOHOL, BLOOD < 3 mg/dL (<10)
[2023-11-10 21:47] LABS: SALICYLATE < 2.8 mg/dL (2.8-20.0)
[2023-11-10 21:51] LABS: ALANINE AMINOTRANSFERASE 19 U/L (12-78); ALBUMIN 2.8 g/dL (3.4-5.0); ALKALINE PHOSPHATASE 100 U/L (50-136); ASPARTATE AMINOTRANSFERASE 56 U/L (15-37); BILIRUBIN,DIRECT 0.3 mg/dL (0.0-0.3); CREATINE KINASE, TOTAL 400 U/L (39-308); TOTAL BILIRUBIN 1.5 mg/dL (0.0-1.0); TOTAL PROTEIN, SERUM 7.9 g/dL (6.4-8.2)
[2023-11-10] MEDS ORDERED: THIAMINE 200 MG/2 ML VIAL ONE (21:59)
[2023-11-10 22:04] LABS: LACTIC ACID 4.6 mmol/L (0.4-2.0)
[2023-11-10] MEDS ORDERED: ACETAMINOPHEN 325 MG TAB PO PRN (23:35)
[2023-11-10] MEDS ORDERED: ONDANSETRON 4 MG/2 ML VIAL IVP PRN (23:35)
[2023-11-10] MEDS ORDERED: cefTRIAXone 1,000 MG VIAL ONE (23:44)
[2023-11-11 02:00] LABS: AMPHETAMINE, URINE NEGATIVE ng/ml (NEG <=1000); BARBITURATE, URINE NEGATIVE ng/ml (NEG <=200); BENZODIAZEPINE, URINE POSITIVE ng/mL (NEG <=200); CANNABINOID, URINE NEGATIVE ng/mL (NEG <=50); COCAINE, URINE NEGATIVE ng/mL (NEG <=300); OPIATE, URINE NEGATIVE ng/mL (NEG <=2000); PHENCYCLIDINE SCREEN,URINE NEGATIVE ng/mL (NEG <=25)
[2023-11-11 02:05] LABS: APPEARANCE,URINE CLEAR (CLEAR); BILIRUBIN,URINE NEGATIVE (NEGATIVE); BLOOD, URINE NEGATIVE (NEGATIVE); COLOR,URINE YELLOW (YELLOW); LEUKOCYTE ESTERASE ,URINE NEGATIVE (NEGATIVE); NITRITE, URINE NEGATIVE (NEGATIVE); PROTEIN,URINE NEGATIVE (NEGATIVE); UGLUCOSE NEGATIVE (NEGATIVE)
[2023-11-11 02:09] LABS: FLU A ANTIGEN negative (NEGATIVE); FLU B ANTIGEN NEGATIVE (NEGATIVE)
[2023-11-11] MEDS ORDERED: LORazepam 1 MG TAB PO PRN (06:00)
[2023-11-11 07:24] LABS: EOSINOPHILS # (AUTO) 0.4 K/uL (0-0.4); EOSINOPHILS % (AUTO) 5.7 % (0.0-4.0); HEMOGLOBIN 7.5 g/dL (12.0-18.0); LYMPHOCYTES # (AUTO) 1.5 K/uL (2.0-11.5); LYMPHOCYTES % (AUTO) 23.6 % (20.5-51.1); MEAN CORPUSCULAR HEMOGLOBIN 26 pg (27-31); MEAN CORPUSCULAR HGB CONC 31 g/dL (33-37); MEAN CORPUSCULAR VOLUME 82.6 fL (80-94); MONOCYTES # (AUTO) 0.6 K/uL (0.8-1.0); MONOCYTES % (AUTO) 9.7 % (1.7-9.3); NEUTROPHILS # (AUTO) 3.8 K/uL (1.8-7.7); PLATELET COUNT (AUTO) 96 K/uL (140-450); RED BLOOD CELL COUNT(AUTO) 2.91 MIL/uL (4.20-6.10); RED CELL DISTRIBUTION WIDTH 21.4 % (11.6-13.7); WHITE BLOOD COUNT (AUTO) 6.2 K/uL (4.8-10.8)
[2023-11-11 07:59] LABS: ALBUMIN 2.8 g/dL (3.4-5.0); ANION GAP 17.2 (8-16); CALCIUM 9.1 mg/dL (8.5-10.1); CARBON DIOXIDE 18.2 mmol/L (21-32); CREATININE 1.3 mg/dL (0.6-1.3); MAGNESIUM 2.3 mg/dL (1.8-2.4); POTASSIUM 4.4 mmol/L (3.5-5.1); TOTAL BILIRUBIN 1.4 mg/dL (0.0-1.0); TOTAL PROTEIN, SERUM 7.3 g/dL (6.4-8.2)
[2023-11-11] MEDS: LACTULOSE 20 GM/30 ML UDC PO SCH ×2 (09:28→20:51)
[2023-11-11] MEDS: FOLIC ACID 1 MG TAB PO SCH (09:29)
[2023-11-11 10:00] VITALS: RESP 18; O2SAT 98
[2023-11-11 12:00] VITALS: BP 90/52; PULSE 80; PULSE 82; RESP 18; TEMP 97.2; O2SAT 100
[2023-11-11] MEDS: DEXT 5% /NACL 0.9% 1,000 ML IV SCH ×2 (12:55→22:40)
[2023-11-11 16:00] VITALS: BP 95/60; PULSE 80; RESP 18; TEMP 98.1; O2SAT 100
[2023-11-11 20:00] VITALS: BP 94/53; PULSE 80; PULSE 81; RESP 18; TEMP 98.2; O2SAT 99
[2023-11-12] VITALS: BP 92/56; PULSE 87; PULSE 88; RESP 17; TEMP 98.3; O2SAT 94
[2023-11-12] MEDS ORDERED: cefTRIAXone 1,000 MG VIAL ONE (01:54)
[2023-11-12 04:00] VITALS: BP 101/59; PULSE 79; PULSE 83; PULSE 85; RESP 17; TEMP 98.3; O2SAT 95
[2023-11-12 08:00] VITALS: BP 94/58; PULSE 83; PULSE 85; PULSE 87; RESP 19; TEMP 98; O2SAT 95; O2SAT 99
[2023-11-12] MEDS: FOLIC ACID 1 MG TAB PO SCH (08:22)
[2023-11-12] MEDS: LACTULOSE 20 GM/30 ML UDC PO SCH (08:22)
[2023-11-12 09:57] LABS: EOSINOPHILS # (AUTO) 0.5 K/uL (0-0.4); EOSINOPHILS % (AUTO) 9.5 % (0.0-4.0); HEMATOCRIT 20.9 % (36-52); LYMPHOCYTES % (AUTO) 20.1 % (20.5-51.1); MEAN CORPUSCULAR HEMOGLOBIN 26 pg (27-31); MEAN CORPUSCULAR HGB CONC 31 g/dL (33-37); MEAN CORPUSCULAR VOLUME 82.5 fL (80-94); MONOCYTES # (AUTO) 0.4 K/uL (0.8-1.0); MONOCYTES % (AUTO) 7.4 % (1.7-9.3); PLATELET COUNT (AUTO) 93 K/uL (140-450); RED BLOOD CELL COUNT(AUTO) 2.54 MIL/uL (4.20-6.10); RED CELL DISTRIBUTION WIDTH 21.4 % (11.6-13.7); WHITE BLOOD COUNT (AUTO) 4.8 K/uL (4.8-10.8)
[2023-11-12 10:12] LABS: ANION GAP 14.3 (8-16); CALCIUM 8.5 mg/dL (8.5-10.1); CREATININE 1.2 mg/dL (0.6-1.3); POTASSIUM 4.3 mmol/L (3.5-5.1)
[2023-11-12 10:14] LABS: HEMOGLOBIN 6.6 g/dL (12.0-18.0)
[2023-11-12 12:00] VITALS: BP 90/54; PULSE 85; PULSE 88; RESP 18; TEMP 98.1; O2SAT 99
[2023-11-12] MEDS: DEXT 5% /NACL 0.9% 1,000 ML IV SCH (15:46)
[2023-11-12 16:00] VITALS: BP 101/67; PULSE 90; PULSE 92; RESP 18; TEMP 98.3; O2SAT 98
[2023-11-12 16:41] VITALS: BP 130/64; PULSE 82; RESP 20; TEMP 97.7
== END 2023-11-12 19:35 | disposition home or self-care (01) ==
LOC: MED 19:53 → MTU 23:37
PROVIDERS: ADMIT Hospitalist; ATTEND Hospitalist
DX: F10.129 Alcohol abuse with intoxication, unspecified (principal); Z20.822 Contact with and (suspected) exposure to COVID-19; F10.139 Alcohol abuse with withdrawal, unspecified; D64.9 Anemia, unspecified; R55 Syncope and collapse; E72.20 Disorder of urea cycle metabolism, unspecified; E87.20 Acidosis, unspecified; K44.9 Diaphragmatic hernia without obstruction or gangrene; K76.82 Hepatic encephalopathy; N17.9 Acute kidney failure, unspecified; M62.82 Rhabdomyolysis; Z79.899 Other long term (current) drug therapy
CPT/HCPCS: 36415; 36430; 70450; 71045; 80048; 80053; 80076; 80305; 81003; 82140; 82550; 82553; 83605; 83735; 83880; 84484; 85025; 86886; 86900; 86901; 86920; 87040; 87081; 87086; 87426; 87804; 93005; 96361; 96365; 96366; 96367; 96372; 99291; G0378; G0480; G0482; J0696; J3411; J3475; J7060; P9016; Q0092

== ENCOUNTER 2023-12-10 08:37 | Emergency (ER) | payer OTHER ==
[~2023-12-10] VITALS: Ht 175.3 cm; Wt 81.6 kg
[2023-12-10 08:46] VITALS: BP 97/61; PULSE 71; RESP 18; TEMP 97.7; O2SAT 100
[2023-12-10] MEDS ORDERED: PSEU120T22 PO (09:05)
[2023-12-10 09:20] VITALS: BP 97/61; PULSE 71; RESP 18; TEMP 97.7; O2SAT 100
[2023-12-10 09:48] LABS: FLU A ANTIGEN negative (NEGATIVE); FLU B ANTIGEN negative (NEGATIVE)
== END 2023-12-10 09:21 | disposition home or self-care (01) ==
LOC: MED 08:37
DX: R09.81 Nasal congestion (principal); R04.0 Epistaxis; Z20.822 Contact with and (suspected) exposure to COVID-19; E11.9 Type 2 diabetes mellitus without complications; Z79.899 Other long term (current) drug therapy; Z79.2 Long term (current) use of antibiotics; Z88.8 Allergy status to other drugs, medicaments and biological substances
CPT/HCPCS: 99283

== ENCOUNTER 2024-01-04 17:02 | Inpatient (IN) | payer OTHER ==
[~2024-01-04] VITALS: Ht 175.3 cm; Wt 86.6 kg
[~2024-01-04 17:02] MED LIST changes: +CHLO-1446 PO; +CHLO-836 PO; -LIB25 PO; +PSEU120T22 PO
[2024-01-04 17:08] VITALS: BP 100/50; PULSE 71; RESP 16; TEMP 97.8; O2SAT 99
[2024-01-04 17:45] LABS: BASOPHILS # (AUTO) 0.1 K/uL (0.00-0.22); BASOPHILS % (AUTO) 1.1 % (0.0-2.0); EOSINOPHILS # (AUTO) 0.3 K/uL (0-0.4); EOSINOPHILS % (AUTO) 5.7 % (0.0-4.0); LYMPHOCYTES % (AUTO) 18.5 % (20.5-51.1); MEAN CORPUSCULAR HEMOGLOBIN 21 pg (27-31); MEAN CORPUSCULAR HGB CONC 30 g/dL (33-37); MONOCYTES # (AUTO) 0.7 K/uL (0.8-1.0); MONOCYTES % (AUTO) 13.6 % (1.7-9.3); NEUTROPHILS # (AUTO) 3.3 K/uL (1.8-7.7); NEUTROPHILS % (AUTO) 61.1 % (42.2-75.2); PLATELET COUNT (AUTO) 111 K/uL (140-450); RED BLOOD CELL COUNT(AUTO) 2.21 MIL/uL (4.20-6.10); WHITE BLOOD COUNT (AUTO) 5.4 K/uL (4.8-10.8)
[2024-01-04 17:48] LABS: HEMATOCRIT 15.3 % (36-52); HEMOGLOBIN 4.6 g/dL (12.0-18.0)
[2024-01-04 17:54] LABS: ANION GAP 14.5 (8-16); CARBON DIOXIDE 19.9 mmol/L (21-32); CREATININE 1.8 mg/dL (0.6-1.3)
[2024-01-04 18:00] LABS: POTASSIUM 6.4 mmol/L (3.5-5.1)
[2024-01-04 18:03] LABS: ALANINE AMINOTRANSFERASE 19 U/L (12-78); ALBUMIN 2.7 g/dL (3.4-5.0); ALKALINE PHOSPHATASE 104 U/L (50-136); ASPARTATE AMINOTRANSFERASE 23 U/L (15-37); BILIRUBIN,DIRECT 0.4 mg/dL (0.0-0.3); TOTAL PROTEIN, SERUM 7.5 g/dL (6.4-8.2)
[2024-01-04] MEDS: SODIUM ZIRCONIUM CYCLOSILICATE 10 GM POWD.PACK PO ONE (18:12)
[2024-01-04 18:24] LABS: INR 1.26 (0.8-1.2); PARTIAL THROMBOPLASTIN TIME 24.2 secs (22-35.6); PROTHROMBIN TIME 13.1 secs (10.8-13.4)
[2024-01-04] MEDS ORDERED: PANT40EC56 PO (20:21)
[2024-01-04] MEDS ORDERED: PRO5 PO (20:21)
[2024-01-04] MEDS ORDERED: SPIR50TA PO (20:21)
[2024-01-04] MEDS ORDERED: FURO-572 PO (20:21)
[2024-01-04] MEDS ORDERED: ONDANSETRON 4 MG/2 ML VIAL IVP PRN (20:30)
[2024-01-04] MEDS ORDERED: ACETAMINOPHEN 325 MG TAB PO PRN (20:30)
[2024-01-04] MEDS ORDERED: MORPHINE SULFATE 2 MG/ML SYR IVP PRN (20:30)
[2024-01-04] MEDS: PANTOPRAZOLE 40 MG INJ VIAL IVP SCH (23:15)
[2024-01-04] MEDS: NACL 0.9% 1,000 ML IV SCH (23:22)
[2024-01-05 03:58] LABS: EOSINOPHILS # (AUTO) 0.3 K/uL (0-0.4); EOSINOPHILS % (AUTO) 6.2 % (0.0-4.0); LYMPHOCYTES % (AUTO) 21.4 % (20.5-51.1); MEAN CORPUSCULAR HEMOGLOBIN 23 pg (27-31); MEAN CORPUSCULAR HGB CONC 31 g/dL (33-37); MEAN CORPUSCULAR VOLUME 73.6 fL (80-94); MONOCYTES # (AUTO) 0.5 K/uL (0.8-1.0); NEUTROPHILS # (AUTO) 2.8 K/uL (1.8-7.7); NEUTROPHILS % (AUTO) 60.4 % (42.2-75.2); PLATELET COUNT (AUTO) 98 K/uL (140-450); RED BLOOD CELL COUNT(AUTO) 2.53 MIL/uL (4.20-6.10); RED CELL DISTRIBUTION WIDTH 25.8 % (11.6-13.7); WHITE BLOOD COUNT (AUTO) 4.7 K/uL (4.8-10.8)
[2024-01-05 04:11] LABS: ALBUMIN 2.5 g/dL (3.4-5.0); ANION GAP 13.4 (8-16); CALCIUM 7.9 mg/dL (8.5-10.1); CARBON DIOXIDE 20.4 mmol/L (21-32); CREATININE 1.7 mg/dL (0.6-1.3); POTASSIUM 5.8 mmol/L (3.5-5.1); TOTAL BILIRUBIN 4.4 mg/dL (0.0-1.0); TOTAL PROTEIN, SERUM 6.8 g/dL (6.4-8.2)
[2024-01-05 04:14] LABS: HEMATOCRIT 18.6 % (36-52); HEMOGLOBIN 5.8 g/dL (12.0-18.0)
[2024-01-05 08:47] VITALS: O2SAT 99
[2024-01-05] MEDS ORDERED: FUROSEMIDE 40 MG/4 ML VIAL IVP SCH (09:50)
[2024-01-05] MEDS: SODIUM ZIRCONIUM CYCLOSILICATE 10 GM POWD.PACK PO SCH (11:05)
[2024-01-05 12:04] VITALS: BP 93/57; PULSE 67; RESP 18; TEMP 97.2; O2SAT 99
[2024-01-05 17:55] VITALS: BP 92/51; PULSE 68; RESP 18; TEMP 97.9; O2SAT 100
[2024-01-05 20:00] VITALS: BP 101/54; PULSE 71; RESP 18; TEMP 97.7; O2SAT 100
[2024-01-06 04:00] VITALS: BP 92/55; PULSE 67; RESP 18; TEMP 97.1; O2SAT 98
[2024-01-06 06:07] LABS: ALBUMIN 2.4 g/dL (3.4-5.0); ANION GAP 14.1 (8-16); CALCIUM 8.1 mg/dL (8.5-10.1); CARBON DIOXIDE 19.3 mmol/L (21-32); CREATININE 1.3 mg/dL (0.6-1.3); POTASSIUM 5.4 mmol/L (3.5-5.1); TOTAL BILIRUBIN 2.7 mg/dL (0.0-1.0); TOTAL PROTEIN, SERUM 6.7 g/dL (6.4-8.2)
[2024-01-06 07:15] LABS: BASOPHILS # (AUTO) 0.1 K/uL (0.00-0.22); BASOPHILS % (AUTO) 0.9 % (0.0-2.0); EOSINOPHILS # (AUTO) 0.4 K/uL (0-0.4); EOSINOPHILS % (AUTO) 6.9 % (0.0-4.0); HEMATOCRIT 22.3 % (36-52); HEMOGLOBIN 7.2 g/dL (12.0-18.0); LYMPHOCYTES # (AUTO) 1.1 K/uL (2.0-11.5); LYMPHOCYTES % (AUTO) 20.6 % (20.5-51.1); MEAN CORPUSCULAR HEMOGLOBIN 24 pg (27-31); MEAN CORPUSCULAR HGB CONC 32 g/dL (33-37); MONOCYTES # (AUTO) 0.5 K/uL (0.8-1.0); NEUTROPHILS # (AUTO) 3.3 K/uL (1.8-7.7); NEUTROPHILS % (AUTO) 61.6 % (42.2-75.2); PLATELET COUNT (AUTO) 93 K/uL (140-450); RED BLOOD CELL COUNT(AUTO) 2.98 MIL/uL (4.20-6.10); RED CELL DISTRIBUTION WIDTH 24.9 % (11.6-13.7); WHITE BLOOD COUNT (AUTO) 5.3 K/uL (4.8-10.8)
[2024-01-06 08:00] VITALS: BP 92/53; PULSE 70; RESP 18; TEMP 97.7; O2SAT 100; O2SAT 98
[2024-01-06] MEDS: SODIUM ZIRCONIUM CYCLOSILICATE 10 GM POWD.PACK PO SCH (10:25)
[2024-01-06] MEDS: FUROSEMIDE 40 MG/4 ML VIAL IVP SCH (11:12)
[2024-01-06 16:00] VITALS: BP 99/56; PULSE 65; RESP 18; TEMP 97.6; O2SAT 98
[2024-01-06 20:00] VITALS: PULSE 67; RESP 17; O2SAT 100
[2024-01-07 04:00] VITALS: BP 110/58; PULSE 74; RESP 18; TEMP 98.2; O2SAT 98
[2024-01-07 05:54] LABS: ANION GAP 13.7 (8-16); CALCIUM 8.1 mg/dL (8.5-10.1); CARBON DIOXIDE 19.2 mmol/L (21-32); CREATININE 1.3 mg/dL (0.6-1.3); POTASSIUM 4.9 mmol/L (3.5-5.1)
[2024-01-07 08:00] VITALS: BP 91/54; PULSE 66; RESP 18; TEMP 97.7; O2SAT 100
[2024-01-07 09:40] VITALS: PULSE 66; RESP 18; O2SAT 100
[2024-01-07 15:16] LABS: BASOPHILS # (AUTO) 0.1 K/uL (0.00-0.22); BASOPHILS % (AUTO) 2.4 % (0.0-2.0); EOSINOPHILS # (AUTO) 0.4 K/uL (0-0.4); EOSINOPHILS % (AUTO) 7.9 % (0.0-4.0); HEMATOCRIT 22.5 % (36-52); LYMPHOCYTES # (AUTO) 0.9 K/uL (2.0-11.5); LYMPHOCYTES % (AUTO) 18.8 % (20.5-51.1); MEAN CORPUSCULAR HEMOGLOBIN 24 pg (27-31); MEAN CORPUSCULAR HGB CONC 31 g/dL (33-37); MEAN CORPUSCULAR VOLUME 76.8 fL (80-94); MONOCYTES # (AUTO) 0.5 K/uL (0.8-1.0); MONOCYTES % (AUTO) 11.3 % (1.7-9.3); NEUTROPHILS # (AUTO) 2.9 K/uL (1.8-7.7); NEUTROPHILS % (AUTO) 59.6 % (42.2-75.2); PLATELET COUNT (AUTO) 87 K/uL (140-450); RED BLOOD CELL COUNT(AUTO) 2.93 MIL/uL (4.20-6.10); RED CELL DISTRIBUTION WIDTH 26.4 % (11.6-13.7); WHITE BLOOD COUNT (AUTO) 4.8 K/uL (4.8-10.8)
[2024-01-07] MEDS ORDERED: FERR30CA PO (15:48)
[2024-01-07 16:00] VITALS: BP 91/50; PULSE 89; RESP 18; TEMP 98.2; O2SAT 100
[2024-01-07] MEDS: IRON SUCROSE COMPLEX 100 MG/5 ML VIAL IVP SCH (17:20)
[2024-01-07 18:43] VITALS: BP 91/50; PULSE 89; RESP 18; TEMP 98.2
== END 2024-01-07 19:21 | disposition home or self-care (01) | DRG 683 ==
LOC: MED 17:02 → MMU 20:32 → OBSVTOIN 01-06 16:46
PROVIDERS: ADMIT Hospitalist; ATTEND Hospitalist
PROC: 30233N1 Transfusion of Nonautologous Red Blood Cells into Peripheral Vein, Percutaneous Approach (ICD-10-PCS; principal; 2024-01-04)
DX: N17.9 Acute kidney failure, unspecified (principal); D84.9 Immunodeficiency, unspecified; D50.9 Iron deficiency anemia, unspecified; E87.5 Hyperkalemia; E78.5 Hyperlipidemia, unspecified; N18.9 Chronic kidney disease, unspecified; I12.9 Hypertensive chronic kidney disease with stage 1 through stage 4 chronic kidney disease, or unspecified chronic kidney disease; K70.30 Alcoholic cirrhosis of liver without ascites
CPT/HCPCS: 99285; G0378; 36415; 36430; 71045; 80048; 80053; 80076; 83735; 83880; 84484; 85025; 85610; 85730; 86886; 86900; 86901; 86920; 87081; 93005; C9113; J1756; J1940; P9016; Q0092

== ENCOUNTER 2024-03-17 06:30 | Emergency (ER) | payer OTHER ==
[~2024-03-17] VITALS: Ht 175.3 cm; Wt 81.6 kg
[~2024-03-17 06:30] MED LIST changes: -CHLO-1446 PO; -CHLO-836 PO; -DOXY-690 PO; +FERR30CA PO; +FURO-572 PO; -ONDA-188 PO; -PANT40EC PO; +PANT40EC56 PO; +PRO5 PO; -PSEU120T22 PO; -RIFA550T PO
[2024-03-17 06:51] VITALS: BP 110/76; PULSE 83; RESP 18; TEMP 98; O2SAT 100
[2024-03-17] MEDS: KETOROLAC 60 MG/2 ML VIAL IM ONE (08:17)
[2024-03-17 09:06] VITALS: TEMP 97.7
[2024-03-17 09:29] LABS: ANION GAP 14.3 (8-16); CALCIUM 8.2 mg/dL (8.5-10.1); POTASSIUM 4.3 mmol/L (3.5-5.1)
[2024-03-17 09:55] LABS: BASOPHILS % (AUTO) 1.5 % (0.0-2.0); EOSINOPHILS # (AUTO) 0.2 K/uL (0-0.4); HEMATOCRIT 21.3 % (36-52); LYMPHOCYTES # (AUTO) 0.7 K/uL (2.0-11.5); LYMPHOCYTES % (AUTO) 23.4 % (20.5-51.1); MEAN CORPUSCULAR HEMOGLOBIN 25 pg (27-31); MEAN CORPUSCULAR HGB CONC 31 g/dL (33-37); MEAN CORPUSCULAR VOLUME 78.8 fL (80-94); MONOCYTES # (AUTO) 0.3 K/uL (0.8-1.0); MONOCYTES % (AUTO) 11.4 % (1.7-9.3); NEUTROPHILS # (AUTO) 1.7 K/uL (1.8-7.7); NEUTROPHILS % (AUTO) 55.7 % (42.2-75.2); PLATELET COUNT (AUTO) 88 K/uL (140-450); RED BLOOD CELL COUNT(AUTO) 2.71 MIL/uL (4.20-6.10); RED CELL DISTRIBUTION WIDTH 20.4 % (11.6-13.7)
[2024-03-17 09:56] LABS: ALBUMIN 2.9 g/dL (3.4-5.0); BILIRUBIN,DIRECT 0.4 mg/dL (0.0-0.3); TOTAL BILIRUBIN 1.4 mg/dL (0.0-1.0); TOTAL PROTEIN, SERUM 6.6 g/dL (6.4-8.2)
[2024-03-17 09:57] LABS: HEMOGLOBIN 6.7 g/dL (12.0-18.0)
[2024-03-17] MEDS ORDERED: ACET-503 PO (10:12)
[2024-03-17 10:17] VITALS: BP 104/67; PULSE 74; RESP 17; O2SAT 98
== END 2024-03-17 10:17 | disposition home or self-care (01) ==
LOC: MED 06:30
DX: M54.50 Low back pain, unspecified (principal); R11.0 Nausea; R14.0 Abdominal distension (gaseous); Z98.890 Other specified postprocedural states; Z79.899 Other long term (current) drug therapy; Z88.8 Allergy status to other drugs, medicaments and biological substances
CPT/HCPCS: 36415; 80048; 80076; 83690; 85025; 96372; 99283; J1885

== ENCOUNTER 2024-05-15 03:53 | Inpatient (IN) | payer OTHER ==
[~2024-05-15] VITALS: Ht 175.3 cm; Wt 83.9 kg
[~2024-05-15 03:53] MED LIST changes: +ACET-503 PO
[2024-05-15 03:55] VITALS: BP 132/81; PULSE 108; RESP 20; TEMP 97.7; O2SAT 99
[2024-05-15] MEDS: ONDANSETRON 4 MG ODT PO ONE (07:15)
[2024-05-15] MEDS: NACL 0.9% 1,000 ML IV ONE (07:16)
[2024-05-15] MEDS: PANTOPRAZOLE 40 MG INJ VIAL IVP ONE (07:17)
[2024-05-15] MEDS ORDERED: MORPHINE SULFATE 2 MG/ML SYR IVP PRN (08:10)
[2024-05-15] MEDS: DEXT 5% /NACL 0.9% 1,000 ML IV SCH (08:24)
[2024-05-15 08:31] LABS: BASOPHILS % (AUTO) 0.8 % (0.0-2.0); EOSINOPHILS # (AUTO) 0.1 K/uL (0-0.4); EOSINOPHILS % (AUTO) 2.3 % (0.0-4.0); HEMATOCRIT 23.9 % (36-52); HEMOGLOBIN 7.7 g/dL (12.0-18.0); LYMPHOCYTES # (AUTO) 0.5 K/uL (2.0-11.5); LYMPHOCYTES % (AUTO) 18.8 % (20.5-51.1); MEAN CORPUSCULAR HEMOGLOBIN 25 pg (27-31); MEAN CORPUSCULAR HGB CONC 32 g/dL (33-37); MEAN CORPUSCULAR VOLUME 77.3 fL (80-94); MONOCYTES # (AUTO) 0.2 K/uL (0.8-1.0); MONOCYTES % (AUTO) 6.8 % (1.7-9.3); NEUTROPHILS % (AUTO) 71.3 % (42.2-75.2); PLATELET COUNT (AUTO) 36 K/uL (140-450); RED BLOOD CELL COUNT(AUTO) 3.09 MIL/uL (4.20-6.10); RED CELL DISTRIBUTION WIDTH 19.4 % (11.6-13.7); WHITE BLOOD COUNT (AUTO) 2.9 K/uL (4.8-10.8)
[2024-05-15] MEDS: THIAMINE 200 MG/2 ML VIAL IM ONE (08:31)
[2024-05-15 08:43] LABS: ANION GAP 15.6 (8-16); CALCIUM 7.3 mg/dL (8.5-10.1); CARBON DIOXIDE 23.4 mmol/L (21-32); CREATININE 0.8 mg/dL (0.6-1.3)
[2024-05-15] MEDS: FOLIC ACID 1 MG TAB PO SCH (09:35)
[2024-05-15] MEDS: diphenhydrAMINE 50 MG/ML VIAL IVP ONE (09:35)
[2024-05-15] MEDS: MULTIVITAMIN/MINERALS 1 TAB PO SCH (09:35)
[2024-05-15] MEDS: METOCLOPRAMIDE 10 MG/2 ML INJ VIAL IVP ONE (09:35)
[2024-05-15] MEDS ORDERED: ETOMIDATE 20 MG/10 ML VIAL IVP ONE (16:40)
[2024-05-15] MEDS ORDERED: PANTOPRAZOLE 40 MG INJ VIAL ONE (17:26)
[2024-05-15] MEDS: chlordiazePOXIDE 25 MG CAP PO SCH (17:32)
[2024-05-15] MEDS: PANTOPRAZOLE 80 MG in NACL 0.9% 100 ML IV SCH (17:47)
[2024-05-15] MEDS: OCTREOTIDE ACETATE 1000 MCG/5 ML VIAL ONE (19:36)
[2024-05-15] MEDS: OCTREOTIDE ACETATE 100 MCG/ML VIAL ONE ×2 (19:37)
[2024-05-15] MEDS: OCTREOTIDE ACETATE 1.25 MG in NACL 0.9% 250 ML IV SCH (19:40)
[2024-05-15] MEDS ORDERED: PANTOPRAZOLE 40 MG INJ VIAL IVP SCH (21:00)
[2024-05-15 21:15] VITALS: PULSE 97; RESP 18; O2SAT 96
[2024-05-15 22:03] LABS: BASOPHILS % (AUTO) 0.7 % (0.0-2.0); EOSINOPHILS # (AUTO) 0.1 K/uL (0-0.4); HEMATOCRIT 22.5 % (36-52); HEMOGLOBIN 7.2 g/dL (12.0-18.0); LYMPHOCYTES # (AUTO) 0.6 K/uL (2.0-11.5); LYMPHOCYTES % (AUTO) 21.2 % (20.5-51.1); MEAN CORPUSCULAR HEMOGLOBIN 25 pg (27-31); MEAN CORPUSCULAR HGB CONC 32 g/dL (33-37); MEAN CORPUSCULAR VOLUME 78.5 fL (80-94); MONOCYTES # (AUTO) 0.3 K/uL (0.8-1.0); MONOCYTES % (AUTO) 11.3 % (1.7-9.3); NEUTROPHILS # (AUTO) 1.9 K/uL (1.8-7.7); NEUTROPHILS % (AUTO) 64.8 % (42.2-75.2); PLATELET COUNT (AUTO) 34 K/uL (140-450); RED BLOOD CELL COUNT(AUTO) 2.87 MIL/uL (4.20-6.10); RED CELL DISTRIBUTION WIDTH 19.1 % (11.6-13.7)
[2024-05-15 22:18] LABS: INR 1.34 (0.8-1.2); PROTHROMBIN TIME 13.9 secs (10.8-13.4)
[2024-05-16] MEDS: PANTOPRAZOLE 40 MG INJ VIAL ONE (02:25)
[2024-05-16 04:00] VITALS: BP 120/60; PULSE 92; RESP 18; TEMP 97.2; O2SAT 97
[2024-05-16 05:32] LABS: EOSINOPHILS # (AUTO) 0.1 K/uL (0-0.4); EOSINOPHILS % (AUTO) 5.5 % (0.0-4.0); HEMATOCRIT 20.6 % (36-52); LYMPHOCYTES # (AUTO) 0.6 K/uL (2.0-11.5); LYMPHOCYTES % (AUTO) 24.3 % (20.5-51.1); MEAN CORPUSCULAR HEMOGLOBIN 25 pg (27-31); MEAN CORPUSCULAR HGB CONC 32 g/dL (33-37); MONOCYTES # (AUTO) 0.2 K/uL (0.8-1.0); NEUTROPHILS # (AUTO) 1.4 K/uL (1.8-7.7); NEUTROPHILS % (AUTO) 59.2 % (42.2-75.2); PLATELET COUNT (AUTO) 41 K/uL (140-450); RED BLOOD CELL COUNT(AUTO) 2.64 MIL/uL (4.20-6.10); RED CELL DISTRIBUTION WIDTH 19.1 % (11.6-13.7); WHITE BLOOD COUNT (AUTO) 2.4 K/uL (4.8-10.8)
[2024-05-16 05:52] LABS: ALBUMIN 2.9 g/dL (3.4-5.0); ANION GAP 11.5 (8-16); CALCIUM 7.9 mg/dL (8.5-10.1); CARBON DIOXIDE 25.5 mmol/L (21-32); MAGNESIUM 1.5 mg/dL (1.8-2.4); TOTAL BILIRUBIN 2.1 mg/dL (0.0-1.0); TOTAL PROTEIN, SERUM 6.2 g/dL (6.4-8.2)
[2024-05-16 05:58] LABS: HEMOGLOBIN 6.6 g/dL (12.0-18.0)
[2024-05-16 08:00] VITALS: BP 113/65; PULSE 83; PULSE 87; PULSE 97; RESP 18; TEMP 97.2; O2SAT 97
[2024-05-16 09:51] LABS: EOSINOPHILS # (AUTO) 0.2 K/uL (0-0.4); EOSINOPHILS % (AUTO) 7.1 % (0.0-4.0); HEMATOCRIT 21.5 % (36-52); LYMPHOCYTES # (AUTO) 0.6 K/uL (2.0-11.5); LYMPHOCYTES % (AUTO) 25.6 % (20.5-51.1); MEAN CORPUSCULAR HEMOGLOBIN 25 pg (27-31); MEAN CORPUSCULAR HGB CONC 32 g/dL (33-37); MEAN CORPUSCULAR VOLUME 78.1 fL (80-94); MONOCYTES # (AUTO) 0.2 K/uL (0.8-1.0); MONOCYTES % (AUTO) 9.8 % (1.7-9.3); NEUTROPHILS # (AUTO) 1.3 K/uL (1.8-7.7); NEUTROPHILS % (AUTO) 56.5 % (42.2-75.2); PLATELET COUNT (AUTO) 34 K/uL (140-450); RED BLOOD CELL COUNT(AUTO) 2.75 MIL/uL (4.20-6.10); WHITE BLOOD COUNT (AUTO) 2.3 K/uL (4.8-10.8)
[2024-05-16 10:25] LABS: HEMOGLOBIN 6.9 g/dL (12.0-18.0)
[2024-05-16 12:00] VITALS: BP 110/69; PULSE 84; PULSE 91; RESP 18; TEMP 97.6; O2SAT 98
[2024-05-16] MEDS: fentaNYL citrate 0.05 MG/ML VIAL ONE (12:45)
[2024-05-16] MEDS: diphenhydrAMINE 50 MG/ML VIAL ONE (12:45)
[2024-05-16] MEDS: MIDAZOLAM 5 MG/5 ML VIAL ONE (12:45)
[2024-05-16] MEDS: MIDAZOLAM 5 MG/5 ML VIAL IV ONE (14:28)
[2024-05-16] MEDS: fentaNYL citrate 0.05 MG/ML VIAL IVP ONE (14:29)
[2024-05-16 16:00] VITALS: BP 130/70; PULSE 85; PULSE 88; RESP 18; TEMP 98; O2SAT 98
[2024-05-16] MEDS: SODIUM FERRIC GLUCONATE 125 MG in NACL 0.9% 100 ML IV SCH (16:46)
[2024-05-16] MEDS: ACETAMINOPHEN 325 MG TAB PO PRN (19:00)
[2024-05-16 20:00] VITALS: BP 127/80; PULSE 65; PULSE 68; RESP 18; TEMP 97.9; O2SAT 97; O2SAT 98
[2024-05-16] MEDS: FAMOTIDINE 20 MG TAB PO SCH (21:10)
[2024-05-16] MEDS: LACTULOSE 20 GM/30 ML UDC PO SCH (21:10)
[2024-05-16 21:33] LABS: BASOPHILS % (AUTO) 1.2 % (0.0-2.0); EOSINOPHILS # (AUTO) 0.2 K/uL (0-0.4); EOSINOPHILS % (AUTO) 5.8 % (0.0-4.0); HEMATOCRIT 25.9 % (36-52); HEMOGLOBIN 8.5 g/dL (12.0-18.0); LYMPHOCYTES # (AUTO) 0.3 K/uL (2.0-11.5); LYMPHOCYTES % (AUTO) 9.9 % (20.5-51.1); MEAN CORPUSCULAR HEMOGLOBIN 27 pg (27-31); MEAN CORPUSCULAR HGB CONC 33 g/dL (33-37); MEAN CORPUSCULAR VOLUME 80.7 fL (80-94); MONOCYTES # (AUTO) 0.3 K/uL (0.8-1.0); NEUTROPHILS # (AUTO) 2.3 K/uL (1.8-7.7); NEUTROPHILS % (AUTO) 73.1 % (42.2-75.2); PLATELET COUNT (AUTO) 39 K/uL (140-450); RED BLOOD CELL COUNT(AUTO) 3.21 MIL/uL (4.20-6.10); RED CELL DISTRIBUTION WIDTH 18.9 % (11.6-13.7); WHITE BLOOD COUNT (AUTO) 3.2 K/uL (4.8-10.8)
[2024-05-17] VITALS: BP 127/75; PULSE 73; RESP 18; TEMP 97.8; O2SAT 99
[2024-05-17] MEDS: MAG SULF 2000 MG/WATER PREMIX 50 ML IV ONE (02:27)
[2024-05-17 04:00] VITALS: BP 123/75; PULSE 73; PULSE 74; RESP 18; TEMP 98.7; O2SAT 99
[2024-05-17 08:00] VITALS: BP 135/66; PULSE 73; PULSE 76; RESP 18; TEMP 97.2; O2SAT 98
[2024-05-17 09:33] LABS: EOSINOPHILS # (AUTO) 0.3 K/uL (0-0.4); EOSINOPHILS % (AUTO) 8.7 % (0.0-4.0); HEMATOCRIT 30.1 % (36-52); HEMOGLOBIN 9.7 g/dL (12.0-18.0); LYMPHOCYTES # (AUTO) 0.6 K/uL (2.0-11.5); LYMPHOCYTES % (AUTO) 17.9 % (20.5-51.1); MEAN CORPUSCULAR HEMOGLOBIN 26 pg (27-31); MEAN CORPUSCULAR HGB CONC 32 g/dL (33-37); MEAN CORPUSCULAR VOLUME 81.2 fL (80-94); MONOCYTES # (AUTO) 0.2 K/uL (0.8-1.0); MONOCYTES % (AUTO) 6.1 % (1.7-9.3); NEUTROPHILS % (AUTO) 66.3 % (42.2-75.2); PLATELET COUNT (AUTO) 51 K/uL (140-450); RED CELL DISTRIBUTION WIDTH 18.6 % (11.6-13.7); WHITE BLOOD COUNT (AUTO) 3.1 K/uL (4.8-10.8)
[2024-05-17 12:00] VITALS: BP 109/53; PULSE 77; PULSE 98; RESP 18; TEMP 98.1; O2SAT 99
[2024-05-17 16:00] VITALS: BP 128/81; PULSE 70; PULSE 71; RESP 18; TEMP 97.9; O2SAT 99
[2024-05-17 20:00] VITALS: BP 112/72; PULSE 70; PULSE 80; RESP 14; RESP 18; TEMP 98; O2SAT 98; O2SAT 99
[2024-05-17 21:03] LABS: BASOPHILS % (AUTO) 0.9 % (0.0-2.0); EOSINOPHILS # (AUTO) 0.3 K/uL (0-0.4); EOSINOPHILS % (AUTO) 8.5 % (0.0-4.0); HEMATOCRIT 25.5 % (36-52); HEMOGLOBIN 8.3 g/dL (12.0-18.0); LYMPHOCYTES # (AUTO) 0.6 K/uL (2.0-11.5); LYMPHOCYTES % (AUTO) 16.7 % (20.5-51.1); MEAN CORPUSCULAR HEMOGLOBIN 27 pg (27-31); MEAN CORPUSCULAR HGB CONC 33 g/dL (33-37); MEAN CORPUSCULAR VOLUME 81.8 fL (80-94); MONOCYTES # (AUTO) 0.3 K/uL (0.8-1.0); MONOCYTES % (AUTO) 8.8 % (1.7-9.3); NEUTROPHILS # (AUTO) 2.4 K/uL (1.8-7.7); NEUTROPHILS % (AUTO) 65.1 % (42.2-75.2); PLATELET COUNT (AUTO) 48 K/uL (140-450); RED BLOOD CELL COUNT(AUTO) 3.11 MIL/uL (4.20-6.10); RED CELL DISTRIBUTION WIDTH 19.1 % (11.6-13.7); WHITE BLOOD COUNT (AUTO) 3.7 K/uL (4.8-10.8)
[2024-05-18] VITALS (7 sets, daily range): BP systolic 106–121; BP diastolic 60–73; PULSE 70–83; RESP 18–19; TEMP 97.6–98.1; O2SAT 98–99
[2024-05-18 09:01] LABS: BASOPHILS % (AUTO) 0.6 % (0.0-2.0); EOSINOPHILS # (AUTO) 0.4 K/uL (0-0.4); EOSINOPHILS % (AUTO) 9.2 % (0.0-4.0); HEMATOCRIT 28.3 % (36-52); HEMOGLOBIN 9.2 g/dL (12.0-18.0); LYMPHOCYTES # (AUTO) 0.7 K/uL (2.0-11.5); LYMPHOCYTES % (AUTO) 17.1 % (20.5-51.1); MEAN CORPUSCULAR HEMOGLOBIN 27 pg (27-31); MEAN CORPUSCULAR HGB CONC 33 g/dL (33-37); MEAN CORPUSCULAR VOLUME 82.2 fL (80-94); MONOCYTES # (AUTO) 0.4 K/uL (0.8-1.0); MONOCYTES % (AUTO) 8.3 % (1.7-9.3); NEUTROPHILS # (AUTO) 2.8 K/uL (1.8-7.7); NEUTROPHILS % (AUTO) 64.8 % (42.2-75.2); PLATELET COUNT (AUTO) 59 K/uL (140-450); RED BLOOD CELL COUNT(AUTO) 3.44 MIL/uL (4.20-6.10); RED CELL DISTRIBUTION WIDTH 19.1 % (11.6-13.7); WHITE BLOOD COUNT (AUTO) 4.4 K/uL (4.8-10.8)
[2024-05-18 21:24] LABS: BASOPHILS % (AUTO) 0.8 % (0.0-2.0); EOSINOPHILS # (AUTO) 0.2 K/uL (0-0.4); EOSINOPHILS % (AUTO) 5.9 % (0.0-4.0); HEMATOCRIT 24.3 % (36-52); HEMOGLOBIN 7.9 g/dL (12.0-18.0); LYMPHOCYTES # (AUTO) 0.7 K/uL (2.0-11.5); LYMPHOCYTES % (AUTO) 19.2 % (20.5-51.1); MEAN CORPUSCULAR HEMOGLOBIN 27 pg (27-31); MEAN CORPUSCULAR HGB CONC 33 g/dL (33-37); MEAN CORPUSCULAR VOLUME 82.4 fL (80-94); MONOCYTES # (AUTO) 0.5 K/uL (0.8-1.0); MONOCYTES % (AUTO) 13.8 % (1.7-9.3); NEUTROPHILS # (AUTO) 2.2 K/uL (1.8-7.7); NEUTROPHILS % (AUTO) 60.3 % (42.2-75.2); PLATELET COUNT (AUTO) 55 K/uL (140-450); RED BLOOD CELL COUNT(AUTO) 2.94 MIL/uL (4.20-6.10); RED CELL DISTRIBUTION WIDTH 19.4 % (11.6-13.7); WHITE BLOOD COUNT (AUTO) 3.7 K/uL (4.8-10.8)
[2024-05-19 04:00] VITALS: BP 113/74; PULSE 71; RESP 17; TEMP 98.3; O2SAT 97
[2024-05-19 08:00] VITALS: BP 119/68; PULSE 73; RESP 18; TEMP 97.1; O2SAT 99
[2024-05-19 09:36] LABS: BASOPHILS % (AUTO) 0.9 % (0.0-2.0); EOSINOPHILS # (AUTO) 0.3 K/uL (0-0.4); EOSINOPHILS % (AUTO) 6.7 % (0.0-4.0); HEMATOCRIT 29.6 % (36-52); HEMOGLOBIN 9.7 g/dL (12.0-18.0); LYMPHOCYTES # (AUTO) 0.6 K/uL (2.0-11.5); LYMPHOCYTES % (AUTO) 15.8 % (20.5-51.1); MEAN CORPUSCULAR HEMOGLOBIN 27 pg (27-31); MEAN CORPUSCULAR HGB CONC 33 g/dL (33-37); MEAN CORPUSCULAR VOLUME 83.5 fL (80-94); MONOCYTES # (AUTO) 0.4 K/uL (0.8-1.0); MONOCYTES % (AUTO) 9.2 % (1.7-9.3); NEUTROPHILS # (AUTO) 2.7 K/uL (1.8-7.7); NEUTROPHILS % (AUTO) 67.4 % (42.2-75.2); PLATELET COUNT (AUTO) 62 K/uL (140-450); RED BLOOD CELL COUNT(AUTO) 3.54 MIL/uL (4.20-6.10); RED CELL DISTRIBUTION WIDTH 19.6 % (11.6-13.7)
[2024-05-19 12:00] VITALS: BP 116/75; PULSE 82; RESP 18; TEMP 97.1; O2SAT 98
[2024-05-19 16:32] VITALS: BP 116/75; PULSE 82; RESP 18; TEMP 98
== END 2024-05-19 17:30 | disposition home or self-care (01) | DRG 280 ==
LOC: MED 03:53 → MTU 08:13
PROVIDERS: ADMIT Internal Medicine; ATTEND Internal Medicine
PROC: 30233N1 Transfusion of Nonautologous Red Blood Cells into Peripheral Vein, Percutaneous Approach (ICD-10-PCS; 2024-05-16)
PROC: 06L38CZ Occlusion of Esophageal Vein with Extraluminal Device, Via Natural or Artificial Opening Endoscopic (ICD-10-PCS; 2024-05-16)
PROC: 0DJ08ZZ Inspection of Upper Intestinal Tract, Via Natural or Artificial Opening Endoscopic (ICD-10-PCS; principal; 2024-05-16 12:30)
DX: K70.30 Alcoholic cirrhosis of liver without ascites (principal); I85.11 Secondary esophageal varices with bleeding; K76.6 Portal hypertension; D69.6 Thrombocytopenia, unspecified; E88.09 Other disorders of plasma-protein metabolism, not elsewhere classified; D62 Acute posthemorrhagic anemia; F10.129 Alcohol abuse with intoxication, unspecified; D72.819 Decreased white blood cell count, unspecified; Z79.899 Other long term (current) drug therapy; K29.60 Other gastritis without bleeding
CPT/HCPCS: 36415; 36430; 80048; 80053; 83735; 85025; 85610; 86886; 86900; 86901; 86920; 87081; 96372; 96374; 96375; 99285; C9113; G0482; J1200; J2250; J2354; J2765; J2916; J3010; J3411; J3475; J3490; J7030; P9016; Q0162

== ENCOUNTER 2024-09-01 06:05 | Inpatient (IN) | payer OTHER ==
[2024-09-01] VITALS (16 sets, daily range): BP systolic 78–159; BP diastolic 42–92; PULSE 78–105; RESP 12–26; TEMP 96.8–98.3; O2SAT 95–100
[~2024-09-01] VITALS: Ht 175.3 cm; Wt 88.5 kg
[2024-09-01] MEDS: NACL 0.9% 1,000 ML IV ONE ×2 (06:40→07:29)
[2024-09-01] MEDS: PANTOPRAZOLE 40 MG INJ VIAL IVP ONE (06:45)
[2024-09-01 06:51] LABS: BASOPHILS # (AUTO) 0.1 K/uL (0.00-0.22); EOSINOPHILS % (AUTO) 0.5 % (0.0-4.0); LYMPHOCYTES % (AUTO) 13.6 % (20.5-51.1); MEAN CORPUSCULAR HEMOGLOBIN 29 pg (27-31); MEAN CORPUSCULAR HGB CONC 33 g/dL (33-37); MEAN CORPUSCULAR VOLUME 86.9 fL (80-94); MONOCYTES # (AUTO) 0.9 K/uL (0.8-1.0); NEUTROPHILS # (AUTO) 5.4 K/uL (1.8-7.7); NEUTROPHILS % (AUTO) 72.9 % (42.2-75.2); PLATELET COUNT (AUTO) 119 K/uL (140-450); RED BLOOD CELL COUNT(AUTO) 1.85 MIL/uL (4.20-6.10); RED CELL DISTRIBUTION WIDTH 15.7 % (11.6-13.7); WHITE BLOOD COUNT (AUTO) 7.4 K/uL (4.8-10.8)
[2024-09-01] MEDS: OCTREOTIDE ACETATE 100 MCG/ML VIAL IV ONE (06:56)
[2024-09-01] MEDS ORDERED: ONDANSETRON 4 MG/2 ML VIAL ONE (06:58)
[2024-09-01] MEDS ORDERED: cefTRIAXone 1,000 MG VIAL ONE (06:58)
[2024-09-01] MEDS: ONDANSETRON 4 MG/2 ML VIAL IVP ONE (07:00)
[2024-09-01 07:13] LABS: INR 1.23 (0.8-1.2); PARTIAL THROMBOPLASTIN TIME 24.3 secs (22-35.6); PROTHROMBIN TIME 12.8 secs (10.8-13.4)
[2024-09-01 07:18] LABS: ALANINE AMINOTRANSFERASE 28 U/L (12-78); ALBUMIN 2.2 g/dL (3.4-5.0); ALKALINE PHOSPHATASE 100 U/L (50-136); ANION GAP 15.4 (8-16); ASPARTATE AMINOTRANSFERASE 62 U/L (15-37); CALCIUM 7.4 mg/dL (8.5-10.1); CARBON DIOXIDE 22.9 mmol/L (21-32); CHLORIDE 104 mmol/L (98-107); CREATININE 1.3 mg/dL (0.6-1.3); GFR ARICAN-AMERICAN 72 mL/min (>90); GFR NON ARICAN-AMERICAN 60 mL/min (>90); GLUCOSE 136 mg/dL (74-106); LIPASE 81 U/L (16-77); POTASSIUM 4.3 mmol/L (3.5-5.1); SODIUM SERUM 138 mmol/L (136-145); TOTAL BILIRUBIN 0.8 mg/dL (0.0-1.0); TOTAL PROTEIN, SERUM 5.4 g/dL (6.4-8.2); UREA NITROGEN, BLOOD 28 mg/dL (7-18)
[2024-09-01 07:23] LABS: HEMOGLOBIN 5.3 g/dL (12.0-18.0)
[2024-09-01] MEDS: OCTREOTIDE ACETATE 1.25 MG in NACL 0.9% 250 ML IV SCH (07:49)
[2024-09-01] MEDS ORDERED: POTASSIUM CHLORIDE 10 MEQ TABER PO PRN (08:15)
[2024-09-01] MEDS ORDERED: HYDROcodone/APAP 5/325 MG 1 TAB TAB PO PRN (08:15)
[2024-09-01] MEDS ORDERED: MAGNESIUM OXIDE 400 MG TAB PO PRN (08:15)
[2024-09-01] MEDS ORDERED: KCL 20 MEQ IN 100 mL PREMIX 200 ML IV PRN (08:15)
[2024-09-01] MEDS ORDERED: FURO20TA8 PO (08:51)
[2024-09-01] MEDS ORDERED: CHOL200035 PO (08:51)
[2024-09-01] MEDS ORDERED: SPIR50TA25 PO (08:51)
[2024-09-01] MEDS ORDERED: FERR-212 PO (08:51)
[2024-09-01] MEDS: ONDANSETRON 4 MG/2 ML VIAL IVP PRN (10:13)
[2024-09-01] MEDS: NOREPINEPHRINE 8 MG in DEXTROSE 5% 250 ML IV PRN (10:26)
[2024-09-01] MEDS: NACL 0.9% 1,000 ML IV SCH (13:09)
[2024-09-01] MEDS: ERYTHROMYCIN 250 MG in NACL 0.9% 100 ML IV SCH (13:39)
[2024-09-01] MEDS: PANTOPRAZOLE 40 MG INJ VIAL IVP SCH (13:39)
[2024-09-01] MEDS: diphenhydrAMINE 50 MG/ML VIAL ONE (14:00)
[2024-09-01] MEDS: fentaNYL citrate 0.05 MG/ML VIAL ONE (14:00)
[2024-09-01] MEDS: MIDAZOLAM 5 MG/5 ML VIAL ONE (14:00)
[2024-09-01] MEDS: MIDAZOLAM 5 MG/5 ML VIAL IV ONE (14:22)
[2024-09-01] MEDS: fentaNYL citrate 0.05 MG/ML VIAL IVP ONE (14:23)
[2024-09-01] MEDS: PROPRANOLOL 1 MG/ML VIAL IVP ONE (14:39)
[2024-09-01] MEDS: PROPRANOLOL 1 MG/ML VIAL IVP SCH (14:45)
[2024-09-01 15:58] LABS: BASOPHILS # (AUTO) 0.1 K/uL (0.00-0.22); BASOPHILS % (AUTO) 0.5 % (0.0-2.0); LYMPHOCYTES # (AUTO) 0.9 K/uL (2.0-11.5); MEAN CORPUSCULAR HEMOGLOBIN 29 pg (27-31); MEAN CORPUSCULAR HGB CONC 33 g/dL (33-37); MEAN CORPUSCULAR VOLUME 87.9 fL (80-94); MONOCYTES # (AUTO) 1.1 K/uL (0.8-1.0); MONOCYTES % (AUTO) 9.4 % (1.7-9.3); NEUTROPHILS # (AUTO) 9.3 K/uL (1.8-7.7); NEUTROPHILS % (AUTO) 82.1 % (42.2-75.2); PLATELET COUNT (AUTO) 146 K/uL (140-450); RED BLOOD CELL COUNT(AUTO) 1.84 MIL/uL (4.20-6.10); RED CELL DISTRIBUTION WIDTH 15.2 % (11.6-13.7); WHITE BLOOD COUNT (AUTO) 11.3 K/uL (4.8-10.8)
[2024-09-01 16:09] LABS: HEMATOCRIT 16.2 % (36-52); HEMOGLOBIN 5.4 g/dL (12.0-18.0)
[2024-09-01 17:24] LABS: BASOPHILS # (AUTO) 0.1 K/uL (0.00-0.22); BASOPHILS % (AUTO) 0.9 % (0.0-2.0); EOSINOPHILS % (AUTO) 0.1 % (0.0-4.0); LYMPHOCYTES # (AUTO) 1.3 K/uL (2.0-11.5); LYMPHOCYTES % (AUTO) 10.2 % (20.5-51.1); MEAN CORPUSCULAR HEMOGLOBIN 29 pg (27-31); MEAN CORPUSCULAR HGB CONC 33 g/dL (33-37); MEAN CORPUSCULAR VOLUME 87.5 fL (80-94); MONOCYTES # (AUTO) 1.1 K/uL (0.8-1.0); MONOCYTES % (AUTO) 8.8 % (1.7-9.3); NEUTROPHILS # (AUTO) 9.9 K/uL (1.8-7.7); PLATELET COUNT (AUTO) 148 K/uL (140-450); RED BLOOD CELL COUNT(AUTO) 1.93 MIL/uL (4.20-6.10); RED CELL DISTRIBUTION WIDTH 15.7 % (11.6-13.7); WHITE BLOOD COUNT (AUTO) 12.3 K/uL (4.8-10.8)
[2024-09-01 17:38] LABS: HEMATOCRIT 16.9 % (36-52); HEMOGLOBIN 5.6 g/dL (12.0-18.0)
[2024-09-01] MEDS: chlordiazePOXIDE 25 MG CAP PO SCH (18:02)
[2024-09-01] MEDS: ERYTHROMYCIN 100 MG in NACL 0.9% 100 ML IV SCH (18:03)
[2024-09-01] MEDS: SODIUM FERRIC GLUCONATE 125 MG in NACL 0.9% 100 ML IV SCH (18:03)
[2024-09-01] MEDS ORDERED: NITROGLYCERIN 0.4 MG TAB SL PRN (20:30)
[2024-09-01] MEDS: MORPHINE SULFATE 4 MG/ML SYR IVP PRN (20:39)
[2024-09-01] MEDS: METOCLOPRAMIDE 10 MG/2 ML INJ VIAL IVP PRN (20:39)
[2024-09-01] MEDS: LACTULOSE 20 GM/30 ML UDC PO SCH (20:41)
[2024-09-02] VITALS (21 sets, daily range): BP systolic 91–134; BP diastolic 53–79; PULSE 62–88; RESP 12–24; TEMP 98–98.5; O2SAT 9–100
[2024-09-02 06:53] LABS: ALBUMIN 2.2 g/dL (3.4-5.0); CALCIUM 6.8 mg/dL (8.5-10.1); CREATININE 1.5 mg/dL (0.6-1.3); MAGNESIUM 1.4 mg/dL (1.8-2.4); TOTAL BILIRUBIN 3.7 mg/dL (0.0-1.0); TOTAL PROTEIN, SERUM 4.8 g/dL (6.4-8.2)
[2024-09-02 07:54] LABS: BASOPHILS # (AUTO) 0.1 K/uL (0.00-0.22); BASOPHILS % (AUTO) 0.6 % (0.0-2.0); EOSINOPHILS # (AUTO) 0.1 K/uL (0-0.4); EOSINOPHILS % (AUTO) 1.8 % (0.0-4.0); LYMPHOCYTES # (AUTO) 1.3 K/uL (2.0-11.5); LYMPHOCYTES % (AUTO) 16.4 % (20.5-51.1); MEAN CORPUSCULAR HEMOGLOBIN 29 pg (27-31); MEAN CORPUSCULAR HGB CONC 35 g/dL (33-37); MEAN CORPUSCULAR VOLUME 84.1 fL (80-94); MONOCYTES # (AUTO) 0.9 K/uL (0.8-1.0); MONOCYTES % (AUTO) 11.4 % (1.7-9.3); NEUTROPHILS # (AUTO) 5.7 K/uL (1.8-7.7); NEUTROPHILS % (AUTO) 69.8 % (42.2-75.2); PLATELET COUNT (AUTO) 57 K/uL (140-450); RED BLOOD CELL COUNT(AUTO) 2.21 MIL/uL (4.20-6.10); RED CELL DISTRIBUTION WIDTH 15.7 % (11.6-13.7); WHITE BLOOD COUNT (AUTO) 8.1 K/uL (4.8-10.8)
[2024-09-02 08:04] LABS: HEMATOCRIT 18.6 % (36-52); HEMOGLOBIN 6.5 g/dL (12.0-18.0)
[2024-09-02] MEDS: carvediloL 3.125 MG TAB PO SCH (09:00)
[2024-09-02] MEDS: FOLIC ACID 1 MG TAB PO SCH (09:47)
[2024-09-02] MEDS: THIAMINE 100 MG TAB PO SCH (09:47)
[2024-09-02] MEDS: MULTIVITAMIN 1 TAB PO SCH (09:48)
[2024-09-02] MEDS: MAG SULF 2000 MG/WATER PREMIX 50 ML IV PRN (09:48)
[2024-09-02 10:27] LABS: BASOPHILS % (AUTO) 0.6 % (0.0-2.0); EOSINOPHILS # (AUTO) 0.2 K/uL (0-0.4); EOSINOPHILS % (AUTO) 3.7 % (0.0-4.0); LYMPHOCYTES # (AUTO) 1.2 K/uL (2.0-11.5); LYMPHOCYTES % (AUTO) 18.6 % (20.5-51.1); MEAN CORPUSCULAR HEMOGLOBIN 29 pg (27-31); MEAN CORPUSCULAR HGB CONC 35 g/dL (33-37); MEAN CORPUSCULAR VOLUME 84.2 fL (80-94); MONOCYTES # (AUTO) 0.6 K/uL (0.8-1.0); MONOCYTES % (AUTO) 10.3 % (1.7-9.3); NEUTROPHILS # (AUTO) 4.2 K/uL (1.8-7.7); NEUTROPHILS % (AUTO) 66.8 % (42.2-75.2); PLATELET COUNT (AUTO) 58 K/uL (140-450); RED BLOOD CELL COUNT(AUTO) 2.25 MIL/uL (4.20-6.10); RED CELL DISTRIBUTION WIDTH 15.6 % (11.6-13.7); WHITE BLOOD COUNT (AUTO) 6.3 K/uL (4.8-10.8)
[2024-09-02 10:29] LABS: HEMOGLOBIN 6.6 g/dL (12.0-18.0)
[2024-09-02] MEDS: PANTOPRAZOLE 40 MG INJ VIAL IVP SCH (12:40)
[2024-09-02] MEDS: MIDODRINE 5 MG TAB PO SCH (13:04)
[2024-09-02] MEDS: OCTREOTIDE ACETATE 1.25 MG in NACL 0.9% 250 ML IV SCH (17:40)
[2024-09-02 20:23] LABS: BASOPHILS % (AUTO) 0.7 % (0.0-2.0); EOSINOPHILS # (AUTO) 0.3 K/uL (0-0.4); EOSINOPHILS % (AUTO) 4.6 % (0.0-4.0); HEMATOCRIT 22.8 % (36-52); HEMOGLOBIN 7.7 g/dL (12.0-18.0); LYMPHOCYTES # (AUTO) 0.9 K/uL (2.0-11.5); LYMPHOCYTES % (AUTO) 13.8 % (20.5-51.1); MEAN CORPUSCULAR HEMOGLOBIN 29 pg (27-31); MEAN CORPUSCULAR HGB CONC 34 g/dL (33-37); MEAN CORPUSCULAR VOLUME 84.9 fL (80-94); MONOCYTES # (AUTO) 0.6 K/uL (0.8-1.0); MONOCYTES % (AUTO) 9.8 % (1.7-9.3); NEUTROPHILS # (AUTO) 4.7 K/uL (1.8-7.7); NEUTROPHILS % (AUTO) 71.1 % (42.2-75.2); PLATELET COUNT (AUTO) 62 K/uL (140-450); RED BLOOD CELL COUNT(AUTO) 2.69 MIL/uL (4.20-6.10); RED CELL DISTRIBUTION WIDTH 15.5 % (11.6-13.7); WHITE BLOOD COUNT (AUTO) 6.6 K/uL (4.8-10.8)
[2024-09-03] VITALS (10 sets, daily range): BP systolic 92–107; BP diastolic 53–68; PULSE 67–83; RESP 16–25; TEMP 97.5–98.6; O2SAT 95–98
[2024-09-03 12:47] LABS: BASOPHILS % (AUTO) 0.6 % (0.0-2.0); EOSINOPHILS # (AUTO) 0.4 K/uL (0-0.4); EOSINOPHILS % (AUTO) 4.8 % (0.0-4.0); HEMATOCRIT 26.3 % (36-52); LYMPHOCYTES # (AUTO) 0.9 K/uL (2.0-11.5); LYMPHOCYTES % (AUTO) 11.9 % (20.5-51.1); MEAN CORPUSCULAR HEMOGLOBIN 29 pg (27-31); MEAN CORPUSCULAR HGB CONC 34 g/dL (33-37); MEAN CORPUSCULAR VOLUME 86.2 fL (80-94); MONOCYTES # (AUTO) 0.7 K/uL (0.8-1.0); MONOCYTES % (AUTO) 9.7 % (1.7-9.3); NEUTROPHILS # (AUTO) 5.6 K/uL (1.8-7.7); PLATELET COUNT (AUTO) 61 K/uL (140-450); RED BLOOD CELL COUNT(AUTO) 3.06 MIL/uL (4.20-6.10); RED CELL DISTRIBUTION WIDTH 15.9 % (11.6-13.7); WHITE BLOOD COUNT (AUTO) 7.6 K/uL (4.8-10.8)
[2024-09-03 13:12] LABS: ALBUMIN 2.1 g/dL (3.4-5.0); ANION GAP 9.8 (8-16); CALCIUM 7.1 mg/dL (8.5-10.1); CARBON DIOXIDE 23.2 mmol/L (21-32); CREATININE 1.3 mg/dL (0.6-1.3); MAGNESIUM 1.9 mg/dL (1.8-2.4); TOTAL BILIRUBIN 1.6 mg/dL (0.0-1.0); TOTAL PROTEIN, SERUM 4.7 g/dL (6.4-8.2)
[2024-09-03] MEDS: GABAPENTIN 100 MG CAP PO SCH (20:22)
[2024-09-04] VITALS: BP 101/60; PULSE 70; PULSE 71; RESP 20; TEMP 97.6; O2SAT 98
[2024-09-04 04:00] VITALS: BP 107/62; PULSE 72; PULSE 79; RESP 20; TEMP 98; O2SAT 97
[2024-09-04 06:46] LABS: BASOPHILS % (AUTO) 0.6 % (0.0-2.0); EOSINOPHILS # (AUTO) 0.5 K/uL (0-0.4); EOSINOPHILS % (AUTO) 6.3 % (0.0-4.0); HEMOGLOBIN 9.3 g/dL (12.0-18.0); LYMPHOCYTES # (AUTO) 1.1 K/uL (2.0-11.5); LYMPHOCYTES % (AUTO) 14.2 % (20.5-51.1); MEAN CORPUSCULAR HEMOGLOBIN 30 pg (27-31); MEAN CORPUSCULAR HGB CONC 34 g/dL (33-37); MONOCYTES # (AUTO) 0.7 K/uL (0.8-1.0); NEUTROPHILS # (AUTO) 5.3 K/uL (1.8-7.7); NEUTROPHILS % (AUTO) 69.9 % (42.2-75.2); PLATELET COUNT (AUTO) 65 K/uL (140-450); RED BLOOD CELL COUNT(AUTO) 3.11 MIL/uL (4.20-6.10); RED CELL DISTRIBUTION WIDTH 16.2 % (11.6-13.7); WHITE BLOOD COUNT (AUTO) 7.6 K/uL (4.8-10.8)
[2024-09-04 07:37] LABS: ALBUMIN 2.4 g/dL (3.4-5.0); ANION GAP 10.1 (8-16); CALCIUM 7.2 mg/dL (8.5-10.1); CARBON DIOXIDE 22.8 mmol/L (21-32); CREATININE 1.2 mg/dL (0.6-1.3); POTASSIUM 3.9 mmol/L (3.5-5.1); TOTAL BILIRUBIN 1.4 mg/dL (0.0-1.0); TOTAL PROTEIN, SERUM 5.1 g/dL (6.4-8.2)
[2024-09-04 08:00] VITALS: BP 99/60; PULSE 61; PULSE 74; PULSE 79; RESP 18; RESP 20; TEMP 97.6; O2SAT 97
[2024-09-04] MEDS: ACETAMINOPHEN 325 MG TAB PO PRN (11:39)
[2024-09-04 12:00] VITALS: BP 101/62; PULSE 75; PULSE 82; RESP 18; TEMP 97.7; O2SAT 95
[2024-09-04] MEDS ORDERED: SPIR50TA25 PO (15:47)
[2024-09-04] MEDS ORDERED: THIA100T45 PO (15:47)
[2024-09-04] MEDS ORDERED: FERR-212 PO (15:47)
[2024-09-04] MEDS ORDERED: PRO5 PO (15:47)
[2024-09-04] MEDS ORDERED: ATI.5 PO (15:47)
[2024-09-04] MEDS ORDERED: FURO-572 PO (15:47)
[2024-09-04] MEDS ORDERED: LACT10SO11 PO (15:47)
[2024-09-04] MEDS ORDERED: PANT40EC56 PO (15:47)
[2024-09-04] MEDS ORDERED: FOLI1TAB90 PO (15:47)
[2024-09-04 16:00] VITALS: BP 96/57; PULSE 74; PULSE 76; RESP 18; TEMP 97.6; O2SAT 4
== END 2024-09-04 18:30 | disposition home or self-care (01) | DRG 280 ==
LOC: MED 06:05 → MIC 08:10 → MTU 09-03 18:39
PROVIDERS: ADMIT Hospitalist; ATTEND Hospitalist
PROC: 30233N1 Transfusion of Nonautologous Red Blood Cells into Peripheral Vein, Percutaneous Approach (ICD-10-PCS; 2024-09-01)
PROC: 06L38CZ Occlusion of Esophageal Vein with Extraluminal Device, Via Natural or Artificial Opening Endoscopic (ICD-10-PCS; 2024-09-01)
PROC: 30233K1 Transfusion of Nonautologous Frozen Plasma into Peripheral Vein, Percutaneous Approach (ICD-10-PCS; principal; 2024-09-01 14:30)
DX: K70.30 Alcoholic cirrhosis of liver without ascites (principal); R57.1 Hypovolemic shock; I85.11 Secondary esophageal varices with bleeding; E43 Unspecified severe protein-calorie malnutrition; D68.9 Coagulation defect, unspecified; D69.6 Thrombocytopenia, unspecified; K76.6 Portal hypertension; N17.9 Acute kidney failure, unspecified; D62 Acute posthemorrhagic anemia; R65.10 Systemic inflammatory response syndrome (SIRS) of non-infectious origin without acute organ dysfunction; F10.10 Alcohol abuse, uncomplicated; K44.9 Diaphragmatic hernia without obstruction or gangrene; I86.4 Gastric varices; Z91.199 Patient's noncompliance with other medical treatment and regimen due to unspecified reason; Z79.899 Other long term (current) drug therapy; Z91.041 Radiographic dye allergy status; Z83.3 Family history of diabetes mellitus; Z68.28 Body mass index [BMI] 28.0-28.9, adult
CPT/HCPCS: 36415; 36430; 71045; 76700; 80053; 82105; 82140; 83690; 83735; 84484; 85025; 85610; 85730; 86886; 86900; 86901; 86920; 87081; 93005; 96365; 96375; 99291; 99292; G0482; J0696; J1200; J1364; J1800; J2250; J2270; J2354; J2405; J2470; J2765; J2916; J3010; J3475; J3490; J7030; J7060; P9016; P9017; Q0092